=== PATIENT | male | born 1965 | race Caucasian/White ===

== ENCOUNTER → 2016-05-21 | Outpatient (CLI) | payer MEDICARE, MEDICAID ==
[~2016-05-21] MED LIST: /DIVA50TA PO; /PRAV20TA; /PRAV20TA PO; CALC500T19 PO; CALCCHW12; CALCTAB41 PO; COLA100C PO; COLA100C2; COLA50CA3 PO; DEPA500T; DEPA500T2 PO; DRIS1CAP PO; DRIS50002 PO; DULC100C PO; DULC5TAB PO; DULCOLAX; FLEEENE4 PR; FLEETS; FLOR250C PO; Home Oxygen; LACT10SO8; LACT20EL PO; LACTPOW PO; MACR100C3 PO; MILKSUS; MIRA255PW PO; MIRA3350 PO; MIRALEX; MOM30SS PO; MYSO50TA; MYSO50TA PO; MYSO50TA5 PO; NIFE15CA PO; OMEP40CA2 PO; POLY150C4 PO; PRAV20TA2 PO; PRIL20CA; PRIL20CA PO; PRIL40CA; RECL5INJ2 IV; RECLAST; SENO8.6T11 PO; SENO8.6T5; SYNT25TA PO; TRAZ100T; TRAZ50TA2 PO; TRAZ50TA4 PO; VITAMIN D50000 UNT; WELL100T2; [UNRECOGNIZED DRUG - REMARK] XX
--- NOTE | 2016-05-23 09:17 | DEXA ---
AP SPINE L1 - L4 0.874 -2.9 -2.1 LT FEMUR TOTAL 0.663 -3.0 -2.3 RT FEMUR TOTAL 0.690 -2.9 -2.1 TOTAL BODY TOTAL OTHER DUAL FEMUR FRAX* ASSESSMENT Risk factors: History of adult fracture. 10 year probability of fracture Major osteoporotic fracture 10.3 % Hip fracture 2.8 % COMMENTS: There is osteoporosis of the spine and hips. The density of the spine has increased 7.6% since the initial exam on 2009. The spine density has decreased 12.6% since the most recent exam on 04/07/2012. The density of the left hip has decreased 19.9% since initial exam on 2009. The density of the left hip has decreased 6.6% since the most recent exam on 03/2012. FOLLOW-UP: Recommendation for the next bone density exam: 2 years. JOSEE
== END ==
LOC: M WHC 11:13
PROVIDERS: ATTEND Family Medicine
DX: M81.0 Age-related osteoporosis without current pathological fracture (principal)

== ENCOUNTER → 2016-08-06 | Outpatient (CLI) | payer MEDICARE, MEDICAID ==
[~2016-08-06] MED LIST changes: -COLA100C PO; +COLA100C3 PO
== END ==
LOC: M WUC 08:33
PROVIDERS: ATTEND Family Medicine
DX: M81.0 Age-related osteoporosis without current pathological fracture (principal)

== ENCOUNTER → 2016-08-14 | Outpatient (CLI) | payer MEDICARE, MEDICAID ==
[2016-08-14 10:18] LABS: BASO % 0.7 % (0.0-1.0); EOS # 0.1 K/mm3 (0.0-0.50); EOS % 1.4 % (0.0-3.0); LARGE UNSTAINED CELL # 0.1 K/mm3 (0.0-0.4); LARGE UNSTAINED CELL % 1.9 % (0.0-4.0); LYMPH # 2.1 K/mm3 (1.5-4.5); LYMPH % 43.7 % (24.0-44.0); MEAN CORPUSCULAR HGB CONC 32.9 g/dl (32.0-36.5); MEAN CORPUSCULAR VOLUME 97.2 fl (80.0-96.0); MONO # 0.4 K/mm3 (0.0-0.8); MONO % 9.2 % (0.0-5.0); PLATELET COUNT, AUTOMATED 189 k/mm3 (150-450); RED CELL DISTRIBUTION WIDTH 13.6 % (11.5-14.5); WHITE BLOOD COUNT 4.7 K/mm3 (4.0-10.0)
[2016-08-14 11:05] LABS: ALBUMIN 3.3 GM/DL (3.2-5.2); ALBUMIN/GLOBULIN RATIO 0.83 (1.00-1.93); ALKALINE PHOSPHATASE 95 U/L (45-117); ALT/SGPT 19 U/L (12-78); ANION GAP 5 MEQ/L (8-16); AST/SGOT 15 U/L (15-37); BILIRUBIN,TOTAL 0.3 MG/DL (0.2-1.0); BLOOD UREA NITROGEN 22 MG/DL (7-18); CALCIUM LEVEL 8.6 MG/DL (8.5-10.1); CARBON DIOXIDE LEVEL 31 MEQ/L (21-32); CHLORIDE LEVEL 108 MEQ/L (98-107); CHOLESTEROL LEVEL 125 MG/DL (<200); CREATININE FOR GFR 0.67 MG/DL (0.70-1.30); FERRITIN 33 NG/ML (26-388); GLOMERULAR FILTRATION RATE > 60.0 (>56); GLUCOSE, FASTING 70 MG/DL (70-105); PERCENT SATURATION 34.3 % (19.7-37.4); POTASSIUM SERUM 4.1 MEQ/L (3.5-5.1); SODIUM LEVEL 144 MEQ/L (136-145); TOTAL IRON BINDING CAPACITY 300 UG/DL (250-450); TOTAL PROTEIN 7.3 GM/DL (6.4-8.2); TRIGLYCERIDES LEVEL 108 MG/DL (<150)
== END ==
LOC: M WUC 08:26
PROVIDERS: ATTEND Family Medicine
DX: D69.6 Thrombocytopenia, unspecified (principal); E78.2 Mixed hyperlipidemia; E55.9 Vitamin D deficiency, unspecified; D50.9 Iron deficiency anemia, unspecified

== ENCOUNTER → 2016-08-18 | Outpatient (CLI) | payer MEDICARE, MEDICAID ==
--- NOTE | 2016-08-18 12:11 | REP ---
REASON: Known hydrocele. COMPARISON: 06/19/2015 The right testicle measures 4.4 x 2.4 x 2.8 cm and the left measures 3.8 x 2.4 x 2.9 cm. The testicular parenchymal echopattern has not changed significantly from the prior exam when the technical differences between the examinations are taken into consideration. Scattered areas of hypoechogenicity again seen, particularly in the right testicle, status quo. Doppler of each testicle shows color flow phenomenon bilaterally. There are bilateral hydroceles, left greater than right. IMPRESSION: Abnormal bilateral, but right greater than left, parenchymal echotexture, but essentially unchanged from the prior exam. The exact etiology of this is uncertain. This needs to be correlated clinically. Bilateral hydroceles, left greater than right. An infiltrative process involving the testicles, right greater than left, cannot be ruled out by this exam. Signed by Eddi Benoit DO 08/18/2016 02:15 P
== END ==
LOC: M SMT 09:26
PROVIDERS: ATTEND Nurse Practitioner Women's Health
DX: N43.3 Hydrocele, unspecified (principal); R93.8 Abnormal findings on diagnostic imaging of other specified body structures; M81.0 Age-related osteoporosis without current pathological fracture; R32 Unspecified urinary incontinence

== ENCOUNTER → 2016-08-24 | Outpatient (CLI) | payer MEDICARE, MEDICAID | LOC: M WUC 13:42 | PROVIDERS: ATTEND Nurse Practitioner Women's Health | DX: Z12.5 Encounter for screening for malignant neoplasm of prostate (principal) | CPT/HCPCS: 36415; G0103 ==

== ENCOUNTER → 2016-08-28 | Outpatient (CLI) | payer MEDICARE, MEDICAID ==
[2016-09-06 14:11] LABS: (LD) FRACTION 1 27 % (17-32); (LD) FRACTION 2 33 % (25-40); (LD) FRACTION 3 22 % (17-27); (LD) FRACTION 4 9 % (5-13); (LD) FRACTION 5 9 % (4-20); HCG SERUM TUMOR MARKER QUANT < 1 mIU/mL (0-3); LDH 208 IU/L (121-224)
== END ==
LOC: M SMT 11:31
PROVIDERS: ATTEND Urology
DX: N43.3 Hydrocele, unspecified (principal); Z12.5 Encounter for screening for malignant neoplasm of prostate
CPT/HCPCS: 36415; 82105; 83625; 84702; G0463

== ENCOUNTER → 2016-09-29 | Outpatient (CLI) | payer MEDICARE, MEDICAID ==
[2016-09-29 09:23] LABS: BASO % 0.6 % (0.0-1.0); EOS # 0.1 K/mm3 (0.0-0.50); EOS % 1.1 % (0.0-3.0); LARGE UNSTAINED CELL # 0.2 K/mm3 (0.0-0.4); LARGE UNSTAINED CELL % 2.4 % (0.0-4.0); LYMPH # 2.3 K/mm3 (1.5-4.5); LYMPH % 36.1 % (24.0-44.0); MEAN CORPUSCULAR HEMOGLOBIN 33.3 pg (27.0-33.0); MEAN CORPUSCULAR HGB CONC 33.9 g/dl (32.0-36.5); MEAN CORPUSCULAR VOLUME 98.3 fl (80.0-96.0); MONO # 0.6 K/mm3 (0.0-0.8); MONO % 8.5 % (0.0-5.0); NEUTROPHILS # 3.3 K/mm3 (1.8-7.7); NEUTROPHILS % 51.2 % (36.0-66.0); PLATELET COUNT, AUTOMATED 186 k/mm3 (150-450); RED CELL DISTRIBUTION WIDTH 13.5 % (11.5-14.5); WHITE BLOOD COUNT 6.4 K/mm3 (4.0-10.0)
[2016-09-29 10:09] LABS: ALBUMIN 3.5 GM/DL (3.2-5.2); ALBUMIN/GLOBULIN RATIO 0.85 (1.00-1.93); ALKALINE PHOSPHATASE 93 U/L (45-117); ALT/SGPT 19 U/L (12-78); ANION GAP 4 MEQ/L (8-16); AST/SGOT 15 U/L (15-37); BILIRUBIN,TOTAL 0.3 MG/DL (0.2-1.0); BLOOD UREA NITROGEN 27 MG/DL (7-18); CALCIUM LEVEL 8.5 MG/DL (8.5-10.1); CARBON DIOXIDE LEVEL 32 MEQ/L (21-32); CHLORIDE LEVEL 110 MEQ/L (98-107); CREATININE FOR GFR 0.66 MG/DL (0.70-1.30); GLOMERULAR FILTRATION RATE > 60.0 (>56); GLUCOSE, FASTING 70 MG/DL (70-105); POTASSIUM SERUM 4.1 MEQ/L (3.5-5.1); SODIUM LEVEL 146 MEQ/L (136-145); TOTAL PROTEIN 7.6 GM/DL (6.4-8.2)
[2016-10-02 00:07] LABS: PHENOBARBITAL (PRIMIDONE) 3 ug/mL (15-40)
== END ==
LOC: M WUC 08:08
PROVIDERS: ATTEND Psychiatry & Neurology Neurology
DX: G40.909 Epilepsy, unspecified, not intractable, without status epilepticus (principal)

== ENCOUNTER → 2016-12-17 | Outpatient (CLI) | payer MEDICARE, MEDICAID ==
[~2016-12-17] MED LIST changes: -COLA100C3 PO; +COLA100C5 PO; +TRAZ50TA11 PO; -TRAZ50TA4 PO
[2016-12-17 14:25] LABS: BASO % 0.6 % (0.0-1.0); EOS # 0.1 K/mm3 (0.0-0.50); EOS % 1.2 % (0.0-3.0); LARGE UNSTAINED CELL # 0.2 K/mm3 (0.0-0.4); LARGE UNSTAINED CELL % 2.6 % (0.0-4.0); LYMPH # 2.7 K/mm3 (1.5-4.5); LYMPH % 43.3 % (24.0-44.0); MEAN CORPUSCULAR HEMOGLOBIN 32.7 pg (27.0-33.0); MEAN CORPUSCULAR HGB CONC 32.7 g/dl (32.0-36.5); MONO # 0.5 K/mm3 (0.0-0.8); MONO % 8.6 % (0.0-5.0); NEUTROPHILS # 2.5 K/mm3 (1.8-7.7); NEUTROPHILS % 43.6 % (36.0-66.0); PLATELET COUNT, AUTOMATED 163 k/mm3 (150-450); RED CELL DISTRIBUTION WIDTH 13.7 % (11.5-14.5); WHITE BLOOD COUNT 5.8 K/mm3 (4.0-10.0)
[2016-12-17 14:30] LABS: ALBUMIN 3.6 GM/DL (3.2-5.2); ALKALINE PHOSPHATASE 75 U/L (45-117); ALT/SGPT 25 U/L (12-78); ANION GAP 6 MEQ/L (8-16); AST/SGOT 17 U/L (15-37); BILIRUBIN,TOTAL 0.2 MG/DL (0.2-1.0); BLOOD UREA NITROGEN 21 MG/DL (7-18); CALCIUM LEVEL 9.5 MG/DL (8.5-10.1); CARBON DIOXIDE LEVEL 31 MEQ/L (21-32); CHLORIDE LEVEL 109 MEQ/L (98-107); CREATININE FOR GFR 0.68 MG/DL (0.70-1.30); FERRITIN 40 NG/ML (26-388); FREE T4 1.02 NG/DL (0.76-1.46); GLOMERULAR FILTRATION RATE > 60.0 (>56); GLUCOSE, FASTING 72 MG/DL (70-105); PERCENT SATURATION 27.8 % (19.7-50.0); POTASSIUM SERUM 4.5 MEQ/L (3.5-5.1); SODIUM LEVEL 146 MEQ/L (136-145); TOTAL IRON BINDING CAPACITY 316 UG/DL (250-450); TOTAL PROTEIN 7.6 GM/DL (6.4-8.2)
== END ==
LOC: M WUC 08:33
PROVIDERS: ATTEND Family Medicine
DX: G40.909 Epilepsy, unspecified, not intractable, without status epilepticus (principal); D50.9 Iron deficiency anemia, unspecified; Z79.899 Other long term (current) drug therapy

== ENCOUNTER → 2017-03-25 | Outpatient (CLI) | payer MEDICARE, MEDICAID ==
[2017-03-26 14:18] LABS: PSA TOTAL 1.6 ng/mL (0.0-4.0)
== END ==
LOC: M WUC 08:58
PROVIDERS: ATTEND Urology
DX: Z12.5 Encounter for screening for malignant neoplasm of prostate (principal)

== ENCOUNTER → 2017-03-26 | Outpatient (CLI) | payer MEDICARE, MEDICAID ==
[2017-03-31 00:08] LABS: PHENOBARBITAL (PRIMIDONE) 3 ug/mL (15-40)
== END ==
LOC: M SMT 09:57
PROVIDERS: ATTEND Physician Assistant Medical
DX: Z51.81 Encounter for therapeutic drug level monitoring (principal); Z79.899 Other long term (current) drug therapy; R56.9 Unspecified convulsions; R25.1 Tremor, unspecified

== ENCOUNTER → 2017-05-26 | Outpatient (CLI) | payer MEDICARE, MEDICAID ==
[2017-05-26 09:32] LABS: BASO % 0.5 % (0.0-1.0); EOS # 0.1 10^3/uL (0.0-0.50); EOS % 0.9 % (0.0-3.0); HEMATOCRIT 46.2 % (42.0-52.0); HEMOGLOBIN 15.4 g/dl (14.0-18.0); IMMATURE GRANULOCYTE % 0.2 % (0-0); LYMPH # 2.8 10^3/uL (1.5-4.5); LYMPH % 44.4 % (24.0-44.0); MEAN CORPUSCULAR HEMOGLOBIN 31.8 pg (27.0-33.0); MEAN CORPUSCULAR HGB CONC 33.3 g/dl (32.0-36.5); MEAN CORPUSCULAR VOLUME 95.3 fl (80.0-96.0); MONO # 0.8 10^3/uL (0.0-0.8); MONO % 11.8 % (0.0-5.0); NEUTROPHILS # 2.7 10^3/uL (1.8-7.7); NEUTROPHILS % 42.2 % (36.0-66.0); PLATELET COUNT, AUTOMATED 187 10^3/uL (150-450); RED BLOOD COUNT 4.85 10^6/uL (4.30-6.10); RED CELL DISTRIBUTION WIDTH 13.8 % (11.5-14.5); WHITE BLOOD COUNT 6.4 10^3/uL (4.0-10.0)
[2017-05-26 09:57] LABS: ALBUMIN 3.5 GM/DL (3.2-5.2); ALKALINE PHOSPHATASE 75 U/L (45-117); ALT/SGPT 23 U/L (12-78); ANION GAP 5 MEQ/L (8-16); AST/SGOT 19 U/L (7-37); BILIRUBIN,TOTAL 0.3 MG/DL (0.2-1.0); BLOOD UREA NITROGEN 24 MG/DL (7-18); C REACTIVE PROTEIN QUANTITATIV < 0.30 MG/DL (0.00-0.30); CALCIUM LEVEL 9.2 MG/DL (8.5-10.1); CARBON DIOXIDE LEVEL 32 MEQ/L (21-32); CHLORIDE LEVEL 111 MEQ/L (98-107); CHOLESTEROL LEVEL 134 MG/DL (<200); CHOLESTEROL RISK RATIO 2.436 (<5); CPK CREATINE PHOSPHOKINASE 47 U/L (39-308); CREATININE FOR GFR 0.62 MG/DL (0.70-1.30); GLOMERULAR FILTRATION RATE > 60.0 (>56); GLUCOSE, FASTING 74 MG/DL (70-100); HDL CHOLESTEROL 55 MG/DL (>40); LDL CHOLESTEROL 60.2 MG/DL (<100); NON-HDL-C 79 MG/DL; POTASSIUM SERUM 4.4 MEQ/L (3.5-5.1); SODIUM LEVEL 148 MEQ/L (136-145); TOTAL PROTEIN 7.4 GM/DL (6.4-8.2); TRIGLYCERIDES LEVEL 94 MG/DL (<150); VALPROIC ACID (DEPAKOTE) 82.4 UG/ML (50.0-100.0)
[2017-05-26 10:39] LABS: VITAMIN B12 LEVEL 1303 PG/ML (247-911)
== END ==
LOC: M WUC 08:14
DX: D50.9 Iron deficiency anemia, unspecified (principal); E78.2 Mixed hyperlipidemia; G40.909 Epilepsy, unspecified, not intractable, without status epilepticus
CPT/HCPCS: 82550

== ENCOUNTER 2017-06-17 07:00 | Emergency (ER) | payer MEDICARE, MEDICAID | END 2017-06-17 08:12 | disposition home or self-care (01) | LOC: M ED 07:00 | DX: R09.89 Other specified symptoms and signs involving the circulatory and respiratory systems (principal); F73 Profound intellectual disabilities; R56.9 Unspecified convulsions; D72.819 Decreased white blood cell count, unspecified; Z79.890 Hormone replacement therapy; Z79.899 Other long term (current) drug therapy; Z87.19 Personal history of other diseases of the digestive system | CPT/HCPCS: 99282; G0463 ==

== ENCOUNTER → 2017-09-04 | Outpatient (CLI) | payer MEDICARE, MEDICAID | LOC: M WUC 17:46 | DX: T17.220A Food in pharynx causing asphyxiation, initial encounter (principal); Y92.89 Other specified places as the place of occurrence of the external cause | CPT/HCPCS: 71046 ==

== ENCOUNTER → 2017-10-11 | Outpatient (CLI) | payer MEDICARE, MEDICAID ==
[2017-10-11 15:58] LABS: VALPROIC ACID (DEPAKOTE) 71.8 UG/ML (50.0-100.0)
== END ==
LOC: M WUC 08:50
DX: Z51.81 Encounter for therapeutic drug level monitoring (principal); Z79.899 Other long term (current) drug therapy; R56.9 Unspecified convulsions; R25.1 Tremor, unspecified

== ENCOUNTER → 2017-10-11 | Outpatient (CLI) | payer MEDICARE, MEDICAID ==
[2017-10-11 15:46] LABS: BASO % 0.6 % (0.0-1.0); EOS # 0.1 10^3/uL (0.0-0.50); EOS % 1.1 % (0.0-3.0); HEMATOCRIT 42.7 % (42.0-52.0); HEMOGLOBIN 14.2 g/dl (13.5-17.5); IMMATURE GRANULOCYTE % 0.2 % (0-3.0); LYMPH # 2.9 10^3/uL (1.5-4.5); LYMPH % 45.8 % (24.0-44.0); MEAN CORPUSCULAR HEMOGLOBIN 32.3 pg (27.0-33.0); MEAN CORPUSCULAR HGB CONC 33.3 g/dl (32.0-36.5); MEAN CORPUSCULAR VOLUME 97.3 fl (80.0-96.0); MONO # 0.8 10^3/uL (0.0-0.8); MONO % 12.5 % (0.0-5.0); NEUTROPHILS # 2.5 10^3/uL (1.8-7.7); NEUTROPHILS % 39.8 % (36.0-66.0); PLATELET COUNT, AUTOMATED 170 10^3/uL (150-450); RED BLOOD COUNT 4.39 10^6/uL (4.30-6.10); RED CELL DISTRIBUTION WIDTH 14.3 % (11.5-14.5); RETIC HEMOGLOBIN EQUIVALENT 37.4 pg (24-36); RETICULOCYTE # 36.9 10^9/L (17-77); RETICULOCYTE % 0.8 % (0.5-1.5); WHITE BLOOD COUNT 6.4 10^3/uL (4.0-10.0)
[2017-10-11 15:59] LABS: ALBUMIN 3.3 GM/DL (3.2-5.2); ALBUMIN/GLOBULIN RATIO 0.83 (1.00-1.93); ALKALINE PHOSPHATASE 80 U/L (45-117); ALT/SGPT 22 U/L (12-78); ANION GAP 4 MEQ/L (8-16); AST/SGOT 17 U/L (7-37); BILIRUBIN,TOTAL 0.2 MG/DL (0.2-1.0); BLOOD UREA NITROGEN 24 MG/DL (7-18); CALCIUM LEVEL 8.7 MG/DL (8.5-10.1); CARBON DIOXIDE LEVEL 33 MEQ/L (21-32); CHLORIDE LEVEL 111 MEQ/L (98-107); CREATININE FOR GFR 0.69 MG/DL (0.70-1.30); FREE T4 0.82 NG/DL (0.76-1.46); GLOMERULAR FILTRATION RATE > 60.0 (>56); GLUCOSE, FASTING 73 MG/DL (70-100); POTASSIUM SERUM 4.4 MEQ/L (3.5-5.1); SODIUM LEVEL 148 MEQ/L (136-145); TOTAL PROTEIN 7.3 GM/DL (6.4-8.2); VALPROIC ACID (DEPAKOTE) 71.1 UG/ML (50.0-100.0)
[2017-10-12 09:55] LABS: TOTAL 25(OH) VITAMIN D 40.5 NG/ML (30.0-100.0)
[2017-10-12 09:56] LABS: PTH INTACT 47.2 PG/ML (18.5-88.0)
== END ==
LOC: M WUC 08:46
DX: D50.9 Iron deficiency anemia, unspecified (principal); E03.9 Hypothyroidism, unspecified; E55.9 Vitamin D deficiency, unspecified; G43.909 Migraine, unspecified, not intractable, without status migrainosus; Z51.81 Encounter for therapeutic drug level monitoring; Z79.899 Other long term (current) drug therapy; R25.1 Tremor, unspecified
CPT/HCPCS: 84443

== ENCOUNTER → 2017-12-09 | Outpatient (CLI) | payer MEDICARE, MEDICAID | LOC: M RAD 12:28 | DX: N43.3 Hydrocele, unspecified (principal) | CPT/HCPCS: 76870 ==

== ENCOUNTER → 2018-02-09 | Outpatient (CLI) | payer MEDICARE, MEDICAID ==
[2018-02-09 12:44] LABS: BASO % 0.3 % (0.0-1.0); EOS # 0.1 10^3/uL (0.0-0.50); EOS % 1.3 % (0.0-3.0); HEMATOCRIT 42.9 % (42.0-52.0); HEMOGLOBIN 14.3 g/dl (13.5-17.5); IMMATURE GRANULOCYTE % 0.3 % (0-3.0); LYMPH # 2.3 10^3/uL (1.5-4.5); LYMPH % 30.1 % (24.0-44.0); MEAN CORPUSCULAR HGB CONC 33.3 g/dl (32.0-36.5); MONO % 13.2 % (0.0-5.0); NEUTROPHILS # 4.1 10^3/uL (1.8-7.7); NEUTROPHILS % 54.8 % (36.0-66.0); PLATELET COUNT, AUTOMATED 158 10^3/uL (150-450); RED BLOOD COUNT 4.47 10^6/uL (4.30-6.10); RED CELL DISTRIBUTION WIDTH 14.5 % (11.5-14.5); WHITE BLOOD COUNT 7.5 10^3/uL (4.0-10.0)
[2018-02-09 13:02] LABS: ALBUMIN 3.1 GM/DL (3.2-5.2); ALBUMIN/GLOBULIN RATIO 0.74 (1.00-1.93); ALKALINE PHOSPHATASE 84 U/L (45-117); ALT/SGPT 18 U/L (12-78); ANION GAP 5 MEQ/L (8-16); AST/SGOT 15 U/L (7-37); BILIRUBIN,TOTAL 0.3 MG/DL (0.2-1.0); BLOOD UREA NITROGEN 16 MG/DL (7-18); C REACTIVE PROTEIN QUANTITATIV 4.19 MG/DL (0.00-0.30); CALCIUM LEVEL 8.5 MG/DL (8.5-10.1); CARBON DIOXIDE LEVEL 31 MEQ/L (21-32); CHLORIDE LEVEL 110 MEQ/L (98-107); CHOLESTEROL LEVEL 139 MG/DL (<200); CPK CREATINE PHOSPHOKINASE 43 U/L (39-308); CREATININE FOR GFR 0.65 MG/DL (0.70-1.30); GLOMERULAR FILTRATION RATE > 60.0 (>56); GLUCOSE, FASTING 75 MG/DL (70-100); HDL CHOLESTEROL 50 MG/DL (>40); LDL CHOLESTEROL 69 MG/DL (<100); NON-HDL-C 89 MG/DL; POTASSIUM SERUM 4.6 MEQ/L (3.5-5.1); PSA SCREENING 8.37 NG/ML (< 4.0); SODIUM LEVEL 146 MEQ/L (136-145); TOTAL PROTEIN 7.3 GM/DL (6.4-8.2); TRIGLYCERIDES LEVEL 99 MG/DL (<150); VALPROIC ACID (DEPAKOTE) 71.2 UG/ML (50.0-100.0)
== END ==
LOC: M WUC 08:51
DX: D69.6 Thrombocytopenia, unspecified (principal); E78.2 Mixed hyperlipidemia; Z12.5 Encounter for screening for malignant neoplasm of prostate; G40.909 Epilepsy, unspecified, not intractable, without status epilepticus
CPT/HCPCS: 82550

== ENCOUNTER 2018-02-23 12:44 | Observation (INO) | payer MEDICARE, MEDICAID ==
[2018-02-23] MEDS: ONDANSETRON 4MG/2ML VIAL (J2405) IV ×3 (13:45→23:02)
[2018-02-23 13:52] LABS: BASO % 0.2 % (0.0-1.0); EOS % 0.3 % (0.0-3.0); HEMATOCRIT 42.8 % (42.0-52.0); HEMOGLOBIN 14.5 g/dl (13.5-17.5); IMMATURE GRANULOCYTE % 0.4 % (0-3.0); LYMPH # 1.6 10^3/uL (1.5-4.5); LYMPH % 15.4 % (24.0-44.0); MEAN CORPUSCULAR HEMOGLOBIN 32.4 pg (27.0-33.0); MEAN CORPUSCULAR HGB CONC 33.9 g/dl (32.0-36.5); MEAN CORPUSCULAR VOLUME 95.7 fl (80.0-96.0); MONO # 0.9 10^3/uL (0.0-0.8); NEUTROPHILS # 7.5 10^3/uL (1.8-7.7); NEUTROPHILS % 74.7 % (36.0-66.0); PLATELET COUNT, AUTOMATED 185 10^3/uL (150-450); RED BLOOD COUNT 4.47 10^6/uL (4.30-6.10); RED CELL DISTRIBUTION WIDTH 14.6 % (11.5-14.5); WHITE BLOOD COUNT 10.1 10^3/uL (4.0-10.0)
[2018-02-23 14:04] LABS: GLUCOSE, FASTING 101 MG/DL (70-100)
[2018-02-23 14:05] LABS: ALBUMIN 3.4 GM/DL (3.2-5.2); ALBUMIN/GLOBULIN RATIO 0.81 (1.00-1.93); ALKALINE PHOSPHATASE 88 U/L (45-117); ALT/SGPT 25 U/L (12-78); ANION GAP 8 MEQ/L (8-16); AST/SGOT 22 U/L (7-37); BILIRUBIN,DIRECT < 0.1 MG/DL (0.0-0.2); BILIRUBIN,TOTAL 0.3 MG/DL (0.2-1.0); BLOOD UREA NITROGEN 27 MG/DL (7-18); CALCIUM LEVEL 8.8 MG/DL (8.5-10.1); CARBON DIOXIDE LEVEL 28 MEQ/L (21-32); CHLORIDE LEVEL 109 MEQ/L (98-107); CREATININE FOR GFR 1.12 MG/DL (0.70-1.30); GLOMERULAR FILTRATION RATE > 60.0 (>56); LIPASE 170 U/L (73-393); POTASSIUM SERUM 4.2 MEQ/L (3.5-5.1); SODIUM LEVEL 145 MEQ/L (136-145); TOTAL PROTEIN 7.6 GM/DL (6.4-8.2); VALPROIC ACID (DEPAKOTE) 70.9 UG/ML (50.0-100.0)
[2018-02-23] MEDS: NS 1,000 ML IV ×2 (15:02→18:29)
[2018-02-23] MEDS ORDERED: ACETAMINOPHEN TAB 650MG DOSE (2X325MG) PO (17:30)
[2018-02-23] MEDS ORDERED: BISACODYL 5 MG TAB PO ×2 (18:15→18:32)
[2018-02-23] MEDS ORDERED: FLEET ENEMA PR (18:15)
[2018-02-23] MEDS: CALCIUM/VITAMIN D 500 MG TAB PO (21:00)
[2018-02-23] MEDS: guaiFENesin ER 600 MG TAB PO (21:00)
[2018-02-23] MEDS: SENOKOT S TAB PO (21:00)
[2018-02-23] MEDS ORDERED: NON-FORMULARY COMPOUNDED MEDICATION PO (21:00)
[2018-02-23] MEDS: PRIMIDONE 50 MG TAB PO (21:00)
[2018-02-23] MEDS: PRAVASTATIN 20 MG TAB PO (21:00)
[2018-02-23] MEDS: traZODone 50 MG TAB PO (21:00)
[2018-02-23] MEDS ORDERED: NON-FORMULARY COMPOUNDED MEDICATION SQ (21:00)
[2018-02-23] MEDS: BACTRIM 160MG/800MG DS TAB PO (21:00)
[2018-02-23] MEDS: DIVALPROEX 500MG *ER* TAB PO (21:00)
[2018-02-24] MEDS: ONDANSETRON 4MG/2ML VIAL (J2405) IV (04:42)
[2018-02-24] MEDS: LEVOTHYROXINE 25MCG TABLET (0.025MG) PO ×2 (06:00→08:51)
[2018-02-24] MEDS: NS 1,000 ML IV (06:36)
[2018-02-24 06:50] LABS: HEMATOCRIT 37.2 % (42.0-52.0); HEMOGLOBIN 12.5 g/dl (13.5-17.5); MEAN CORPUSCULAR HEMOGLOBIN 31.7 pg (27.0-33.0); MEAN CORPUSCULAR HGB CONC 33.6 g/dl (32.0-36.5); MEAN CORPUSCULAR VOLUME 94.4 fl (80.0-96.0); PLATELET COUNT, AUTOMATED 150 10^3/uL (150-450); RED BLOOD COUNT 3.94 10^6/uL (4.30-6.10); RED CELL DISTRIBUTION WIDTH 14.8 % (11.5-14.5); WHITE BLOOD COUNT 9.3 10^3/uL (4.0-10.0)
[2018-02-24 07:19] LABS: ANION GAP 3 MEQ/L (8-16); BLOOD UREA NITROGEN 21 MG/DL (7-18); CARBON DIOXIDE LEVEL 28 MEQ/L (21-32); CHLORIDE LEVEL 113 MEQ/L (98-107); CREATININE FOR GFR 0.59 MG/DL (0.70-1.30); GLOMERULAR FILTRATION RATE > 60.0 (>56); GLUCOSE, FASTING 80 MG/DL (70-100); POTASSIUM SERUM 3.9 MEQ/L (3.5-5.1); SODIUM LEVEL 144 MEQ/L (136-145)
[2018-02-24] MEDS: guaiFENesin ER 600 MG TAB PO ×2 (08:50→09:00)
[2018-02-24] MEDS: OMEPRAZOLE 20 MG CAP PO ×2 (08:50→09:00)
[2018-02-24] MEDS: BACTRIM 160MG/800MG DS TAB PO ×2 (08:50→09:00)
[2018-02-24] MEDS: SENOKOT S TAB PO ×2 (08:51→09:00)
[2018-02-24] MEDS: CALCIUM/VITAMIN D 500 MG TAB PO ×2 (08:51→09:00)
[2018-02-24] MEDS: PRIMIDONE 50 MG TAB PO ×2 (08:51→09:00)
[2018-02-24] MEDS: DIVALPROEX 500MG *ER* TAB PO ×2 (08:51→09:00)
[2018-02-24] MEDS: MIRALAX *UNIT DOSE* 17GM PACKET PO (09:00)
[2018-02-24] MEDS: ENOXAPARIN 40 MG/0.4 ML SYRINGE (J1650) SC (09:00)
[2018-02-28] MEDS ORDERED: VITAMIN D 50,000 UNITS CAPSULE (ERGOCALCIFEROL 1.25MG) PO (09:00)
== END 2018-02-24 15:20 | disposition home or self-care (01) ==
LOC: M ED 12:44 → M ED INP 17:26 → M MS4PR 21:00
DX: K52.9 Noninfective gastroenteritis and colitis, unspecified (principal); E86.0 Dehydration; F72 Severe intellectual disabilities; G31.84 Mild cognitive impairment of uncertain or unknown etiology; G40.802 Other epilepsy, not intractable, without status epilepticus; K56.609 Unspecified intestinal obstruction, unspecified as to partial versus complete obstruction; M81.0 Age-related osteoporosis without current pathological fracture; N43.3 Hydrocele, unspecified; Z79.899 Other long term (current) drug therapy
CPT/HCPCS: J2405

== ENCOUNTER → 2018-03-11 | Outpatient (CLI) | payer MEDICARE, MEDICAID ==
[2018-03-13 15:08] LABS: PSA TOTAL 1.4 ng/mL (0.0-4.0)
== END ==
LOC: M WUC 16:50
DX: R97.20 Elevated prostate specific antigen [PSA] (principal)
CPT/HCPCS: 84154

== ENCOUNTER → 2018-04-06 | Outpatient (CLI) | payer MEDICARE, MEDICAID ==
[2018-04-06 20:43] LABS: VALPROIC ACID (DEPAKOTE) 74.9 UG/ML (50.0-100.0)
[2018-04-10 00:07] LABS: PHENOBARBITAL (PRIMIDONE) 3 ug/mL (15-40); PRIMIDONE, SERUM 2.9 ug/mL (5.0-12.0)
== END ==
LOC: M WUC 15:35
DX: R56.9 Unspecified convulsions (principal); R25.1 Tremor, unspecified; Z51.81 Encounter for therapeutic drug level monitoring; Z79.899 Other long term (current) drug therapy
CPT/HCPCS: 80188

== ENCOUNTER → 2018-05-24 | Outpatient (CLI) | payer MEDICARE, MEDICAID ==
[~2018-05-24] MED LIST changes: +AMIT24CA7 PO; +BACT800T5 PO; -DRIS50002 PO; +DRIS50003 PO; +FORT600S SC; +OMEP20CA3 PO; +SENE8.6T PO; +TRAZ-160 PO; -TRAZ50TA11 PO
== END ==
LOC: M WHC 10:14
PROVIDERS: ATTEND Family Medicine
DX: M81.0 Age-related osteoporosis without current pathological fracture (principal)

== ENCOUNTER → 2018-06-01 | Outpatient (CLI) | payer MEDICARE, MEDICAID ==
[2018-06-01 21:04] LABS: BASO % 0.3 % (0.0-1.0); EOS # 0.1 10^3/uL (0.0-0.50); EOS % 1.5 % (0.0-3.0); HEMATOCRIT 43.7 % (42.0-52.0); HEMOGLOBIN 14.2 g/dl (13.5-17.5); LYMPH # 2.2 10^3/uL (1.5-4.5); LYMPH % 33.4 % (24.0-44.0); MEAN CORPUSCULAR HEMOGLOBIN 31.5 pg (27.0-33.0); MEAN CORPUSCULAR HGB CONC 32.5 g/dl (32.0-36.5); MEAN CORPUSCULAR VOLUME 96.9 fl (80.0-96.0); MONO # 0.9 10^3/uL (0.0-0.8); MONO % 13.4 % (0.0-5.0); NEUTROPHILS # 3.3 10^3/uL (1.8-7.7); NEUTROPHILS % 51.2 % (36.0-66.0); PLATELET COUNT, AUTOMATED 144 10^3/uL (150-450); RED BLOOD COUNT 4.51 10^6/uL (4.30-6.10); WHITE BLOOD COUNT 6.5 10^3/uL (4.0-10.0)
[2018-06-01 21:29] LABS: ALBUMIN 3.4 GM/DL (3.2-5.2); ALT/SGPT 19 U/L (12-78); BILIRUBIN,TOTAL 0.2 MG/DL (0.2-1.0); BLOOD UREA NITROGEN 24 MG/DL (7-18); CALCIUM LEVEL 8.5 MG/DL (8.5-10.1); CARBON DIOXIDE LEVEL 31 MEQ/L (21-32); CHLORIDE LEVEL 105 MEQ/L (98-107); CREATININE FOR GFR 0.55 MG/DL (0.70-1.30); FREE T4 0.89 NG/DL (0.76-1.46); GLOMERULAR FILTRATION RATE > 60.0 (>56); GLUCOSE, FASTING 79 MG/DL (70-100); POTASSIUM SERUM 4.5 MEQ/L (3.5-5.1); PTH INTACT 67.6 PG/ML (18.5-88.0); SODIUM LEVEL 141 MEQ/L (136-145); TOTAL 25(OH) VITAMIN D 38.9 NG/ML (30.0-100.0); TOTAL PROTEIN 7.5 GM/DL (6.4-8.2)
== END ==
LOC: M WUC 16:03
PROVIDERS: ATTEND Family Medicine
DX: D69.6 Thrombocytopenia, unspecified (principal); E55.9 Vitamin D deficiency, unspecified; E03.9 Hypothyroidism, unspecified; D50.9 Iron deficiency anemia, unspecified; G40.909 Epilepsy, unspecified, not intractable, without status epilepticus

== ENCOUNTER → 2018-09-28 | Outpatient (CLI) | payer MEDICARE, MEDICAID ==
[~2018-09-28] MED LIST changes: -/DIVA50TA PO; -/PRAV20TA; -/PRAV20TA PO; +DEPA1TAB3 PO; +LACT15SO PO; -LACT20EL PO; -MIRA255PW PO; -OMEP20CA3 PO; +OMEP20CA4 PO; +OYST1TAB5 PO; +POLY1POW4 PO; +PRAV1TAB39; +PRAV1TAB39 PO; -SENE8.6T PO; +SENN1TAB38 PO; -TRAZ-160 PO; +TRAZ-252 PO; +pericolace PO
== END ==
LOC: M WUC 09-27 10:00
PROVIDERS: ATTEND Physician Assistant Medical
DX: R56.9 Unspecified convulsions (principal); R25.1 Tremor, unspecified

== ENCOUNTER 2018-10-13 06:55 | Day surgery (SDC) | payer MEDICARE, MEDICAID ==
[~2018-10-13] VITALS: Ht 162.6 cm; Wt 54.9 kg
[~2018-10-13 06:55] MED LIST changes: +NS 1,000 ML IV ONE; +OMEP20CA3 PO; -OMEP20CA4 PO
[2018-10-13] MEDS ORDERED: PROPOFOL 200 MG/20 ML VIAL As Ordered ONE (08:06)
[2018-10-13] MEDS ORDERED: LIDOCAINE 2% INJ 100 MG/5 ML SDV (FOR ANES.) As Ordered ONE (08:06)
--- NOTE | 2018-10-13 08:12 | ROOR ---
Patient Name: Raymond Stevenson Procedure Date: 10/13/2018 7:36 AM Date of : 1965 Age: 52 Room: [facility] Gender: Male Note Status: Finalized Procedure: Colonoscopy Indications: Screening for colorectal malignant neoplasm Providers: Cedric Reyez MD Referring MD: Jose Elias Garcias MD Requesting Provider: Medicines: Monitored Anesthesia Care Complications: No immediate complications. Procedure: Pre-Anesthesia Assessment: - Prior to the procedure, a History and Physical was performed, and patient medications and allergies were reviewed. The patient is unable to give consent secondary to the patient being legally incompetent to consent. The risks and benefits of the procedure and the sedation options and risks were discussed with the patient's sister. All questions were answered and informed consent was obtained. Patient identification and proposed procedure were verified by the physician, the nurse and the anesthesiologist in the endoscopy suite. Mental Status Examination: normal. Airway Examination: normal oropharyngeal airway and neck mobility. Respiratory Examination: clear to auscultation. CV Examination: normal. Prophylactic Antibiotics: The patient does not require prophylactic antibiotics. Prior Anticoagulants: The patient has taken no previous anticoagulant or antiplatelet agents. ASA Grade Assessment: IV - A patient with severe systemic disease that is a constant threat to life. After reviewing the risks and benefits, the patient was deemed in satisfactory condition to undergo the procedure. The anesthesia plan was to use monitored anesthesia care (MAC). Immediately prior to administration of medications, the patient was re-assessed for adequacy to receive sedatives. The heart rate, respiratory rate, oxygen saturations, blood pressure, adequacy of pulmonary ventilation, and response to care were monitored throughout the procedure. The physical status of the patient was re-assessed after the procedure. The Colonoscope was introduced through the anus and advanced to the terminal ileum, with identification of the appendiceal orifice and IC valve. The colonoscopy was technically difficult and complex due to poor bowel prep. The patient tolerated the procedure well. The quality of the bowel preparation was poor. Findings: The perianal and digital rectal examinations were normal. There is no endoscopic evidence of inflammation or mass, large polyps, small of flat polyps could not be determined in the entire colon. The retroflexed view of the distal rectum and anal verge was normal and showed no anal or rectal abnormalities. Poor prep, a third to half of colon wall covered with thick stools (no solid stools). Large amount of lavage performed with still some areas (right colon) difficult to maintain clean, clear to fully evaluate areas. Impression: - Preparation of the colon was poor. - The distal rectum and anal verge are normal on retroflexion view. - No specimens collected. Recommendation: - Discharge patient to home (with escort). - Repeat colonoscopy in 1 year because the bowel preparation was suboptimal. Cedric Reyez MD Cedric Reyez MD 10/13/2018 8:11:41 AM Electronically signed by Cedric Reyez MD Number of Addenda: 0 Note Initiated On: 10/13/2018 7:36 AM Estimated Blood Loss: Estimated blood loss: none.
[2018-10-13 08:30] VITALS: BP 113/63
== END 2018-10-13 08:49 | disposition home or self-care (01) ==
LOC: M OPP 06:55
PROVIDERS: ATTEND Surgery
DX: Z12.11 Encounter for screening for malignant neoplasm of colon (principal)

== ENCOUNTER → 2018-10-20 | Outpatient (CLI) | payer MEDICARE, MEDICAID ==
[~2018-10-20] MED LIST changes: -NS 1,000 ML IV ONE
[2018-10-20 20:13] LABS: ALBUMIN 3.4 GM/DL (3.2-5.2); BLOOD UREA NITROGEN 29 MG/DL (7-18); CALCIUM LEVEL 9.2 MG/DL (8.5-10.1); CARBON DIOXIDE LEVEL 30 MEQ/L (21-32); CHLORIDE LEVEL 110 MEQ/L (98-107); CREATININE FOR GFR 0.71 MG/DL (0.70-1.30); GLOMERULAR FILTRATION RATE > 60.0 (>56); GLUCOSE, FASTING 73 MG/DL (70-100); PHOSPHORUS LEVEL 2.6 MG/DL (2.5-4.9); POTASSIUM SERUM 4.2 MEQ/L (3.5-5.1); SODIUM LEVEL 145 MEQ/L (136-145)
== END ==
LOC: M WUC 15:43
PROVIDERS: ATTEND Family Medicine
DX: M81.0 Age-related osteoporosis without current pathological fracture (principal)

== ENCOUNTER 2018-10-21 09:24 | Outpatient (CLI) | payer MEDICARE, MEDICAID ==
[~2018-10-21] VITALS: Ht 162.6 cm; Wt 55.4 kg
[2018-10-21] MEDS ORDERED: ZOLEDRONIC ACID 5 MG in APPROPRIATE DILUENT 1 EA IV ONE (09:45)
== END 2018-10-21 10:40 | disposition home or self-care (01) ==
LOC: M INFU 09:24
PROVIDERS: ATTEND Family Medicine
DX: M81.0 Age-related osteoporosis without current pathological fracture (principal)
CPT/HCPCS: 96365; J3489

== ENCOUNTER → 2018-12-10 | Outpatient (CLI) | payer MEDICARE, MEDICAID ==
[~2018-12-10] MED LIST changes: -OMEP20CA3 PO; +OMEP20CA4 PO
[2018-12-10 09:10] LABS: BASO % 0.5 % (0.0-1.0); EOS # 0.1 10^3/uL (0.0-0.50); EOS % 0.8 % (0.0-3.0); HEMATOCRIT 43.7 % (42.0-52.0); LYMPH % 47.6 % (24.0-44.0); MEAN CORPUSCULAR HEMOGLOBIN 31.3 pg (27.0-33.0); MEAN CORPUSCULAR VOLUME 97.8 fl (80.0-96.0); MONO # 0.7 10^3/uL (0.0-0.8); MONO % 11.4 % (0.0-5.0); NEUTROPHILS # 2.5 10^3/uL (1.8-7.7); NEUTROPHILS % 39.4 % (36.0-66.0); PLATELET COUNT, AUTOMATED 159 10^3/uL (150-450); RED BLOOD COUNT 4.47 10^6/uL (4.30-6.10); WHITE BLOOD COUNT 6.3 10^3/uL (4.0-10.0)
[2018-12-10 09:38] LABS: CHOLESTEROL RISK RATIO 2.545 (<5); FREE T4 0.81 NG/DL (0.76-1.46); THYROID STIMULATING HORMONE 1.78 uIU/ML (0.358-3.740); VALPROIC ACID (DEPAKOTE) 74.1 UG/ML (50.0-100.0)
[2018-12-10 09:59] LABS: PTH INTACT 51.9 PG/ML (18.5-88.0); TOTAL 25(OH) VITAMIN D 54.6 NG/ML (30.0-100.0)
== END ==
LOC: M WUC 08:14
PROVIDERS: ATTEND Nurse Practitioner Family
DX: D69.6 Thrombocytopenia, unspecified (principal); D50.9 Iron deficiency anemia, unspecified; E03.9 Hypothyroidism, unspecified; Z79.899 Other long term (current) drug therapy

== ENCOUNTER → 2019-03-17 | Outpatient (CLI) | payer MEDICARE, MEDICAID ==
[~2019-03-17] MED LIST changes: +CIPR-249 PO; +CIPR500T3 PO; +ENEMENE PR; +IBUP-1720 PO; +NON-325T5 PO; +OMEP40CA97 PO; +OYST500T91 PO; +SENN-23 PO
[2019-03-17 09:52] LABS: BASO # 0.1 10^3/uL (0.0-0.2); BASO % 0.8 % (0.0-1.0); EOS # 0.1 10^3/uL (0.0-0.5); EOS % 1.4 % (0.0-3.0); HEMATOCRIT 46.9 % (42.0-52.0); LYMPH # 2.7 10^3/uL (1.5-5.0); LYMPH % 42.6 % (24.0-44.0); MEAN CORPUSCULAR HEMOGLOBIN 30.1 pg (27.0-33.0); MONO # 0.7 10^3/uL (0.0-0.8); MONO % 11.6 % (0.0-5.0); NEUTROPHILS # 2.7 10^3/uL (1.5-8.5); NEUTROPHILS % 43.4 % (36.0-66.0); PLATELET COUNT, AUTOMATED 154 10^3/uL (150-450); RED BLOOD COUNT 4.99 10^6/uL (4.30-6.10); WHITE BLOOD COUNT 6.3 10^3/uL (4.0-10.0)
[2019-03-17 10:48] LABS: ALBUMIN 3.4 GM/DL (3.2-5.2); ALT/SGPT 28 U/L (12-78); BILIRUBIN,TOTAL 0.6 MG/DL (0.2-1.0); BLOOD UREA NITROGEN 28 MG/DL (7-18); CALCIUM LEVEL 9.6 MG/DL (8.5-10.1); CARBON DIOXIDE LEVEL 34 MEQ/L (21-32); CHLORIDE LEVEL 110 MEQ/L (98-107); CREATININE FOR GFR 0.77 MG/DL (0.70-1.30); GLOMERULAR FILTRATION RATE > 60.0 (>56); GLUCOSE, FASTING 67 MG/DL (70-100); POTASSIUM SERUM 4.8 MEQ/L (3.5-5.1); SODIUM LEVEL 147 MEQ/L (136-145); TOTAL PROTEIN 7.7 GM/DL (6.4-8.2); VALPROIC ACID (DEPAKOTE) 68.8 UG/ML (50.0-100.0)
[2019-03-17 13:17] LABS: TOTAL 25(OH) VITAMIN D 65.2 NG/ML (30.0-100.0)
== END ==
LOC: M WUC 08:27
PROVIDERS: ATTEND Family Medicine
DX: Z12.5 Encounter for screening for malignant neoplasm of prostate (principal); D69.6 Thrombocytopenia, unspecified; E55.9 Vitamin D deficiency, unspecified; G40.909 Epilepsy, unspecified, not intractable, without status epilepticus
CPT/HCPCS: 36415; 80053; 80164; 82306; 83970; 85025; G0103

== ENCOUNTER 2019-03-22 18:18 | Emergency (ER) | payer MEDICARE, MEDICAID ==
[~2019-03-22 18:18] MED LIST changes: -CIPR-249 PO; -CIPR500T3 PO; -ENEMENE PR; -IBUP-1720 PO; -NON-325T5 PO; -OYST500T91 PO; -SENN-23 PO
[2019-03-22] MEDS ORDERED: NON-325T5 PO (19:16)
[2019-03-22] MEDS ORDERED: IBUPROFEN 600 MG TAB PO ONE (19:30)
[2019-03-22] MEDS ORDERED: NS 1,000 ML IV ONE (19:30)
[2019-03-22 20:25] LABS: BASO % 0.3 % (0.0-1.0); HEMATOCRIT 42.8 % (42.0-52.0); HEMOGLOBIN 13.7 g/dl (13.5-17.5); LYMPH # 1.6 10^3/uL (1.5-5.0); LYMPH % 16.3 % (24.0-44.0); MEAN CORPUSCULAR HEMOGLOBIN 30.6 pg (27.0-33.0); MEAN CORPUSCULAR VOLUME 95.7 fl (80.0-96.0); MONO # 0.7 10^3/uL (0.0-0.8); MONO % 7.5 % (0.0-5.0); NEUTROPHILS # 7.2 10^3/uL (1.5-8.5); NEUTROPHILS % 75.4 % (36.0-66.0); PLATELET COUNT, AUTOMATED 111 10^3/uL (150-450); RED BLOOD COUNT 4.47 10^6/uL (4.30-6.10); WHITE BLOOD COUNT 9.6 10^3/uL (4.0-10.0)
[2019-03-22 20:28] LABS: INFLUENZA A AMPLIFICATION NEGATIVE (NEGATIVE); INFLUENZA B AMPLIFICATION NEGATIVE (NEGATIVE)
--- NOTE | 2019-03-22 20:30 | REP ---
CHEST, SINGLE VIEW: Single view of the chest is performed. There is no acute infiltrate. There is mild interstitial fibrosis which is stable. There is mild left ventricular prominence. Mediastinal silhouette is unchanged. IMPRESSION: No acute infiltrate. Electronically Signed by Anikt Servin MD 03/23/2019 10:07 A
[2019-03-22 20:37] LABS: ALT/SGPT 26 U/L (12-78); BILIRUBIN,DIRECT < 0.1 MG/DL (0.0-0.2); BILIRUBIN,TOTAL 0.4 MG/DL (0.2-1.0); BLOOD UREA NITROGEN 26 MG/DL (7-18); CALCIUM LEVEL 8.7 MG/DL (8.5-10.1); CARBON DIOXIDE LEVEL 31 MEQ/L (21-32); CHLORIDE LEVEL 111 MEQ/L (98-107); CREATININE FOR GFR 0.91 MG/DL (0.70-1.30); GLOMERULAR FILTRATION RATE > 60.0 (>56); GLUCOSE, FASTING 81 MG/DL (70-100); POTASSIUM SERUM 3.9 MEQ/L (3.5-5.1); SODIUM LEVEL 145 MEQ/L (136-145); TOTAL PROTEIN 7.2 GM/DL (6.4-8.2)
--- NOTE | 2019-03-23 00:52 | REPVR ---
PROCEDURE INFORMATION: Exam: CT Abdomen And Pelvis Without Contrast Exam date and time: 03/22/2019 12:11 AM Age: 53 years old Clinical history: Other: Unable to urinate; Additional info: Unable to urinate, failed more's, MR, eval bladder size TECHNIQUE: Imaging protocol: Computed tomography of the abdomen and pelvis without contrast. Radiation optimization: All CT scans at this facility use at least one of these dose optimization techniques: automated exposure control; mA and/or kV adjustment per patient size (includes targeted exams where dose is matched to clinical indication); or iterative reconstruction. COMPARISON: CT ABD PELVIS W/O CONTRAST 07/04/2015 9:16 PM FINDINGS: Lungs: Bibasilar dependent and linear atelectasis versus scarring. Pleural space: Trace left pleural effusion. Mediastinum: Circumferential thickening of the distal esophageal wall. Correlate clinically for evidence of esophagitis. Liver: Normal. No mass. Gallbladder and bile ducts: Cholelithiasis. No CT evidence of acute cholecystitis. Pancreas: Normal. No ductal dilation. Spleen: Normal. No splenomegaly. Adrenals: Normal. No mass. Kidneys and ureters: Nonobstructive bilateral nephrolithiasis. Simple appearing left renal cyst measuring up to 1.8 cm in diameter. Stomach and bowel: Rectum is distended with stool measuring 10 cm in diameter. Correlate clinically for evidence of fecal impaction. Redundant sigmoid colon. Status post partial small bowel resection. Appendix: No evidence of appendicitis. Intraperitoneal space: Unremarkable. No free air. No significant fluid collection. Vasculature: Unremarkable. No abdominal aortic aneurysm. Lymph nodes: Unremarkable. No enlarged lymph nodes. Bladder: Moderately distended urinary bladder. Reproductive: Large left and [id number] right hydroceles. Bones/joints: Dextroscoliosis of the lumbar spine. Severe osteoarthritis of the right hip Chronic compression deformity of L1. Dextroscoliosis. Soft tissues: Unremarkable. IMPRESSION: Moderately distended urinary bladder. Rectum is distended with stool measuring 10 cm in diameter. Correlate clinically for evidence of fecal impaction. Cholelithiasis. No CT evidence of acute cholecystitis. Electronically signed by: Matthew Casas On 03/23/2019 00:52:06 AM
[2019-03-23 01:35] VITALS: BP 120/80
[2019-03-23] MEDS ORDERED: CIPR-249 PO (01:38)
[2019-03-23] MEDS ORDERED: CIPROFLOXACIN 500 MG TAB PO ONE (01:45)
[2019-03-23] MEDS ORDERED: ENEMENE PR (18:18)
[2019-03-23] MEDS ORDERED: CIPR500T3 PO (18:18)
[2019-03-23] MEDS ORDERED: IBUP-1720 PO (18:18)
[2019-03-23] MEDS ORDERED: SENN-23 PO (18:18)
[2019-03-23] MEDS ORDERED: OYST500T91 PO (18:18)
== END 2019-03-23 02:31 | disposition home or self-care (01) ==
LOC: M ED 18:18
DX: N39.0 Urinary tract infection, site not specified (principal); G40.909 Epilepsy, unspecified, not intractable, without status epilepticus; E78.5 Hyperlipidemia, unspecified; D72.819 Decreased white blood cell count, unspecified; F79 Unspecified intellectual disabilities; Z79.899 Other long term (current) drug therapy

== ENCOUNTER 2019-03-23 14:49 | Inpatient (IN) | payer MEDICARE, MEDICAID ==
[2019-03-23] VITALS (9 sets, daily range): BP systolic 52–81; BP diastolic 27–49
[~2019-03-23] VITALS: Ht 162.6 cm; Wt 48.1 kg
[~2019-03-23 14:49] MED LIST changes: +CIPR-249 PO; +NON-325T5 PO; +OMEP-172 PO; -OMEP20CA4 PO
[2019-03-23] MEDS ORDERED: LIDOCAINE 2% 5ML JELLY UROJET TOP ONE (16:00)
[2019-03-23] MEDS ORDERED: PANTOPRAZOLE 40MG INJ (PROTONIX) (C9113) IV ONE (16:00)
[2019-03-23] MEDS ORDERED: NS 1,000 ML IV ONE ×2 (16:00→22:15)
[2019-03-23 16:32] LABS: HEMATOCRIT 40.9 % (42.0-52.0); MEAN CORPUSCULAR HEMOGLOBIN 30.7 pg (27.0-33.0); MEAN CORPUSCULAR HGB CONC 31.8 g/dl (32.0-36.5); MEAN CORPUSCULAR VOLUME 96.7 fl (80.0-96.0); RED BLOOD COUNT 4.23 10^6/uL (4.30-6.10); WHITE BLOOD COUNT 3.4 10^3/uL (4.0-10.0)
[2019-03-23 16:50] LABS: INR 1.54; PROTHROMBIN TIME 18.2 SECONDS (11.8-14.0)
[2019-03-23 16:58] LABS: ALBUMIN 2.3 GM/DL (3.2-5.2); BILIRUBIN,DIRECT 1.5 MG/DL (0.0-0.2); BILIRUBIN,TOTAL 1.9 MG/DL (0.2-1.0); CALCIUM LEVEL 8.4 MG/DL (8.5-10.1); CREATININE FOR GFR 3.33 MG/DL (0.70-1.30); GLOMERULAR FILTRATION RATE 20.7 (>56); POTASSIUM SERUM 3.5 MEQ/L (3.5-5.1); TOTAL PROTEIN 5.7 GM/DL (6.4-8.2)
[2019-03-23] MEDS ORDERED: NS 1,000 ML IV SCH (17:00)
[2019-03-23] MEDS ORDERED: NS 500 ML IV ONE (17:00)
[2019-03-23 17:02] LABS: PLATELET COUNT, AUTOMATED 32 10^3/uL (150-450)
--- NOTE | 2019-03-23 17:03 | REP ---
Clinical: Difficulty voiding. Technique: Real time saleem scale ultrasound examination using curved array transducer. Findings: Bladder is normal in appearance and without wall thickening or mass lesion. Prevoid bladder measures 7.2 x 11.3 x 1.7 cm (75 ml). Evaluation is otherwise limited and ureteral jets along with postvoid images could not be obtained. Impression: Grossly normal appearance to the bladder. Electronically Signed by Refugio Pimentel MD 03/23/2019 04:54 P
[2019-03-23 17:11] LABS: ATYPICAL LYMPH 1 % (0-5); LYMPHOCYTES 10 % (16-44); METAMYELOCYTES 7 % (0-0); MONOCYTES 4 % (0-5); MYELOCYTES 1 % (0-0); NEUTROPHILS 58 % (28-66); PLATELET ESTIMATE MARKED DECREASE (NORMAL); TOXIC VACUOLATION 2+
[2019-03-23 17:15] LABS: DOHLE BODIES 1+
[2019-03-23] MEDS ORDERED: cefTRIAXone SOD 2 GM in D5W MINI-BAG PLUS 50 ML IV ONE (17:15)
--- NOTE | 2019-03-23 18:08 | REP ---
Clinical: Sepsis. Comparison: 03/22/2019. Findings: Mediastinum and cardiac silhouette are stable. Lung michael demonstrate diffuse chronic interstitial changes. Subtle left basilar atelectasis cannot be excluded. No effusion. No pneumothorax. Skeletal structures intact. Impression: Chronic stable changes. Cannot exclude trace left basilar atelectasis. Electronically Signed by Refugio Pimentel MD 03/23/2019 05:59 P
[2019-03-23] MEDS ORDERED: SENN-23 PO (18:18)
[2019-03-23] MEDS ORDERED: ENEMENE PR (18:18)
[2019-03-23] MEDS ORDERED: IBUP-1720 PO (18:18)
[2019-03-23] MEDS ORDERED: CIPR500T3 PO (18:18)
[2019-03-23] MEDS ORDERED: OYST500T91 PO (18:18)
[2019-03-23] MEDS: MEROPENEM INJ 500 MG in IV 1 EA IV SCH (18:48)
[2019-03-23] MEDS ORDERED: VANCOMYCIN HCL 1,000 MG, VIAL MATE ADAPTER 1 EACH in D5W 250 ML IV ONE (19:00)
[2019-03-23 19:19] LABS: HEMATOCRIT 42.9 % (42.0-52.0); HEMOGLOBIN 13.3 g/dl (13.5-17.5); MEAN CORPUSCULAR HEMOGLOBIN 30.2 pg (27.0-33.0); MEAN CORPUSCULAR VOLUME 97.5 fl (80.0-96.0); WHITE BLOOD COUNT 4.6 10^3/uL (4.0-10.0)
[2019-03-23 19:30] LABS: ALBUMIN 2.3 GM/DL (3.2-5.2); BILIRUBIN,TOTAL 1.8 MG/DL (0.2-1.0); CALCIUM LEVEL 8.3 MG/DL (8.5-10.1); CREATININE FOR GFR 3.45 MG/DL (0.70-1.30); GLOMERULAR FILTRATION RATE 19.9 (>56); TOTAL PROTEIN 6.1 GM/DL (6.4-8.2)
--- NOTE | 2019-03-23 19:49 | HPEPDOC ---
[facility] Medical History & Physical Date of Admission Mar 23, 2019 Date of Service: Mar 23, 2019 Attending Physician: SMITH PHAM MD History and Physical CHIEF COMPLAINT: Sent from facility for lack of urination HISTORY OF PRESENT ILLNESS: 53-year-old male, past medical history of mental retardation, cerebral palsy, seizure disorder, GERD, presents from facility for lack of urination. Patient presented to the emergency department yesterday with fever, chills, diagnosed with UTI, unable to place Dalton catheter yesterday and sent back home. Patient is nonverbal at baseline, information obtained from employee at bedside and patient's chart from the facility. Patient has not voided since returning home from the emergency department yesterday. Another attempt was made to place Dalton catheter in the ED today, unsuccessful, patient did void after on his own. Patient underwent bladder ultrasound, which showed 75 mL when necessary. Of note, patient is in acute renal failure based on labs from yesterday and today. PAST MEDICAL HISTORY: 1. Cerebral palsy. 2. Mental retardation. 3. Seizure disorder. 4. GERD PAST SURGICAL HISTORY: 1. Unable to obtain. SOCIAL HISTORY: Unable to obtain FAMILY HISTORY: Unable to obtain ALLERGIES: Please see below. REVIEW OF SYSTEMS: Unable to obtain HOME MEDICATIONS: Please see below. PHYSICAL EXAMINATION: VITAL SIGNS: Please see below. GENERAL: No distress, frail HEENT: Normocephalic, atraumatic, dry mucous membranes NECK: Supple CARDIOVASCULAR EXAMINATION: S1, S2, tachycardic RESPIRATORY EXAMINATION: Clear to auscultation, no wheezing ABDOMINAL EXAMINATION: Soft, nontender, nondistended, positive bowel sounds EXTREMITIES: Range of motion intact SKIN: No rash NEUROLOGICAL EXAMINATION: no focal deficits PSYCHIATRIC EXAMINATION: Guarded LABORATORY DATA: See below. IMAGING: Bladder ultrasound with 75 mL of urine MICROBIOLOGY: Please see below. ASSESSMENT: 53-year-old male with past medical history of cerebral palsy, seizure disorder and GERD being admitted for severe sepsis, DIC and acute renal failure. PLAN: 1. Severe sepsis. Urine is a likely source, lactate of 9, broad-spectrum coverage with vancomycin and Merrem, status post IV fluid bolus in the ED, continue maintenance fluids, cultures pending, admitted to the ICU for monitoring, blood pressure stable for now. Despite having thrombocytopenia it is strongly recommen ded to continue DVT prophylaxis in critically ill patient's with DIC. DVT prophylaxis with heparin subcutaneous 5000 units every 12 hours. 2. DIC. Secondary to above, labs suggestive, case discussed with mail processing equipment mechanic, Dr. Weaver, who recommends further monitoring for now, if patient develops bleeding or labs, worsening can treat with platelets and cryoprecipitate as needed. Fibrinogen less than 200, repeat labs in 6 hours, no signs of bleeding at this time. 3. Acute renal failure. Likely prerenal, CT abdomen and pelvis pending, Dalton placement unsuccessful, patient voided after unsuccessful Dalton attempt, discussed with urologist, Dr. Greer regarding Dalton placement, recommends monitoring as long as patient is not obstructed. 4. Seizure disorder. We will hold Depakote given acute renal failure and elevated liver enzymes for now. 5. GERD. Continue home omeprazole DVT prophylaxis: Heparin subcutaneous GI prophylaxis: Home PPI Vital Signs Vital Signs Date Time Temp Pulse Resp B/P (MAP) Pulse Ox O2 Delivery O2 Flow Rate FiO2 03/23/19 18:04 116 20 135/88 (104) 97 03/23/19 14:49 97.2 Room Air Laboratory Data Labs 24H Laboratory Tests 2 03/23/19 16:19: Lymphocytes # (Auto) , Nucleated Red Blood Cells % (auto) 0.0, Neutrophils 58, Band Neutrophils 19H, Lymphocytes (Manual) 10L, Monocytes (Manual) 4, Metamyelocytes 7H, Myelocytes 1H, Atypical Lymphocytes 1, Dohle Bodies 1+, Toxic Vacuolation 2+, Platelet Estimate MARKED DECREASE, Immature Platelet Fraction 10.8, Prothrombin Time 18.2H, Prothromb Time International Ratio 1.54, Activated Partial Thromboplast Time 50.0H, Fibrinogen 160L, Anion Gap 13, Glomerular Filtration Rate 20.7L, Calcium Level 8.4L, Total Bilirubin 1.9#H, Direct Bilirubin 1.5H, Aspartate Amino Transf (AST/SGOT) 199H, Alanine Aminotransferase (ALT/SGPT) 110H, Alkaline Phosphatase 95, Total Protein 5.7#L, Albumin 2.3#L, Albumin/Globulin Ratio 0.68L, Lipase 316 03/23/19 16:21: Lactic Acid Level 9.0*H 03/23/19 18:28: Anion Gap 11, Glomerular Filtration Rate 19.9L, Calcium Level 8.3L, Total Bilirubin 1.8H, Aspartate Amino Transf (AST/SGOT) 183H, Alanine Aminotransferase (ALT/SGPT) 112H, Alkaline Phosphatase 93, Total Protein 6.1L, Albumin 2.3L, Albumin/Globulin Ratio 0.61L CBC/BMP Laboratory Tests 03/23/19 16:19 03/23/19 18:28 Home Medications Scheduled Calcium Carbonate/Vitamin D3 (Calcium 500-Vit D3 200 Tablet) 1 Each Tablet, 1 TAB PO BID Ciprofloxacin HCl (Ciprofloxacin HCl) 500 Mg Tablet, 500 MG PO BID FILLED 03/23/19 FOR 7 DAYS Divalproex Sodium (Depakote ER) 500 Mg Tab, 500 MG PO BID Ergocalciferol (Vitamin D2) (Drisdol) 50,000 Unit Cap, 50,000 UNIT PO QMONTH 5TH OF EVERY MONTH IN THE EVENING Levothyroxine Sodium (Synthroid) 25 Mcg Tab, 25 MCG PO QPM TAKES AT 1600 Lubiprostone (Amitiza) 24 Mcg Cap, 24 MCG PO BID Omeprazole (Omeprazole) 20 Mg Cap, 40 MG PO DAILY Polyethylene Glycol 3350 (Miralax) 1 Pow Pow, 1 DOSE PO DAILY Pravastatin Sodium (Pravastatin Sodium) 20 Mg Tab, 20 MG PO QHS Primidone (Mysoline) 50 Mg Tab, 50 MG PO BID Sennosides/Docusate Sodium (Senna-S Tablet) 1 Each Tablet, 2 TAB PO BID Trazodone HCl (Trazodone HCl) 50 Mg Tab, 50 MG PO QHS Scheduled PRN Acetaminophen (Acetaminophen) 325 Mg Tablet, 650 MG PO Q6H PRN for PAIN / FEVER Bisacodyl (Dulcolax) 5 Mg Tab, 10 MG PO DAILY PRN for CONSTIPATION Ibuprofen (Ibuprofen) 200 Mg Tablet, 400 MG PO QID PRN for PAIN / FEVER Sodium Phosphate,Garden-Dibasic (Enema) 133 Ml Enema, 1 ANGUS [place] QHS PRN for CONSTIPATION Allergies Coded Allergies: No Known Allergies (Unverified , 10/05/18) A-FIB/CHADSVASC A-FIB History Current/History of A-Fib/PAF?: No SMITH PHAM MD Mar 23, 2019 19:49
[2019-03-23 19:50] LABS: INR 1.91; PROTHROMBIN TIME 21.7 SECONDS (11.8-14.0)
[2019-03-23 19:51] LABS: PARTIAL THROMBOPLASTIN TIME 51.4 SECONDS (25.0-38.4)
[2019-03-23] MEDS ORDERED: DEXTROSE 50% 50 ML SYRINGE IV STA (19:53)
[2019-03-23 19:56] LABS: FIBRINOGEN 141 MG/DL (221-452)
[2019-03-23 19:59] LABS: PLATELET COUNT, AUTOMATED 27 10^3/uL (150-450)
--- NOTE | 2019-03-23 20:43 | REPVR ---
PROCEDURE INFORMATION: Exam: CT Abdomen And Pelvis Without Contrast Exam date and time: 03/23/2019 7:51 PM Age: 53 years old Clinical history: Other: Ananth TECHNIQUE: Imaging protocol: Computed tomography of the abdomen and pelvis without contrast. Radiation optimization: All CT scans at this facility use at least one of these dose optimization techniques: automated exposure control; mA and/or kV adjustment per patient size (includes targeted exams where dose is matched to clinical indication); or iterative reconstruction. COMPARISON: CT ABD PELVIS W/O CONTRAST 03/23/2019 12:05 AM FINDINGS: Lungs: Bibasilar atelectasis. Pleural thickening left lung base. Liver: Normal. No mass. Gallbladder and bile ducts: There are gallstones present. No evidence of cholecystitis demonstrated. Pancreas: Normal. No ductal dilation. Spleen: Normal. No splenomegaly. Adrenals: Normal. No mass. Kidneys and ureters: Low attenuation focus in the left kidney measures 13 mm likely represents a cyst, stable in comparison to the prior study. Smaller lucency in the right kidney not clearly visualized measures approximately 8 mm also like to assess. Correlation with renal ultrasound would be helpful. Bilateral nonobstructive renal calculi. Stomach and bowel: Impacted feces in the rectosigmoid with diffuse thickening of the wall of the rectosigmoid, findings which may indicate stercoral colitis. There is mild to moderate dilatation of the proximal colon. Status post partial small bowel obstruction. Appendix: No evidence of appendicitis. Intraperitoneal space: Unremarkable. No free air. No significant fluid collection. Vasculature: Unremarkable. No abdominal aortic aneurysm. Lymph nodes: Unremarkable. No enlarged lymph nodes. Bladder: Diffuse thickening of the bladder wall which is not significantly distended. Finding may be related to underdistention. Reproductive: The prostate gland demonstrates moderate hyperplasia. Bilateral hydroceles with fluid in the left inguinal canal consistent with a patent processus vaginalis. Bones/joints: The spine demonstrates mild degenerative changes. Soft tissues: Umbilical hernia. IMPRESSION: 1. There are gallstones present. No evidence of cholecystitis demonstrated. 2. Impacted feces in the rectosigmoid with diffuse thickening of the wall of the rectosigmoid, findings which may indicate stercoral colitis. There is mild to moderate dilatation of the proximal colon. 3. Low attenuation focus in the left kidney measures 13 mm likely represents a cyst, stable in comparison to the prior study. Smaller lucency in the right kidney not clearly visualized measures approximately 8 mm also like to assess. Correlation with renal ultrasound would be helpful. 4. Bilateral nonobstructive renal calculi. 5. Diffuse thickening of the bladder wall which is not significantly distended. Finding may be related to underdistention. 6. Moderate prostatic hyperplasia. 7. Bilateral hydroceles with fluid in the left inguinal canal consistent with a patent processus vaginalis. Electronically signed by: Kalpesh Rm On 03/23/2019 20:42:29 PM
[2019-03-23 20:56] LABS: D-DIMER QUANT > 4000 ng/ml (<500)
[2019-03-23] MEDS ORDERED: HEPARIN SOD (PORCINE) 5000 UNITS/ML VIAL SQ SCH (21:00)
--- NOTE | 2019-03-23 21:25 | PHACANCOPD ---
PHARMACY VANCOMYCIN DOSING Pt Demographics Demographics Patient Age:53 , Weight:52.270 , Gender: male Adjusted Body Weight Date: 03/23/19, Adjusted Body Weight: Kg Events Past 24 Hours Events Past 24 Hours: NO: Dialysis, Diuretic Therapy, Change in CrCl, Fever, Elevation in WBC, Pending Diagnostics, Pending Procedures, Other Vancomycin Vancomycin indication: UTI/SEPSIS Vancomycin Target Ranges: 15-20 mcg/ml Vancomycin Load Y/N: No Load Dose Date Time Vancomycin Load Dose: Date: Time: Vancomycin Dose Date: 03/23/19. Current Vancomycin Dose: [1G IV Q24H] Intermittent Dosing?: No Labs Labs Item Value Date Time White Blood Count 3.4 10^3/uL L 03/23/19 1619 White Blood Count 4.6 10^3/uL 03/23/19 1828 Creatinine 3.45 MG/DL H 03/23/19 1828 Micro Microbiology 03/23/19 Blood Culture, Received Pending Creatinine Clearance Date:03/23/19. Creatinine Clearance: [20 ML/MIN]. Assessment and Plan Maintaining Current Dose?: Yes Reason for dose change: No Dose Change Pharmacist Note Pharmacist Note Date: 03/23/19. Pharmacist note: Pt is a 53 year old male be treated for Uti/SEPSIs with acute renal failure goal trough 15-20mcg/ml. The patient was last treated with vancomycin here at [facility] in 2001. To achieve goal the patient was started on 1g vancomycin IV in the ER 03/23/19. Maintenance therapy will consist of 1g IV every 24 hours starting 05/24/18 @22. We will continue to monitor and adjust the dose as needed. KAN LEÓN [facility]ARM[facility] Mar 23, 2019 21:25
[2019-03-23] MEDS ORDERED: LORazepam 2 MG/ML VIAL (J2060) As Ordered ONE (21:45)
[2019-03-23] MEDS ORDERED: LORazepam 2 MG/ML VIAL (J2060) IV STA (22:05)
[2019-03-23] MEDS: NOREPINEPHRINE BITARTRATE 8 MG in D5W 492 ML IV SCH (22:17)
[2019-03-23] MEDS: LEVOTHYROXINE 25MCG TABLET (0.025MG) PO SCH (22:47)
[2019-03-23] MEDS: PHENYLEPHRINE HCL INJ 50 MG in D5W 495 ML IV SCH (23:19)
[2019-03-24] VITALS (80 sets, daily range): BP systolic 77–132; BP diastolic 47–72
[2019-03-24 00:08] LABS: INR 2.01; PROTHROMBIN TIME 22.5 SECONDS (11.8-14.0)
[2019-03-24 00:15] LABS: HEMATOCRIT 36.9 % (42.0-52.0); HEMOGLOBIN 11.8 g/dl (13.5-17.5); MEAN CORPUSCULAR VOLUME 96.9 fl (80.0-96.0); RED BLOOD COUNT 3.81 10^6/uL (4.30-6.10); WHITE BLOOD COUNT 6.4 10^3/uL (4.0-10.0)
[2019-03-24] MEDS ORDERED: NS 1,000 ML IV ONE (00:15)
--- NOTE | 2019-03-24 00:15 | IPNPDOC ---
Text Note Date of Service The patient was seen on 03/24/19. NOTE Procedure note INDICATION: Septic shock PROCEDURE CLIENT DELIVERY SPECIALIST: Dr Carli Pimentel PROCEDURE SUMMARY: The [facility] Central Line Insertion Practices form was completed by an independent observer ICU nurse starting with the first handwash prior to starting sterile technique. A time out was performed. My hands were washed immediately prior to the procedure. I wore a surgical cap, mask with protective eyewear, full gown and sterile gloves throughout the procedure. The patient was placed in Trendelenburg position. RIGHT chest region was prepped using chlorhexidine scr ub and draped in sterile fashion using a full drape and sterile probe cover employed. The medial and lateral heads of the sternocleidomastoid muscle were identified as was the carotid pulse. The Internal Jugular vein was identified using the ultrasound. Anesthesia was achieved over the vein using 1% lidocaine. Using real-time out of plane guidance, the introducer needle was inserted into the Internal Jugular vein under direct ultrasound visualization. Venous blood was withdrawn. The syringe was removed and a guidewire was advanced into the introducer needle. The guidewire was visualized in the Internal Jugular Vein by ultrasound. A small incision was made at the skin surface with a scalpel and the introducer needle was exchanged for a dilator over the guidewire. After appropriate dilation was obtained, the dilator was exchanged over the wire for a central venous catheter. The wire was removed and the catheter was sutured in place. A sterile sorbaview shield was placed over the catheter at the insertion site. The patient tolerated the procedure without any hemodynamic compromise. At time of procedure completion, all ports aspirated and flushed properly. Post- procedure chest x-ray is pending at this time. Estimated blood loss is 5 cc. VS,Fishbone, I+O VS, Fishbone, I+O Laboratory Tests 03/23/19 16:19 03/23/19 18:28 Vital Signs Date Time Temp Pulse Resp B/P (MAP) Pulse Ox O2 Delivery O2 Flow Rate FiO2 03/23/19 21:23 68/42 (51) 03/23/19 21:04 113 96 03/23/19 20:49 Room Air 03/23/19 18:04 20 03/23/19 14:49 97.2 I&O- Last 24 Hours up to 6 AM 03/24/19 06:00 Intake Total 1550 ml Output Total 0 ml Balance 1550 ml ARTEM GONSALES DO Mar 24, 2019 00:15
[2019-03-24 00:19] LABS: PLATELET COUNT, AUTOMATED 25 10^3/uL (150-450)
[2019-03-24 00:33] LABS: ALBUMIN 1.7 GM/DL (3.2-5.2); BILIRUBIN,TOTAL 1.5 MG/DL (0.2-1.0); CREATININE FOR GFR 3.28 MG/DL (0.70-1.30); POTASSIUM SERUM 3.1 MEQ/L (3.5-5.1); TOTAL PROTEIN 4.6 GM/DL (6.4-8.2)
[2019-03-24] MEDS ORDERED: NS 1,000 ML IV SCH (00:45)
[2019-03-24] MEDS: KCL 20MEQ IN 100ML SWI (KRUN) 20 MEQ in IV 1 EA IV SCH ×6 (00:53→03:01)
[2019-03-24] MEDS ORDERED: KCL 10MEQ/100ML SWI (KRUN) 10 MEQ in IV 1 EA IV SCH (01:00)
[2019-03-24 02:23] LABS: HEMOGLOBIN 12.8 g/dl (13.5-17.5); MEAN CORPUSCULAR HEMOGLOBIN 30.5 pg (27.0-33.0); MEAN CORPUSCULAR HGB CONC 31.2 g/dl (32.0-36.5); MEAN CORPUSCULAR VOLUME 97.9 fl (80.0-96.0); RED BLOOD COUNT 4.19 10^6/uL (4.30-6.10); WHITE BLOOD COUNT 8.5 10^3/uL (4.0-10.0)
[2019-03-24 02:24] LABS: PLATELET COUNT, AUTOMATED 26 10^3/uL (150-450)
[2019-03-24 02:31] LABS: INR 1.88; PROTHROMBIN TIME 21.4 SECONDS (11.8-14.0)
[2019-03-24 02:33] LABS: PARTIAL THROMBOPLASTIN TIME 62.8 SECONDS (25.0-38.4)
[2019-03-24 02:37] LABS: FIBRINOGEN 160 MG/DL (221-452)
[2019-03-24 02:40] LABS: ANISOCYTOSIS 1+; ATYPICAL LYMPH 1 % (0-5); LYMPHOCYTES 3 % (16-44); METAMYELOCYTES 18 % (0-0); MONOCYTES 3 % (0-5); MYELOCYTES 3 % (0-0); NEUTROPHILS 61 % (28-66); PLATELET ESTIMATE MARKED DECREASE (NORMAL)
[2019-03-24 02:42] LABS: DOHLE BODIES 1+
[2019-03-24 02:43] LABS: TOXIC VACUOLATION 1+
[2019-03-24] MEDS: NOREPINEPHRINE BITARTRATE 8 MG in D5W 492 ML IV SCH ×5 (03:01→21:06)
[2019-03-24 03:05] LABS: D-DIMER QUANT > 4000 ng/ml (<500)
[2019-03-24 04:51] LABS: HEMATOCRIT 43.2 % (42.0-52.0); HEMOGLOBIN 13.7 g/dl (13.5-17.5); MEAN CORPUSCULAR HEMOGLOBIN 30.8 pg (27.0-33.0); MEAN CORPUSCULAR HGB CONC 31.7 g/dl (32.0-36.5); MEAN CORPUSCULAR VOLUME 97.1 fl (80.0-96.0); RED BLOOD COUNT 4.45 10^6/uL (4.30-6.10); WHITE BLOOD COUNT 9.4 10^3/uL (4.0-10.0)
[2019-03-24 05:00] LABS: PLATELET COUNT, AUTOMATED 31 10^3/uL (150-450)
[2019-03-24 05:11] LABS: ALBUMIN 1.9 GM/DL (3.2-5.2); BILIRUBIN,TOTAL 1.6 MG/DL (0.2-1.0); CALCIUM LEVEL 6.7 MG/DL (8.5-10.1); CREATININE FOR GFR 2.89 MG/DL (0.70-1.30); GLOMERULAR FILTRATION RATE 24.4 (>56); MAGNESIUM LEVEL 1.2 MG/DL (1.8-2.4); POTASSIUM SERUM 4.3 MEQ/L (3.5-5.1); TOTAL PROTEIN 5.4 GM/DL (6.4-8.2)
[2019-03-24] MEDS: MEROPENEM INJ 500 MG in IV 1 EA IV SCH ×2 (05:35→17:55)
[2019-03-24] MEDS: PHENYLEPHRINE HCL INJ 50 MG in D5W 495 ML IV SCH ×2 (05:54→13:02)
--- NOTE | 2019-03-24 06:44 | REP ---
Clinical: Central line placement. Comparison: 03/23/2019. Findings: Right triple-lumen catheter via internal jugular approach extends to the SVC/right atrium. The mediastinum and cardiac silhouette are normal. Increased perihilar and bilateral markings may reflect early interstitial edema versus scattered atelectasis. No obvious effusion. No pneumothorax. Skeletal structures intact. Impression: 1. Central line in satisfactory position. No pneumothorax. 2. Cannot exclude mild interstitial edema or scattered atelectasis. Electronically Signed by Refugio Pimentel MD 03/24/2019 06:36 A
[2019-03-24] MEDS: MAG SULF 1GM/100ML (MAG RUN) 1 GM in IV 1 EA IV SCH ×4 (07:32→11:15)
[2019-03-24] MEDS: OMEPRAZOLE 20 MG CAP PO SCH (08:49)
[2019-03-24] MEDS ORDERED: SODIUM BICARBONATE 150 MEQ in D5W 1,000 ML IV SCH (10:00)
[2019-03-24] MEDS ORDERED: VASOPRESSIN INJ 20 UNITS/ML VIAL As Ordered ONE (10:31)
[2019-03-24] MEDS: VASOPRESSIN INJ 20 UNITS in NS 499 ML IV SCH ×2 (10:39→17:58)
[2019-03-24 10:44] LABS: ABG BASE EXCESS -9.2 (-2.0-2.0); ABG HCO3 14.7 MEQ/L (22.0-26.0); ABG O2 SATURATION 91.6 % (95.0-99.0); ABG PARTIAL PRESSURE CO2 26.5 mmHg (35.0-45.0); ABG PARTIAL PRESSURE O2 55.5 mmHg (75.0-100.0); ABG TOTAL CO2 15.5 MEQ/L (22.0-29.0); ABG pH (ARTERIAL) 7.361 UNITS (7.350-7.450)
--- NOTE | 2019-03-24 10:53 | IPNPDOC ---
Subjective Date Seen The patient was seen on 03/24/19. Subjective Chief Complaint/HPI I received notification that Dr. Louis, the on-call critical care physician, was interested in assisting with this patient; of course I assented. When I arrived on the floor, I found that he was requiring three pressors, though the phenylephrine was being slowly weaned off. I appreciate Dr. Louis's assistance in managing this patient. Further review of his outpatient chart reveals that he has had at least one episode of prostatitis with possible LUTS in the past. His PSA was acutely elevated during that episode and he was treated with antibiotics after which his PSA returned to the normal range. We have a recent PSA value of 1.97 from 03/17/19, one week ago. Based on his presentation, I suspect that a similar thing has happened. He either has a cystitis that lead to a prostatitis or started with a prostatitis, but regardless he probably has a prostatitis now. This is leading to an obstructive uropathy with retained infected urine and sepsis of urinary origin. He is passing some urine now, but I suspect it may be more of an overflow incontinence situation rather than truly voiding. As they were not able to get a urinary catheter placed on admission yesterday we are guessing at his output based on weighing his diapers. His penis is reportedly withdrawn into the foreskin and the prepubic fat pad so an external catheter is not going to work. The nursing staff is currently trying to get better output values using an external female catheter, Purewick, but I have little confidence that this will be accurate enough to gauge the efficacy of the pressors by. General: Reports: ROS Unobtainable Objective Physical Examination General Exam: Positive: Alert, Other (his sister and a [facility] staff member are present at the bedside); Negative: Cooperative (developmentally diasbled) Eye Exam: Negative: Sclera icteric ENT Exam: Positive: Pharynx Normal, Tongue Midline; Negative: Mucous membr. moist/pink (moderately dry) Neck Exam: Positive: Supple; Negative: JVD, Lymphadenopathy Chest Exam: Positive: Clear to auscultation, Normal air movement Heart Exam: Positive: Tachycardic, Regular Rhythm; Negative: Murmurs Abdomen Exam: Positive: Normal bowel sounds, Soft; Negative: Tenderness Male Exam: Negative: Edema (the penis is buried in the peripubic fat pad. The foreskin could be retracted and there is no urethritis or purulent discharge from the urethral meatus. The urethral meatus extends to the ventral edge of the glans, but not past it so it is not technically a hypospadias. ) Extremity Exam: Negative: Cyanosis, Edema Skin Exam: Negative: Breakdown Neuro Exam: Negative: Normal Speech Psych Exam: Positive: Other (he is reportedly at baseline, but this is non- verbal) Assessment /Plan Problems (1) Severe sepsis Status: Acute Response to Treatment: Uncompensated Discussed With: Nurse, Cover Inspector, Patient, Health Care Proxy, Family with Pt Consent Problem Specific Plan: Consult Specialist, Monitor Clinically, Repeat Labs Problem Text: He is currently maintained with three pressors (norepinephrine, phenylephrine, and vasopressin). Dr. Louis is having some success at weaning off the phenylephrine. I spoke frankly with his sister explaining that we were keeping his blood pressure high enough to continue to perfuse his vital organs, but that we have good evidence that other parts of his body are suffering for lack of oxygen and blood flow. We are trying our best to keep him alive, but he is currently very sick. The real fix to all of this is to get the infection under control, but that is difficult currently because we can't get a urinary catheter in to make sure we are draining all of the infected urine from his bladder. I am going to consult a urologist to assist us with getting a catheter in. (2) Prostatitis, acute Status: Acute Response to Treatment: Uncontrolled Discussed With: Cover Inspector, Patient, Family with Pt Consent Problem Specific Plan: Consult Specialist, Repeat Tests Problem Text: I strongly suspect, though I have not yet proven, that this is a major cause of his infection and obstructive uropathy. He has a history of acute prostatitis with similar, though less severe, symptoms in the past. Fortunately we have a recent normal PSA. I added a PSA to the labs drawn this morning. If it returns elevated this will confirm my suspicions and will help guide us with duration of antibiotic therapy. He is currently on empiric meropenem and vancomycin (as he has a h/o MRSA) until we get cultures back. (3) Obstructive uropathy Discussed With: Cover Inspector Problem Specific Plan: Consult Specialist, Repeat Labs Problem Text: His labs would indicate a renal or post-renal cause for his impaired renal function. I suspect that he has urinary obstruction from a prostatitis, thought the fact that they were not able to pass a urinary catheter last night may indicate that there is something else going on. I have requested urology's help in evaluating and treating this condition. (4) Urinary retention with incomplete bladder emptying Status: Acute Response to Treatment: Uncontrolled Discussed With: Nurse, Cover Inspector, Patient, Family with Pt Consent Problem Specific Plan: Consult Specialist Problem Text: A bladder scan indicated about 200cc of unvoided urine, but I suspect that this test is inaccurate based on his habitus and his current state of fecal retention. I have requested that urology come to place a urinary catheter to make sure that we are not leaving infected urine in his bladder to worsen his urosepsis. (5) Hypotension Status: Acute Response to Treatment: Controlled Discussed With: Nurse, Cover Inspector, Patient, Health Care Proxy, Family with Pt Consent Problem Specific Plan: Consult Specialist, Monitor Clinically, Repeat Labs Problem Text: He is hypotensive from urosepsis. Dr. Louis is assisting with managing his pressors. I appreciate her help. We need accurate I/O to help gauge the efficacy of his regimen. Urology will be assisting with a catheter placement to facilitate this. (6) Metabolic acidosis with respiratory alkalosis Status: Acute Response to Treatment: Compensated Discussed With: Cover Inspector Problem Specific Plan: Monitor Clinically, Repeat Labs Problem Text: He currently has a lactic acidosis but has compensated with his respiratory system. We are continuing to track his lactic acid, hopefully to resolution. I do not feel that we need nephrology's help yet as he is compensated, however, if we lose his compensatory mechanism we will either have to intubate him and take over or ask for nephrology's help. Continue current management for now and we will cautiously monitor him. (7) DIC (disseminated intravascular coagulation) Status: Acute Discussed With: Cover Inspector, Patient, Family with Pt Consent Problem Specific Plan: Repeat Labs Problem Text: He has DIC from the spesis. He may need a transfusion of blood products (platelets or FFP) if he has bleeding from his catheter placement. I realize that manipulation of his urinary system is risky at this time, but I believe that the benefits of a urinary catheter (drainage of the urinary bladder, accurate assessment of his urinary output) outweigh the risks (bleeding , worsening bacteremia) and I have discussed this with the patient's sister/HCP, Dr. Louis, and Dr. Greer the practice management consultant urologist. (8) Mental retardation Status: Chronic Discussed With: Family with Pt Consent Problem Text: His MR and inability to participate in his own medical decision making as well as his tendency to pull out lines complicates all aspects of his current care. (9) Seizure disorder Status: Chronic Problem Specific Plan: Monitor Clinically, Repeat Labs Problem Text: He had a normal valproic acid level one week ago. Now it is low. I'm not sure if this is because he wasn't getting all of his meds while he was feeling sicker at [facility], or if his metabolism of them have changed with his acute illness, or some other reason. Regardless we will continue his current regimen and monitor. If he seizes then we will have to consider changes to his regimen and possibly consult neurology. (10) Cerebral palsy Status: Chronic Problem Text: His physical disabilities complicate his care. Plan/VTE VTE Prophylaxis Ordered?: Yes (SCDs) VTE Exclusion Pharmacological: Thrombocytopenia Plan/Urinary Catheter Urinary Catheter: Place [place] Reason for insertion/continuin: Critical Pt monitoring (and obstruction/retenti on) VS, I&O, 24H, Fishbone Vital Signs/I&O Vital Signs Date Time Temp Pulse Resp B/P (MAP) Pulse Ox O2 Delivery O2 Flow Rate FiO2 03/24/19 04:20 91 95/53 (67) 98 Room Air 03/24/19 04:05 98.6 16 I&O- Last 24 Hours up to 6 AM 03/24/19 06:00 Intake Total 5561.6 ml Output Total 0 ml Balance 5561.6 ml Laboratory Data 24H LABS Laboratory Tests 2 03/23/19 16:19: Lymphocytes # (Auto) , Nucleated Red Blood Cells % (auto) 0.0, Neutrophils 58, Band Neutrophils 19H, Lymphocytes (Manual) 10L, Monocytes (Manual) 4, Metamyelocytes 7H, Myelocytes 1H, Atypical Lymphocytes 1, Dohle Bodies 1+, Toxic Vacuolation 2+, Platelet Estimate MARKED DECREASE, Immature Platelet Fraction 10.8, Prothrombin Time 18.2H, Prothromb Time International Ratio 1.54, Activated Partial Thromboplast Time 50.0H, Fibrinogen 160L, Anion Gap 13, Glomerular Filtr ation Rate 20.7L, Calcium Level 8.4L, Total Bilirubin 1.9#H, Direct Bilirubin 1.5H, Aspartate Amino Transf (AST/SGOT) 199H, Alanine Aminotransferase (ALT/SGPT) 110H, Alkaline Phosphatase 95, Total Protein 5.7#L, Albumin 2.3#L, Albumin/Globulin Ratio 0.68L, Lipase 316 03/23/19 16:21: Lactic Acid Level 9.0*H 03/23/19 18:28: Nucleated Red Blood Cells % (auto) 0.0, Anion Gap 11, Glomerular Filtration Rate 19.9L, Calcium Level 8.3L, Total Bilirubin 1.8H, Aspartate Amino Transf (AST/SGOT) 183H, Alanine Aminotransferase (ALT/SGPT) 112H, Alkaline Phosphatase 93, Total Protein 6.1L, Albumin 2.3L, Albumin/Globulin Ratio 0.61L, Differential Slide Review Report, Peripheral Blood Smear Path Consult PERIPHERAL SMEAR, Lactic Acid Followup at 4 Hours 10.0*H 03/23/19 19:28: Prothrombin Time 21.7H, Prothromb Time International Ratio 1.91, Activated Partial Thromboplast Time 51.4H, Fibrinogen 141L, D-Dimer, Quantitative > 4000H 03/23/19 21:03: Bedside Glucose (Misc Panel) 105 03/23/19 23:45: Bedside Glucose (Misc Panel) 93, Nucleated Red Blood Cells % (auto) 0.0, Prothrombin Time 22.5H, Prothromb Time International Ratio 2.01, Fibrinogen 139L, Anion Gap 10, Glomerular Filtration Rate 21.0L, Lactic Acid Level 5.5*H, Calcium Level 7.0#L, Total Bilirubin 1.5H, Aspartate Amino Transf (AST/SGOT) 127H, Alanine Aminotransferase (ALT/SGPT) 82H, Alkaline Phosphatase 59, Total Protein 4.6#L, Albumin 1.7#L, Albumin/Globulin Ratio 0.59L 03/24/19 02:12: Nucleated Red Blood Cells % (auto) 0.0, Prothrombin Time 21.4H, Prothromb Time International Ratio 1.88, Fibrinogen 160L, Neutrophils 61, Band Neutrophils 11, Lymphocytes (Manual) 3L, Monocytes (Manual) 3, Metamyelocytes 18H, Myelocytes 3H, Atypical Lymphocytes 1, Anisocytosis 1+, Dohle Bodies 1+, Toxic Vacuolation 1+, Platelet Estimate MARKED DECREASE, Activated Partial Thromboplast Time 62.8H, D-Dimer, Quantitative > 4000H 03/24/19 04:13: Bedside Glucose (Misc Panel) 89 03/24/19 04:34: Nucleated Red Blood Cells % (auto) 0.0, Anion Gap 9, Glomerular Filtration Rate 24.4L, Lactic Acid Followup at 4 Hours 5.3*H, Calcium Level 6.7L, Magnesium Level 1.2L, Total Bilirubin 1.6H, Aspartate Amino Transf (AST/SGOT) 137H, Alanine Aminotransferase (ALT/SGPT) 91H, Alkaline Phosphatase 80, Total Protein 5.4L, Albumin 1.9L, Albumin/Globulin Ratio 0.54L 03/24/19 10:33: Blood Gas Bicarbonate Standard 17.0L, Arterial Blood pH 7.361, Arterial Blood Partial Pressure CO2 26.5L, Arterial Blood Partial Pressure O2 55.5L, Arterial Blood Total CO2 15.5L, Arterial Blood HCO3 14.7L, Arterial Blood Base Excess - 9.2L, Arterial Blood Oxygen Saturation 91.6L CBC/BMP Laboratory Tests 03/23/19 16:19 03/23/19 18:28 03/23/19 23:45 03/24/19 02:12 03/24/19 04:34 Microbiology Microbiology 03/23/19 Blood Culture, Received Pending Ryan Cervantes MD Mar 24, 2019 10:53
[2019-03-24] MEDS: HYDROCORTISONE 100 MG/2 ML VIAL (J1720 PER 1) IV SCH ×2 (11:15→17:56)
[2019-03-24] MEDS: D5W 1,000 ML IV SCH (11:15)
[2019-03-24] MEDS ORDERED: LIDOCAINE 2% 5ML JELLY UROJET As Ordered ONE (12:20)
[2019-03-24] MEDS ORDERED: MIDAZOLAM INJ 2 MG/2 ML VIAL (J2250) As Ordered ONE (12:30)
[2019-03-24] MEDS ORDERED: MIDAZOLAM INJ 2 MG/2 ML VIAL (J2250) IV ONE (13:00)
[2019-03-24 13:06] LABS: CALCIUM LEVEL 6.6 MG/DL (8.5-10.1); CREATININE FOR GFR 2.36 MG/DL (0.70-1.30); GLOMERULAR FILTRATION RATE 30.8 (>56); POTASSIUM SERUM 4.3 MEQ/L (3.5-5.1)
[2019-03-24 13:21] LABS: FREE T4 1.03 NG/DL (0.76-1.46); THYROID STIMULATING HORMONE 1.81 uIU/ML (0.358-3.740); VALPROIC ACID (DEPAKOTE) 20.4 UG/ML (50.0-100.0)
--- NOTE | 2019-03-24 13:37 | IPNPDOC ---
Subjective Review oF Systems Chief Complaint Please see dictated consult/ procedure note for more details. The patient is a 53-year-old male admitted with a reason for visit of Acute Renal Failure Cerebral Palsy Seizure Uti. I was requested to place more catheter after several unsuccessful attempts. I spoke with the patients sister and explained the procedure, she gave consent to proceed. 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 I was able to advance the scope into the bladder and placed a filiform into the bladder, dilation was carried out and a [address] [employer] [address] catheter was placed into the bladder and left in place. There was a significant amount of urethral bleeding from the procedure. The patient is to receive platelets. Objective Vital Signs/I&O Vital Signs Date Time Temp Pulse Resp B/P (MAP) Pulse Ox O2 Delivery O2 Flow Rate FiO2 03/24/19 11:45 95 105/59 (74) 92 Room Air 03/24/19 08:00 97.8 18 I&O- Last 24 Hours up to 6 AM 03/24/19 06:00 Intake Total 5561.6 ml Output Total 0 ml Balance 5561.6 ml Laboratory Data Labs 24H Laboratory Tests 2 03/23/19 16:19: Lymphocytes # (Auto) , Nucleated Red Blood Cells % (auto) 0.0, Neutrophils 58, Band Neutrophils 19H, Lymphocytes (Manual) 10L, Monocytes (Manual) 4, Metamyelocytes 7H, Myelocytes 1H, Atypical Lymphocytes 1, Dohle Bodies 1+, Toxic Vacuolation 2+, Platelet Estimate MARKED DECREASE, Immature Platelet Fraction 10.8, Prothrombin Time 18.2H, Prothromb Time International Ratio 1.54, Activated Partial Thromboplast Time 50.0H, Fibrinogen 160L, Anion Gap 13, Glomerular Filtration Rate 20.7L, Calcium Level 8.4L, Total Bilirubin 1.9#H, Direct Bilirubin 1.5H, Aspartate Amino Transf (AST/SGOT) 199H, Alanine Aminotransferase (ALT/SGPT) 110H, Alkaline Phosphatase 95, Total Protein 5.7#L, Albumin 2.3#L, Albumin/Globulin Ratio 0.68L, Lipase 316 03/23/19 16:21: Lactic Acid Level 9.0*H 03/23/19 18:28: Nucleated Red Blood Cells % (auto) 0.0, Anion Gap 11, Glomerular Filtration Rate 19.9L, Calcium Level 8.3L, Total Bilirubin 1.8H, Aspartate Amino Transf (AST/SGOT) 183H, Alanine Aminotransferase (ALT/SGPT) 112H, Alkaline Phosphatase 93, Total Protein 6.1L, Albumin 2.3L, Albumin/Globulin Ratio 0.61L, Differential Slide Review Report, Peripheral Blood Smear Path Consult PERIPHERAL SMEAR, Lactic Acid Followup at 4 Hours 10.0*H 03/23/19 19:28: Prothrombin Time 21.7H, Prothromb Time International Ratio 1.91, Activated Partial Thromboplast Time 51.4H, Fibrinogen 141L, D-Dimer, Quantitative > 4000H 03/23/19 21:03: Bedside Glucose (Misc Panel) 105 03/23/19 23:45: Bedside Glucose (Misc Panel) 93, Nucleated Red Blood Cells % (auto) 0.0, Prothrombin Time 22.5H, Prothromb Time International Ratio 2.01, Fibrinogen 139L, Anion Gap 10, Glomerular Filtration Rate 21.0L, Lactic Acid Level 5.5*H, Calcium Level 7.0#L, Total Bilirubin 1.5H, Aspartate Amino Transf (AST/SGOT) 127H, Alanine Aminotransferase (ALT/SGPT) 82H, Alkaline Phosphatase 59, Total Protein 4.6#L, Albumin 1.7#L, Albumin/Globulin Ratio 0.59L 03/24/19 02:12: Nucleated Red Blood Cells % (auto) 0.0, Prothrombin Time 21.4H, Prothromb Time International Ratio 1.88, Fibrinogen 160L, Neutrophils 61, Band Neutrophils 11, Lymphocytes (Manual) 3L, Monocytes (Manual) 3, Metamyelocytes 18H, Myelocytes 3H, Atypical Lymphocytes 1, Anisocytosis 1+, Dohle Bodies 1+, Toxic Vacuolation 1+, Platelet Estimate MARKED DECREASE, Activated Partial Thromboplast Time 62.8H, D-Dimer, Quantitative > 4000H 03/24/19 04:13: Bedside Glucose (Misc Panel) 89 03/24/19 04:34: Nucleated Red Blood Cells % (auto) 0.0, Anion Gap 9, Glomerular Filtration Rate 24.4L, Lactic Acid Followup at 4 Hours 5.3*H, Calcium Level 6.7L, Magnesium Level 1.2L, Total Bilirubin 1.6H, Aspartate Amino Transf (AST/SGOT) 137H, Alanine Aminotransferase (ALT/SGPT) 91H, Alkaline Phosphatase 80, Total Protein 5.4L, Albumin 1.9L, Albumin/Globulin Ratio 0.54L, Prostate Specific Antigen Screen 21.60H, Thyroid Stimulating Hormone (TSH) 1.810, Free Thyroxine 1.03, Valproic Acid (Depakene) Level 20.4L 03/24/19 10:33: Blood Gas Bicarbonate Standard 17.0L, Arterial Blood pH 7.361, Arterial Blood Partial Pressure CO2 26.5L, Arterial Blood Partial Pressure O2 55.5L, Arterial Blood Total CO2 15.5L, Arterial Blood HCO3 14.7L, Arterial Blood Base Excess - 9.2L, Arterial Blood Oxygen Saturation 91.6L 03/24/19 12:30: Anion Gap 6L, Glomerular Filtration Rate 30.8L, Calcium Level 6.6L CBC/BMP Laboratory Tests 03/23/19 16:19 03/23/19 18:28 03/23/19 23:45 03/24/19 02:12 03/24/19 04:34 03/24/19 12:30 FSBS Laboratory Tests Test 03/23/19 21:03 03/23/19 23:45 03/24/19 04:13 Range/Units Bedside Glucose (Misc Panel) 105 93 89 70-105 MG/DL Microbiology Microbiology 03/23/19 Blood Culture, Received Pending Assessment/Plan Date Seen The patient was seen on 03/24/19. Plan/VTE VTE Prophylaxis Ordered?: No LITTLEGARLAND MD Mar 24, 2019 13:37
--- NOTE | 2019-03-24 15:41 | CR ---
DATE OF CONSULTATION: 03/24/2019 CHIEF COMPLAINT: Shock. HISTORY OF PRESENT ILLNESS: The patient is a 53-year-old male with past medical history of mental retardation, cerebral palsy, seizure disorder, at baseline nonverbal and bedridden who presents from [facility] with complaints of inability to the urinate. The patient had presented to the emergency department (ED) the previous day with fevers and chills. Was diagnosed with a possible urinary tract infection (UTI) at that visit and discharged back to [facility]. During the ED visit there was attempts to place a More catheter, which were unsuccessful. The patient also had some attempts at his facility as well for placement of More catheter, which was also unsuccessful, and he was sent back to the hospital as he had not been having urine output reportedly for the past few days. On this admission, the patient was noted to have acute renal failure. His creatinine the day prior to his presentation when he was seen in the ED was 0.91. When he presented to the ED on 03/23/2019, his creatinine was noted to be 3.33. The patient was also noted to have a significant lactic acidosis as well as worsening thrombocytopenia and evidence of disseminated intravascular coagulation (DIC) likely secondary to severe sepsis. The patient initially was hemodynamically stable, however, overnight he had episodes of hypotension requiring placement of a triple lumen catheter in the right internal jugular (IJ) and initiation of vasopressors. The patient was started on Levophed and phenylephrine and was continuing to be hypotensive despite increasing doses of the to vasopressors. The patient also had persistent lactic acidosis. During his admission, the patient had multiple attempts in the ED and then in the intensive care unit (ICU) for placement of a More catheter which were unsuccessful. Urology was consulted yesterday for placement of the More catheter, but as patient was noted to have some urine output in his diaper urology declined placement of the more catheter yesterday. This morning after a large incontinent urine he was noted to have approximately 200 mL of urine in his bladder still. Past medical and surgical history: Anemia. Cholelithiasis. Esophagitis. Chronic constipation with history of bowel obstruction and previous abdominal surgeries. Depression. Seizure disorder. Mental retardation. Cerebral palsy. Nephrolithiasis. Right broken leg, surgery. Bilateral hydroceles. Hypothyroidism. SOCIAL HISTORY: No history of smoking or alcohol use. FAMILY HISTORY: History of cancer in the mother. ALLERGIES: NO KNOWN DRUG ALLERGIES. HOME MEDICATIONS: - calcium - ciprofloxacin - Depakote - vitamin D - Synthroid - Amitiza - omeprazole - MiraLAX - pravastatin - Mysoline - Senna - trazodone REVIEW OF SYSTEMS: Unable to be obtained. The patient is nonverbal at baseline. PHYSICAL EXAMINATION: Vital signs: Temperature 98.6, pulse 91, respirations 16, blood pressure 95/53, oxygen saturation 98% on room air. In 3 liters, out unable to document. General: The patient is lying in bed, is moaning, unable to answer questions as he is nonverbal at baseline. He is tracking somewhat with his eyes but is not following commands. He appears to have chronic contractures. HEENT: Normocephalic, atraumatic. Mucous membranes are moist. Neck is supple. Trachea is midline. There is a right IJ triple lumen in place with some oozing in the dressing. Cardiovascular is regular rate and rhythm. Normal S1, S2. Unable appreciate murmurs. Pulmonary: There is a few crackles at the bases. No wheezing or rhonchi noted. Abdomen is soft. There appears to be a well-healed midline surgical incision. There does not appear to be any guarding noted or rebound. Lower extremities: There is no lower extremity edema noted bilaterally. LABORATORY DATA: WBC 9.4, hemoglobin 13.7, platelets are 31. Chemistry: Sodium is 143, potassium 4.3, chloride is 120, bicarbonate 14, BUN 42, creatinine 2.89, glucose was 83, anion gap of 9, albumin was 1.9, lactic acid was 5.3, magnesium was 1.2, total bilirubin 1.6, AST 137, ALT 91, alkaline phosphatase 80. Fibrinogen was 160. INR was 1.88, PTT was 21.4. Urine culture pending. Blood cultures pending. IMAGING: CT abdomen and pelvis showed evidence of gallstones but no evidence of cholecystitis. There is likely a cyst in the left kidney and also a possible cyst in the right kidney. There is evidence of bilateral nonobstructive renal calculi. There is impacted feces in the rectosigmoid with some diffuse thickening of the wall, the rectosigmoid suggesting stercoral colitis. There is some mild to moderate dilation of the proximal colon and status post partial small bowel resection. In the bladder there is diffuse thickening of the bladder wall. The prostate shows moderate hyperplasia and there is bilateral hydroceles with fluid in the left inguinal canal consistent with patent processus vaginalis. Chest x-ray showed a right IJ triple lumen in place. There is no pneumothorax noted. There is some mild increased markings and some atelectasis in the bases. ASSESSMENT AND PLAN: The patient is a 53-year-old male with a history of cerebral palsy and mental retardation, hypothyroidism, cholelithiasis, who is nonverbal at baseline and bedridden. The patient was sent from [facility] with complaints of decreased urination and urine output. He was noted on this admission to have acute renal failure compared to his ED visit the day prior to his admitting date. He was also noted to have evidence of thrombocytopenia and coagulopathy consistent with DIC likely secondary to sepsis. He did not have any leukocytosis initially, but he did have neutropenia. The patient was initially normotensive and was receiving IV fluids for his lactic acidosis secondary to his severe sepsis. He then became hypotensive overnight and was started on vasopressor support with Levophed and phenylephrine. This morning he continues to be hypotensive despite increasing doses of vasopressors almost at the maximum dose and critical care was consulted. 1. Septic shock likely in the setting of urosepsis given his history and presentation. Will add vasopressin and attempt to wean off the phenylephrine and continue with Levophed for blood pressure support to maintain a mean arterial pressure (MAP) above 65. - Will also get an echocardiogram for evaluation of his shock. - Continue with broad-spectrum antibiotics with vancomycin and meropenem and followup results of his cultures. - Will followup results of procalcitonin. 2. The patient has acute renal failure likely secondary to obstruction. The patient is incontinent of urine and we are unable to get accurate ins and out measurements. Urology was consulted yesterday but as he was having some urine output they did not come in to place a More. This morning as he continues to have renal failure with concern for obstruction contributing to his acute renal failure Urology was reconsulted for placement of a More catheter. The patient had attempts by Urology, which were unsuccessful due to a urethral stricture. He was also noted have multiple false tracts from his prior attempts at More catheter placement. A bedside cystoscopy was performed then with urology. He was given Versed a total of 3 mg IV for moderate sedation and he was able to have a More catheter successfully placed with dilation through the stricture. Upon placement of a More catheter the patient had immediate urine output, which was somewhat blood-tinged but not elio blood. - The patient also was noted to have increased prostate-specific antigen (PSA). A week ago his PSA was 1.9, today it was 21.6 suggesting a component of acute prostatitis. He also has a history BPH in the past as well. - Suspect that patient has had previous attempts at More placement, which may have been difficult due to his BPH causing formation of urethral stricture. With this stricture he likely had obstruction acutely, which may have contributed to his cystitis and prostatitis as well as his acute renal failure. - Would continue to trend his lactic acidosis. - Will continue to monitor his renal function and his electrolytes and replete as needed. Suspect with a More catheter placement he will continue to have improvement in his renal function and will not require dialysis at this time. 3. The patient was also noted to have worsening of metabolic acidosis on his labs. He did not have a significant anion gap but he was hyperchloremic suggesting a component of non anion gap metabolic acidosis. An arterial blood gas (ABG) was done, which did show appropriate respiratory compensation for his metabolic acidosis. Patient's normal saline fluids were discontinued and he was started on D5 instead with follow-up BMP - continue to monitor electrolytes and replete as needed. F/u repeat chemistry and adjust fluids as needed. 4. The patient has some mildly elevated liver function tests (LFTs) possibly in the setting of shock liver. He does have some cholelithiasis on exam but did not appear to have acute cholecystitis. Will consider ultrasound with the right upper quadrant ultrasound if his LFTs are not improving or if he continues to have evidence of sepsis. 5. DIC in setting of sepsis. Will continue to monitor his fibrinogen, coagulation and platelets. He did not appear to have any active bleeding, although with his urologic procedure and evidence of bleeding with More attempts, will transfuse him with 1 unit of platelets for the procedure. Will get an active type and screen. Would hold off on fresh frozen plasma (FFP) or cryoprecipitate unless he has a worsening fibrinogen levels or evidence of bleeding. Deep venous thrombosis (DVT) prophylaxis, thromboembolism deterrents (TEDs) and sequential compressive devices (SCDs). FULL CODE. Total critical care time spent not including any procedures approximately 2 hours and 20 minutes. MTDD
[2019-03-24] MEDS: LEVOTHYROXINE 25MCG TABLET (0.025MG) PO SCH (15:49)
[2019-03-24] MEDS: EPINEPHrine HCL INJ 1 MG in D5W 249 ML IV SCH ×2 (17:55→21:51)
[2019-03-24] MEDS ORDERED: VANCOMYCIN HCL 1,000 MG, VIAL MATE ADAPTER 1 EACH in D5W 250 ML IV SCH (22:00)
[2019-03-25] VITALS (83 sets, daily range): BP systolic 76–191; BP diastolic 43–114; O2SAT 91–96
[2019-03-25] MEDS: VASOPRESSIN INJ 20 UNITS in NS 499 ML IV SCH ×3 (01:35→16:58)
[2019-03-25] MEDS: NOREPINEPHRINE BITARTRATE 8 MG in D5W 492 ML IV SCH ×3 (01:35→14:16)
[2019-03-25] MEDS: D5W 1,000 ML IV SCH (03:22)
[2019-03-25] MEDS: HYDROCORTISONE 100 MG/2 ML VIAL (J1720 PER 1) IV SCH ×3 (03:22→18:08)
[2019-03-25] MEDS: EPINEPHrine HCL INJ 1 MG in D5W 249 ML IV SCH (03:33)
[2019-03-25 05:02] LABS: HEMATOCRIT 33.7 % (42.0-52.0); HEMOGLOBIN 11.5 g/dl (13.5-17.5); MEAN CORPUSCULAR HEMOGLOBIN 30.7 pg (27.0-33.0); MEAN CORPUSCULAR HGB CONC 34.1 g/dl (32.0-36.5); MEAN CORPUSCULAR VOLUME 90.1 fl (80.0-96.0); RED BLOOD COUNT 3.74 10^6/uL (4.30-6.10); WHITE BLOOD COUNT 18.8 10^3/uL (4.0-10.0)
[2019-03-25 05:08] LABS: PLATELET COUNT, AUTOMATED 32 10^3/uL (150-450)
[2019-03-25 05:13] LABS: INR 1.17; PROTHROMBIN TIME 14.7 SECONDS (11.8-14.0)
[2019-03-25 05:14] LABS: PARTIAL THROMBOPLASTIN TIME 48.4 SECONDS (25.0-38.4)
[2019-03-25 05:26] LABS: LYMPHOCYTES 2 % (16-44); METAMYELOCYTES 2 % (0-0); MONOCYTES 5 % (0-5); NEUTROPHILS 81 % (28-66)
[2019-03-25 05:27] LABS: PLATELET ESTIMATE MARKED DECREASE (NORMAL)
[2019-03-25 05:28] LABS: TOXIC VACUOLATION 2+
[2019-03-25 05:29] LABS: ALBUMIN 1.8 GM/DL (3.2-5.2); ALT/SGPT 72 U/L (12-78); BILIRUBIN,TOTAL 1.2 MG/DL (0.2-1.0); BLOOD UREA NITROGEN 27 MG/DL (7-18); CARBON DIOXIDE LEVEL 18 MEQ/L (21-32); CHLORIDE LEVEL 106 MEQ/L (98-107); GLOMERULAR FILTRATION RATE > 60.0 (>56); GLUCOSE, FASTING 217 MG/DL (70-100); POTASSIUM SERUM 3.9 MEQ/L (3.5-5.1); SODIUM LEVEL 131 MEQ/L (136-145); TOTAL PROTEIN 5.2 GM/DL (6.4-8.2)
[2019-03-25 05:32] LABS: ANISOCYTOSIS 1+; CRENATED RBC 1+; DOHLE BODIES 1+
[2019-03-25 05:33] LABS: POIKILOCYTOSIS 1+
[2019-03-25] MEDS: MEROPENEM INJ 500 MG in IV 1 EA IV SCH ×2 (05:57→17:10)
[2019-03-25] MEDS: KCL 20MEQ IN 0.45NS 1000ML 1,000 ML IV SCH ×2 (06:06→19:20)
[2019-03-25] MEDS: OMEPRAZOLE 20 MG CAP PO SCH (08:32)
[2019-03-25 08:35] LABS: VANCOMYCIN RANDOM 14.5 UG/ML
--- NOTE | 2019-03-25 09:25 | PHACANCOPD ---
PHARMACY VANCOMYCIN DOSING Pt Demographics Demographics Patient Age:53 , Weight:57.100 , Gender: male Adjusted Body Weight Date: 03/23/19, Adjusted Body Weight: Kg Vancomycin Vancomycin indication: UTI/SEPSIS Vancomycin Target Ranges: 15-20 mcg/ml Vancomycin Load Y/N: No Load Dose Date Time Vancomycin Load Dose: Date: Time: Vancomycin Dose Date: 03/23/19. Current Vancomycin Dose: [1G IV Q24H] Intermittent Dosing?: No Labs Micro Microbiology 03/23/19 Blood Culture - Preliminary, Resulted No growth after 24 hours . All specim... Creatinine Clearance Date:03/23/19. Creatinine Clearance: [20 ML/MIN]. Assessment and Plan Maintaining Current Dose?: No Reason for dose change: Change in serum Cr Pharmacist Note Pharmacist Note Date: 03/23/19. Pharmacist note: Pt is a 53 year old male be treated for Uti/SEPSIs with acute renal failure goal trough 15-20mcg/ml. The patient was last treated with vancomycin here at [facility] in 2001. To achieve goal the patient was started on 1g vancomycin IV in the ER 03/23/19. Maintenance therapy will consist of 1g IV every 24 hours starting 05/24/18 @22. We will continue to monitor and adjust the dose as needed. Date: 03/25/19. Pharmacist note: Pt Scr this morning came back at 1.3 improved from yesterday at 2.89. Calculated CrCl is 54. Random vancomycin level drawn at 0449 came back at 14.5. This gives an extrapolated trough of 6.6 if keep current dose of 1g q24h. Due to patient's improved renal function I am increasing dose to 1g q12h to start at 1000. I am leaving the originally scheduled trough at 2100 to see how the patient is doing at that time. Will continue to monitor and adjust dose as needed. ANEL GAONA PHARMACY Mar 25, 2019 09:25
[2019-03-25 10:25] LABS: BLOOD UREA NITROGEN 27 MG/DL (7-18); CARBON DIOXIDE LEVEL 20 MEQ/L (21-32); CHLORIDE LEVEL 105 MEQ/L (98-107); CREATININE FOR GFR 1.19 MG/DL (0.70-1.30); GLOMERULAR FILTRATION RATE > 60.0 (>56); GLUCOSE, FASTING 135 MG/DL (70-100); POTASSIUM SERUM 3.9 MEQ/L (3.5-5.1); SODIUM LEVEL 131 MEQ/L (136-145)
[2019-03-25] MEDS: VANCOMYCIN HCL 1,000 MG, VIAL MATE ADAPTER 1 EACH in D5W 250 ML IV SCH ×2 (10:34→21:50)
--- NOTE | 2019-03-25 10:42 | IPN ---
DATE OF VISIT: 03/25/2019 I attended Raymond Stevenson here in the intensive care unit. Patient has been examined, chart reviewed. He has been making reasonable urine with just shy of 3 liters out in the last 2 days. He has been able to be weaned off the epinephrine. They are weaning the Levophed. He remains on vasopressin at a fixed dose. Blood pressures remain between 86 and 110 systolic. He remains afebrile. Heart rate in the 80s. Respiratory rate in the 20s without accessory muscle use. He only intermittently will leave his oxygen on. Laboratories show a white blood cell count of 18.1, 81% segs, 10% bands, hemoglobin 11.5, platelet count 32,000. Sodium of 131, potassium of 3.9, chloride 106, CO2 18, BUN 27, creatinine down to 1.3, lactic acid down to 3.1. Bilirubin remains 1.2, albumin depressed at 1.8. No other new culture data available, although blood cultures were negative after 24 hours. On exam, he is awake. Generally, he is nonverbal, although, he does interact. Vital signs: As above. Pupils do react. Sclerae clear. Trachea is midline. Chest: Generally clear to auscultation and percussion. No focal adventitious breath sounds are identified. Cardiac exam is somewhat difficult due to his generally being uncooperative with exam, but generally regular. Peripheral pulses are palpable. Trace edema. Abdomen soft. There are active bowel sounds. Extremities show bruises, consistent with his hospitalization. Neurologically, he is awake and interactive. IMPRESSION: Sepsis with shock requiring multiple vasopressors. Renal failure, secondary to obstruction, now with Dalton in place. Cerebral palsy. RECOMMENDATIONS: At this point, he will continue on his current antimicrobials. He is on meropenem and vancomycin. He is on hydrocortisone replacement. I believe that is reasonable. We will continue to wean the Levophed first, and when that is able to be off we will then wean the vasopressin. His oxygenation statuses remain reasonable. He has had a little bit of a bump in his white count, and we will monitor that closely. We will continue as outlined above. Overall, his prognosis remains guarded as there is high risk for decompensation. He remains thrombocytopenic, but currently is holding and his presentation is most consistent with disseminated intravascular coagulation (DIC). At this point, we will continue as outlined above. Further recommendations will be made in the progress record as new information becomes available.
--- NOTE | 2019-03-25 10:44 | IPNPDOC ---
Subjective Review oF Systems Chief Complaint The patient is a 53-year-old male admitted with a reason for visit of Acute Renal Failure Cerebral Palsy Seizure Uti. Events since Last Encounter Dalton catheter is draining slightly blood tinged urine. Will sign off. Please let me know if I can be of assistance. Objective Physical Examination Heart Exam: Positive: Tachycardic, Regular Rhythm; Negative: Murmurs Vital Signs/I&O Vital Signs Date Time Temp Pulse Resp B/P (MAP) Pulse Ox O2 Delivery O2 Flow Rate FiO2 03/25/19 08:31 85 98/59 (72) 90 03/25/19 08:01 98.3 25 Nasal Cannula 4.0 I&O- Last 24 Hours up to 6 AM 03/25/19 06:00 Intake Total 5843.05 ml Output Total 2550 ml Balance 3293.05 ml Laboratory Data Labs 24H Laboratory Tests 2 03/24/19 12:30: Anion Gap 6L, Glomerular Filtration Rate 30.8L, Calcium Level 6.6L 03/24/19 14:58: Lactic Acid Level 3.3*H 03/24/19 19:21: Lactic Acid Followup at 4 Hours 5.2*H 03/24/19 21:09: Methicillin-Resist S.aureus DNA PCR DETECTEDH 03/24/19 21:52: Bedside Glucose (Misc Panel) 290H 03/25/19 04:49: Nucleated Red Blood Cells % (auto) 0.0, Neutrophils 81H, Band Neutrophils 10, Lymphocytes (Manual) 2L, Monocytes (Manual) 5, Metamyelocytes 2H, Poikilocytosis 1+, Anisocytosis 1+, Crenated Cell 1+, Dohle Bodies 1+, Toxic Vacuolation 2+, Platelet Estimate MARKED DECREASE, Immature Platelet Fraction 8.1, Prothrombin Time 14.7H, Prothromb Time International Ratio 1.17, Activated Partial Thromboplast Time 48.4H, Fibrinogen 221, Anion Gap 7L, Glomerular Filtration Rate > 60.0, Lactic Acid Level 3.1*H, Calcium Level 6.0L, Total Bilirubin 1.2H, Aspartate Amino Transf (AST/SGOT) 110H, Alanine Aminotransferase (ALT/SGPT) 72, Alkaline Phosphatase 125H, Total Protein 5.2L, Albumin 1.8L, Albumin/Globulin Ratio 0.53L, Random Vancomycin Level 14.5 03/25/19 09:52: Anion Gap 6L, Glomerular Filtration Rate > 60.0, Calcium Level 6.0L CBC/BMP Laboratory Tests 03/24/19 12:30 03/25/19 04:49 03/25/19 09:52 FSBS Laboratory Tests Test 03/24/19 21:52 Range/Units Bedside Glucose (Misc Panel) 290 70-105 MG/DL Microbiology Microbiology 03/23/19 Blood Culture - Preliminary, Resulted No growth after 24 hours . All specim... Assessment/Plan Date Seen The patient was seen on 03/25/19. Problems (1) Severe sepsis Status: Acute (2) Prostatitis, acute Status: Acute (3) Obstructive uropathy (4) Urinary retention with incomplete bladder emptying Status: Acute (5) Hypotension Status: Acute (6) Metabolic acidosis with respiratory alkalosis Status: Acute (7) DIC (disseminated intravascular coagulation) Status: Acute (8) Mental retardation Status: Chronic (9) Seizure disorder Status: Chronic (10) Cerebral palsy Status: Chronic Plan/VTE VTE Prophylaxis Ordered?: Yes (SCDs) VTE Exclusion Pharmacological: Thrombocytopenia Plan/Urinary Catheter Urinary Catheter: Place Dalton Reason for insertion/continuin: Critical Pt monitoring (and obstruction/retention) GARLAND ENRIQUEZ MD Mar 25, 2019 10:44
[2019-03-25 12:07] LABS: ABG BASE EXCESS -6.8 (-2.0-2.0); ABG HCO3 15.4 MEQ/L (22.0-26.0); ABG O2 SATURATION 90.5 % (95.0-99.0); ABG PARTIAL PRESSURE CO2 22.4 mmHg (35.0-45.0); ABG PARTIAL PRESSURE O2 54.8 mmHg (75.0-100.0); ABG STANDARD HCO3 18.8 MEQ/L (22.0-26.0); ABG pH (ARTERIAL) 7.454 UNITS (7.350-7.450)
--- NOTE | 2019-03-25 12:28 | REP ---
Clinical: Hypoxia. Comparison: 03/23/2019. Findings: Right IJ line in stable position. Stable cardiomegaly. Diffuse chronic interstitial changes are appreciated. Superimposed left upper lobe left lower lobe and minimal right lower lobe infiltrates appear slightly increased from prior examination. Small effusion cannot be excluded. No pneumothorax. Skeletal structures stable. Impression: Multifocal infiltrates (left greater than right) appear increased from prior examination. Cannot exclude layering left effusion. Electronically Signed by Refugio Pimentel MD 03/25/2019 12:18 P
--- NOTE | 2019-03-25 13:13 | IPNPDOC ---
Subjective Date Seen The patient was seen on 03/25/19. Subjective Chief Complaint/HPI Raymond was doing a little better this morning. Dr. Nelson was able to wean the epinephrine off; he remains on vasopressin and Levophed. Unfortunately this afternoon he is having some increased respiratory issues. He did have a chest x- ray done today that shows the possibility of and infiltrate in the left lower lobe, although I suspect this is more positioning and differences in his inspiration between the 2 films. He did certainly mount a white count. Some of this may be attributable to the hydrocortisone, but he does have a clear left shift. He has remained afebrile. His repeat gas looks slightly improved if anything. Dr. Nelson has put him on CPAP to see if this will improve his oxygenation. I had a discussion with his sister/healthcare proxy about the possibility of intubation. She is clear that he does not want this long-term, but would accept it temporarily if we thought we could help turn him around. General: Reports: ROS Unobtainable (developmental disability) Objective Physical Examination General Exam: Positive: Alert, Mild Distress (some increased work of breathing, on CPAP), Other (his sister is present at the bedside); Negative: Cooperative Eye Exam: Negative: Sclera icteric ENT Exam: Positive: Pharynx Normal, Tongue Midline; Negative: Mucous membr. moist/pink (moderately dry) Neck Exam: Positive: Supple, Other (slight oozing noted around his triple-lumen catheter); Negative: Lymphadenopathy Chest Exam: Positive: Clear to auscultation (I listened carefully to the left base but was not able to appreciate anything. His vocalizing/grunting did limit my examination.), Normal air movement Heart Exam: Positive: Rate Normal, Regular Rhythm; Negative: Murmurs Abdomen Exam: Positive: Normal bowel sounds, Soft; Negative: Tenderness Male Exam: Negative: Discharge (urinary catheter is in place) Extremity Exam: Negative: Cyanosis, Edema Skin Exam: Negative: Breakdown Neuro Exam: Negative: Normal Speech Psych Exam: Positive: Other Assessment /Plan Problems (1) Severe sepsis Status: Acute Response to Treatment: Uncompensated Discussed With: Nurse, Nursing Professor, Patient, Health Care Proxy, Family with Pt Consent Problem Specific Plan: Consult Specialist, Monitor Clinically, Repeat Labs Problem Text: He is currently maintained on 2 pressors (norepinephrine and vasopressin). Dr. Nelson is assisting in critical care management today; I appreciate his help. The etiology of the sepsis is slightly more in question today. I do still believe that there is a urinary source, but there could also be a pulmonary source. Regardless he's on meropenem and vancomycin (MRSA screen was positive) and I still believe that these antibiotics are adequate for his current situation. (2) Prostatitis, acute Status: Acute Discussed With: Patient, Family with Pt Consent Problem Specific Plan: Monitor Clinically, Repeat Tests Problem Text: His PSA did return elevated, which confirms my suspicions that he has a prostatitis. He is on meropenem which should be more than adequate to treat prostatitis at this point in time. Cultures are still pending. (3) Hypotension Status: Acute Response to Treatment: Controlled Discussed With: Nurse, Nursing Professor, Patient, Health Care Proxy, Family with Pt Consent Problem Specific Plan: Consult Specialist, Monitor Clinically, Repeat Labs Problem Text: He remains hypotensive from sepsis. Dr. Nelson is assisting with managing his pressors. His been making reasonable urine, which we can verify now that we have a catheter in place. (4) Obstructive uropathy Response to Treatment: Controlled Problem Specific Plan: Monitor Clinically Problem Text: He did have a catheter placed yesterday, and therefore his obstruction is controlled. His renal function is improving. I do not believe the catheter should be removed except by urologist. (5) Metabolic acidosis with respiratory alkalosis Status: Acute Response to Treatment: Compensated Discussed With: Nursing Professor Problem Specific Plan: Monitor Clinically, Repeat Labs Problem Text: This appears to be improving on his ABG, however, he took a slight clinical downturn this afternoon. He is currently maintained on CPAP. I discussed this with his sister who is aware that right now we seem to be able to keep him compensated, but that this is a dangerous situation. (6) DIC (disseminated intravascular coagulation) Status: Acute Response to Treatment: Stable (but not improved) Problem Specific Plan: Monitor Clinically, Repeat Labs Problem Text: He has DIC from the spesis. His platelets are stable despite platelet transfusion yesterday. We'll continue to monitor. (7) Mental retardation Status: Chronic Discussed With: Family with Pt Consent Problem Text: His MR and inability to participate in his own medical decision making as well as his tendency to pull out lines complicates all aspects of his current care. (8) Seizure disorder Status: Chronic Problem Specific Plan: Monitor Clinically, Repeat Labs Problem Text: We will continue his current regimen at this time. Monitor. (9) Cerebral palsy Status: Chronic Problem Text: His physical disabilities complicate his care. Plan/VTE VTE Prophylaxis Ordered?: Yes (SCDs) VTE Exclusion Pharmacological: Thrombocytopenia Plan/Urinary Catheter Urinary Catheter: Place Dalton Reason for insertion/continuin: Critical Pt monitoring (and obstruction/retenti on) VS, I&O, 24H, Fishbone Vital Signs/I&O Vital Signs Date Time Temp Pulse Resp B/P (MAP) Pulse Ox O2 Delivery O2 Flow Rate FiO2 03/25/19 08:31 85 98/59 (72) 90 03/25/19 08:01 98.3 25 Nasal Cannula 4.0 I&O- Last 24 Hours up to 6 AM 03/25/19 06:00 Intake Total 5843.05 ml Output Total 2550 ml Balance 3293.05 ml Laboratory Data 24H LABS Laboratory Tests 2 03/24/19 14:58: Lactic Acid Level 3.3*H 03/24/19 19:21: Lactic Acid Followup at 4 Hours 5.2*H 03/24/19 21:09: Methicillin-Resist S.aureus DNA PCR DETECTEDH 03/24/19 21:52: Bedside Glucose (Misc Panel) 290H 03/25/19 04:49: Nucleated Red Blood Cells % (auto) 0.0, Neutrophils 81H, Band Neutrophils 10, Lymphocytes (Manual) 2L, Monocytes (Manual) 5, Metamyelocytes 2H, Poikilocytosis 1+, Anisocytosis 1+, Crenated Cell 1+, Dohle Bodies 1+, Toxic Vacuolation 2+, Platelet Estimate MARKED DECREASE, Immature Platelet Fraction 8.1, Prothrombin Time 14.7H, Prothromb Time International Ratio 1.17, Activated Partial Thromboplast Time 48.4H, Fibrinogen 221, Anion Gap 7L, Glomerular Filtration Ra te > 60.0, Lactic Acid Level 3.1*H, Calcium Level 6.0L, Total Bilirubin 1.2H, Aspartate Amino Transf (AST/SGOT) 110H, Alanine Aminotransferase (ALT/SGPT) 72, Alkaline Phosphatase 125H, Total Protein 5.2L, Albumin 1.8L, Albumin/Globulin Ratio 0.53L, Random Vancomycin Level 14.5 03/25/19 09:52: Anion Gap 6L, Glomerular Filtration Rate > 60.0, Calcium Level 6.0L, Lactic Acid Followup at 4 Hours 3.2*H 03/25/19 11:47: Blood Gas Bicarbonate Standard 18.8L, Arterial Blood pH 7.454H, Arterial Blood Partial Pressure CO2 22.4L, Arterial Blood Partial Pressure O2 54.8L, Arterial Blood Total CO2 16.0L, Arterial Blood HCO3 15.4L, Arterial Blood Base Excess -6.8L, Arterial Blood Oxygen Saturation 90.5L 03/25/19 12:43: Bedside Glucose (Misc Panel) 134H CBC/BMP Laboratory Tests 03/25/19 04:49 03/25/19 09:52 Microbiology Microbiology 03/23/19 Blood Culture - Preliminary, Resulted No growth after 24 hours . All specim... Ryan Cervantes MD Mar 25, 2019 13:13
--- NOTE | 2019-03-25 15:03 | ECHO ---
DATE OF PROCEDURE: 03/25/2019 DATE OF : 1965 AGE: 53 REFERRING PROVIDER: Dr. Gayle Louis. PATIENT LOCATION: Room 3204 REASON FOR THE STUDY: CVA. 2D MEASUREMENTS: IVS: 0.9 cm LV: 5.7 cm LVPW: 1.0 cm LA: 3.7 cm Aorta: 3.3 cm IVC: 1.8 cm DOPPLER MEASUREMENTS: Peak velocity across the aortic valve: 1.0 meters per second Peak velocity across the LVOT: 0.7 meters per second Mitral E: 0.8, Mitral A: 0.3 with a ratio of greater than 1.0. Tricuspid valve velocity: 1.7 meters per second 2D COMMENTS: 1. The left ventricle appeared to be mildly enlarged with normal left ventricular wall thickness but with a depressed global left ventricular systolic function. The estimated global left ventricular systolic ejection fraction is 40-45%. 2. Subjectively, the left atrium appeared to be mildly enlarged. Normal right ventricle. 3. The atrial septum appeared to be normal without evidence of defect or shunt. 4. Normal aortic root. 5. No pericardial effusion seen. 6. Aortic valve, mitral valve, tricuspid valve, and pulmonic valve appeared to be normal. The proximal pulmonary artery branches were not well visualized. 7. The inferior vena cava was normal in size, central venous pressure is most likely normal. DOPPLER: It detects moderate mitral regurgitation, trace tricuspid regurgitation and trace pulmonic regurgitation. The calculated pulmonary artery systolic pressure was normal. Assessment of the left ventricular diastolic function appeared to be normal. IMPRESSION: 1. Probably mild global left ventricular systolic dysfunction with diffuse hypokinesis and a mildly enlarged left ventricle. Assessment of the left ventricular diastolic function appeared to be normal. 2. Moderate mitral regurgitation with probably mildly enlarged left atrium. 3. Trace tricuspid regurgitation with a normal calculated pulmonary artery systolic pressure. 4. Trace pulmonic regurgitation. 5. The patient seems to be in normal sinus rhythm during the test. [facility]
[2019-03-25] MEDS: LEVOTHYROXINE 25MCG TABLET (0.025MG) PO SCH (16:00)
--- NOTE | 2019-03-25 21:53 | PHACANCOPD ---
PHARMACY VANCOMYCIN DOSING Pt Demographics Demographics Patient Age:53 , Weight:57.100 , Gender: male Adjusted Body Weight Date: 03/23/19, Adjusted Body Weight: [57] Kg Vancomycin Vancomycin indication: UTI/SEPSIS Vancomycin Target Ranges: 15-20 mcg/ml Vancomycin Load Y/N: No Load Dose Date Time Vancomycin Load Dose: Date: Time: Vancomycin Dose Date: 03/25/19. Current Vancomycin Dose: [1 GM Q12H] Date: 03/23/19. Current Vancomycin Dose: [1G IV Q24H] Intermittent Dosing?: No Labs Micro Microbiology 03/23/19 Blood Culture - Preliminary, Resulted No Growth after 48 hours. All Specime... Creatinine Clearance Date:03/25/19. Creatinine Clearance: [57.2]. Date:03/23/19. Creatinine Clearance: [20 ML/MIN]. Assessment and Plan Maintaining Current Dose?: Yes Reason for dose change: No Dose Change Pharmacist Note Pharmacist Note Date: 03/25/19. Pharmacist note:Karla's Vancomycin trough(drawn@20:59) reported as 12.2( goal=15-20)Regimen was just begun this morning, so will maintain current dose/schedule(1 gram IV Q12H)for now and redraw trough tomorrow evening. Will continue to follow Date: 03/23/19. Pharmacist note: Pt is a 53 year old male be treated for Uti/SEPSIs with acute renal failure goal trough 15-20mcg/ml. The patient was last treated with vancomycin here at [facility] in 2001. To achieve goal the patient was started on 1g vancomycin IV in the ER 03/23/19. Maintenance therapy will consist of 1g IV every 24 hours starting 05/24/18 @22. We will continue to monitor and adjust the dose as needed. Date: 03/25/19. Pharmacist note: Pt Scr this morning came back at 1.3 improved from yesterday at 2.89. Calculated CrCl is 54. Random vancomycin level drawn at 0449 came back at 14.5. This gives an extrapolated trough of 6.6 if keep current dose of 1g q24h. Due to patient's improved renal function I am increasing dose to 1g q12h to start at 1000. I am leaving the originally scheduled trough at 2100 to see how the patient is doing at that time. Will continue to monitor and adjust dose as needed. [facility] Mar 25, 2019 21:53
[2019-03-26] VITALS (92 sets, daily range): BP systolic 80–106; BP diastolic 41–66; O2SAT 88–92
[2019-03-26] MEDS: VASOPRESSIN INJ 20 UNITS in NS 499 ML IV SCH ×3 (00:43→16:20)
[2019-03-26] MEDS: NOREPINEPHRINE BITARTRATE 8 MG in D5W 492 ML IV SCH ×2 (02:24→03:22)
[2019-03-26] MEDS: HYDROCORTISONE 100 MG/2 ML VIAL (J1720 PER 1) IV SCH ×3 (03:09→18:06)
[2019-03-26 03:51] LABS: HEMATOCRIT 30.8 % (42.0-52.0); HEMOGLOBIN 10.7 g/dl (13.5-17.5); MEAN CORPUSCULAR HEMOGLOBIN 30.6 pg (27.0-33.0); MEAN CORPUSCULAR HGB CONC 34.7 g/dl (32.0-36.5); WHITE BLOOD COUNT 24.5 10^3/uL (4.0-10.0)
[2019-03-26 03:53] LABS: PLATELET COUNT, AUTOMATED 10 10^3/uL (150-450)
[2019-03-26 04:06] LABS: ATYPICAL LYMPH 3 % (0-5); LYMPHOCYTES 6 % (16-44); MONOCYTES 6 % (0-5); NEUTROPHILS 84 % (28-66)
[2019-03-26 04:07] LABS: ANISOCYTOSIS 1+; PLATELET ESTIMATE MARKED DECREASE (NORMAL)
[2019-03-26 04:09] LABS: CRENATED RBC 1+; DOHLE BODIES 1+; POIKILOCYTOSIS 1+; TOXIC VACUOLATION 2+
[2019-03-26 04:16] LABS: INR 1.24; PROTHROMBIN TIME 15.3 SECONDS (11.8-14.0)
[2019-03-26 04:17] LABS: PARTIAL THROMBOPLASTIN TIME 35.6 SECONDS (25.0-38.4)
[2019-03-26 04:25] LABS: ALBUMIN 1.8 GM/DL (3.2-5.2); ALT/SGPT 68 U/L (12-78); BILIRUBIN,TOTAL 2.2 MG/DL (0.2-1.0); BLOOD UREA NITROGEN 32 MG/DL (7-18); CALCIUM LEVEL 6.3 MG/DL (8.5-10.1); CARBON DIOXIDE LEVEL 23 MEQ/L (21-32); CHLORIDE LEVEL 100 MEQ/L (98-107); CREATININE FOR GFR 0.95 MG/DL (0.70-1.30); GLOMERULAR FILTRATION RATE > 60.0 (>56); GLUCOSE, FASTING 97 MG/DL (70-100); POTASSIUM SERUM 3.6 MEQ/L (3.5-5.1); SODIUM LEVEL 130 MEQ/L (136-145); TOTAL PROTEIN 4.8 GM/DL (6.4-8.2)
[2019-03-26] MEDS ORDERED: ONDANSETRON 4MG/2ML VIAL (J2405) IV PRN (06:30)
[2019-03-26 06:34] LABS: ABG BASE EXCESS -3.7 (-2.0-2.0); ABG HCO3 18.5 MEQ/L (22.0-26.0); ABG O2 SATURATION 98.1 % (95.0-99.0); ABG PARTIAL PRESSURE CO2 25.3 mmHg (35.0-45.0); ABG PARTIAL PRESSURE O2 115.8 mmHg (75.0-100.0); ABG STANDARD HCO3 21.4 MEQ/L (22.0-26.0); ABG TOTAL CO2 19.3 MEQ/L (22.0-29.0); ABG pH (ARTERIAL) 7.483 UNITS (7.350-7.450)
[2019-03-26] MEDS: MEROPENEM INJ 500 MG in IV 1 EA IV SCH (06:37)
--- NOTE | 2019-03-26 07:06 | REP ---
There clinical: Possible aspiration. Comparison: 03/23/2019. Findings: Right IJ line with tip in the SVC. The cardiac silhouette is upper limits of normal. Increased bilateral opacities extending from the perihilar regions primarily involving the lower lobe (left greater than right). Layering left effusion cannot be excluded. Differential diagnosis includes multifocal pneumonia and pulmonary edema. No pneumothorax. Skeletal structures stable. Impression: Increased bilateral opacities. Differential diagnosis includes multifocal pneumonia and pulmonary edema. Electronically Signed by Refugio Pimentel MD 03/26/2019 06:57 A
[2019-03-26] MEDS: OMEPRAZOLE 20 MG CAP PO SCH (09:00)
[2019-03-26] MEDS ORDERED: FUROSEMIDE 20 MG/2 ML VIAL (J1940) IV ONE (09:00)
[2019-03-26] MEDS: VANCOMYCIN HCL 1,000 MG, VIAL MATE ADAPTER 1 EACH in D5W 250 ML IV SCH ×2 (09:31→22:14)
[2019-03-26 09:32] LABS: PHOSPHORUS LEVEL 1.8 MG/DL (2.5-4.9)
[2019-03-26 10:26] LABS: HEMATOCRIT 31.3 % (42.0-52.0); HEMOGLOBIN 10.8 g/dl (13.5-17.5); MEAN CORPUSCULAR HEMOGLOBIN 30.3 pg (27.0-33.0); MEAN CORPUSCULAR HGB CONC 34.5 g/dl (32.0-36.5); MEAN CORPUSCULAR VOLUME 87.9 fl (80.0-96.0); RED BLOOD COUNT 3.56 10^6/uL (4.30-6.10); WHITE BLOOD COUNT 23.1 10^3/uL (4.0-10.0)
[2019-03-26 10:28] LABS: PLATELET COUNT, AUTOMATED 26 10^3/uL (150-450)
--- NOTE | 2019-03-26 10:35 | IPNPDOC ---
Subjective Date Seen The patient was seen on 03/26/19. Subjective Chief Complaint/HPI Raymond had a tough night. He vomited a couple times and the CPAP had to be removed. We changed him to Vapotherm, but he has been more hypoxemic with this modality. His ABG is still reasonably compensated. His WBC are up even higher. He has a CXR done that shows symmetric bilateral increased lung markings. I suspect that this is related to fluid overload rather than a pneumonia or aspiration because of the symmetric nature of the increase. His renal function has improved, however, his ratio is >30:1 which makes me think he is still a li ttle pre-renal. It is possible that he is relatively intravascularly dry and the increased fluids are in the wrong (interstitial) places like lungs and abdomen. The CXR does show a markedly increased bowel gas pattern and I have ordered an abdominal flat plate to further characterize the bowel gas pattern. Nursing reports that he recently had a BM, so I do not believe that he is totally obstructed. None the less, he has a significant history of bowel obstruction and obstipation. If he is heading that way it may explain his increased nausea and vomiting. He remains on two pressors, though the Levophed is at lower doses today than yesterday. General: Reports: ROS Unobtainable (non-verbal) Objective Physical Examination General Exam: Positive: Alert (his sister is present at the bedside), Mild Distress (some increased work of breathing, on Vapotherm with a non-rebreather over it), Other (while examining him he had a moderate to large projectile emesis of fecalent material) Eye Exam: Negative: Sclera icteric ENT Exam: Positive: Tongue Midline; Negative: Mucous membr. moist/pink (moderately dry) Neck Exam: Positive: Supple, Other (slight oozing noted around his triple-lumen catheter); Negative: Lymphadenopathy Chest Exam: Positive: Clear to auscultation (I listened carefully to the lateral bases but was not able to appreciate anything. His vocalizing/grunting did limit my examination.), Diminished Heart Exam: Positive: Rate Normal, Regular Rhythm; Negative: Murmurs Abdomen Exam: Positive: Normal bowel sounds (however they are higher pitched than they have been for the last couple of days), Soft; Negative: Tenderness Male Exam: Positive: Edema (scrotal edema is present, or at least more prominent than it was); Negative: Discharge (urinary catheter is in place) Extremity Exam: Positive: Edema (There is 1mm of pitting peripheral edema at the mid-tibial area on the R leg, the L leg remains fairly free of edema); Negative: Cyanosis Skin Exam: Negative: Breakdown Neuro Exam: Negative: Normal Speech Psych Exam: Positive: Other (developmental disability) Assessment /Plan Problems (1) Severe sepsis Status: Acute Response to Treatment: Uncompensated Discussed With: Nurse, Grinding Machine Operator Automatic, Patient, Health Care Proxy, Family with Pt Consent Problem Specific Plan: Consult Specialist, Monitor Clinically, Repeat Labs Problem Text: He is currently maintained on 2 pressors (norepinephrine and vasopressin). Dr. Nelson is assisting in critical care management today; I appreciate his help. His lactic acid is improving, but still has not resolved. I am making him NPO (see more below) and am restarting his valproic acid (which he has not been getting, although I was under the mistaken impression he was) for the last couple of days. I decided to change his meropenem, which would significantly decrease the efficacy of the valproic acid, to cefepime. I considered Zosyn, but this is a bad idea because he is already severely thrombocytopenic. Levofloxacin is also a consideration, but his urine cx (done in the ER during a separate visit on his day of admission) is resistant to levofloxacin and this may also lower his seizure threshold. So cefepime is the next best choice in my opinion. (2) Hypotension Status: Acute Response to Treatment: Controlled Discussed With: Nurse, Grinding Machine Operator Automatic, Patient, Health Care Proxy, Family with Pt Consent Problem Specific Plan: Consult Specialist, Monitor Clinically, Repeat Labs Problem Text: He remains hypotensive from sepsis. Dr. Nelson is assisting with managing his pressors. His been making reasonable urine, which we can verify now that we have a catheter in place. (3) Metabolic acidosis with respiratory alkalosis Status: Acute Response to Treatment: Compensated Discussed With: Grinding Machine Operator Automatic Problem Specific Plan: Monitor Clinically, Repeat Labs Problem Text: His lactic acidosis continues several days after we initially started treating him. This is not a good prognostic indicator in my mind. Perhaps some of this is now driven by the Levophed and some ischemia from that medication (including mesenteric). However, we can't just stop the Levophed either. We will continue to monitor this situation carefully, but I am increasingly concerned that he will not survive this episode. Not in the least because he is needing more and more support to maintain his compensatory mechanisms. (4) Prostatitis, acute Status: Acute Discussed With: Patient, Family with Pt Consent Problem Specific Plan: Monitor Clinically, Repeat Tests Problem Text: The urine culture obtained through the ER during an earlier episode of care on the day of his admission has returned showing E. Coli that is resistant to ampicillin and levofloxacin. His white count continues to climb. I am adding his valproic acid back in and it would be best to change the meropenem because of this. His urine cx is sensitive to cefepime and I will use this medication for broad spectrum coverage at this time. (5) DIC (disseminated intravascular coagulation) Status: Acute Response to Treatment: Stable (but not improved) Problem Specific Plan: Monitor Clinically, Repeat Labs Problem Text: His platelets dropped to 10k this morning. He received a transfusion of pack of platelets. His count only rebounded to 26k and Dr. Nelson ordered another pack given. Based on the low fibrinogen levels, I am still assuming that these are being consumed not sequestered. Will monitor. (6) Mental retardation Status: Chronic Discussed With: Family with Pt Consent Problem Text: His MR and inability to participate in his own medical decision making as well as his tendency to pull out lines complicates all aspects of his current care. (7) Seizure disorder Status: Chronic Problem Specific Plan: Monitor Clinically, Repeat Labs Problem Text: I thought he was getting his home dose of Depakote ER 500mg BID orally, but he was not. I will start him on IV valproic acid today since he is being made NPO. (8) Cerebral palsy Status: Chronic Problem Text: His physical disabilities complicate his care. (9) Obstructive uropathy Status: Resolved Response to Treatment: Controlled Problem Specific Plan: Monitor Clinically, Repeat Labs Problem Text: His renal function has normalized. I continue to believe that only a urologist should remove his urinary catheter. Plan/VTE VTE Prophylaxis Ordered?: Yes (SCDs) VTE Exclusion Pharmacological: Thrombocytopenia Plan/Urinary Catheter Urinary Catheter: Place Dalton Reason for insertion/continuin: Critical Pt monitoring (and obstruction/retention) Plan I have asked his three sisters (who reportedly functionally share decision- making for him) to meet me tomorrow at 11:00 to discuss his ongoing care. We may need to modify his goals of care at that time. VS, I&O, 24H, Fishbone Vital Signs/I&O Vital Signs Date Time Temp Pulse Resp B/P (MAP) Pulse Ox O2 Delivery O2 Flow Rate FiO2 03/26/19 10:16 90 HVNI-Vapotherm 40.0 100 03/26/19 08:15 73 94/63 (73) 03/26/19 07:30 98.0 16 I&O- Last 24 Hours up to 6 AM 03/26/19 06:00 Intake Total 3059 ml Output Total 1815 ml Balance 1244 ml Laboratory Data 24H LABS Laboratory Tests 2 03/25/19 11:47: Blood Gas Bicarbonate Standard 18.8L, Arterial Blood pH 7.454H, Arterial Blood Partial Pressure CO2 22.4L, Arterial Blood Partial Pressure O2 54.8L, Arterial Blood Total CO2 16.0L, Arterial Blood HCO3 15.4L, Arterial Blood Base Excess - 6.8L, Arterial Blood Oxygen Saturation 90.5L 03/25/19 12:43: Bedside Glucose (Misc Panel) 134H 03/25/19 15:40: Lactic Acid Level 2.7*H 03/25/19 17:07: Bedside Glucose (Misc Panel) 92 03/25/19 19:54: Lactic Acid Followup at 4 Hours 2.3*H 03/25/19 20:59: Vancomycin Level Trough 12.2 03/25/19 21:22: Bedside Glucose (Misc Panel) 110H 03/25/19 23:55: Bedside Glucose (Misc Panel) 128H 03/26/19 03:44: Nucleated Red Blood Cells % (auto) 0.0, Neutrophils 84H, Band Neutrophils 1, Lymphocytes (Manual) 6L, Monocytes (Manual) 6H, Atypical Lymphocytes 3, Poikilocytosis 1+, Anisocytosis 1+, Crenated Cell 1+, Dohle Bodies 1+, Toxic Vacuolation 2+, Platelet Estimate MARKED DECREASE, Prothrombin Time 15.3H, Prothromb Time International Ratio 1.24, Activated Partial Thromboplast Time 35.6, Fibrinogen 220L, Anion Gap 7L, Glomerular Filtration Rate > 60.0, Calcium Level 6.3L, Phosphorus Level 1.8L, Total Bilirubin 2.2#H, Aspartate Amino Transf (AST/SGOT) 99H, Alanine Aminotransferase (ALT/SGPT) 68, Alkaline Phosphatase 200H, Total Protein 4.8L, Albumin 1.8L, Albumin/Globulin Ratio 0.60L 03/26/19 03:50: Bedside Glucose (Misc Panel) 94 03/26/19 06:29: Blood Gas Bicarbonate Standard 21.4L, Arterial Blood pH 7.483H, Arterial Blood Partial Pressure CO2 25.3L, Arterial Blood Partial Pressure O2 115.8H, Arterial Blood Total CO2 19.3L, Arterial Blood HCO3 18.5L, Arterial Blood Base Excess - 3.7L, Arterial Blood Oxygen Saturation 98.1 03/26/19 08:04: Bedside Glucose (Misc Panel) 98 03/26/19 10:15: Nucleated Red Blood Cells % (auto) 0.0, Immature Platelet Fraction 10.2 CBC/BMP Laboratory Tests 03/26/19 03:44 03/26/19 10:15 Microbiology Microbiology 03/23/19 Blood Culture - Preliminary, Resulted No Growth after 48 hours. All Specime... Ryan Cervantes MD Mar 26, 2019 10:35
--- NOTE | 2019-03-26 10:37 | CCN ---
DATE OF VISIT: 03/26/2019 START TIME: 0840. STOP TIME: 0916. I again attended Raymond Stevenson here in the intensive care unit. The patient has been examined, chart reviewed, and I spoke with the nurse and rig hand at the bedside. He had an episode earlier this morning with vomiting. Continuous positive airway pressure (CPAP) was removed. He was placed on Vapotherm. Initially, saturations have been well with that. Chest x-ray shows increased edema. Poor inspiratory efforts, difficult to assess regarding any increase in infiltrate. Over the last hour, he has had increasing FIO2 requirements. Was placed back on CPAP. Currently, we have been able to drop his FIO2 back to 80% with saturations of 91% to 93%. On examination, he is interactive, arousable, and comfortable. Maximum temperature (Tmax) overnight 99.5, blood pressure 85-106. He remains on vasopressin and decreasing doses of Levophed. Heart rate generally in the 80s. Respiratory rate 16-20 with accessory muscle use. Intake and output (I and O) midnight to midnight 4053 mL in and 2390 mL out. Most recent laboratories show sodium 130, potassium of 3.6, chloride 100, CO2 23, BUN 32, creatinine 0.95, glucose 97, total bilirubin 2.2 mildly up from 1.2, alkaline phosphatase 200 mildly elevated from yesterday, albumin 1.8. White blood cell count 24.5, 84% segmented neutrophils, only 1% bands today, hemoglobin 10.7, platelet count down to 2000. Blood gas done at 0629 on Vapotherm has a pH of 7.483, PCO2 of 25.3, and pAO2 of 150.8. Coagulation panel (coags) show a PT of 15.3, INR 1.24. Fibrinogen remains low at 220. No new culture data available. On examination, he is interactive and comfortable. Vital signs: As outlined above. HEENT: Shows his pupils do react. CPAP mask in place. Membranes are moist. Trachea is in the midline. Chest: Shows some dependent crackles. No convincing rhonchi. Expansion although diminished is symmetric. No rubs. Cardiac examination: Is distant but regular. Peripheral pulses are palpable. Diffuse trace to 1+ edema. Abdomen: Shows positive bowel sounds. No obvious organomegaly. Extremities: Without cyanosis or clubbing. There are bruises consistent with his hospitalization. Neurologic examination: Consistent with his known cerebral palsy. The most pressing problems requiring my presence at the bedside: 1. Hypoxemic respiratory failure. 2. Respiratory alkalosis. 3. Sepsis with shock requiring decreasing vasopressors. 4. Renal failure, resolved after placement of Dalton. 5. Protein-calorie malnutrition. 6. Suspected pneumonitis. 7. DIC. At this point, he has had no meaningful nutrition the last several days. We are not able to use his gut at this point; and, therefore, will begin total parenteral nutrition (TPN). His platelets are down again this morning and sitting at 10,000. We will transfuse him platelets to prevent any further bleeding episodes. We will continue his current level of antimicrobials since I believe they are appropriate. He is on decreasing levels of Levophed; and once that is off, we will work on getting rid of the vasopressin. We decreased his steroids yesterday. Will leave them where they are for now. His lactic acid level was markedly improved the last several days; and in view of his increasing FIO2 requirements, the appearance of his chest x-ray, increasing liver function tests (LFTs) which I believe are congestive, we will give him a small dose of intravenous (IV) diuretics and see how he does with that. We will closely monitor his electrolytes. Given his developmental disability, that it is difficult to interact with him, but at this point hopefully we can avoid endotracheal intubation and mechanical ventilation. The rig hand at the bedside said he has had marked issues before but does not believe he has ever been intubated. At this point, we will proceed as outlined above. There is a very high likelihood of further compromise. For now will alternate between CPAP and the Vapotherm. We will avoid nasogastric (NG) tube unless absolutely necessary as it makes the CPAP mask a little difficult and certainly cuts down in the effectiveness of the Vapotherm. We will proceed as outlined above. At this point, he is critically ill and again as outlined above high likelihood of further compromise. I left the bedside at 0916 hours. 36 minutes of critical care time delivered at the bedside and in coordination of care, not including procedures. JOSEE
--- NOTE | 2019-03-26 12:02 | REP ---
Clinical: Abdominal pain and vomiting. Findings: Distended air-filled loops of small large bowel are noted and nonspecific. Cholelithiasis. Skeletal structures intact. Impression: Distended air-filled loops of small and large bowel nonspecific. Cannot exclude early/partial small bowel obstruction as well as early ileus. Consider serial follow-up abdominal radiographs if necessary. Electronically Signed by Refugio Pimentel MD 03/26/2019 11:54 A
[2019-03-26] MEDS: PANTOPRAZOLE 40MG INJ (PROTONIX) (C9113) IV SCH (12:09)
[2019-03-26] MEDS: CEFEPIME HCL 2 GM in D5W MINI-BAG PLUS 50 ML IV SCH ×2 (12:09→21:39)
[2019-03-26] MEDS: VALPROATE SOD INJ 500 MG in D5W 50 ML IV SCH (12:55)
[2019-03-26] MEDS: LEVOTHYROXINE 100 MCG (0.1MG) VIAL IV SCH (12:57)
[2019-03-26] MEDS: KCL 20MEQ IN 0.45NS 1000ML 1,000 ML IV SCH (15:44)
[2019-03-26 17:29] LABS: BLOOD UREA NITROGEN 31 MG/DL (7-18); CALCIUM LEVEL 6.1 MG/DL (8.5-10.1); CARBON DIOXIDE LEVEL 29 MEQ/L (21-32); CHLORIDE LEVEL 98 MEQ/L (98-107); CREATININE FOR GFR 0.78 MG/DL (0.70-1.30); GLOMERULAR FILTRATION RATE > 60.0 (>56); GLUCOSE, FASTING 102 MG/DL (70-100); MAGNESIUM LEVEL 1.7 MG/DL (1.8-2.4); SODIUM LEVEL 132 MEQ/L (136-145)
[2019-03-26] MEDS: HumaLOG INSULIN (NovoLOG) PER UNIT SC SCH (17:57)
[2019-03-26] MEDS ORDERED: SODIUM ACETATE IV SCH ×8 (18:00)
[2019-03-26] MEDS ORDERED: MAG SULF 1GM/100ML (MAG RUN) 1 GM in IV 1 EA IV ONE (18:00)
[2019-03-26] MEDS ORDERED: FAT EMULSION IV 20% 500 ML IV SCH (18:00)
[2019-03-26] MEDS ORDERED: SODIUM CHLORIDE IV SCH ×8 (18:00)
[2019-03-26] MEDS ORDERED: [UNRECOGNIZED DRUG - OTHER] IV SCH ×8 (18:00)
[2019-03-26] MEDS: KCL 20MEQ IN 100ML SWI (KRUN) 20 MEQ in IV 1 EA IV SCH ×4 (18:05→19:19)
--- NOTE | 2019-03-26 20:52 | IPNPDOC ---
Text Note Date of Service The patient was seen on 03/26/19. NOTE I was called back to Mr. Stevenson's bedside this evening because of bradycardia. He was dropping down into the high 40s and low 50s. Nurses reported he had dropped into the 50s transiently in the past during defecation but he never sustained there. For a period of about 45 minutes he reportedly dropped into the low 50s while sleeping. I requested a 12-lead EKG which was done and I reviewed. It showed a sinus rhythm and he actually was not bradycardic at the time the EKG was acquired. I spoke to her sister, who is been present has bedside for most of this admission, about this change. I explained I wasn't exactly sure of the etiology of the bradycardia, but did suspect that his body is simply getting tired and depleted because he's been on pressors for almost 4 straight days. This prompted her to request is stay to discuss the situation with her 2 other sisters who live close. As a documented before 2 of the 3 sisters are court- appointed legal decision makers, but they have agreed to make decisions as a group whenever possible. I met with the Raymond' 3 sisters and we discussed his end-of-life wishes. They wanted to fill and updated MOLST form and we did this together. They were all clear that they do not want him resuscitated should his body completely fail. The remainder of the decisions were unanimous amongst the group but were more nuanced and are clearly documented on the MOLST form. VS,Fishbone, I+O VS, Fishbone, I+O Laboratory Tests 03/26/19 03:44 03/26/19 10:15 03/26/19 16:47 Vital Signs Date Time Temp Pulse Resp B/P (MAP) Pulse Ox O2 Delivery O2 Flow Rate FiO2 03/26/19 18:15 71 89/52 (64) 90 NIPPV (BIPAP/CPAP) 50 03/26/19 16:00 98.7 24 03/26/19 14:19 40.0 I&O- Last 24 Hours up to 6 AM 03/26/19 06:00 Intake Total 3059 ml Output Total 1815 ml Balance 1244 ml Ryan Cervantes MD Mar 26, 2019 8:52 pm
--- NOTE | 2019-03-26 22:24 | ECGEPIP ---
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
[2019-03-27] VITALS (76 sets, daily range): BP systolic 82–113; BP diastolic 49–60; O2SAT 88–92
[2019-03-27] MEDS: VALPROATE SOD INJ 500 MG in D5W 50 ML IV SCH ×2 (01:06→13:41)
[2019-03-27] MEDS: HumaLOG INSULIN (NovoLOG) PER UNIT SC SCH ×5 (01:07→23:34)
[2019-03-27] MEDS: NOREPINEPHRINE BITARTRATE 8 MG in D5W 492 ML IV SCH (01:11)
[2019-03-27] MEDS: VASOPRESSIN INJ 20 UNITS in NS 499 ML IV SCH ×2 (01:12→08:00)
--- NOTE | 2019-03-27 02:53 | PHACANCOPD ---
PHARMACY VANCOMYCIN DOSING Pt Demographics Demographics Patient Age:53 , Weight:67.400 , Gender: male Adjusted Body Weight Date: 03/23/19, Adjusted Body Weight: [57] Kg Events Past 24 Hours Events Past 24 Hours: YES: Change in CrCl, Elevation in WBC; NO: Dialysis, Diuretic Therapy, Fever, Pending Diagnostics, Pending Procedures, Other Vancomycin Vancomycin indication: UTI/SEPSIS Vancomycin Target Ranges: 15-20 mcg/ml Vancomycin Load Y/N: No Load Dose Date Time Vancomycin Load Dose: Date: Time: Vancomycin Dose Date 03/27/19. Current vancomycin dose: [ 1 gm q8h] Date: 03/25/19. Current Vancomycin Dose: [1 GM Q12H] Date: 03/23/19. Current Vancomycin Dose: [1G IV Q24H] Intermittent Dosing?: No Labs Micro Microbiology 03/23/19 Blood Culture - Preliminary, Resulted No Growth after 72 hours. All specime... Creatinine Clearance Date:03/25/19. Creatinine Clearance: [57.2]. Date:03/23/19. Creatinine Clearance: [20 ML/MIN]. Assessment and Plan Maintaining Current Dose?: No Reason for dose change: Trough too low Pharmacist Note Pharmacist Note Date 03/27/19: A vancomycin trough level of 12.1 resulted last evening, below the target range of 15-20mcg/dL. This can most likely be attributed to the patient's improving renal function, improving to near 90 mL/min by yesterday @ 1700. The maintenance dosing was changed to 1 gram of vancomycin every 8 hours. A trough was scheduled for karla @ 2100. We will continue to monitor and make adjustments as necessary. Date: 03/25/19. Pharmacist note:Karla's Vancomycin trough(drawn@20:59) reported as 12.2( goal=15-20)Regimen was just begun this morning, so will maintain current dose/schedule(1 gram IV Q12H)for now and redraw trough tomorrow evening. Will continue to follow Date: 03/23/19. Pharmacist note: Pt is a 53 year old male be treated for Uti/SEPSIs with acute renal failure goal trough 15-20mcg/ml. The patient was last treated with vancomycin here at [facility] in [facility]. To achieve goal the patient was started on 1g vancomycin IV in the ER 11/27/19. Maintenance therapy will consist of 1g IV every 24 hours starting 05/24/18 @22. We will continue to mon itor and adjust the dose as needed. Date: 03/25/19. Pharmacist note: Pt Scr this morning came back at 1.3 improved from yesterday at 2.89. Calculated CrCl is 54. Random vancomycin level drawn at 0449 came back at 14.5. This gives an extrapolated trough of 6.6 if keep current dose of 1g q24h. Due to patient's improved renal function I am increasing dose to 1g q12h to start at 1000. I am leaving the originally scheduled trough at 2100 to see how the patient is doing at that time. Will continue to monitor and adjust dose as needed. [facility] Mar 27, 2019 02:53
[2019-03-27] MEDS: HYDROCORTISONE 100 MG/2 ML VIAL (J1720 PER 1) IV SCH ×3 (03:24→18:35)
[2019-03-27 04:51] LABS: HEMATOCRIT 27.4 % (42.0-52.0); HEMOGLOBIN 9.5 g/dl (13.5-17.5); MEAN CORPUSCULAR HEMOGLOBIN 30.9 pg (27.0-33.0); MEAN CORPUSCULAR HGB CONC 34.7 g/dl (32.0-36.5); MEAN CORPUSCULAR VOLUME 89.3 fl (80.0-96.0); RED BLOOD COUNT 3.07 10^6/uL (4.30-6.10); WHITE BLOOD COUNT 23.1 10^3/uL (4.0-10.0)
[2019-03-27 04:52] LABS: PLATELET COUNT, AUTOMATED 33 10^3/uL (150-450)
[2019-03-27 05:00] LABS: ATYPICAL LYMPH 3 % (0-5); LYMPHOCYTES 9 % (16-44); MONOCYTES 10 % (0-5); NEUTROPHILS 76 % (28-66)
[2019-03-27 05:03] LABS: ANISOCYTOSIS 1+; POIKILOCYTOSIS 1+
[2019-03-27 05:04] LABS: SMUDGE CELLS 1+
[2019-03-27 05:05] LABS: TOXIC VACUOLATION 2+
[2019-03-27 05:07] LABS: PLATELET ESTIMATE MARKED DECREASE (NORMAL)
[2019-03-27 05:38] LABS: ALBUMIN 1.7 GM/DL (3.2-5.2); ALT/SGPT 63 U/L (12-78); BILIRUBIN,TOTAL 1.4 MG/DL (0.2-1.0); BLOOD UREA NITROGEN 34 MG/DL (7-18); CALCIUM LEVEL 6.6 MG/DL (8.5-10.1); CARBON DIOXIDE LEVEL 22 MEQ/L (21-32); CHLORIDE LEVEL 101 MEQ/L (98-107); CREATININE FOR GFR 0.73 MG/DL (0.70-1.30); GLOMERULAR FILTRATION RATE > 60.0 (>56); GLUCOSE, FASTING 137 MG/DL (70-100); POTASSIUM SERUM 3.7 MEQ/L (3.5-5.1); SODIUM LEVEL 134 MEQ/L (136-145); TOTAL PROTEIN 4.7 GM/DL (6.4-8.2)
[2019-03-27] MEDS: CEFEPIME HCL 2 GM in D5W MINI-BAG PLUS 50 ML IV SCH ×3 (05:38→20:16)
[2019-03-27 06:04] LABS: INR 1.13; PROTHROMBIN TIME 14.3 SECONDS (11.8-14.0)
[2019-03-27 06:05] LABS: PARTIAL THROMBOPLASTIN TIME 26.6 SECONDS (25.0-38.4)
[2019-03-27 06:20] LABS: ABG HCO3 21.1 MEQ/L (22.0-26.0); ABG O2 SATURATION 98.2 % (95.0-99.0); ABG PARTIAL PRESSURE CO2 30.1 mmHg (35.0-45.0); ABG PARTIAL PRESSURE O2 117.7 mmHg (75.0-100.0); ABG STANDARD HCO3 22.8 MEQ/L (22.0-26.0); ABG pH (ARTERIAL) 7.464 UNITS (7.350-7.450)
[2019-03-27] MEDS: VANCOMYCIN HCL 1,000 MG, VIAL MATE ADAPTER 1 EACH in D5W 250 ML IV SCH ×3 (06:41→23:24)
[2019-03-27 07:15] LABS: MAGNESIUM LEVEL 2.2 MG/DL (1.8-2.4)
[2019-03-27] MEDS: PANTOPRAZOLE 40MG INJ (PROTONIX) (C9113) IV SCH (09:18)
[2019-03-27] MEDS: LEVOTHYROXINE 100 MCG (0.1MG) VIAL IV SCH (09:18)
[2019-03-27] MEDS: NOREPINEPHRINE BITARTRATE 16 MG in D5W 484 ML IV SCH (09:18)
[2019-03-27] MEDS: VASOPRESSIN INJ 40 UNITS in NS 499 ML IV SCH (09:19)
--- NOTE | 2019-03-27 09:35 | CCN ---
DATE OF VISIT: 03/27/2019 START TIME: 0815. STOP TIME: 0856. I again attended Raymond Stevenson here in the intensive care unit. The patient has been examined, and his chart is reviewed. He remains on and off his continuous positive airway pressure (CPAP). He has been able to wean down on his Levophed at 3 mcg. Vasopressin remains at the standard rate. Blood pressures vary from a systolic of 82 to a systolic of 100. Mean arterial pressure (MAP) is generally between 63 and 68. Maximum temperature (Tmax) overnight 98.7, heart rate generally in the 50s with occasional worsening bradycardia, currently 72 and regular, respiratory rate 16-20 without any accessory muscle use. Intake and output (I and O) midnight to midnight 3961 mL in with 3100 mL out. The laboratories show a white blood cell count of 23.1, 76% segmented neutrophils, 2% bands, hemoglobin 9.5, platelet count 33,000. Sodium 134, potassium of 3.7, chloride 101, CO2 22, BUN 34, creatinine 0.73, lactic acid 2.9 at 0440 this morning, bilirubin down to 1.4. Albumin remains depressed at 1.7. Phosphorus yesterday 1.8. Blood gas this morning done at 0616 on CPAP of 10, FIO2 of 60%, pH 7.464, PCO2 of 30, and pAO2 of 117. No new imaging. On examination, he appears comfortable with the CPAP mask in place. Vital signs: As outlined above. HEENT: Shows his pupils do react. Trachea is in the midline. Chest: Is fairly clear anteriorly. There might be some mild crackles at the bases, although he does not generally cooperate with examination. The expansion is symmetric. Cardiac examination: Is regular with no gallop. Peripheral pulses are palpable. Edema is unchanged. Abdomen: Shows active bowel sounds. Generally soft. No obvious organomegaly or masses. Extremities: Without cyanosis or clubbing. Neurologic examination: He is awake, alert, and interactive and remains nonverbal at his baseline with his cerebral palsy. The most pressing problems requiring my presence at the bedside: 1. Respiratory alkalosis. 2. Hypoxemic respiratory failure. 3. Prostatitis with sepsis. 4. Metabolic acidosis, responding to treatment. At this point, we have been able to make some progress weaning his vasopressors. He remains on ulcer and deep venous thrombosis (DVT) prophylaxis. Nutritional needs are being met via total parenteral nutrition (TPN), and we will continue this until we are able to use his gut again. I am told Dr. Cervantes had a long conversation with his sisters yesterday regarding his code status; and at this point, they still wish him to be a FULL CODE. I am in full agreement with his current level of antimicrobials. Although his white count has not changed much, he has less of a bandemia. Platelet count is holding today. At this point, he remains critically ill with multiorgan dysfunction. His prognosis remains guarded at best, and there is a very high likelihood of further compromise. Per the family request, I am told they want at least a trial of intubation, but no parameters were set on that. Will proceed as outlined above. We will minimize his IV fluids as best we can by concentrating his drips. We will continue TPN. I left the bedside at 0856 hours. 41 minutes of critical care time delivered at the bedside and coordination of care, not including procedures.
--- NOTE | 2019-03-27 13:23 | IPNPDOC ---
Subjective Date Seen The patient was seen on 03/27/19. Subjective Chief Complaint/HPI Nursing reports that Raymond is having bradycardic episodes while sleeping with more frequency today. His sustained low was reported to me at 46. I discussed the possibility of a cardio referral with his two sisters who were present today, but, since the obvious conclusion of this would be a pacemaker, they declined the referral as they wouldn't want the pacer if it was offered. He is on fixed dose vasopressin, but the Levophed was as low as 2mcg/min this morning. Unfortunately, his pressure has been falling and nursing is having to titrate it back up again. I don't think it is a coincidence that his lowest lactic acid value has also been when the Levophed was lowest. His sisters report that he seems to have "less pep" today. He is generally leaving the CPAP mask on and seems to do best with this support. General: Reports: ROS Unobtainable Objective Physical Examination General Exam: Positive: Alert (but with a rather glazed look today), Mild Distress (some increased work of breathing/using accessory muscles, with CPAP on), Other (two of his sisters are present at the bedside) Eye Exam: Negative: Sclera icteric ENT Exam: Positive: Tongue Midline, Other ENT (NG tube in place); Negative: Mucous membr. moist/pink (moderately dry) Neck Exam: Positive: Supple, Other (the oozing around his triple lumen site has slowed today); Negative: Lymphadenopathy Chest Exam: Positive: Clear to auscultation, Diminished Heart Exam: Positive: Rate Normal, Regular Rhythm; Negative: Murmurs Abdomen Exam: Positive: Normal bowel sounds (back to more normal pitched today), Soft; Negative: Tenderness Male Exam: Positive: Edema (scrotal edema is probably a little worse); Negative: Discharge (urinary catheter is in place) Extremity Exam: Positive: Edema (There is 1mm of pitting peripheral edema at the mid-tibial area bilaterally); Negative: Cyanosis Skin Exam: Negative: Breakdown Neuro Exam: Negative: Normal Speech Psych Exam: Positive: Other (developmental disability) Assessment /Plan Problems (1) Severe sepsis Status: Acute Response to Treatment: Uncompensated Discussed With: Nurse, [employer] Counter Person, Patient, Health Care Proxy, Family with Pt Consent Problem Specific Plan: Consult Specialist, Monitor Clinically, Repeat Labs Problem Text: He is currently maintained on 2 pressors (norepinephrine and vasopressin). Dr. Nelson is assisting in critical care management today; I appreciate his help. His lactic acid is improving, but still has not resolved. His NG tube put out 400cc initially yesterday and an additional 300cc over the course of the next day. Nursing reports that it is slowing and maybe we can remove it tomorrow. I do think it will be easier for him to breathe without something taking up more space in his pharynx. The cefepime seems to be doing at least as well as the meropenem. We will continue on this and the vancomycin for now. (2) Hypotension Status: Acute Response to Treatment: Controlled Discussed With: Nurse, [employer] Counter Person, Patient, Health Care Proxy, Family with Pt Consent Problem Specific Plan: Consult Specialist, Monitor Clinically, Repeat Labs Problem Text: He remains hypotensive from sepsis. Dr. Nelson is assisting with managing his pressors. His been making reasonable urine, which we can verify now that we have a catheter in place. (3) Metabolic acidosis with respiratory alkalosis Status: Acute Response to Treatment: Compensated Discussed With: [employer] Counter Person Problem Specific Plan: Monitor Clinically, Repeat Labs Problem Text: His lactic acidosis continues several days after we initially started treating him. It is the lowest it has been this morning, but the persistence of anaerobic respiration is not a good prognostic indicator in my mind. Perhaps some of this is driven by the pressors and some ischemia from these medication (including mesenteric). However, we can't just stop the pressors either. We will continue to monitor this situation carefully, but I am increasingly concerned that he will not survive this episode. Not in the least because he is needing more and more support to maintain his compensatory mechanisms. (4) Prostatitis, acute Status: Acute Discussed With: Patient, Family with Pt Consent Problem Specific Plan: Monitor Clinically, Repeat Tests Problem Text: The urine culture obtained through the ER during an earlier episode of care on the day of his admission has returned showing E. Coli that is resistant to ampicillin and levofloxacin. He is on cefepime and his WBC is essentially stable. However, this is the first day in several that it hasn't risen, so maybe that is a good sign. We will stick with the cefepime for now. (5) DIC (disseminated intravascular coagulation) Status: Acute Response to Treatment: Stable (but not improved) Problem Specific Plan: Monitor Clinically, Repeat Labs Problem Text: His platelets are up to 33k this morning. He has received a transfusion of pack of platelets. Perhaps the consumption has stabilized. We will continue to monitor his CBC closely. (6) Mental retardation Status: Chronic Discussed With: Family with Pt Consent Problem Text: His MR and inability to participate in his own medical decision making as well as his tendency to pull out lines complicates all aspects of his current care. (7) Seizure disorder Status: Chronic Problem Specific Plan: Monitor Clinically, Repeat Labs Problem Text: He is on IV valproic acid since he is being made NPO. I will chec k a level tomorrow. (8) Cerebral palsy Status: Chronic Problem Text: His physical disabilities complicate his care. (9) Obstructive uropathy Status: Resolved Response to Treatment: Controlled Problem Specific Plan: Monitor Clinically, Repeat Labs Problem Text: His renal function has normalized. I continue to believe that only a urologist should remove his urinary catheter. Plan/VTE VTE Prophylaxis Ordered?: Yes (SCDs) VTE Exclusion Pharmacological: Thrombocytopenia Plan/Urinary Catheter Urinary Catheter: Place Dalton Reason for insertion/continuin: Critical Pt monitoring (and obstruction/r etention) VS, I&O, 24H, Fishbone Vital Signs/I&O Vital Signs Date Time Temp Pulse Resp B/P (MAP) Pulse Ox O2 Delivery O2 Flow Rate FiO2 03/27/19 12:00 99.3 68 26 85/50 (62) 91 NIPPV (BIPAP/CPAP) 60 03/26/19 14:19 40.0 I&O- Last 24 Hours up to 6 AM 03/27/19 06:00 Intake Total 3911.0 ml Output Total 3425 ml Balance 486.0 ml Laboratory Data 24H LABS Laboratory Tests 2 03/26/19 16:47: Anion Gap 5L, Glomerular Filtration Rate > 60.0, Calcium Level 6.1L, Magnesium Level 1.7L 03/26/19 17:42: Bedside Glucose (Misc Panel) 100 03/26/19 20:58: Vancomycin Level Trough 12.1 03/27/19 00:53: Bedside Glucose (Misc Panel) 175H 03/27/19 04:40: Immature Granulocyte % (Auto) , Monocytes # (Auto) , Nucleated Red Blood Cells % (auto) 0.0, Neutrophils 76H, Band Neutrophils 2, Lymphocytes (Manual) 9L, Monocytes (Manual) 10H, Atypical Lymphocytes 3, Poikilocytosis 1+, Anisocytosis 1+, Toxic Vacuolation 2+, Smudge Cells 1+, Platelet Estimate MARKED DECREASE, A nion Gap 11, Glomerular Filtration Rate > 60.0, Lactic Acid Level 2.9*H, Calcium Level 6.6L, Magnesium Level 2.2, Total Bilirubin 1.4H, Aspartate Amino Transf (AST/SGOT) 72H, Alanine Aminotransferase (ALT/SGPT) 63, Alkaline Phosphatase 416H, Total Protein 4.7L, Albumin 1.7L, Albumin/Globulin Ratio 0.57L 03/27/19 05:36: Prothrombin Time 14.3H, Prothromb Time International Ratio 1.13, Activated Partial Thromboplast Time 26.6, Fibrinogen 192L 03/27/19 06:16: Blood Gas Bicarbonate Standard 22.8, Arterial Blood pH 7.464H, Arterial Blood Partial Pressure CO2 30.1L, Arterial Blood Partial Pressure O2 117.7H, Arterial Blood Total CO2 22.0, Arterial Blood HCO3 21.1L, Arterial Blood Base Excess - 2.0, Arterial Blood Oxygen Saturation 98.2 03/27/19 09:00: Lactic Acid Followup at 4 Hours 2.1*H 03/27/19 11:46: Bedside Glucose (Misc Panel) 154H CBC/BMP Laboratory Tests 03/26/19 16:47 03/27/19 04:40 Microbiology Microbiology 03/23/19 Blood Culture - Preliminary, Resulted No Growth after 72 hours. All specime... Ryan Cervantes MD Mar 27, 2019 1:23 pm
[2019-03-27] MEDS ORDERED: SODIUM ACETATE IV SCH ×8 (18:00)
[2019-03-27] MEDS ORDERED: FAT EMULSION IV 20% 500 ML IV SCH (18:00)
[2019-03-27] MEDS ORDERED: SODIUM CHLORIDE IV SCH ×8 (18:00)
[2019-03-27] MEDS ORDERED: [UNRECOGNIZED DRUG - OTHER] IV SCH ×8 (18:00)
[2019-03-28] VITALS (73 sets, daily range): BP systolic 85–114; BP diastolic 47–74
[2019-03-28] MEDS: VASOPRESSIN INJ 40 UNITS in NS 499 ML IV SCH ×2 (00:14→13:38)
[2019-03-28] MEDS: VALPROATE SOD INJ 500 MG in D5W 50 ML IV SCH ×2 (01:18→13:26)
[2019-03-28] MEDS: HYDROCORTISONE 100 MG/2 ML VIAL (J1720 PER 1) IV SCH ×3 (03:49→21:27)
[2019-03-28] MEDS: CEFEPIME HCL 2 GM in D5W MINI-BAG PLUS 50 ML IV SCH ×3 (03:49→21:27)
[2019-03-28 05:13] LABS: HEMATOCRIT 26.9 % (42.0-52.0); HEMOGLOBIN 9.4 g/dl (13.5-17.5); MEAN CORPUSCULAR HEMOGLOBIN 30.6 pg (27.0-33.0); MEAN CORPUSCULAR HGB CONC 34.9 g/dl (32.0-36.5); MEAN CORPUSCULAR VOLUME 87.6 fl (80.0-96.0); RED BLOOD COUNT 3.07 10^6/uL (4.30-6.10)
[2019-03-28 05:17] LABS: PLATELET COUNT, AUTOMATED 37 10^3/uL (150-450); WHITE BLOOD COUNT 34.5 10^3/uL (4.0-10.0)
[2019-03-28 05:27] LABS: INR 1.13; PARTIAL THROMBOPLASTIN TIME 25.1 SECONDS (25.0-38.4); PROTHROMBIN TIME 14.2 SECONDS (11.8-14.0)
[2019-03-28 05:38] LABS: ALBUMIN 1.7 GM/DL (3.2-5.2); ALT/SGPT 48 U/L (12-78); BILIRUBIN,TOTAL 1.1 MG/DL (0.2-1.0); BLOOD UREA NITROGEN 32 MG/DL (7-18); CALCIUM LEVEL 6.7 MG/DL (8.5-10.1); CARBON DIOXIDE LEVEL 27 MEQ/L (21-32); CHLORIDE LEVEL 101 MEQ/L (98-107); CREATININE FOR GFR 0.63 MG/DL (0.70-1.30); GLOMERULAR FILTRATION RATE > 60.0 (>56); GLUCOSE, FASTING 149 MG/DL (70-100); SODIUM LEVEL 135 MEQ/L (136-145); TOTAL PROTEIN 4.7 GM/DL (6.4-8.2)
[2019-03-28 05:39] LABS: ANISOCYTOSIS 2+; ATYPICAL LYMPH 2 % (0-5); DOHLE BODIES 1+; LYMPHOCYTES 11 % (16-44); MONOCYTES 7 % (0-5); NEUTROPHILS 80 % (28-66); PLATELET ESTIMATE MARKED DECREASE (NORMAL); TOXIC GRANULATION 1+
[2019-03-28 05:40] LABS: TOXIC VACUOLATION 2+
[2019-03-28 05:41] LABS: POIKILOCYTOSIS 1+
[2019-03-28] MEDS: HumaLOG INSULIN (NovoLOG) PER UNIT SC SCH ×3 (06:18→18:00)
[2019-03-28] MEDS: KCL 20MEQ IN 100ML SWI (KRUN) 20 MEQ in IV 1 EA IV SCH ×4 (06:43→08:12)
--- NOTE | 2019-03-28 06:48 | PHACANCOPD ---
PHARMACY VANCOMYCIN DOSING Pt Demographics Demographics Patient Age:53 , Weight:67.200 , Gender: male Adjusted Body Weight Date: 03/23/19, Adjusted Body Weight: [57] Kg Events Past 24 Hours Events Past 24 Hours: YES: Elevation in WBC; NO: Dialysis, Diuretic Therapy, Change in CrCl, Fever, Pending Diagnostics, Pending Procedures, Other Vancomycin Vancomycin indication: UTI/SEPSIS Vancomycin Target Ranges: 15-20 mcg/ml Vancomycin Load Y/N: No Load Dose Date Time Vancomycin Load Dose: Date: Time: Vancomycin Dose Date 03/28/19. Current vancomycin dose: [ 1 gm q12h @ 0000 ] Date 03/27/19. Current vancomycin dose: [ 1 gm q8h] Date: 03/25/19. Current Vancomycin Dose: [1 GM Q12H] Date: 03/23/19. Current Vancomycin Dose: [1G IV Q24H] Intermittent Dosing?: No Labs Micro Microbiology 03/23/19 Blood Culture - Preliminary, Resulted No Growth after 72 hours. All specime... Creatinine Clearance Date:03/25/19. Creatinine Clearance: [57.2]. Date:03/23/19. Creatinine Clearance: [20 ML/MIN]. Assessment and Plan Maintaining Current Dose?: No Reason for dose change: Trough too high Pharmacist Note Pharmacist Note Date 03/28/19: After two subsequent 1 gram doses of vancomycin, a trough resulted as 20.1 mcg/dl. The dosing was therefore switched to the previous 1 gram every 12 hours starting 03/28/19 @0000. An additional trough was scheduled for this evening at 2300. We will continue to monitor and make adjustments as needed. Date 03/27/19: A vancomycin trough level of 12.1 resulted last evening, below the target range of 15-20mcg/dL. This can most likely be attributed to the patient's improving renal function, improving to near 90 mL/min by yesterday @ 1700. The maintenance dosing was changed to 1 gram of vancomycin every 8 hours. A trough was scheduled for tonight @ 2100. We will continue to monitor and make adjustments as necessary. Date: 03/25/19. Pharmacist note:Karla's Vancomycin trough(drawn@20:59) reported as 12.2( goal=15-20)Regimen was just begun this morning, so will maintain current dose/schedule(1 gram IV Q12H)for now and redraw trough tomorrow evening. Will continue to follow Date: 03/23/19. Pharmacist note: Pt is a 53 year old male be treated for Uti/SEPSIs with acute renal failure goal trough 15-20mcg/ml. The patient was last treated with vancomycin here at [facility] in 2001. To achieve goal the patient was started on 1g vancomycin IV in the ER 03/23/19. Maintenance therapy will consist of 1g IV every 24 hours starting 05/24/18 @22. We will continue to monitor and adjust the dose as needed. Date: 03/25/19. Pharmacist note: Pt Scr this morning came back at 1.3 improved from yesterday at 2.89. Calculated CrCl is 54. Random vancomycin level drawn at 0449 came back at 14.5. This gives an extrapolated trough of 6.6 if keep current dose of 1g q24h. Due to patient's improved renal function I am increasing dose to 1g q12h to start at 1000. I am leaving the originally scheduled trough at 2100 to see how the patient is doing at that time. Will continue to monitor and adjust dose as needed. [facility]YLLIS [facility] Mar 28, 2019 06:48
--- NOTE | 2019-03-28 07:36 | REP ---
Clinical: Follow up bowel gas pattern. Technique: Single supine view of the abdomen and pelvis. Findings: Distended air-filled loops of small and large bowel are again noted and essentially unchanged. A rectal tube noted. Gallstones are identified in the right upper quadrant. Surgical clips in the right lower quadrant suggest prior appendectomy. No organomegaly. Skeletal structures are intact. Impression: No significant change from prior examination. Air-filled loops of small large bowel again noted. Electronically Signed by Refugio Pimentel MD 03/28/2019 07:27 A
[2019-03-28 07:40] LABS: VALPROIC ACID (DEPAKOTE) 40.6 UG/ML (50.0-100.0)
--- NOTE | 2019-03-28 09:41 | CCN ---
DATE OF VISIT: 03/28/2019 START TIME: 08 STOP TIME: 915 I again attended Raymond Stevenson here in the intensive care unit. The patient examined and the chart has been reviewed. I have spoken at length with his sister at the bedside. T-max overnight 99.8. Blood pressure 91-112 systolic and he has been able to be weaned off of the Levophed this morning. Heart rate generally in the 70s with a sinu mechanism. Respiratory rate 20-24 without obvious accessory muscle use. Ins and outs midnight to midnight 2986 mL in with 1825 mL out. Most recent laboratories show a sodium of 135, potassium 3.0, chloride 101, CO2 27, BUN 32, creatinine 0.63. Lactic acid remains borderline at 2.4. Bilirubin diminished at 1.1. Alkaline phosphatase down to 396. Albumin remains depressed at 1.7. White cell count elevated today at 34.5, 80% segs, 0 bands. Hemoglobin 9.4. Platelet count 37,000. Abdominal x-ray done this morning shows at least to my eye no significant change from several days ago. On exam, currently he is on Vapotherm. He is awake, interactive and generally at his baseline state of nonverbal, but does make vocalizations. Pupils react, sclerae are clear. Membranes are moist. NG tube is in place. Chest is fairly clear anteriorly. Diminished at the bases with maybe some dependent crackles. No convincing rhonchi. Cardiac Exam: Distant. Generally regular. Peripheral pulses palpable. Edema is unchanged. Abdomen: Generally soft. It is hard to know if it is really tender or he is just generally uncooperative with the exam. No convincing rebound. No obvious organomegaly or masses. Extremities: Without cyanosis or clubbing. Neurollogically, as outlined above. Most pressing problems requiring my presence at the bedside are: 1. Hypoxemic respiratory failure, multifactorial. 2. Sepsis with shock, weaning from vasopressors. 3. Prostatitis with sepsis. 4. Intra-abdominal process, ileus versus bowel obstruction. 5. Cerebral palsy with developmental disability. 6. Thrombocytopenia/disseminated intravascular coagulation (DIC) related to sepsis. At this point, we will continue his current antimicrobials. I will speak further with the primary service. Certainly, with the elevation in his white count one must worry about changing infective process, but certainly the fact that there are no bands today is promising. He may need a CT of abdomen and pelvis to rule out a prostatic abscess. He remains marginal with his oxygenation status and I believe much of it is on the basis of his abdominal process. Certainly, his x-ray showed edema versus infiltrate. He is mildly positive on his ins and outs, but from a laboratory standpoint he continues to make strides. He does clear his secretions when he has them. There has been no further nausea and vomiting. I spoke with his sister at the bedside. At this point, they wish to continue current level of care. Prognosis remains guarded at best. There is a very high likelihood of further compromise. At least at this point he has been fairly cooperative with our interventions. We will continue on and off CPAP with Vapotherm to keep saturations above 88%. We will proceed as outlined above. I left the bedside at 0916 hours. 36 minutes of critical care time delivered at the bedside in coordination of care, not including procedures.
--- NOTE | 2019-03-28 09:42 | RO ---
DATE OF PROCEDURE: 03/24/2019 REASON FOR CONSULTATION: Inability to place Dalton catheter with urinary tract sepsis and hypotension. CONSULTING PHYSICIAN: Dr. Greer. CONCLUSIONS: 1. Urethral stricture with false passage in urethra secondary to multiple unsuccessful attempts of placement of Dalton catheter. 2. Sepsis with evidence of urinary tract infection. 3. Incapacitation. RECOMMENDATIONS: 1. See procedure note at the end of this dictation. 2. Leave Dalton catheter in place. I would recommend this not be removed under any circumstances without addressing urology. 3. Followup with urologist after discharge to address issue of urethral stricture. DISCUSSION: The patient is a 53-year-old male who was admitted to the hospital with sepsis. There is evidence of urinary tract infection. He was able to void spontaneously into a diaper. Residual urine with bladder ultrasound showed around 200 mL in the bladder. I was asked to place the Dalton catheter by the railroad baggage porter because of need to monitor his accurate intake and output. He does have evidence of disseminated intravascular coagulation with coagulopathy. He is to be administered platelets prior to the procedure. Patient is unable to give any historical details. PROCEDURE NOTE: PREOPERATIVE DIAGNOSIS: Urinary retention with urinary tract infection, sepsis and inability to place a Dalton catheter. POSTOPERATIVE DIAGNOSIS: Urinary retention with urinary tract infection, sepsis and inability to place a Dalton catheter. False passage in bulbar urethra. PROCEDURE: Cystourethroscopy, urethral dilation, placement of 16-Greek capsule catheter into the bladder. SURGEON: Dr. Greer ANESTHESIA: IV sedation. COMPLICATIONS: None. DRAINS: 16-Greek capsule tip Dalton catheter . ESTIMATED BLOOD LOSS: 50 mL. BLOOD REPLACED: None. PROCEDURE: The patient was placed in the supine position in his bed in the ICU. The patient's penis was prepped with Betadine. Attempts were made at passage of a Gene filiform but these were unsuccessful in landers manner. The decision was then made to carry out cystoscopy. After the patient genitalia were reprepped and draped in a sterile manner the #16-Greek Olympus flexible cystoscope was inserted in the urethra. There was a great deal of blood and blood clot in the urethra. There were several areas of false passage in the mobile urethra. The scope was able to be deflected through the external spincther mechanism into the bladder. A Gene filiform was placed through the scope under direct visualization into the bladder. Over this the urethra was dilated, 318-Greek using the Gene followers. A 16-Greek family service counselor tip Dalton catheter was placed over the catheter guide and over the filiform into the bladder and the catheter was placed in the bladder. The balloon was inflated. The filiform and the catheter guide were removed. The catheter was connected to dependant drainage.
[2019-03-28] MEDS: PANTOPRAZOLE 40MG INJ (PROTONIX) (C9113) IV SCH (09:51)
[2019-03-28] MEDS: LEVOTHYROXINE 100 MCG (0.1MG) VIAL IV SCH (09:51)
[2019-03-28] MEDS: NOREPINEPHRINE BITARTRATE 16 MG in D5W 484 ML IV SCH (10:00)
[2019-03-28 11:00] LABS: PHOSPHORUS LEVEL 2.1 MG/DL (2.5-4.9)
--- NOTE | 2019-03-28 11:29 | IPNPDOC ---
Subjective Date Seen The patient was seen on 03/28/19. Subjective Chief Complaint/HPI Pt nonverbal. Sisters at bedside. Nursing reports low Depakote level. After discussion with his sisters, they were clear in that they do no want attempts at rescusitation made if it becomes necessary including compressions or intubation. Currently they do wish to cont to attempt to treat the current condition. General: Reports: ROS Unobtainable Objective Physical Examination General Exam: Positive: Alert (follows me as I move around the room, responds positively to his sister. ), No Acute Distress, Mild Distress, Other (two of his sisters are present at the bedside) Eye Exam: Negative: Sclera icteric ENT Exam: Positive: Mucous membr. moist/pink, Other ENT (NG tube in place) Neck Exam: Positive: Supple; Negative: Lymphadenopathy Chest Exam: Positive: Clear to auscultation, Diminished Heart Exam: Positive: Rate Normal, Regular Rhythm; Negative: Murmurs Abdomen Exam: Positive: Normal bowel sounds (back to more normal pitched today), Soft; Negative: Tenderness Male Exam: Positive: Edema (+ scrotal edema, swelling of RUE); Negative: Discharge (urinary catheter is in place) Extremity Exam: Positive: Edema (There is 1mm of pitting peripheral edema at the mid-tibial area bilaterally); Negative: Cyanosis Skin Exam: Negative: Breakdown Neuro Exam: Negative: Normal Speech Psych Exam: Positive: Other (developmental disability) Assessment /Plan Problems (1) Chronic constipation Status: Chronic Problem Text: baseline HD: sen/doc 2 BID, Amitiza 24 BID 03/28 + bisa supp given no BM since admission, mild abd distension c decreased BS (2) Severe sepsis Status: Acute Response to Treatment: Uncompensated Discussed With: Nurse, Laborer [employer], Patient, Health Care Proxy, Family with Pt Consent Problem Specific Plan: Consult Specialist, Monitor Clinically, Repeat Labs Problem Text: 03/28 Weaned down to Vasopressin, Dr Nelson cont to follow, acidosis [place] [id number]. He will cont with Vanco and Cefepime this morning. 03/27 He is currently maintained on 2 pressors (norepinephrine and vasopressin). Dr. Nelson is assisting in critical care management today; I appreciate his help. His lactic acid is improving, but still has not resolved. His NG tube put out 400cc initially yesterday and an additional 300cc over the course of the next day. Nursing reports that it is slowing and maybe we can remove it tomorrow. I do think it will be easier for him to breathe without something taking up more space in his pharynx. The cefepime seems to be doing at least as well as the meropenem. We will continue on this and the vancomycin for now. (3) Hypotension Status: Acute Response to Treatment: Controlled Discussed With: Nurse, Laborer [employer], Patient, Health Care Proxy, Family with Pt Consent Problem Specific Plan: Consult Specialist, Monitor Clinically, Repeat Labs Problem Text: improving, down from NE/EPI/VASO to VASO only (4) Metabolic acidosis with respiratory alkalosis Status: Acute Response to Treatment: Compensated Discussed With: Laborer [employer] Problem Specific Plan: Monitor Clinically, Repeat Labs Problem Text: His lactic acidosis continues several days after we initially started treating him. It is the lowest it has been this morning, but the persistence of anaerobic respiration is not a good prognostic indicator in my mind. Perhaps some of this is driven by the pressors and some ischemia from these medication (including mesenteric). However, we can't just stop the pressors either. We will continue to monitor this situation carefully, but I am increasingly concerned that he will not survive this episode. Not in the least because he is needing more and more support to maintain his compensatory mechanisms. (5) Prostatitis, acute Status: Acute Discussed With: Patient, Family with Pt Consent Problem Specific Plan: Monitor Clinically, Repeat Tests Problem Text: favor acute/chronic prostatitis 03/24 22! 03/17 PSA 2 (6) DIC (disseminated intravascular coagulation) Status: Acute Response to Treatment: Stable (but not improved) Problem Specific Plan: Monitor Clinically, Repeat Labs Problem Text: 03/28 Plt 37, increased from 33k 03/27 His platelets are up to 33k this morning. He has received a transfusion of pack of platelets. Perhaps the consumption has stabilized. We will continue to monitor his CBC closely. (7) Mental retardation Status: Chronic Discussed With: Family with Pt Consent Problem Text: His MR and inability to participate in his own medical decision making as well as his tendency to pull out lines complicates all aspects of his current care. (8) Seizure disorder Status: Chronic Problem Specific Plan: Monitor Clinically, Repeat Labs Problem Text: 03/28 VPA 41 on HD 500 BID (IV), but started 03/23 p missing 2-3D dosing; therefore, CCR rechecking level in 3D (9) Cerebral palsy Status: Chronic Problem Text: His physical disabilities complicate his care. (10) Obstructive uropathy Status: Resolved Response to Treatment: Controlled Problem Specific Plan: Monitor Clinically, Repeat Labs Problem Text: His renal function has normalized. I continue to believe that only a urologist should remove his urinary catheter. (11) Code status needs review Status: Chronic Problem Text: 03/28/19 case dw sole guardian, sister Shaniqua Stevenson, who strongly favors DNR. MOLST checklist for DD individuals completed and will submit to Dr. Arguello to sign as concurring Plan/VTE VTE Prophylaxis Ordered?: Yes (SCDs) VTE Exclusion Pharmacological: Thrombocytopenia Plan/Urinary Catheter Urinary Catheter: Place Dalton Reason for insertion/continuin: Critical Pt monitoring (and obstruction/retention) VS, I&O, 24H, Fishbone Vital Signs/I&O Vital Signs Date Time Temp Pulse Resp B/P (MAP) Pulse Ox O2 Delivery O2 Flow Rate FiO2 03/28/19 11:00 63 97/54 (68) 94 NIPPV (BIPAP/CPAP) 60 03/28/19 09:00 40.0 03/28/19 08:00 99.8 24 I&O- Last 24 Hours up to 6 AM 03/28/19 06:00 Intake Total 2373.0 ml Output Total 1700 ml Balance 673.0 ml Laboratory Data 24H LABS Laboratory Tests 2 03/27/19 11:46: Bedside Glucose (Misc Panel) 154H 03/27/19 17:50: Bedside Glucose (Misc Panel) 141H 03/27/19 20:56: Vancomycin Level Trough 20.1H 03/27/19 23:30: Bedside Glucose (Misc Panel) 157H 03/28/19 04:40: Immature Granulocyte % (Auto) , Monocytes # (Auto) , Nucleated Red Blood Cells % (auto) 0.1H, Neutrophils 80H, Lymphocytes (Manual) 11L, Monocytes (Manual) 7H, Atypical Lymphocytes 2, Poikilocytosis 1+, Anisocytosis 2+, Toxic Granulation 1+, Dohle Bodies 1+, Toxic Vacuolation 2+, Platelet Estimate MARKED DECREASE, Immature Platelet Fraction 20.4H, Prothrombin Time 14.2H, Prothromb Time International Ratio 1.13, Activated Partial Thromboplast Time 25.1, Anion Gap 7L, Glomerular Filtration Rate > 60.0, Calcium Level 6.7L, Phosphorus Level 2.1L, Total Bilirubin 1.1H, Aspartate Amino Transf (AST/SGOT) 39H, Alanine Aminotransferase (ALT/SGPT) 48, Alkaline Phosphatase 396H, Total Protein 4.7L, Albumin 1.7L, Albumin/Globulin Ratio 0.57L, Valproic Acid (Depakene) Level 40.6L 03/28/19 06:43: Lactic Acid Level 2.4*H CBC/BMP Laboratory Tests 03/28/19 04:40 Microbiology Microbiology 03/23/19 Blood Culture - Preliminary, Resulted No Growth after 72 hours. All specime... JAROD RANKIN PA-C Mar 28, 2019 11:29 Jose Elias Garcias M.D. Mar 28, 2019 15:03
[2019-03-28] MEDS: VANCOMYCIN HCL 1,000 MG, VIAL MATE ADAPTER 1 EACH in D5W 250 ML IV SCH (11:34)
[2019-03-28] MEDS: ACETAMINOPHEN 650 MG SUPP PR PRN (13:34)
[2019-03-28] MEDS ORDERED: [UNRECOGNIZED DRUG - OTHER] IV SCH ×10 (18:00)
[2019-03-28] MEDS ORDERED: SODIUM CHLORIDE IV SCH ×30 (18:00)
[2019-03-28] MEDS ORDERED: [UNRECOGNIZED DRUG - OTHER] IV SCH ×20 (18:00)
[2019-03-28] MEDS ORDERED: SODIUM ACETATE IV SCH ×30 (18:00)
[2019-03-28] MEDS ORDERED: FAT EMULSION IV 20% 500 ML IV SCH (18:00)
[2019-03-29] VITALS (53 sets, daily range): BP systolic 75–127; BP diastolic 43–78
[2019-03-29] MEDS: VALPROATE SOD INJ 500 MG in D5W 50 ML IV SCH ×2 (00:37→13:23)
[2019-03-29] MEDS: VANCOMYCIN HCL 1,000 MG, VIAL MATE ADAPTER 1 EACH in D5W 250 ML IV SCH (00:37)
[2019-03-29] MEDS ORDERED: LORazepam 2 MG/ML VIAL (J2060) As Ordered ONE ×3 (02:16→13:11)
[2019-03-29] MEDS ORDERED: LORazepam 2 MG/ML VIAL (J2060) IV STA (02:23)
[2019-03-29] MEDS ORDERED: VALPROATE SOD INJ 500 MG in D5W 50 ML IV ONE (02:30)
[2019-03-29 02:59] LABS: HEMATOCRIT 30.4 % (42.0-52.0); MEAN CORPUSCULAR HEMOGLOBIN 30.3 pg (27.0-33.0); MEAN CORPUSCULAR HGB CONC 32.9 g/dl (32.0-36.5); MEAN CORPUSCULAR VOLUME 92.1 fl (80.0-96.0)
[2019-03-29 03:03] LABS: PLATELET COUNT, AUTOMATED 81 10^3/uL (150-450); WHITE BLOOD COUNT 36.3 10^3/uL (4.0-10.0)
[2019-03-29 03:08] LABS: INR 1.11
[2019-03-29 03:09] LABS: PARTIAL THROMBOPLASTIN TIME 23.5 SECONDS (25.0-38.4)
[2019-03-29 03:31] LABS: ATYPICAL LYMPH 2 % (0-5); LYMPHOCYTES 8 % (16-44); MONOCYTES 3 % (0-5); NEUTROPHILS 84 % (28-66); PLATELET ESTIMATE DECREASED (NORMAL)
[2019-03-29 03:32] LABS: ANISOCYTOSIS 1+
[2019-03-29] MEDS: CEFEPIME HCL 2 GM in D5W MINI-BAG PLUS 50 ML IV SCH ×3 (03:34→20:57)
[2019-03-29] MEDS: HYDROCORTISONE 100 MG/2 ML VIAL (J1720 PER 1) IV SCH ×3 (03:34→18:12)
[2019-03-29 03:36] LABS: ALBUMIN 1.8 GM/DL (3.2-5.2); ALT/SGPT 41 U/L (12-78); BILIRUBIN,TOTAL 0.8 MG/DL (0.2-1.0); BLOOD UREA NITROGEN 24 MG/DL (7-18); CALCIUM LEVEL 7.4 MG/DL (8.5-10.1); CARBON DIOXIDE LEVEL 23 MEQ/L (21-32); CHLORIDE LEVEL 116 MEQ/L (98-107); CREATININE FOR GFR 0.86 MG/DL (0.70-1.30); GLOMERULAR FILTRATION RATE > 60.0 (>56); GLUCOSE, FASTING 120 MG/DL (70-100); POTASSIUM SERUM 3.2 MEQ/L (3.5-5.1); SODIUM LEVEL 154 MEQ/L (136-145); TOTAL PROTEIN 5.3 GM/DL (6.4-8.2)
[2019-03-29] MEDS: POTASSIUM CHLORIDE INJ 40 MEQ in NS 0.45% 1,000 ML IV SCH ×2 (06:54→20:57)
[2019-03-29] MEDS: HumaLOG INSULIN (NovoLOG) PER UNIT SC SCH ×4 (06:56→17:59)
[2019-03-29 07:53] LABS: BLOOD UREA NITROGEN 27 MG/DL (7-18); CALCIUM LEVEL 7.5 MG/DL (8.5-10.1); CARBON DIOXIDE LEVEL 30 MEQ/L (21-32); CHLORIDE LEVEL 118 MEQ/L (98-107); CREATININE FOR GFR 0.65 MG/DL (0.70-1.30); GLOMERULAR FILTRATION RATE > 60.0 (>56); GLUCOSE, FASTING 147 MG/DL (70-100); POTASSIUM SERUM 3.7 MEQ/L (3.5-5.1); SODIUM LEVEL 152 MEQ/L (136-145)
[2019-03-29] MEDS: BISACODYL 10 MG SUPP PR SCH (09:00)
[2019-03-29] MEDS: LEVOTHYROXINE 100 MCG (0.1MG) VIAL IV SCH (10:02)
[2019-03-29] MEDS: PANTOPRAZOLE 40MG INJ (PROTONIX) (C9113) IV SCH (10:02)
--- NOTE | 2019-03-29 10:20 | CCN ---
DATE: 03/29/2019 START TIME: 844 STOP TIME: 927 I again attended Raymond Stevenson in the intensive care unit. The patient has been examined and the chart reviewed. I spoke at length with the nurse at the bedside. He did have seizure activity through the night, responded to Ativan. Currently, he is comfortable. Maximum temperature (T-max) overnight 100.1. Blood pressure between 75 and 113 systolic. He was off of vasopressor for some time but is back on standard dose. Heart rate between 48 and 100. Respiratory rate generally around 20-24 and unlabored. Ins and outs midnight to midnight 2500 mL in with 3350 mL out. Most recent laboratories show white blood cell count elevated today more so than yesterday at 36.3, 84% segmented neutrophils, 3% bands. Hemoglobin 10, platelet count 81,000. Sodium 152, potassium 3.7, chloride 119, CO2 30, BUN 27, creatinine 0.65, calcium 7.5, lactic acid yesterday cleared at 2.0. Phosphorus 2.1. Albumin 1.8. Valproic acid level yesterday 40.6. No other new imaging or microbiologic data is available. On exam, he has a CPAP mask in place and is comfortable. Current saturation 97% on 60% FiO2 and CPAP of 10. He is moving tidal volumes between 4 and 25 and 500. HEENT: Otherwise, normocephalic. Pupils reactive. Nasogastric tube (NG) is in place and CPAP mask is in place as well. Trachea is midline. Chest is quite clear anteriorly. Expansion is reasonably symmetric. It may be diminished at the extreme bases but no convincing egophony. Cardiac exam is distant but regular. Peripheral pulses are palpable. Edema is unchanged. Abdomen does have active bowel sounds. It is generally soft with no convincing organomegaly or masses. Extremities show no cyanosis or clubbing. Neurologically unchanged. Moves upper extremities well and is interactive although sedate after his Ativan earlier this morning. Most pressing problems requiring my presence at the bedside: 1. Hypoxemic respiratory failure, multifactorial. 2. Sepsis secondary to prostatitis, still on low dose pressors but lactate cleared. 3. Suspected aspiration. 4. Consumptive coagulopathy with improving platelet count. 5. Cerebral palsy. 6. Seizure disorder. 7. Ileus versus small bowel obstruction. 8. Protein calorie malnutrition. He has diureses on his own. We will adjust his total parental nutrition (TPN) accordingly in view of his hypernatremia. He has had a breakthrough seizure. He responded to Ativan. His valproic acid is being managed through primary. He did have a bowel movement this morning so maybe we are making some progress regarding his gastrointestinal (GI) status. Will continue TPN for now and hold off on enteral feeds at the moment. My hopes is that we will continue to see some improvement in his oxygenation status and we will be able to take him from CPAP to Vapotherm and if he is able to hold on FiO2 at 50% or less, then we will make that adjustment. I reviewed the notes regarding his potential change in code status and I believe this is quite appropriate. He remains on broad-spectrum antimicrobials and these will be continued especially in view of his elevated white count. Overall, he remains quite critically ill and there is a very high likelihood of further compromise. Very likelihood he may not survive this hospitalization. We will proceed as outlined above. I left the bedside at 0928 hours. 43 minutes of critical care time at the bedside not including procedures.
[2019-03-29] MEDS: VANCOMYCIN HCL 750 MG, VIAL MATE ADAPTER 1 EACH in D5W 250 ML IV SCH ×2 (11:32→18:12)
[2019-03-29] MEDS: VASOPRESSIN INJ 40 UNITS in NS 499 ML IV SCH (12:02)
--- NOTE | 2019-03-29 12:34 | IPNPDOC ---
Subjective Date Seen The patient was seen on 03/29/19. Subjective Chief Complaint/HPI Pt this morning appears comfortable. His sister is at his bedside. She has no concerns this morning, states that her questions have been answered. States that her hopes is that her brother appears comfortable and that she believes he is now. He seems to be tolerating the mask better today. General: Reports: ROS Unobtainable Objective Physical Examination General Exam: Positive: Alert (follows me as I move around the room.), No Acute Distress, Other (Sister present at bedside. ) Eye Exam: Negative: Sclera icteric ENT Exam: Positive: Mucous membr. moist/pink, Other ENT (NG tube in place) Neck Exam: Positive: Supple; Negative: Lymphadenopathy Chest Exam: Positive: Clear to auscultation, Diminished Heart Exam: Positive: Rate Normal, Regular Rhythm; Negative: Murmurs Abdomen Exam: Positive: Normal bowel sounds, Soft, Tenderness (mildly diffusely tender) Male Exam: Positive: Edema (+ scrotal edema); Negative: Discharge (urinary catheter is in place) Extremity Exam: Positive: Edema (There is trace pitting peripheral edema at the mid-tibial area bilaterally.); Negative: Cyanosis Skin Exam: Negative: Breakdown Neuro Exam: Negative: Normal Speech Psych Exam: Positive: Other (developmental disability) Assessment /Plan Problems (1) Severe sepsis Status: Acute Response to Treatment: Uncompensated Discussed With: Nurse, Punchboard Inserter, Patient, Health Care Proxy, Family with Pt Consent Problem Specific Plan: Consult Specialist, Monitor Clinically, Repeat Labs Problem Text: 03/29 Pt required Vasopressin overnight after diuresing 3L and becoming hypotensive. On IVF 04/28 NS c 40 meq K+ UA + E coli x 2, Cefepime IV D4 TPN per Interventional Physician WBC increased from 35 to 36. 03/28 Weaned down to Vasopressin, Dr Nelson cont to follow, acidosis [place] [id number]. He will cont with Vanco and Cefepime this morning. 03/27 He is currently maintained on 2 pressors (norepinephrine and vasopressin). Dr. Nelson is assisting in critical care management today; I appreciate his help. His lactic acid is improving, but still has not resolved. His NG tube put out 400cc initially yesterday and an additional 300cc over the course of the next day. Nursing reports that it is slowing and maybe we can remove it tomorrow. I do think it will be easier for him to breathe without something taking up more space in his pharynx. The cefepime seems to be doing at least as well as the meropenem. We will continue on this and the vancomycin for now. (2) Chronic constipation Status: Chronic Problem Text: baseline HD: sen/doc 2 BID, Amitiza 24 BID 03/28 + bisa supp given no BM since admission, mild abd distension c decreased BS (3) Hypotension Status: Acute Response to Treatment: Controlled Discussed With: Nurse, Punchboard Inserter, Patient, Health Care Proxy, Family with Pt Consent Problem Specific Plan: Consult Specialist, Monitor Clinically, Repeat Labs Problem Text: improving, down from NE/EPI/VASO to VASO only (4) Metabolic acidosis with respiratory alkalosis Status: Acute Response to Treatment: Compensated Discussed With: Punchboard Inserter Problem Specific Plan: Monitor Clinically, Repeat Labs Problem Text: 03/28 His lactic acidosis continues several days after we initially started treating him. It is the lowest it has been this morning, but the persistence of anaerobic respiration is not a good prognostic indicator in my mind. Perhaps some of this is driven by the pressors and some ischemia from these medication (including mesenteric). However, we can't just stop the pressors either. We will continue to monitor this situation carefully, but I am increasingly concerned that he will not survive this episode. Not in the least because he is needing more and more support to maintain his compensatory mechanisms. (5) Prostatitis, acute Status: Acute Discussed With: Patient, Family with Pt Consent Problem Specific Plan: Monitor Clinically, Repeat Tests Problem Text: favor acute/chronic prostatitis 03/24 22! 03/17 PSA 2 (6) DIC (disseminated intravascular coagulation) Status: Acute Response to Treatment: Stable (but not improved) Problem Specific Plan: Monitor Clinically, Repeat Labs Problem Text: 03/29 Plt 81 03/28 Plt 37, increased from 33k 03/27 His platelets are up to 33k this morning. He has received a transfusion of pack of platelets. Perhaps the consumption has stabilized. We will continue to monitor his CBC closely. (7) Mental retardation Status: Chronic Discussed With: Family with Pt Consent Problem Text: His MR and inability to participate in his own medical decision making as well as his tendency to pull out lines complicates all aspects of his current care. (8) Seizure disorder Status: Chronic Problem Specific Plan: Monitor Clinically, Repeat Labs Problem Text: 03/28 VPA 41 on HD 500 BID (IV), but started 03/23 p missing 2-3D dosing; therefore, CCR rechecking level in 3D (9) Cerebral palsy Status: Chronic Problem Text: His physical disabilities complicate his care. (10) Obstructive uropathy Status: Resolved Response to Treatment: Controlled Problem Specific Plan: Monitor Clinically, Repeat Labs Problem Text: His renal function has normalized. I continue to believe that only a urologist should remove his urinary catheter. (11) Code status needs review Status: Chronic Problem Text: 03/29 Dr Arguello is requesting a meeting with Dr Enriquez to review the case prior to signing off on the MOLST. 03/28/19 case dw sole guardian, sister Shaniqua Stevenson, who strongly favors DNR. MOLST checklist for DD individuals completed and will submit to Dr. Arguello to sign as concurring Plan/VTE VTE Prophylaxis Ordered?: Yes (SCDs) VTE Exclusion Pharmacological: Thrombocytopenia Plan/Urinary Catheter Urinary Catheter: Place Dalton Reason for insertion/continuin: Critical Pt monitoring (and obstruction/retention) VS, I&O, 24H, Fishbone Vital Signs/I&O Vital Signs Date Time Temp Pulse Resp B/P (MAP) Pulse Ox O2 Delivery O2 Flow Rate FiO2 03/29/19 12:00 98.9 69 14 127/56 (79) 94 NIPPV (BIPAP/CPAP) 50 03/28/19 09:00 40.0 I&O- Last 24 Hours up to 6 AM 03/29/19 06:00 Intake Total 3605 ml Output Total 5825 ml Balance -2220 ml Laboratory Data 24H LABS Laboratory Tests 2 03/28/19 12:19: Bedside Glucose (Misc Panel) 148H 03/28/19 17:56: Bedside Glucose (Misc Panel) 105 03/28/19 22:57: Vancomycin Level Trough 14.2 03/29/19 00:40: Bedside Glucose (Misc Panel) 101 03/29/19 02:45: Immature Granulocyte % (Auto) , Monocytes # (Auto) , Nucleated Red Blood Cells % (auto) 0.2H, Neutrophils 84H, Band Neutrophils 3, Lymphocytes (Manual) 8L, Monocytes (Manual) 3, Atypical Lymphocytes 2, Anisocytosis 1+, Platelet Estimate DECREASED, Prothrombin Time 14.0, Prothromb Time International Ratio 1.11, Activated Partial Thromboplast Time 23.5L, Anion Gap 15, Glomerular Filtration Rate > 60.0, Calcium Level 7.4L, Magnesium Level 2.0, Total Bilirubin 0.8, Aspartate Amino Transf (AST/SGOT) 29, Alanine Aminotransferase (ALT/SGPT) 41, Alkaline Phosphatase 349H, Total Protein 5.3L, Albumin 1.8L, Albumin/Globulin Ratio 0.51L 03/29/19 06:53: Bedside Glucose (Misc Panel) 133H 03/29/19 07:15: Anion Gap 4L, Glomerular Filtration Rate > 60.0, Calcium Level 7.5L 03/29/19 11:46: Bedside Glucose (Misc Panel) 133H CBC/BMP Laboratory Tests 03/29/19 02:45 03/29/19 07:15 Microbiology Microbiology 03/23/19 Blood Culture - Final, Complete NO GROWTH AFTER 5 DAYS JAROD RANKIN PA-C Mar 29, 2019 12:34
[2019-03-29] MEDS ORDERED: SODIUM ACETATE IV SCH ×8 (18:00)
[2019-03-29] MEDS ORDERED: SODIUM CHLORIDE IV SCH ×8 (18:00)
[2019-03-29] MEDS ORDERED: [UNRECOGNIZED DRUG - OTHER] IV SCH ×8 (18:00)
[2019-03-29] MEDS ORDERED: FAT EMULSION IV 20% 500 ML IV SCH (18:00)
[2019-03-30] VITALS (24 sets, daily range): BP systolic 81–142; BP diastolic 50–72
[2019-03-30] MEDS: VALPROATE SOD INJ 500 MG in D5W 50 ML IV SCH ×2 (00:39→14:14)
[2019-03-30] MEDS: VASOPRESSIN INJ 40 UNITS in NS 499 ML IV SCH (02:24)
[2019-03-30] MEDS: CEFEPIME HCL 2 GM in D5W MINI-BAG PLUS 50 ML IV SCH ×3 (03:43→21:13)
[2019-03-30] MEDS: VANCOMYCIN HCL 750 MG, VIAL MATE ADAPTER 1 EACH in D5W 250 ML IV SCH ×3 (03:43→20:01)
[2019-03-30] MEDS: HYDROCORTISONE 100 MG/2 ML VIAL (J1720 PER 1) IV SCH ×3 (03:43→18:34)
[2019-03-30 05:22] LABS: HEMOGLOBIN 8.7 g/dl (13.5-17.5); MEAN CORPUSCULAR HEMOGLOBIN 30.4 pg (27.0-33.0); MEAN CORPUSCULAR HGB CONC 32.2 g/dl (32.0-36.5); MEAN CORPUSCULAR VOLUME 94.4 fl (80.0-96.0); PLATELET COUNT, AUTOMATED 115 10^3/uL (150-450); RED BLOOD COUNT 2.86 10^6/uL (4.30-6.10); WHITE BLOOD COUNT 34.1 10^3/uL (4.0-10.0)
[2019-03-30 05:43] LABS: ALBUMIN 1.7 GM/DL (3.2-5.2); ALT/SGPT 36 U/L (12-78); BILIRUBIN,TOTAL 0.6 MG/DL (0.2-1.0); BLOOD UREA NITROGEN 22 MG/DL (7-18); CALCIUM LEVEL 7.1 MG/DL (8.5-10.1); CARBON DIOXIDE LEVEL 29 MEQ/L (21-32); CHLORIDE LEVEL 125 MEQ/L (98-107); CREATININE FOR GFR 0.53 MG/DL (0.70-1.30); GLOMERULAR FILTRATION RATE > 60.0 (>56); GLUCOSE, FASTING 102 MG/DL (70-100); POTASSIUM SERUM 4.1 MEQ/L (3.5-5.1); SODIUM LEVEL 156 MEQ/L (136-145); TOTAL PROTEIN 5.1 GM/DL (6.4-8.2); VALPROIC ACID (DEPAKOTE) 46.5 UG/ML (50.0-100.0)
[2019-03-30 06:00] LABS: LYMPHOCYTES 10 % (16-44); METAMYELOCYTES 2 % (0-0); MONOCYTES 6 % (0-5); NEUTROPHILS 80 % (28-66)
[2019-03-30] MEDS: HumaLOG INSULIN (NovoLOG) PER UNIT SC SCH ×4 (06:00→17:38)
[2019-03-30 06:01] LABS: TOXIC GRANULATION 1+
[2019-03-30 06:02] LABS: PLATELET ESTIMATE DECREASED (NORMAL)
[2019-03-30 06:04] LABS: ANISOCYTOSIS 2+; SMUDGE CELLS 1+
--- NOTE | 2019-03-30 09:15 | IPNPDOC ---
Subjective Date Seen The patient was seen on 03/30/19. Subjective Chief Complaint/HPI has remainder off of pressors for almost 24 hours. Nursing reports weaning down on CPAP. Patient is intolerant to Vapotherm via NC. General: Reports: ROS Unobtainable Objective Physical Examination General Exam: Positive: Alert (follows me as I move around the room.), No Acute Distress, Other (CPAP in place) Eye Exam: Negative: Sclera icteric ENT Exam: Positive: Mucous membr. moist/pink Neck Exam: Positive: Supple; Negative: Lymphadenopathy Chest Exam: Positive: Clear to auscultation, Diminished Heart Exam: Positive: Rate Normal, Regular Rhythm; Negative: Murmurs Abdomen Exam: Positive: Normal bowel sounds, Soft Male Exam: Positive: Edema (+ scrotal edema, edema to BLE); Negative: Discharge (urinary catheter is in place) Extremity Exam: Positive: Edema (There is pitting peripheral edema at the mid- tibial area bilaterally.); Negative: Cyanosis Skin Exam: Negative: Breakdown Neuro Exam: Negative: Normal Speech Psych Exam: Positive: Other (developmental disability, non-verbal) Assessment /Plan Problems (1) Severe sepsis Status: Acute Response to Treatment: Uncompensated Discussed With: Nurse, Senior Ui Designer, Patient, Health Care Proxy, Family with Pt Consent Problem Specific Plan: Consult Specialist, Monitor Clinically, Repeat Labs Problem Text: 03/30/2019: showing slight improvement. WBC remains elevated. DC IVF due to edema. Hold on diuresis. Continue with TPN. continue to wean oxygen demands. Prognosis remains poor. 03/29 Pt required Vasopressin overnight after diuresing 3L and becoming hypotensive. On IVF 04/28 NS c 40 meq K+ UA + E coli x 2, Cefepime IV D4 TPN per Enterprise Systems Architect WBC increased from 35 to 36. 03/28 Weaned down to Vasopressin, Dr Nelson cont to follow, acidosis [place] [id number]. He will cont with Vanco and Cefepime this morning. 03/27 He is currently maintained on 2 pressors (norepinephrine and vasopressin). Dr. Nelson is assisting in critical care management today; I appreciate his help. His lactic acid is improving, but still has not resolved. His NG tube put out 400cc initially yesterday and an additional 300cc over the course of the next day. Nursing reports that it is slowing and maybe we can remove it tomorrow. I do think it will be easier for him to breathe without something taking up more space in his pharynx. The cefepime seems to be doing at least as well as the meropenem. We will continue on this and the vancomycin for now. (2) Chronic constipation Status: Chronic Problem Text: baseline HD: sen/doc 2 BID, Amitiza 24 BID 03/28 + bisa supp given no BM since admission, mild abd distension c decreased BS (3) Hypotension Status: Acute Response to Treatment: Controlled Discussed With: Nurse, Senior Ui Designer, Patient, Health Care Proxy, Family with Pt Consent Problem Specific Plan: Consult Specialist, Monitor Clinically, Repeat Labs Problem Text: improving. remains off of pressors currently. (4) Metabolic acidosis with respiratory alkalosis Status: Acute Response to Treatment: Compensated Discussed With: Senior Ui Designer Problem Specific Plan: Monitor Clinically, Repeat Labs Problem Text: 03/28 His lactic acidosis continues several days after we initially started treating him. It is the lowest it has been this morning, but the persistence of anaerobic respiration is not a good prognostic indicator in my mind. Perhaps some of this is driven by the pressors and some ischemia from these medication (including mesenteric). However, we can't just stop the pressors either. We will continue to monitor this situation carefully, but I am increasingly concerned that he will not survive this episode. Not in the least because he is needing more and more support to maintain his compensatory mechanisms. (5) Prostatitis, acute Status: Acute Discussed With: Patient, Family with Pt Consent Problem Specific Plan: Monitor Clinically, Repeat Tests Problem Text: favor acute/chronic prostatitis 03/24 22! 03/17 PSA 2 (6) DIC (disseminated intravascular coagulation) Status: Acute Response to Treatment: Stable (but not improved) Problem Specific Plan: Monitor Clinically, Repeat Labs Problem Text: 03/29 Plt 81 03/28 Plt 37, increased from 33k 03/27 His platelets are up to 33k this morning. He has received a transfusion of pack of platelets. Perhaps the consumption has stabilized. We will continue to monitor his CBC closely. (7) Mental retardation Status: Chronic Discussed With: Family with Pt Consent Problem Text: His MR and inability to participate in his own medical decision making as well as his tendency to pull out lines complicates all aspects of his current care. (8) Seizure disorder Status: Chronic Problem Specific Plan: Monitor Clinically, Repeat Labs Problem Text: 03/28 VPA 41 on HD 500 BID (IV), but started 03/23 p missing 2-3D dosing; therefore, CCR rechecking level in 3D (9) Cerebral palsy Status: Chronic Problem Text: His physical disabilities complicate his care. (10) Obstructive uropathy Status: Resolved Response to Treatment: Controlled Problem Specific Plan: Monitor Clinically, Repeat Labs Problem Text: His renal function has normalized. I continue to believe that only a urologist should remove his urinary catheter. (11) Code status needs review Status: Chronic Problem Text: 03/29 Dr Arguello is requesting a meeting with Dr Enriquez to review the case prior to signing off on the MOLST. 03/28/19 case dw sole guardian, sister Shaniqua Stevenson, who strongly favors DNR. MOLST checklist for DD individuals completed and will submit to Dr. Arguello to sign as concurring Plan/VTE VTE Prophylaxis Ordered?: Yes (SCDs) VTE Exclusion Pharmacological: Thrombocytopenia Plan/Urinary Catheter Urinary Catheter: Place Dalton Reason for insertion/continuin: Critical Pt monitoring (and obstruction/retention) VS, I&O, 24H, Fishbone Vital Signs/I&O Vital Signs Date Time Temp Pulse Resp B/P (MAP) Pulse Ox O2 Delivery O2 Flow Rate FiO2 03/30/19 06:00 61 20 103/55 (71) 95 NIPPV (BIPAP/CPAP) 50 03/30/19 04:00 97.7 03/28/19 09:00 40.0 I&O- Last 24 Hours up to 6 AM 03/30/19 05:59 Intake Total 4995 ml Output Total 4025 ml Balance 970 ml Laboratory Data 24H LABS Laboratory Tests 2 03/29/19 11:46: Bedside Glucose (Misc Panel) 133H 03/29/19 17:55: Bedside Glucose (Misc Panel) 92 03/30/19 00:32: Bedside Glucose (Misc Panel) 101 03/30/19 02:30: Vancomycin Level Trough 17.2 03/30/19 05:09: Immature Granulocyte % (Auto) , Lymphocytes # (Auto) , Nucleated Red Blood Cells % (auto) 0.1H, Neutrophils 80H, Band Neutrophils 2, Lymphocytes (Manual) 10L, Monocytes (Manual) 6H, Metamyelocytes 2H, Anisocytosis 2+, Toxic Granulation 1+, Smudge Cells 1+, Platelet Estimate DECREASED, Anion Gap 2L, Glomerular Filtration Rate > 60.0, Calcium Level 7.1L, Total Bilirubin 0.6, Aspartate Amino Transf (AST/SGOT) 26, Alanine Aminotransferase (ALT/SGPT) 36, Alkaline Phosph atase 281H, Total Protein 5.1L, Albumin 1.7L, Albumin/Globulin Ratio 0.50L, Valproic Acid (Depakene) Level 46.5L CBC/BMP Laboratory Tests 03/30/19 05:09 Microbiology Microbiology 03/23/19 Blood Culture - Final, Complete NO GROWTH AFTER 5 DAYS Monika Lorenz [facility] Mar 30, 2019 09:15
[2019-03-30] MEDS: LEVOTHYROXINE 100 MCG (0.1MG) VIAL IV SCH (09:39)
[2019-03-30] MEDS: BISACODYL 10 MG SUPP PR SCH (09:39)
[2019-03-30] MEDS: PANTOPRAZOLE 40MG INJ (PROTONIX) (C9113) IV SCH (09:39)
--- NOTE | 2019-03-30 10:18 | CCN ---
DATE OF SERVICE: 03/30/2019 I again attended [facility] Stevenson . I spoke at length with the nurse at the bedside, as well as primary service. The patient has been examined. The chart is reviewed. He has been off of his last vasopressor, vasopressin, since 11:30 yesterday morning. He has not required restart of any of them. Maximum temperature (Tmax) overnight 98.2, blood pressure 93-140, heart rate generally in the 50s to the 70s with sinus mechanism, respiratory rate anywhere from 18-22 without accessory muscle use. Intake and output (I and O) midnight to midnight 4995 mL in with 5675 mL out. Sodium 156, potassium 4.1, and chloride 125, CO2 29, BUN 22, creatinine 0.53, glucose 102. Albumin remains depressed at 1.7. White blood cell count remains elevated at 34.1, 80% segmented neutrophils, 2% bands. Hemoglobin 8.7 and platelet count up to 115,000. No new imaging or microbiologic data today. On examination, he is interactive. Pupils do react. He has a continuous positive airway pressure (CPAP) mask in place. Trachea is in the midline. Chest is fairly clear. There may be some faint dependent crackles, but these improve with inspiratory effort. No focal adventitious breath sounds are identified. Cardiac examination: Generally regular. Peripheral pulses are palpable. Edema is unchanged. Significantly scrotal edema. Abdomen is with active bowel sounds. Generally soft without any organomegaly or masses. Extremities: With no cyanosis or clubbing. Neurologically: As outlined above. It is unchanged from yesterday. He is interactive, commensurate with his known baseline mental disability. IMPRESSION: 1. Hypoxemic respiratory failure, requiring CPAP, improving. 2. Suspect aspiration. Broad-spectrum antimicrobials. 3. Prostatitis with sepsis. 4. Shock, cleared. 5. Protein-calorie malnutrition. 6. Cerebral palsy. At this point, he is down to 40% FIO2 and will try switching him to a high flow mask Vapotherm. He remains off his vasopressors. It appears that his consumptive coagulopathy has also cleared. I have spoken at length with the primary service. He has had more difficulties with hypernatremia despite cutting significantly back on the amount of salts in his total parenteral nutrition (TPN), and I suspect some of this is on the basis of fluid shift. Will continue his current level of parenteral nutrition. Antimicrobials are being managed through the primary service. He remains off pressors. Will continue our plan as outlined above. He does remain critically ill. Further recommendations will be made in the progress record as new information becomes available.
[2019-03-30] MEDS ORDERED: SODIUM ACETATE IV SCH ×9 (18:00)
[2019-03-30] MEDS ORDERED: SODIUM PHOSPHATE IV SCH ×9 (18:00)
[2019-03-30] MEDS ORDERED: [UNRECOGNIZED DRUG - OTHER] IV SCH ×9 (18:00)
[2019-03-30] MEDS ORDERED: FAT EMULSION IV 20% 500 ML IV SCH (18:00)
[2019-03-31] VITALS (26 sets, daily range): BP systolic 82–129; BP diastolic 50–65; O2SAT 94
[2019-03-31] MEDS: HumaLOG INSULIN (NovoLOG) PER UNIT SC SCH ×4 (00:44→18:00)
[2019-03-31] MEDS: VALPROATE SOD INJ 500 MG in D5W 50 ML IV SCH ×2 (01:15→14:02)
[2019-03-31] MEDS: LORazepam 2 MG/ML VIAL (J2060) IV PRN (03:04)
[2019-03-31] MEDS: ACETAMINOPHEN 650 MG SUPP PR PRN (03:21)
[2019-03-31] MEDS: HYDROCORTISONE 100 MG/2 ML VIAL (J1720 PER 1) IV SCH ×3 (03:34→18:27)
[2019-03-31] MEDS: VANCOMYCIN HCL 750 MG, VIAL MATE ADAPTER 1 EACH in D5W 250 ML IV SCH ×3 (03:34→18:27)
[2019-03-31] MEDS: CEFEPIME HCL 2 GM in D5W MINI-BAG PLUS 50 ML IV SCH ×3 (04:41→20:28)
[2019-03-31] MEDS: LEVOTHYROXINE 100 MCG (0.1MG) VIAL IV SCH (08:30)
[2019-03-31] MEDS: PANTOPRAZOLE 40MG INJ (PROTONIX) (C9113) IV SCH (08:30)
[2019-03-31 09:02] LABS: HEMATOCRIT 26.9 % (42.0-52.0); HEMOGLOBIN 8.9 g/dl (13.5-17.5); MEAN CORPUSCULAR HEMOGLOBIN 30.8 pg (27.0-33.0); MEAN CORPUSCULAR HGB CONC 33.1 g/dl (32.0-36.5); MEAN CORPUSCULAR VOLUME 93.1 fl (80.0-96.0); PLATELET COUNT, AUTOMATED 181 10^3/uL (150-450); RED BLOOD COUNT 2.89 10^6/uL (4.30-6.10); WHITE BLOOD COUNT 26.8 10^3/uL (4.0-10.0)
[2019-03-31 09:21] LABS: ALBUMIN 1.8 GM/DL (3.2-5.2); ALT/SGPT 35 U/L (12-78); BILIRUBIN,TOTAL 0.5 MG/DL (0.2-1.0); BLOOD UREA NITROGEN 26 MG/DL (7-18); CALCIUM LEVEL 7.7 MG/DL (8.5-10.1); CARBON DIOXIDE LEVEL 29 MEQ/L (21-32); CHLORIDE LEVEL 122 MEQ/L (98-107); CREATININE FOR GFR 0.57 MG/DL (0.70-1.30); GLOMERULAR FILTRATION RATE > 60.0 (>56); GLUCOSE, FASTING 107 MG/DL (70-100); POTASSIUM SERUM 4.2 MEQ/L (3.5-5.1); SODIUM LEVEL 154 MEQ/L (136-145); TOTAL PROTEIN 5.2 GM/DL (6.4-8.2)
[2019-03-31 09:36] LABS: ANISOCYTOSIS 1+; HYPOCHROMASIA 1+; LYMPHOCYTES 7 % (16-44); METAMYELOCYTES 3 % (0-0); MONOCYTES 7 % (0-5); NEUTROPHILS 78 % (28-66); PLATELET ESTIMATE NORMAL (NORMAL)
[2019-03-31 09:37] LABS: MICROCYTOSIS 1+; SMUDGE CELLS 1+
[2019-03-31] MEDS: BISACODYL 10 MG SUPP PR SCH (10:01)
--- NOTE | 2019-03-31 10:25 | IPN ---
DATE OF SERVICE: 03/31/2019 I again attended Raymond Stevenson. I reviewed the chart as well as the primary service as well as the nurses at the bedside. Patient has been examined. He is not a DO NOT RESUSCITATE/DO NOT INTUBATE. He has been able to be maintained on Vapotherm and off of his CPAP with reasonable oxygenation status. T-max overnight however spiked to 102.9, blood pressure generally between 80-114 and he has been able to stay off of vasopressors. Heart rate generally in the 80s to 90s. He had one brief episode of tachycardia earlier this morning which has since resolved. Input and output midnight to midnight 3730 mL in with 2220 mL out. Chemistries are currently pending. White blood cell count down to 26.8, hemoglobin 8.9, platelet count of 181,000. On exam, he is fairly comfortable. Vapotherm is in place as well as an NG tube which is functioning well. Membranes are mildly dry. Trachea is midline. Chest has symmetric expansion, clear anteriorly. There are some faint and dependent crackles. Cardiac exam currently regular. Peripheral pulses are palpable. Edema is unchanged. Abdomen is reasonably soft, not convincingly tender. No obvious organomegaly or masses. Extremities: No cyanosis, no clubbing. Neurologically, exam is unchanged commensurate with his cerebral palsy. IMPRESSION: 1. Hypoxemic respiratory failure, multifactorial. 2. Prostatitis with sepsis, sepsis resolved. 3. Cerebral palsy. 4. Hypernatremia. 5. Protein calorie malnutrition. At this point, we await his chemistries and will continue TPN until he is able to have his gut used for feeds. That may be in the next several days as he was making some stool and has reasonable bowel sounds. His white count is coming down. His platelets are improving as well and the fact that he has remained off of vasopressors we will look at as a positive sign. He is, however, at very high risk for further compromise in view of his overall status. I would continue his current antimicrobials for now. Ulcer and deep venous thrombosis (DVT) prophylaxis are in place. Further recommendations will be made in the progress record as new information becomes available.
--- NOTE | 2019-03-31 10:54 | IPNPDOC ---
Subjective Date Seen The patient was seen on 03/31/19. Subjective Chief Complaint/HPI Pt nonverbal. Sister at bedside. She is without new concerns. Relieved to have DNR, DNI on chart. General: Reports: ROS Unobtainable Objective Physical Examination General Exam: Positive: Alert (follows me as I move around the room.), No Acute Distress Eye Exam: Negative: Sclera icteric ENT Exam: Negative: Mucous membr. moist/pink Neck Exam: Positive: Supple; Negative: Lymphadenopathy Chest Exam: Positive: Clear to auscultation, Diminished Heart Exam: Positive: Bradycardic, Regular Rhythm; Negative: Murmurs Abdomen Exam: Positive: Normal bowel sounds, Soft Male Exam: Positive: Edema (+ scrotal edema, edema to BLE); Negative: Discharge (urinary catheter is in place) Extremity Exam: Positive: Edema (There is pitting peripheral edema at the mid- tibial area bilaterally.); Negative: Cyanosis Skin Exam: Negative: Breakdown Neuro Exam: Negative: Normal Speech Psych Exam: Positive: Other (developmental disability, non-verbal) Assessment /Plan Problems (1) Severe sepsis Status: Acute Response to Treatment: Uncompensated Discussed With: Nurse, Control And Recovery Special Tactics, Patient, Health Care Proxy, Family with Pt Consent Problem Specific Plan: Consult Specialist, Monitor Clinically, Repeat Labs Problem Text: 03/31 WBC trending down today, remains afebrile, Cont with TPN, mgmt per Stator Tester at this time. O2 demands decreased now on Vasotherm from CPAP. 03/30/2019: showing slight improvement. WBC remains elevated. DC IVF due to edema. Hold on diuresis. Continue with TPN. continue to wean oxygen demands. Prognosis remains poor. 03/29 Pt required Vasopressin overnight after diuresing 3L and becoming hypotensive. On IVF 04/28 NS c 40 meq K+ UA + E coli x 2, Cefepime IV D4 TPN per Stator Tester WBC increased from 35 to 36. 03/28 Weaned down to Vasopressin, Dr Nelson cont to follow, acidosis [place] [id number]. He will cont with Vanco and Cefepime this morning. 03/27 He is currently maintained on 2 pressors (norepinephrine and vasopressin). Dr. Nelson is assisting in critical care management today; I appreciate his help. His lactic acid is improving, but still has not resolved. His NG tube put out 400cc initially yesterday and an additional 300cc over the course of the next day. Nursing reports that it is slowing and maybe we can remove it tomorrow. I do think it will be easier for him to breathe without something taking up more space in his pharynx. The cefepime seems to be doing at least as well as the meropenem. We will continue on this and the vancomycin for now. (2) Chronic constipation Status: Chronic Problem Text: baseline HD: sen/doc 2 BID, Amitiza 24 BID 03/28 + bisa supp given no BM since admission, mild abd distension c decreased BS (3) Hypotension Status: Acute Response to Treatment: Improving, Controlled Discussed With: Nurse, Control And Recovery Special Tactics, Patient, Health Care Proxy, Family with Pt Consent Problem Specific Plan: Consult Specialist, Monitor Clinically, Repeat Labs Problem Text: improving. remains off of pressors currently. (4) Metabolic acidosis with respiratory alkalosis Status: Resolved Response to Treatment: Compensated Discussed With: Control And Recovery Special Tactics Problem Specific Plan: Monitor Clinically, Repeat Labs Problem Text: 03/28 His lactic acidosis continues several days after we initially started treating him. It is the lowest it has been this morning, but the persistence of anaerobic respiration is not a good prognostic indicator in my mind. Perhaps some of this is driven by the pressors and some ischemia from these medication (including mesenteric). However, we can't just stop the pressors either. We will continue to monitor this situation carefully, but I am increasingly concerned that he will not survive this episode. Not in the least because he is needing more and more support to maintain his compensatory mechanisms. (5) Prostatitis, acute Status: Acute Discussed With: Patient, Family with Pt Consent Problem Specific Plan: Monitor Clinically, Repeat Tests Problem Text: favor acute/chronic prostatitis 03/24 22! 03/17 PSA 2 (6) DIC (disseminated intravascular coagulation) Status: Acute Response to Treatment: Stable (but not improved) Problem Specific Plan: Monitor Clinically, Repeat Labs Problem Text: 03/29 Plt 81 03/28 Plt 37, increased from 33k 03/27 His platelets are up to 33k this morning. He has received a transfusion of pack of platelets. Perhaps the consumption has stabilized. We will continue to monitor his CBC closely. (7) Mental retardation Status: Chronic Discussed With: Family with Pt Consent Problem Text: His MR and inability to participate in his own medical decision making as well as his tendency to pull out lines complicates all aspects of his current care. (8) Seizure disorder Status: Chronic Problem Specific Plan: Monitor Clinically, Repeat Labs Problem Text: 03/28 VPA 41 on HD 500 BID (IV), but started 03/23 p missing 2-3D dosing; therefore, CCR rechecking level in 3D (9) Cerebral palsy Status: Chronic Problem Text: His physical disabilities complicate his care. (10) Obstructive uropathy Status: Resolved Response to Treatment: Controlled Problem Specific Plan: Monitor Clinically, Repeat Labs Problem Text: His renal function has normalized. I continue to believe that only a urologist should remove his urinary catheter. (11) Code status needs review Status: Chronic Problem Text: 03/31 DNR/DNI on chart. 03/29 Dr Arguello is requesting a meeting with Dr Enriquez to review the case prior to signing off on the MOLST. 03/28/19 case dw sole guardian, sister Shaniqua Stevenson, who strongly favors DNR. MOLST checklist for DD individuals completed and will submit to Dr. Arguello to sign as concurring Plan/VTE VTE Prophylaxis Ordered?: Yes (SCDs) VTE Exclusion Pharmacological: Thrombocytopenia Plan/Urinary Catheter Urinary Catheter: Place Dalton Reason for insertion/continuin: Critical Pt monitoring (and obstruction/retention) VS, I&O, 24H, Fishbone Vital Signs/I&O Vital Signs Date Time Temp Pulse Resp B/P (MAP) Pulse Ox O2 Delivery O2 Flow Rate FiO2 03/31/19 09:00 70 111/56 (74) 90 HVNI-Vapotherm 30.0 75 03/31/19 08:00 98.7 18 I&O- Last 24 Hours up to 6 AM 03/31/19 06:00 Intake Total 3220 ml Output Total 1915 ml Balance 1305 ml Laboratory Data 24H LABS Laboratory Tests 2 03/30/19 12:08: Bedside Glucose (Misc Panel) 102 03/30/19 17:33: Bedside Glucose (Misc Panel) 100 03/30/19 23:57: Bedside Glucose (Misc Panel) 116H 03/31/19 04:27: 03/31/19 06:10: Bedside Glucose (Misc Panel) 105 03/31/19 08:31: Immature Granulocyte % (Auto) , Monocytes # (Auto) , Nucleated Red Blood Cells % (auto) 0.1H, Neutrophils 78H, Band Neutrophils 5, Lymphocytes (Manual) 7L, Monocytes (Manual) 7H, Metamyelocytes 3H, Hypochromasia 1+, Anisocytosis 1+, Microcytosis 1+, Smudge Cells 1+, Platelet Estimate NORMAL, Anion Gap 3L, Glomerular Filtration Rate > 60.0, Calcium Level 7.7L, Total Bilirubin 0.5, Aspartate Amino Transf (AST/SGOT) 26, Alanine Aminotransferase (ALT/SGPT) 35, Alkaline Phosphatase 240H, Total Protein 5.2L, Albumin 1.8L, Albumin/Globulin Ratio 0.53L CBC/BMP Laboratory Tests 03/31/19 08:31 Microbiology Microbiology 03/31/19 Blood Culture, Received Pending 03/23/19 Blood Culture - Final, Complete NO GROWTH AFTER 5 DAYS JAROD RANKIN PA-C Mar 31, 2019 10:54
[2019-03-31] MEDS ORDERED: [UNRECOGNIZED DRUG - OTHER] IV SCH ×5 (18:00)
[2019-03-31] MEDS ORDERED: POTASSIUM CHLORIDE IV SCH ×5 (18:00)
[2019-03-31] MEDS ORDERED: FAT EMULSION IV 20% 500 ML IV SCH (18:00)
[2019-03-31] MEDS ORDERED: SODIUM PHOSPHATE IV SCH ×5 (18:00)
[2019-04-01] VITALS (27 sets, daily range): BP systolic 94–143; BP diastolic 51–98
[2019-04-01] MEDS: HumaLOG INSULIN (NovoLOG) PER UNIT SC SCH ×4 (00:16→18:00)
[2019-04-01] MEDS: VALPROATE SOD INJ 500 MG in D5W 50 ML IV SCH ×2 (00:17→13:31)
[2019-04-01] MEDS: ACETAMINOPHEN 650 MG SUPP PR PRN (00:19)
[2019-04-01] MEDS: VANCOMYCIN HCL 750 MG, VIAL MATE ADAPTER 1 EACH in D5W 250 ML IV SCH ×3 (02:53→20:00)
[2019-04-01] MEDS: HYDROCORTISONE 100 MG/2 ML VIAL (J1720 PER 1) IV SCH ×3 (02:54→18:26)
[2019-04-01] MEDS: CEFEPIME HCL 2 GM in D5W MINI-BAG PLUS 50 ML IV SCH ×3 (04:15→21:24)
[2019-04-01 05:41] LABS: HEMATOCRIT 25.6 % (42.0-52.0); HEMOGLOBIN 8.3 g/dl (13.5-17.5); MEAN CORPUSCULAR HEMOGLOBIN 30.4 pg (27.0-33.0); MEAN CORPUSCULAR HGB CONC 32.4 g/dl (32.0-36.5); MEAN CORPUSCULAR VOLUME 93.8 fl (80.0-96.0); PLATELET COUNT, AUTOMATED 194 10^3/uL (150-450); RED BLOOD COUNT 2.73 10^6/uL (4.30-6.10); WHITE BLOOD COUNT 17.9 10^3/uL (4.0-10.0)
[2019-04-01 06:08] LABS: ALBUMIN 1.6 GM/DL (3.2-5.2); ALT/SGPT 30 U/L (12-78); BILIRUBIN,TOTAL 0.4 MG/DL (0.2-1.0); BLOOD UREA NITROGEN 27 MG/DL (7-18); CALCIUM LEVEL 7.3 MG/DL (8.5-10.1); CARBON DIOXIDE LEVEL 29 MEQ/L (21-32); CHLORIDE LEVEL 117 MEQ/L (98-107); CREATININE FOR GFR 0.52 MG/DL (0.70-1.30); GLOMERULAR FILTRATION RATE > 60.0 (>56); GLUCOSE, FASTING 115 MG/DL (70-100); PHOSPHORUS LEVEL 2.4 MG/DL (2.5-4.9); POTASSIUM SERUM 3.7 MEQ/L (3.5-5.1); SODIUM LEVEL 149 MEQ/L (136-145)
[2019-04-01 07:28] LABS: EOSINOPHILS 2 % (0-3); LYMPHOCYTES 9 % (16-44); METAMYELOCYTES 1 % (0-0); MONOCYTES 6 % (0-5); MYELOCYTES 2 % (0-0); NEUTROPHILS 80 % (28-66)
[2019-04-01 07:29] LABS: ANISOCYTOSIS 2+; PLATELET ESTIMATE NORMAL (NORMAL); SMUDGE CELLS 2+
--- NOTE | 2019-04-01 08:43 | IPNPDOC ---
Subjective Date Seen The patient was seen on 04/01/19. Subjective Chief Complaint/HPI Copious brown drainage from NG tube Constitutional: Denies: Chills, Fever Pulmonary: Denies: Dyspnea, Cough Cardiovascular: Denies: Chest Pain, Palpitations Gastrointestinal: Denies: Nausea, Vomiting, Abdominal Pain, Diarrhea, Constipation Objective Physical Examination General Exam: Positive: Alert (follows me as I move around the room.), No Acute Distress Eye Exam: Negative: Sclera icteric ENT Exam: Negative: Mucous membr. moist/pink Neck Exam: Positive: Supple; Negative: Lymphadenopathy Chest Exam: Positive: Clear to auscultation, Diminished Heart Exam: Positive: Bradycardic, Regular Rhythm; Negative: Murmurs Abdomen Exam: Positive: Normal bowel sounds, Soft Male Exam: Positive: Edema (+ scrotal edema, edema to BLE); Negative: Discharge (urinary catheter is in place) Extremity Exam: Positive: Edema (There is pitting peripheral edema at the mid- tibial area bilaterally.); Negative: Cyanosis Skin Exam: Negative: Breakdown Neuro Exam: Negative: Normal Speech Psych Exam: Positive: Other (developmental disability, non-verbal) Assessment /Plan Problems (1) Severe sepsis Status: Acute Response to Treatment: Uncompensated Discussed With: Nurse, Political Consultant, Patient, Health Care Proxy, Family with Pt Consent Problem Specific Plan: Consult Specialist, Monitor Clinically, Repeat Labs Problem Text: 04/01 - WBC continues to trend down Bp stable - no longer requiring pressors Remains on Vanco and Cefepime B/C neg 03/31 WBC trending down today, remains afebrile, Cont with TPN, mgmt per Inten sivist at this time. O2 demands decreased now on Vasotherm from CPAP. 03/30/2019: showing slight improvement. WBC remains elevated. DC IVF due to edema. Hold on diuresis. Continue with TPN. continue to wean oxygen demands. Prognosis remains poor. 03/29 Pt required Vasopressin overnight after diuresing 3L and becoming hypotensive. On IVF 04/28 NS c 40 meq K+ UA + E coli x 2, Cefepime IV D4 TPN per Business Relationship Manager WBC increased from 35 to 36. 03/28 Weaned down to Vasopressin, Dr Omar hawkins to follow, acidosis has [place] [id number]. He will cont with Vanco and Cefepime this morning. 03/27 He is currently maintained on 2 pressors (norepinephrine and vasopressin). Dr. Nelson is assisting in critical care management today; I appreciate his help. His lactic acid is improving, but still has not resolved. His NG tube put out 400cc initially yesterday and an additional 300cc over the course of the next day. Nursing reports that it is slowing and maybe we can remove it tomorrow. I do think it will be easier for him to breathe without something taking up more space in his pharynx. The cefepime seems to be doing at least as well as the meropenem. We will continue on this and the vancomycin for now. (2) Chronic constipation Status: Chronic Problem Text: 04/01 - CT on admission showed fecal impaction & distended proximal bowel NG tube remains in place - draining copious brown GI contents Remains on TPN per intensivists - Had diarrhea last night so Dulcolax supp held baseline HD: sen/doc 2 BID, Amitiza 24 BID 03/28 + bisa supp given no BM since admission, mild abd distension c decreased BS (3) Scrotal edema Status: Acute Problem Text: 04/01 Has scrotal and Lower extremity edema - Secondary to IVF and hypoalbuminemia Dalton per Urology Would not expect this to imprve until we can stop IVF and Albumin improves (4) Seizure disorder Status: Chronic Problem Specific Plan: Monitor Clinically, Repeat Labs Problem Text: 04/01 - Lst seizure 03/31 - Given IV Ativan Remains on IV Valproate - level improved but still a little low at 46 on 03/30 - Repeat today 03/28 VPA 41 on HD 500 BID (IV), but started 03/23 p missing 2-3D dosing; therefore, CCR rechecking level in 3D (5) Metabolic acidosis with respiratory alkalosis Status: Resolved Response to Treatment: Compensated Discussed With: Political Consultant Problem Specific Plan: Monitor Clinically, Repeat Labs Problem Text: 03/28 His lactic acidosis continues several days after we initially started treating him. It is the lowest it has been this morning, but the persistence of anaerobic respiration is not a good prognostic indicator in my mind. Perhaps some of this is driven by the pressors and some ischemia from these medication (including mesenteric). However, we can't just stop the pressors either. We will continue to monitor this situation carefully, but I am increasingly concerned that he will not survive this episode. Not in the least because he is needing more and more support to maintain his compensatory mechanisms. (6) Code status needs review Status: Chronic Problem Text: 04/01 DNR/DNI on chart - NEEDS SIGNATURE FROM ATTENDING 03/29 Dr Arguello is requesting a meeting with Dr White to review the case prior to signing off on the MOLST. 03/28/19 case dw sole guardian, sister Shaniqua Stevenson, who strongly favors DNR. MOLST checklist for DD individuals completed and will submit to Dr. Arguello to sign as concurring (7) Prostatitis, acute Status: Acute Discussed With: Patient, Family with Pt Consent Problem Specific Plan: Monitor Clinically, Repeat Tests Problem Text: favor acute/chronic prostatitis 03/24 22! 03/17 PSA 2 (8) Obstructive uropathy Status: Resolved Response to Treatment: Controlled Problem Specific Plan: Monitor Clinically, Repeat Labs Problem Text: His renal function has normalized. I continue to believe that only a urologist should remove his urinary catheter. (9) Hypotension Status: Resolved Response to Treatment: Improving, Controlled Discussed With: Nurse, Political Consultant, Patient, Health Care Proxy, Family with Pt Consent Problem Specific Plan: Consult Specialist, Monitor Clinically, Repeat Labs Problem Text: Remains off of pressors currently. (10) Mental retardation Status: Chronic Discussed With: Family with Pt Consent Problem Text: His MR and inability to participate in his own medical decision making as well as his tendency to pull out lines complicates all aspects of his current care. (11) Cerebral palsy Status: Chronic Problem Text: His physical disabilities complicate his care. (12) DIC (disseminated intravascular coagulation) Status: Resolved Response to Treatment: Stable (but not improved) Problem Specific Plan: Monitor Clinically, Repeat Labs Problem Text: 04/01 - platelets normalized 03/29 Plt 81 03/28 Plt 37, increased from 33k 03/27 His platelets are up to 33k this morning. He has received a transfusion of pack of platelets. Perhaps the consumption has stabilized. We will continue to monitor his CBC closely. Plan/VTE VTE Prophylaxis Ordered?: Yes (SCDs) VTE Exclusion Pharmacological: Thrombocytopenia Plan/Urinary Catheter Urinary Catheter: Place Dalton Reason for insertion/continuin: Critical Pt monitoring (and obstruc tion/retention) VS, I&O, 24H, Fishbone Vital Signs/I&O Vital Signs Date Time Temp Pulse Resp B/P (MAP) Pulse Ox O2 Delivery O2 Flow Rate FiO2 04/01/19 06:00 100.1 61 16 116/85 (95) 88 HVNI-Vapotherm 30.0 75 I&O- Last 24 Hours up to 6 AM 04/01/19 06:00 Intake Total 2205 ml Output Total 1585 ml Balance 620 ml Laboratory Data 24H LABS Laboratory Tests 2 03/31/19 08:31: Immature Granulocyte % (Auto) , Monocytes # (Auto) , Nucleated Red Blood Cells % (auto) 0.1H, Neutrophils 78H, Band Neutrophils 5, Lymphocytes (Manual) 7L, Monocytes (Manual) 7H, Metamyelocytes 3H, Hypochromasia 1+, Anisocytosis 1+, Microcytosis 1+, Smudge Cells 1+, Platelet Estimate NORMAL, Anion Gap 3L, Glomerular Filtration Rate > 60.0, Calcium Level 7.7L, Total Bilirubin 0.5, Aspartate Amino Transf (AST/SGOT) 26, Alanine Aminotransferase (ALT/SGPT) 35, Alkaline Phosphatase 240H, Total Protein 5.2L, Albumin 1.8L, Albumin/Globulin Ratio 0.53L 03/31/19 12:02: Bedside Glucose (Misc Panel) 110H 03/31/19 18:06: Bedside Glucose (Misc Panel) 91 03/31/19 23:43: Bedside Glucose (Misc Panel) 123H 04/01/19 05:24: Immature Granulocyte % (Auto) , Nucleated Red Blood Cells % (auto) 0.0, Neutr ophils 80H, Lymphocytes (Manual) 9L, Monocytes (Manual) 6H, Eosinophils (Manual) 2, Metamyelocytes 1H, Myelocytes 2H, Anisocytosis 2+, Smudge Cells 2+, Platelet Estimate NORMAL, Anion Gap 3L, Glomerular Filtration Rate > 60.0, Calcium Level 7.3L, Phosphorus Level 2.4L, Total Bilirubin 0.4, Aspartate Amino Transf (AST/SGOT) 23, Alanine Aminotransferase (ALT/SGPT) 30, Alkaline Phosphatase 190H, Total Protein 5.0L, Albumin 1.6L, Albumin/Globulin Ratio 0.47L CBC/BMP Laboratory Tests 03/31/19 08:31 04/01/19 05:24 Microbiology Microbiology 03/31/19 Blood Culture - Preliminary, Resulted No growth after 24 hours . All specim... 03/23/19 Blood Culture - Final, Complete NO GROWTH AFTER 5 DAYS BHAVIK WHITE PA-C Apr 01, 2019 08:43
[2019-04-01] MEDS: BISACODYL 10 MG SUPP PR SCH (09:00)
--- NOTE | 2019-04-01 09:47 | CCN ---
DATE OF SERVICE: 04/01/2019 Mr. Stevenson is seen in the intensive care unit (ICU). He is noncommunicative, but awake. He is currently satting at 88%. He is on Vapotherm at 30 liters flow and FIO2 is 75. Nursing notes there have been no issues overnight. He is currently afebrile with a T-max of 100.1 this morning at 6:00 a.m.. The patient has not been cooperative enough to allow for abdominal CT, although he reportedly has not required additional Ativan overnight according to nursing. PHYSICAL EXAMINATION: Vitals: Temperature 100.1, pulse 61, respiratory rate 16, blood pressure 116/85, pulse ox 88% on Vapotherm 30 liters with FIO2 of 75. Fluid balance for 03/31/2019 was net positive at 1650. Weight is up today at 67 kg compared to 65.4 kg yesterday. General: The patient is awake, noncommunicative and does not follow commands. HEENT: Head is normocephalic, atraumatic. Moist mucous membranes. Pupils equal and reactive. Tongue is midline. Neck: Neck is supple. No cervical lymphadenopathy. There is a central line placed on the right. Trachea is midline. Pulmonary: Clear to auscultation bilaterally. No wheezes, rales or rhonchi. No accessory muscle use. Heart: Regular rate and rhythm. S1 and S2. No murmurs. Abdomen: Positive bowel sounds, soft, nontender. Extremities: 2+ edema bilateral lower extremities. LABORATORY DATA: WBC 17.9, hemoglobin 8.3, hematocrit 25.6, platelets 194. Sodium 149, potassium 3.7, chloride 117, carbon dioxide 29, BUN 27, creatinine 0.52, glucose 115, calcium 7.3, phosphorus 2.4, total bilirubin 0.4, AST 23, ALT 30, alkaline phosphatase 190, total protein 5.0, albumin 1.6. Blood culture shows no growth after 24 hours and additional blood culture is negative after 5 days. ASSESSMENT/PLAN: 1. Severe hypoxia. The patient is still requiring therapy with Vapotherm at 30 liters. The source of his hypoxia is unclear. It may be related to aspiration. The patient is being treated with cefepime and vancomycin and will continue on antibiotics at present. Consider sepsis as a cause of hypoxia. He was treated for suspected prostatitis. It also possible that he had an abdominal infection which caused the sepsis. Unfortunately, the patient is not able to cooperate for abdominal CT. Continue antibiotics for now. Will obtain a chest x-ray today. 2. Severe protein calorie malnutrition. The patient it is unable to tolerate by mouth feedings. He is currently getting total parenteral nutrition (TPN). 3. Failure to thrive. See above. 4. Anemia. Secondary to malnutrition versus dilutional. 5. Edema. The patient's albumin is low at 1.6. He is getting TPN. We will obtain a chest x-ray today and consider diuresis if warranted. 6. Possible abdominal infection versus prostatitis. Likely the cause of the patient's sepsis. He has leukocytosis, but this is trending down. He is on cefepime and vancomycin. Would continue antibiotics for now, but consider discontinuing antibiotics after leukocytosis improves. Will continue to monitor closely.
[2019-04-01] MEDS: PANTOPRAZOLE 40MG INJ (PROTONIX) (C9113) IV SCH (09:54)
[2019-04-01] MEDS: LEVOTHYROXINE 100 MCG (0.1MG) VIAL IV SCH (09:55)
[2019-04-01] MEDS ORDERED: FUROSEMIDE 40 MG/4 ML VIAL (J1940) IV ONE (10:00)
--- NOTE | 2019-04-01 10:43 | REP ---
Clinical: Hypoxia. Comparison: 03/26/2019. Findings: Cardiomegaly is suggested with significantly increased bilateral opacities/infiltrates. Differential diagnosis includes multifocal pneumonia and pulmonary edema. Layering effusions cannot be excluded. No pneumothorax. Nasogastric tube extends into the abdomen. Right IJ line with tip in the right atrium. Skeletal structures are intact. Impression: Increased bilateral opacities (left greater than right). Electronically Signed by Refugio Pimentel MD 04/01/2019 10:35 A
[2019-04-01 16:20] LABS: ALT/SGPT 31 U/L (12-78); BLOOD UREA NITROGEN 25 MG/DL (7-18); CALCIUM LEVEL 7.6 MG/DL (8.5-10.1); CARBON DIOXIDE LEVEL 32 MEQ/L (21-32); CHLORIDE LEVEL 110 MEQ/L (98-107); CREATININE FOR GFR 0.58 MG/DL (0.70-1.30); GLOMERULAR FILTRATION RATE > 60.0 (>56); GLUCOSE, FASTING 120 MG/DL (70-100); POTASSIUM SERUM 3.3 MEQ/L (3.5-5.1); SODIUM LEVEL 146 MEQ/L (136-145)
[2019-04-01 16:21] LABS: ALBUMIN 2.1 GM/DL (3.2-5.2); BILIRUBIN,TOTAL 0.6 MG/DL (0.2-1.0); TOTAL PROTEIN 5.4 GM/DL (6.4-8.2)
[2019-04-01] MEDS ORDERED: [UNRECOGNIZED DRUG - OTHER] IV SCH ×8 (18:00)
[2019-04-01] MEDS ORDERED: SODIUM PHOSPHATE IV SCH ×8 (18:00)
[2019-04-01] MEDS ORDERED: POTASSIUM CHLORIDE IV SCH ×8 (18:00)
[2019-04-01] MEDS ORDERED: FAT EMULSION IV 20% 500 ML IV SCH (18:00)
--- NOTE | 2019-04-01 20:36 | PHACANCOPD ---
PHARMACY VANCOMYCIN DOSING Pt Demographics Demographics Patient Age:53 , Weight:67.000 , Gender: male Adjusted Body Weight Date: 03/23/19, Adjusted Body Weight: [57] Kg Events Past 24 Hours Events Past 24 Hours: NO: Dialysis, Diuretic Therapy, Change in CrCl, Fever, Elevation in WBC, Pending Diagnostics, Pending Procedures, Other Vancomycin Vancomycin indication: UTI/SEPSIS Vancomycin Target Ranges: 15-20 mcg/ml Vancomycin Load Y/N: No Load Dose Date Time Vancomycin Load Dose: Date: Time: Vancomycin Dose Date 04/01/19. Current vancomycin dose: [ 750 MG q8h ] Intermittent Dosing?: No Labs Labs Item Value Date Time White Blood Count 17.9 10^3/uL H 04/01/19 0524 Glomerular Filtration Rate > 60.0 04/01/19 1532 Creatinine 0.58 MG/DL L 04/01/19 1532 Blood Urea Nitrogen 25 MG/DL H 04/01/19 1532 Vancomycin Level Trough 14.1 UG/ML 04/01/19 1837 Vital Signs Label Value Date Time Patient Temperature 98.2 degrees F 04/01/19 1600 Temperature Source Temporal 04/01/19 1600 Micro Microbiology 03/31/19 Blood Culture - Preliminary, Resulted No growth after 24 hours . All specim... 03/23/19 Blood Culture - Final, Complete NO GROWTH AFTER 5 DAYS Creatinine Clearance Date:04/01/19. Creatinine Clearance: [~75]. Assessment and Plan Maintaining Current Dose?: Yes Reason for dose change: No Dose Change Pharmacist Note Pharmacist Note Date: 04/01/19. Pharmacist note: Trough of 14.1 is acceptable. Will continue current dosing. Will continue to monitor and make adjustments as needed. JANETH BURRIS PHARMACY Apr 01, 2019 20:36
[2019-04-02] VITALS (10 sets, daily range): BP systolic 114–126; BP diastolic 55–86
[2019-04-02] MEDS: VALPROATE SOD INJ 500 MG in D5W 50 ML IV SCH ×2 (00:22→13:34)
[2019-04-02] MEDS: ACETAMINOPHEN 650 MG SUPP PR PRN (00:23)
[2019-04-02] MEDS: VANCOMYCIN HCL 750 MG, VIAL MATE ADAPTER 1 EACH in D5W 250 ML IV SCH ×3 (03:23→18:21)
[2019-04-02] MEDS: HYDROCORTISONE 100 MG/2 ML VIAL (J1720 PER 1) IV SCH ×3 (03:23→18:22)
[2019-04-02] MEDS: CEFEPIME HCL 2 GM in D5W MINI-BAG PLUS 50 ML IV SCH ×3 (04:28→20:35)
[2019-04-02] MEDS: HumaLOG INSULIN (NovoLOG) PER UNIT SC SCH ×3 (06:00→12:00)
[2019-04-02 06:43] LABS: ALBUMIN 1.9 GM/DL (3.2-5.2); ALT/SGPT 28 U/L (12-78); BILIRUBIN,TOTAL 0.7 MG/DL (0.2-1.0); BLOOD UREA NITROGEN 27 MG/DL (7-18); CALCIUM LEVEL 7.6 MG/DL (8.5-10.1); CARBON DIOXIDE LEVEL 34 MEQ/L (21-32); CHLORIDE LEVEL 111 MEQ/L (98-107); CHOLESTEROL LEVEL 125 MG/DL (< 200); CPK CREATINE PHOSPHOKINASE 48 U/L (39-308); CREATININE FOR GFR 0.55 MG/DL (0.70-1.30); GLOMERULAR FILTRATION RATE > 60.0 (>56); GLUCOSE, FASTING 106 MG/DL (70-100); LDH LACTATE DEHYDROGENASE 285 U/L (87-241); PHOSPHORUS LEVEL 2.3 MG/DL (2.5-4.9); POTASSIUM SERUM 3.2 MEQ/L (3.5-5.1); SODIUM LEVEL 147 MEQ/L (136-145); TOTAL PROTEIN 5.5 GM/DL (6.4-8.2); TRIGLYCERIDES LEVEL 78 MG/DL (<150)
[2019-04-02] MEDS: PANTOPRAZOLE 40MG INJ (PROTONIX) (C9113) IV SCH (09:00)
[2019-04-02] MEDS: BISACODYL 10 MG SUPP PR SCH (09:00)
[2019-04-02] MEDS: LEVOTHYROXINE 100 MCG (0.1MG) VIAL IV SCH (09:00)
[2019-04-02] MEDS: LORazepam 2 MG/ML VIAL (J2060) IV PRN (11:38)
[2019-04-02] MEDS: KCL 20MEQ IN 100ML SWI (KRUN) 20 MEQ in IV 1 EA IV SCH ×4 (11:39→12:51)
[2019-04-02 12:14] LABS: HEMATOCRIT 27.6 % (42.0-52.0); HEMOGLOBIN 9.1 g/dl (13.5-17.5); MEAN CORPUSCULAR HEMOGLOBIN 30.8 pg (27.0-33.0); MEAN CORPUSCULAR VOLUME 93.6 fl (80.0-96.0); PLATELET COUNT, AUTOMATED 244 10^3/uL (150-450); RED BLOOD COUNT 2.95 10^6/uL (4.30-6.10); WHITE BLOOD COUNT 13.6 10^3/uL (4.0-10.0)
[2019-04-02] MEDS: GASTROGRAFIN SOLUTION 30ML PO SCH ×2 (12:42→13:34)
[2019-04-02] MEDS ORDERED: ISOVUE-370 76% 100ML VIAL (Q9967) As Ordered ONE (14:15)
--- NOTE | 2019-04-02 17:53 | IPNPDOC ---
Subjective Date Seen The patient was seen on 04/02/19. Subjective Chief Complaint/HPI His sister feels that he is doing much better. He has weaned off supplemental O2, and has appeared more alert and interactive. He did have a witnessed episode this a.m., of perhaps 5-6 minutes in duration, where he was making fists and shaking; nursing feels that he did continue to look around the room during this episode. Sister feels that he has not had seizures since childhood, or at least not often, and wasn't sure if this was a seizure. It did seem to respond to benzodiazepines. General: Reports: ROS Unobtainable Objective Physical Examination General Exam: Positive: Alert (sedated when I saw him, after one time dose of benzo; however, had been moreso earlier), No Acute Distress Eye Exam: Negative: Sclera icteric ENT Exam: Negative: Mucous membr. moist/pink Neck Exam: Positive: Supple; Negative: Lymphadenopathy Chest Exam: Positive: Clear to auscultation, Diminished Heart Exam: Positive: Bradycardic, Regular Rhythm; Negative: Murmurs Abdomen Exam: Positive: Normal bowel sounds, Soft Male Exam: Positive: Edema (+ scrotal edema, edema to BLE), Discharge (urinary catheter is in place) Extremity Exam: Positive: Edema (There is pitting peripheral edema at the mid- tibial area bilaterally.); Negative: Cyanosis Skin Exam: Negative: Breakdown Neuro Exam: Negative: Normal Speech Psych Exam: Positive: Other (developmental disability, non-verbal) Assessment /Plan Problems (1) Severe sepsis Status: Acute Response to Treatment: Uncompensated Discussed With: Nurse, Mobile Electronics Installer, Patient, Health Care Proxy, Family with Pt Consent Problem Specific Plan: Consult Specialist, Monitor Clinically, Repeat Labs Problem Text: 04/01 - WBC continues to trend down Bp stable - no longer requiring pressors Remains on Vanco and Cefepime B/C neg 03/31 WBC trending down today, remains afebrile, Cont with TPN, mgmt per Rig Builder Helper at this time. O2 demands decreased now on Vasotherm from CPAP. 03/30/2019: showing slight improvement. WBC remains elevated. DC IVF due to edema. Hold on diuresis. Continue with TPN. continue to wean oxygen demands. Prognosis remains poor. 03/29 Pt required Vasopressin overnight after diuresing 3L and becoming hypotensive. On IVF 04/28 NS c 40 meq K+ UA + E coli x 2, Cefepime IV D4 TPN per Rig Builder Helper WBC increased from 35 to 36. 03/28 Weaned down to Vasopressin, Dr Nelson cont to follow, acidosis [place] [id number]. He will cont with Vanco and Cefepime this morning. 03/27 He is currently maintained on 2 pressors (norepinephrine and vasopressin). Dr. Nelson is assisting in critical care management today; I appreciate his help. His lactic acid is improving, but still has not resolved. His NG tube put out 400cc initially yesterday and an additional 300cc over the course of the next day. Nursing reports that it is slowing and maybe we can remove it tomorrow. I do think it will be easier for him to breathe without something taking up more space in his pharynx. The cefepime seems to be doing at least as well as the meropenem. We will continue on this and the vancomycin for now. (2) Chronic constipation Status: Chronic Problem Text: 04/02 -- abdomen seemed perhaps tender, CT ordered 04/01 - CT on admission showed fecal impaction & distended proximal bowel NG tube remains in place - draining copious brown GI contents Remains on TPN per intensivists - Had diarrhea last night so Dulcolax supp held baseline HD: sen/doc 2 BID, Amitiza 24 BID 03/28 + bisa supp given no BM since admission, mild abd distension c decreased BS (3) Scrotal edema Status: Acute Problem Text: 04/01 Has scrotal and Lower extremity edema - Secondary to IVF and hypoalbuminemia Dalton per Urology Would not expect this to imprve until we can stop IVF and Albumin improves (4) Seizure disorder Status: Chronic Problem Specific Plan: Monitor Clinically, Repeat Labs Problem Text: 04/01 - Lst seizure 03/31 - Given IV Ativan Remains on IV Valproate - level improved but still a little low at 46 on 03/30 - Repeat today 03/28 VPA 41 on HD 500 BID (IV), but started 03/23 p missing 2-3D dosing; therefore, CCR rechecking level in 3D (5) Metabolic acidosis with respiratory alkalosis Status: Resolved Response to Treatment: Compensated Discussed With: Mobile Electronics Installer Problem Specific Plan: Monitor Clinically, Repeat Labs Problem Text: 03/28 His lactic acidosis continues several days after we initially started treating him. It is the lowest it has been this morning, but the persistence of anaerobic respiration is not a good prognostic indicator in my mind. Perhaps some of this is driven by the pressors and some ischemia from these medication (including mesenteric). However, we can't just stop the pressors either. We will continue to monitor this situation carefully, but I am increasingly concerned that he will not survive this episode. Not in the least because he is needing more and more support to maintain his compensatory mechanisms. (6) Code status needs review Status: Chronic Problem Text: 04/01 DNR/DNI on chart - NEEDS SIGNATURE FROM ATTENDING 03/29 Dr Arguello is requesting a meeting with Dr Enriquez to review the case prior to signing off on the MOLST. 03/28/19 case dw sole guardian, sister Shaniqua Stevenson, who strongly favors DNR. MOLST checklist for DD individuals completed and will submit to Dr. Arguello to sign as concurring (7) Prostatitis, acute Status: Acute Discussed With: Patient, Family with Pt Consent Problem Specific Plan: Monitor Clinically, Repeat Tests Problem Text: favor acute/chronic prostatitis 03/24 22! 03/17 PSA 2 (8) Obstructive uropathy Status: Resolved Response to Treatment: Controlled Problem Specific Plan: Monitor Clinically, Repeat Labs Problem Text: His renal function has normalized. I continue to believe that only a urologist should remove his urinary catheter. (9) Hypotension Status: Resolved Response to Treatment: Improving, Controlled Discussed With: Nurse, Mobile Electronics Installer, Patient, Health Care Proxy, Family with Pt Consent Problem Specific Plan: Consult Specialist, Monitor Clinically, Repeat Labs Problem Text: Remains off of pressors currently. (10) Mental retardation Status: Chronic Discussed With: Family with Pt Consent Problem Text: His MR and inability to participate in his own medical decision making as well as his tendency to pull out lines complicates all aspects of his current care. (11) Cerebral palsy Status: Chronic Problem Text: His physical disabilities complicate his care. (12) DIC (disseminated intravascular coagulation) Status: Resolved Response to Treatment: Stable (but not improved) Problem Specific Plan: Monitor Clinically, Repeat Labs Problem Text: 04/01 - platelets normalized 03/29 Plt 81 03/28 Plt 37, increased from 33k 03/27 His platelets are up to 33k this morning. He has received a transfusion of pack of platelets. Perhaps the consumption has stabilized. We will continue to monitor his CBC closely. (13) Acute respiratory failure Problem Text: Resolved, maintaining saturations on room air. Plan/VTE VTE Prophylaxis Ordered?: Yes (SCDs) VTE Exclusion Pharmacological: Thrombocytopenia Plan/Urinary Catheter Urinary Catheter: Place Dalton Reason for insertion/continuin: Critical Pt monitoring (and obstruction/retention) VS, I&O, 24H, Fishbone Vital Signs/I&O Vital Signs Date Time Temp Pulse Resp B/P (MAP) Pulse Ox O2 Delivery O2 Flow Rate FiO2 04/02/19 12:47 98.7 69 16 126/61 (82) 92 Room Air 04/02/19 06:00 25.0 75 I&O- Last 24 Hours up to 6 AM 04/02/19 06:00 Intake Total 2975.0 ml Output Total 6035 ml Balance -3060.0 ml Laboratory Data 24H LABS Laboratory Tests 2 04/01/19 18:30: Bedside Glucose (Misc Panel) 104 04/01/19 18:37: Vancomycin Level Trough 14.1 04/02/19 00:03: Bedside Glucose (Misc Panel) 119H 04/02/19 05:55: Anion Gap 2L, Glomerular Filtration Rate > 60.0, Calcium Level 7.6L, Phosphorus Level 2.3L, Total Bilirubin 0.7, Aspartate Amino Transf (AST/SGOT) 21, Alanine Aminotransferase (ALT/SGPT) 28, Alkaline Phosphatase 166H, Lactate Dehydrogenase 285H, Total Creatine Kinase 48, Total Protein 5.5L, Albumin 1.9L, Albumin/Globulin Ratio 0.53L, Triglycerides Level 78, Cholesterol Level 125 04/02/19 05:57: Bedside Glucose (Misc Panel) 98 04/02/19 11:57: Bedside Glucose (Misc Panel) 80 04/02/19 12:01: Nucleated Red Blood Cells % (auto) 0.1H CBC/BMP Laboratory Tests 04/02/19 05:55 04/02/19 12:01 Microbiology Microbiology 03/31/19 Blood Culture - Preliminary, Resulted No Growth after 48 hours. All Specime... 03/23/19 Blood Culture - Final, Complete NO GROWTH AFTER 5 DAYS PAMELA RODRIGUEZ DO Apr 02, 2019 17:53
[2019-04-02] MEDS ORDERED: FAT EMULSION IV 20% 500 ML IV SCH (18:00)
[2019-04-02] MEDS ORDERED: AMINO AC/ELECTROLYTE/DEX/CALC 2,000 ML IV SCH (18:00)
[2019-04-03] VITALS (9 sets, daily range): BP systolic 19–142; BP diastolic 60–84; O2SAT 90–91
[2019-04-03] MEDS: VALPROATE SOD INJ 500 MG in D5W 50 ML IV SCH ×2 (00:59→13:34)
[2019-04-03] MEDS: VANCOMYCIN HCL 750 MG, VIAL MATE ADAPTER 1 EACH in D5W 250 ML IV SCH ×3 (03:27→18:20)
[2019-04-03] MEDS: HYDROCORTISONE 100 MG/2 ML VIAL (J1720 PER 1) IV SCH ×3 (03:28→16:01)
[2019-04-03] MEDS: CEFEPIME HCL 2 GM in D5W MINI-BAG PLUS 50 ML IV SCH ×3 (05:32→20:27)
--- NOTE | 2019-04-03 08:15 | REP ---
CT ABDOMEN/PELVIS WITH IV AND ORAL CONTRAST: 04/02/2019. COMPARISON: 03/23/[address] TECHNIQUE: Oral Gastrografin mixture 10 mL in 290 mL of flavored water with two doses per our bowel contrast protocol followed by a bolus of 100 mL Isovue-370, scanning through the abdomen/pelvis with coronal and sagittal reconstructions. CLINICAL HISTORY: Sepsis. Question colitis or other. FINDINGS: There are moderate bilateral effusions with compressive atelectasis and/or infiltrates in both lung bases. In the lower chest, these fill a little over half of the lung volume. There is cardiomegaly with left atrial and ventricular enlargement. No pericardial thickening or effusion. A nasogastric tube is seen coursing into the stomach, its tip in the upper cardia. I see no hepatosplenomegaly. There are multiple heavily rimmed calcified gallstones in the gallbladder without abnormal distension. Pancreas shows no mass or ductal dilatation of the common duct or pancreatic duct. No peripancreatic inflammatory changes or adenopathy. There are small bilateral renal cysts without hydronephrosis, stone, or solid renal mass. Enhancement is fairly homogeneous adrenal glands grossly intact. There is no splenomegaly or focal lesion. Oral contrast reaches the distal transverse colon near the splenic flexure. Small bowel loops are fluid or contrast filled but not abnormally dilated and without wall thickening, separation angulation or mesenteric edema evident. No ascites in the upper abdomen. There is no evidence for perforation or free air in the abdomen or pelvis on all slice levels. The bone windows shows some degenerative changes which are mild. There is minimal facet arthropathy lower lumbar spine. No compression fractures. Visualized ribs are intact. CT PELVIS: The sacrum, SI joints, iliac bones, and acetabuli are intact. There is bilateral hip arthritis, much more severe on the right than left with narrowing and [id number] appearance, subchondral cysts in the femoral head with slight flattening and a few cysts in the acetabular roof on the right with rim osteophytes of the femoral head. The left side shows no significant osteophyte formation or subchondral cysts. The pubic rami and symphysis pubis are intact. There is a Dalton catheter balloon seen into the bladder and inflated and emptying the bladder. Quite prominent bilateral hydroceles are noted enlarging the scrotum, unchanged. The distal left colon and proximal sigmoid are unremarkable. The mid to distal sigmoid and rectum show diffuse thickened wall representing proctosigmoiditis. Enhancement of the mucosa of the rectum and sigmoid noted with edema of the wall and inflammatory changes in the fat adjacent; however, I do not see evidence for perforation or free air, no abscess. No generalized abdominal pelvic ascites, but a small amount of pelvic free fluid between the bladder and rectosigmoid junction and just below loops of small bowel in the right lower quadrant. This represents a small amount of free fluid and not abscess. There is evidence for anasarca with edema throughout the subcutaneous fat. IMPRESSION: 1. Significant proctosigmoiditis with marked thickening of the wall of the mid to distal sigmoid and worse in the rectum with inflammatory changes in the adjacent fat. No perforation or abscess. 2. Remainder of the colon grossly intact, and small bowel loops unremarkable. 3. Bladder with Dalton catheter inflated and emptied, its wall thickness difficult to administrative judge. There is significant bilateral hydrocele formation enlarging the scrotum as on previous study. 4. Moderately severe bilateral pleural effusions with compressive atelectasis or infiltrates bilaterally in the lower lung zones included on this study with over 50% of the volume of these lower lung zones is replaced by fluid. Electronically Signed by Isaiah Guevara MD 04/03/2019 09:08 A
[2019-04-03] MEDS: BISACODYL 10 MG SUPP PR SCH (08:52)
[2019-04-03] MEDS: PANTOPRAZOLE 40MG INJ (PROTONIX) (C9113) IV SCH (08:52)
[2019-04-03] MEDS: LEVOTHYROXINE 100 MCG (0.1MG) VIAL IV SCH (08:52)
[2019-04-03 09:32] LABS: ALBUMIN 1.9 GM/DL (3.2-5.2); ALT/SGPT 35 U/L (12-78); BILIRUBIN,TOTAL 0.4 MG/DL (0.2-1.0); BLOOD UREA NITROGEN 26 MG/DL (7-18); CALCIUM LEVEL 7.8 MG/DL (8.5-10.1); CARBON DIOXIDE LEVEL 30 MEQ/L (21-32); CHLORIDE LEVEL 112 MEQ/L (98-107); CHOLESTEROL LEVEL 123 MG/DL (< 200); CPK CREATINE PHOSPHOKINASE 27 U/L (39-308); GLOMERULAR FILTRATION RATE > 60.0 (>56); GLUCOSE, FASTING 109 MG/DL (70-100); LDH LACTATE DEHYDROGENASE 257 U/L (87-241); PHOSPHORUS LEVEL 2.5 MG/DL (2.5-4.9); POTASSIUM SERUM 3.4 MEQ/L (3.5-5.1); SODIUM LEVEL 148 MEQ/L (136-145); TOTAL PROTEIN 5.3 GM/DL (6.4-8.2); TRIGLYCERIDES LEVEL 87 MG/DL (<150)
[2019-04-03 11:01] LABS: HEMATOCRIT 27.3 % (42.0-52.0); MEAN CORPUSCULAR HEMOGLOBIN 30.7 pg (27.0-33.0); MEAN CORPUSCULAR VOLUME 93.2 fl (80.0-96.0); PLATELET COUNT, AUTOMATED 251 10^3/uL (150-450); RED BLOOD COUNT 2.93 10^6/uL (4.30-6.10); WHITE BLOOD COUNT 10.4 10^3/uL (4.0-10.0)
--- NOTE | 2019-04-03 15:38 | IPNPDOC ---
Subjective Date Seen The patient was seen on 04/03/19. Subjective Chief Complaint/HPI Seen today on the PCU. He is awake and alert; the sister who is present today states that this appears to be his baseline behavior. His leukocytosis continues to improve. General: Reports: ROS Unobtainable Objective Physical Examination General Exam: Positive: Alert (sedated when I saw him, after one time dose of benzo; however, had been moreso earlier), No Acute Distress Eye Exam: Negative: Sclera icteric ENT Exam: Negative: Mucous membr. moist/pink Neck Exam: Positive: Supple; Negative: Lymphadenopathy Chest Exam: Positive: Clear to auscultation, Diminished Heart Exam: Positive: Bradycardic, Regular Rhythm; Negative: Murmurs Abdomen Exam: Positive: Normal bowel sounds, Soft, Tenderness Male Exam: Positive: Edema (+ scrotal edema, edema to BLE), Discharge (urinary catheter is in place) Extremity Exam: Positive: Edema (There is pitting peripheral edema at the mid- tibial area bilaterally.); Negative: Cyanosis Skin Exam: Negative: Breakdown Neuro Exam: Negative: Normal Speech Psych Exam: Positive: Other (developmental disability, non-verbal) Assessment /Plan Problems (1) Severe sepsis Status: Acute Response to Treatment: Uncompensated Discussed With: Nurse, Card Hanger, Patient, Health Care Proxy, Family with Pt Consent Problem Specific Plan: Consult Specialist, Monitor Clinically, Repeat Labs Problem Text: 04/03 -- Leukocytosis continues to resolve, clinical picture improving, continues on abx but no longer meets criteria for severe sepsis 04/01 - WBC continues to trend down Bp stable - no longer requiring pressors Remains on Vanco and Cefepime B/C neg 03/31 WBC trending down today, remains afebrile, Cont with TPN, mgmt per Cryptanalyst at this time. O2 demands decreased now on Vasotherm from CPAP. 03/30/2019: showing slight improvement. WBC remains elevated. DC IVF due to edema. Hold on diuresis. Continue with TPN. continue to wean oxygen demands. Prognosis remains poor. 03/29 Pt required Vasopressin overnight after diuresing 3L and becoming hypotensive. On IVF 04/28 NS c 40 meq K+ UA + E coli x 2, Cefepime IV D4 TPN per Cryptanalyst WBC increased from 35 to 36. 03/28 Weaned down to Vasopressin, Dr Nelson cont to follow, acidosis has [place] [id number]. He will cont with Vanco and Cefepime this morning. 03/27 He is currently maintained on 2 pressors (norepinephrine and vasopressin). Dr. Nelson is assisting in critical care management today; I appreciate his help. His lactic acid is improving, but still has not resolved. His NG tube put out 400cc initially yesterday and an additional 300cc over the course of the next day. Nursing reports that it is slowing and maybe we can remove it tomorrow. I do think it will be easier for him to breathe without something taking up more space in his pharynx. The cefepime seems to be doing at least as well as the meropenem. We will continue on this and the vancomycin for now. (2) Chronic constipation Status: Chronic Problem Text: 04/03 -- abdomen is tender on exam. He has had multiple bowel movements since yesterday. CT of the abdomen and pelvis showed proctosigmoiditis . NG tube still draining, and leukocytosis resolving. 04/02 -- abdomen seemed perhaps tender, CT ordered 04/01 - CT on admission showed fecal impaction & distended proximal bowel NG tube remains in place - draining copious brown GI contents Remains on TPN per intensivists - Had diarrhea last night so Dulcolax supp held baseline HD: sen/doc 2 BID, Amitiza 24 BID 03/28 + bisa supp given no BM since admission, mild abd distension c decreased BS (3) Scrotal edema Status: Acute Problem Text: 04/01 Has scrotal and Lower extremity edema - Secondary to IVF and hypoalbuminemia Dalton per Urology Would not expect this to imprve until we can stop IVF and Albumin improves (4) Seizure disorder Status: Chronic Problem Specific Plan: Monitor Clinically, Repeat Labs Problem Text: 04/01 - Lst seizure 03/31 - Given IV Ativan Remains on IV Valproate - level improved but still a little low at 46 on 03/30 - Repeat today 03/28 VPA 41 on HD 500 BID (IV), but started 03/23 p missing 2-3D dosing; therefore, CCR rechecking level in 3D (5) Metabolic acidosis with respiratory alkalosis Status: Resolved Response to Treatment: Compensated Discussed With: Card Hanger Problem Specific Plan: Monitor Clinically, Repeat Labs Problem Text: 03/28 His lactic acidosis continues several days after we initially started treating him. It is the lowest it has been this morning, but the persistence of anaerobic respiration is not a good prognostic indicator in my mind. Perhaps some of this is driven by the pressors and some ischemia from these medication (including mesenteric). However, we can't just stop the pressors either. We will continue to monitor this situation carefully, but I am increasingly concerned that he will not survive this episode. Not in the least because he is needing more and more support to maintain his compensatory mechanisms. (6) Code status needs review Status: Chronic Problem Text: 04/01 DNR/DNI on chart - NEEDS SIGNATURE FROM ATTENDING 03/29 Dr Arguello is requesting a meeting with Dr Enriquez to review the case prior to signing off on the MOLST. 03/28/19 case dw sole guardian, sister Shaniqua Stevenson, who strongly favors DNR. MOLST checklist for DD individuals completed and will submit to Dr. Arguello to sign as concurring (7) Prostatitis, acute Status: Acute Discussed With: Patient, Family with Pt Consent Problem Specific Plan: Monitor Clinically, Repeat Tests Problem Text: favor acute/chronic prostatitis 03/24 22! 03/17 PSA 2 (8) Obstructive uropathy Status: Resolved Response to Treatment: Controlled Problem Specific Plan: Monitor Clinically, Repeat Labs Problem Text: His renal function has normalized. I continue to believe that only a urologist should remove his urinary catheter. (9) Hypotension Status: Resolved Response to Treatment: Improving, Controlled Discussed With: Nurse, Card Hanger, Patient, Health Care Proxy, Family with Pt Consent Problem Specific Plan: Consult Specialist, Monitor Clinically, Repeat Labs Problem Text: Remains off of pressors currently. (10) Mental retardation Status: Chronic Discussed With: Family with Pt Consent Problem Text: His MR and inability to participate in his own medical decision making as well as his tendency to pull out lines complicates all aspects of his current care. (11) Cerebral palsy Status: Chronic Problem Text: His physical disabilities complicate his care. (12) DIC (disseminated intravascular coagulation) Status: Resolved Response to Treatment: Stable (but not improved) Problem Specific Plan: Monitor Clinically, Repeat Labs Problem Text: 04/01 - platelets normalized 03/29 Plt 81 03/28 Plt 37, increased from 33k 03/27 His platelets are up to 33k this morning. He has received a transfusion of pack of platelets. Perhaps the consumption has stabilized. We will continue to monitor his CBC closely. (13) Acute respiratory failure Problem Text: 04/03 - Resolved, maintaining saturations on room air. CT showed large pleural effusions, and respiratory status improved with diuresis; I will give more IV Lasix today to see if this helps. Plan/VTE VTE Prophylaxis Ordered?: Yes (SCDs) VTE Exclusion Pharmacological: Thrombocytopenia Plan/Urinary Catheter Urinary Catheter: Place Dalton Reason for insertion/continuin: Critical Pt monitoring (and obstruction/retention) VS, I&O, 24H, Fishbone Vital Signs/I&O Vital Signs Date Time Temp Pulse Resp B/P (MAP) Pulse Ox O2 Delivery O2 Flow Rate FiO2 04/03/19 12:00 99.6 67 18 142/67 (92) 89 Room Air 04/02/19 06:00 25.0 75 I&O- Last 24 Hours up to 6 AM 04/03/19 06:00 Intake Total 3440 ml Output Total 2575 ml Balance 865 ml Laboratory Data 24H LABS Laboratory Tests 2 04/02/19 18:06: Bedside Glucose (Misc Panel) 116H 04/03/19 08:37: Nucleated Red Blood Cells % (auto) 0.0 04/03/19 08:40: Anion Gap 6L, Glomerular Filtration Rate > 60.0, Calcium Level 7.8L, Phosphorus Level 2.5, Magnesium Level 2.0, Total Bilirubin 0.4, Aspartate Amino Transf (AST/SGOT) 24, Alanine Aminotransferase (ALT/SGPT) 35, Alkaline Phosphatase 149H, Lactate Dehydrogenase 257H, Total Creatine Kinase 27L, Total Protein 5.3L, Albumin 1.9L, Albumin/Globulin Ratio 0.56L, Triglycerides Level 87, Cholesterol Level 123 04/03/19 09:46: Vancomycin Level Trough 15.1 04/03/19 11:41: Bedside Glucose (Misc Panel) 128H CBC/BMP Laboratory Tests 04/03/19 08:37 04/03/19 08:40 Microbiology Microbiology 03/31/19 Blood Culture - Preliminary, Resulted No Growth after 72 hours. All specime... PAMELA RODRIGUEZ DO Apr 03, 2019 15:38
[2019-04-03] MEDS: FUROSEMIDE 20 MG/2 ML VIAL (J1940) IV SCH (16:01)
[2019-04-03] MEDS: KCL 20MEQ IN 100ML SWI (KRUN) 20 MEQ in IV 1 EA IV SCH ×4 (16:46→18:21)
[2019-04-03] MEDS ORDERED: FAT EMULSION IV 20% 500 ML IV SCH (18:00)
[2019-04-03] MEDS ORDERED: AMINO AC/ELECTROLYTE/DEX/CALC 2,000 ML IV SCH (18:00)
[2019-04-04] VITALS (19 sets, daily range): BP systolic 111–125; BP diastolic 54–85; O2SAT 86–94
[2019-04-04] MEDS: HYDROCORTISONE 100 MG/2 ML VIAL (J1720 PER 1) IV SCH ×4 (00:58→18:57)
[2019-04-04] MEDS: VALPROATE SOD INJ 500 MG in D5W 50 ML IV SCH ×2 (00:58→13:51)
[2019-04-04] MEDS: VANCOMYCIN HCL 750 MG, VIAL MATE ADAPTER 1 EACH in D5W 250 ML IV SCH ×3 (02:41→18:57)
[2019-04-04] MEDS: LORazepam 2 MG/ML VIAL (J2060) IV PRN ×2 (02:41→20:17)
[2019-04-04] MEDS: CEFEPIME HCL 2 GM in D5W MINI-BAG PLUS 50 ML IV SCH ×3 (04:04→20:17)
[2019-04-04 05:48] LABS: HEMATOCRIT 26.6 % (42.0-52.0); HEMOGLOBIN 8.8 g/dl (13.5-17.5); MEAN CORPUSCULAR HEMOGLOBIN 30.7 pg (27.0-33.0); MEAN CORPUSCULAR HGB CONC 33.1 g/dl (32.0-36.5); MEAN CORPUSCULAR VOLUME 92.7 fl (80.0-96.0); PLATELET COUNT, AUTOMATED 260 10^3/uL (150-450); RED BLOOD COUNT 2.87 10^6/uL (4.30-6.10); WHITE BLOOD COUNT 9.2 10^3/uL (4.0-10.0)
[2019-04-04 06:04] LABS: ALBUMIN 1.8 GM/DL (3.2-5.2); ALT/SGPT 26 U/L (12-78); BILIRUBIN,TOTAL 0.7 MG/DL (0.2-1.0); BLOOD UREA NITROGEN 24 MG/DL (7-18); CALCIUM LEVEL 7.7 MG/DL (8.5-10.1); CARBON DIOXIDE LEVEL 31 MEQ/L (21-32); CHLORIDE LEVEL 110 MEQ/L (98-107); CHOLESTEROL LEVEL 115 MG/DL (< 200); CPK CREATINE PHOSPHOKINASE 31 U/L (39-308); CREATININE FOR GFR 0.57 MG/DL (0.70-1.30); GLOMERULAR FILTRATION RATE > 60.0 (>56); GLUCOSE, FASTING 115 MG/DL (70-100); LDH LACTATE DEHYDROGENASE 329 U/L (87-241); PHOSPHORUS LEVEL 2.4 MG/DL (2.5-4.9); POTASSIUM SERUM 3.4 MEQ/L (3.5-5.1); SODIUM LEVEL 144 MEQ/L (136-145); TOTAL PROTEIN 5.3 GM/DL (6.4-8.2); TRIGLYCERIDES LEVEL 91 MG/DL (<150)
--- NOTE | 2019-04-04 08:27 | IPNPDOC ---
Subjective Date Seen The patient was seen on 04/04/19. Subjective Chief Complaint/HPI ARF Events since last encounter Continues to slowly improve. NGT continues to drain 500 cc per shift. Continues with TPN General: Reports: ROS Unobtainable Objective Physical Examination General Exam: Positive: Alert (follows with eyes), No Acute Distress Eye Exam: Negative: Sclera icteric ENT Exam: Negative: Mucous membr. moist/pink Neck Exam: Positive: Supple; Negative: Lymphadenopathy Chest Exam: Positive: Clear to auscultation, Diminished Heart Exam: Positive: Regular Rhythm; Negative: Murmurs Abdomen Exam: Positive: Normal bowel sounds, Soft; Negative: Tenderness Male Exam: Positive: Edema (+ scrotal edema) Extremity Exam: Positive: Edema (pitting edema bilateral feet); Negative: Cyanosis Skin Exam: Negative: Breakdown Neuro Exam: Negative: Normal Speech Psych Exam: Positive: Other (developmental disability, non-verbal) Assessment /Plan Problems (1) Severe sepsis Status: Acute Response to Treatment: Uncompensated Discussed With: Nurse, Harvest Supervisor, Patient, Health Care Proxy, Family with Pt Consent Problem Specific Plan: Consult Specialist, Monitor Clinically, Repeat Labs Problem Text: 04/04/2019: WBC 9 today. continues to show improvement. 04/03 -- Leukocytosis continues to resolve, clinical picture improving, continues on abx but no longer meets criteria for severe sepsis 04/01 - WBC continues to trend down Bp stable - no longer requiring pressors Remains on Vanco and Cefepime B/C neg 03/31 WBC trending down today, remains afebrile, Cont with TPN, mgmt per [employer] at this time. O2 demands decreased now on Vasotherm from CPAP. 03/30/2019: showing slight improvement. WBC remains elevated. DC IVF due to edema. Hold on diuresis. Continue with TPN. continue to wean oxygen demands. Prognosis remains poor. 03/29 Pt required Vasopressin overnight after diuresing 3L and becoming hypotensive. On IVF 04/28 NS c 40 meq K+ UA + E coli x 2, Cefepime IV D4 TPN per [employer] WBC increased from 35 to 36. 03/28 Weaned down to Vasopressin, Dr Omar hawkins to follow, acidosis [place] [id number]. He will cont with Vanco and Cefepime this morning. 03/27 He is currently maintained on 2 pressors (norepinephrine and vasopressin). Dr. Nelson is assisting in critical care management today; I appreciate his help. His lactic acid is improving, but still has not resolved. His NG tube put out 400cc initially yesterday and an additional 300cc over the course of the next day. Nursing reports that it is slowing and maybe we can remove it tomorrow. I do think it will be easier for him to breathe without something taking up more space in his pharynx. The cefepime seems to be doing at least as well as the meropenem. We will continue on this and the vancomycin for now. (2) Chronic constipation Status: Chronic Problem Text: 04/04/2019: continues with BMs. abdomen soft. NGT remains in place. Consider trial clamping NGT. Continue with TPN 04/03 -- abdomen is tender on exam. He has had multiple bowel movements since yesterday. CT of the abdomen and pelvis showed proctosigmoiditis. NG tube still draining, and leukocytosis resolving. 04/02 -- abdomen seemed perhaps tender, CT ordered 04/01 - CT on admission showed fecal impaction & distended proximal bowel NG tube remains in place - draining copious brown GI contents Remains on TPN per intensivists - Had diarrhea last night so Dulcolax supp held baseline HD: sen/doc 2 BID, Amitiza 24 BID 03/28 + bisa supp given no BM since admission, mild abd distension c decreased BS (3) Scrotal edema Status: Acute Problem Text: 04/01 Has scrotal and Lower extremity edema - Secondary to IVF and hypoalbuminemia Dalton per Urology Would not expect this to imprve until we can stop IVF and Albumin improves (4) Seizure disorder Status: Chronic Problem Specific Plan: Monitor Clinically, Repeat Labs Problem Text: 04/01 - Lst seizure 03/31 - Given IV Ativan Remains on IV Valproate - level improved but still a little low at 46 on 03/30 - Repeat today 03/28 VPA 41 on HD 500 BID (IV), but started 03/23 p missing 2-3D dosing; therefore, CCR rechecking level in 3D (5) Metabolic acidosis with respiratory alkalosis Status: Resolved Response to Treatment: Compensated Discussed With: Harvest Supervisor Problem Specific Plan: Monitor Clinically, Repeat Labs Problem Text: 03/28 His lactic acidosis continues several days after we initially started treating him. It is the lowest it has been this morning, but the persistence of anaerobic respiration is not a good prognostic indicator in my mind. Perhaps some of this is driven by the pressors and some ischemia from these medication (including mesenteric). However, we can't just stop the pressors either. We will continue to monitor this situation carefully, but I am increasingly concerned that he will not survive this episode. Not in the least because he is needing more and more support to maintain his compensatory mechanisms. (6) Code status needs review Status: Chronic Problem Text: 04/01 DNR/DNI on chart - NEEDS SIGNATURE FROM ATTENDING 03/29 Dr Arguello is requesting a meeting with Dr Enriquez to review the case prior to signing off on the MOLST. 03/28/19 case dw sole guardian, sister Shaniqua Stevenson, who strongly favors DNR. MOLST checklist for DD individuals completed and will submit to Dr. Arguello to sign as concurring (7) Prostatitis, acute Status: Acute Discussed With: Patient, Family with Pt Consent Problem Specific Plan: Monitor Clinically, Repeat Tests Problem Text: favor acute/chronic prostatitis 03/24 22! 03/17 PSA 2 (8) Obstructive uropathy Status: Resolved Response to Treatment: Controlled Problem Specific Plan: Monitor Clinically, Repeat Labs Problem Text: His renal function has normalized. I continue to believe that only a urologist should remove his urinary catheter. (9) Hypotension Status: Resolved Response to Treatment: Improving, Controlled Discussed With: Nurse, Harvest Supervisor, Patient, Health Care Proxy, Family with Pt Consent Problem Specific Plan: Consult Specialist, Monitor Clinically, Repeat Labs Problem Text: Remains off of pressors currently. (10) Mental retardation Status: Chronic Discussed With: Family with Pt Consent Problem Text: His MR and inability to participate in his own medical decision making as well as his tendency to pull out lines complicates all aspects of his current care. (11) Cerebral palsy Status: Chronic Problem Text: His physical disabilities complicate his care. (12) DIC (disseminated intravascular coagulation) Status: Resolved Response to Treatment: Stable (but not improved) Problem Specific Plan: Monitor Clinically, Repeat Labs Problem Text: 04/01 - platelets normalized 03/29 Plt 81 03/28 Plt 37, increased from 33k 03/27 His platelets are up to 33k this morning. He has received a transfusion of pack of platelets. Perhaps the consumption has stabilized. We will continue to monitor his CBC closely. (13) Acute respiratory failure Problem Text: 04/03 - Resolved, maintaining saturations on room air. CT showed large pleural effusions, and respiratory status improved with diuresis; I will give more IV Lasix today to see if this helps. Plan/VTE VTE Prophylaxis Ordered?: Yes (SCDs) VTE Exclusion Pharmacological: Thrombocytopenia Plan/Urinary Catheter Urinary Catheter: Place Dalton Reason for insertion/continuin: Critical Pt monitoring (and obstruction/retenti on) VS, I&O, 24H, Fishbone Vital Signs/I&O Vital Signs Date Time Temp Pulse Resp B/P (MAP) Pulse Ox O2 Delivery O2 Flow Rate FiO2 04/04/19 08:00 99.5 60 20 115/54 (74) 94 Room Air 04/02/19 06:00 25.0 75 I&O- Last 24 Hours up to 6 AM 04/04/19 06:00 Intake Total 1215 ml Output Total 3025 ml Balance -1810 ml Laboratory Data 24H LABS Laboratory Tests 2 04/03/19 08:37: Nucleated Red Blood Cells % (auto) 0.0 04/03/19 08:40: Anion Gap 6L, Glomerular Filtration Rate > 60.0, Calcium Level 7.8L, Phosphorus Level 2.5, Magnesium Level 2.0, Total Bilirubin 0.4, Aspartate Amino Transf (AST/SGOT) 24, Alanine Aminotransferase (ALT/SGPT) 35, Alkaline Phosphatase 149H, Lactate Dehydrogenase 257H, Total Creatine Kinase 27L, Total Protein 5.3L, Albumin 1.9L, Albumin/Globulin Ratio 0.56L, Triglycerides Level 87, Cholesterol Level 123 04/03/19 09:46: Vancomycin Level Trough 15.1 04/03/19 11:41: Bedside Glucose (Misc Panel) 128H 04/03/19 17:40: Bedside Glucose (Misc Panel) 115H 04/03/19 23:42: Bedside Glucose (Misc Panel) 95 04/04/19 05:13: Nucleated Red Blood Cells % (auto) 0.0, Anion Gap 3L, Glomerular Filtration Rate > 60.0, Calcium Level 7.7L, Phosphorus Level 2.4L, Total Bilirubin 0.7#, Aspartate Amino Transf (AST/SGOT) 24, Alanine Aminotransferase (ALT/SGPT) 26, Alkaline Phosphatase 128H, Lactate Dehydrogenase 329H, Total Creatine Kinase 31L, Total Protein 5.3L, Albumin 1.8L, Albumin/Globulin Ratio 0.51L, Triglycerides Level 91, Cholesterol Level 115 04/04/19 06:24: Bedside Glucose (Misc Panel) 119H CBC/BMP Laboratory Tests 04/03/19 08:37 04/03/19 08:40 04/04/19 05:13 Microbiology Microbiology 03/31/19 Blood Culture - Preliminary, Resulted No Growth after 72 hours. All specime... Monika Lorenz [employer] Apr 04, 2019 08:27
[2019-04-04] MEDS: PANTOPRAZOLE 40MG INJ (PROTONIX) (C9113) IV SCH (08:49)
[2019-04-04] MEDS: FUROSEMIDE 20 MG/2 ML VIAL (J1940) IV SCH (08:49)
[2019-04-04] MEDS: LEVOTHYROXINE 100 MCG (0.1MG) VIAL IV SCH (08:49)
[2019-04-04] MEDS: BISACODYL 10 MG SUPP PR SCH (08:49)
[2019-04-04] MEDS ORDERED: MULTIVITAMIN -ADULT INJECTION 10 ML, CR/CU/SE/MN/ZN INJ 1 ML in AMINO AC/ELECTROLYTE/DE... IV SCH (18:00)
[2019-04-04] MEDS ORDERED: FAT EMULSION IV 20% 500 ML IV SCH (18:00)
[2019-04-05] VITALS (9 sets, daily range): BP systolic 117–139; BP diastolic 54–67; O2SAT 88
[2019-04-05] MEDS: VALPROATE SOD INJ 500 MG in D5W 50 ML IV SCH ×2 (01:52→13:31)
[2019-04-05] MEDS: HYDROCORTISONE 100 MG/2 ML VIAL (J1720 PER 1) IV SCH ×3 (02:49→23:42)
[2019-04-05] MEDS: VANCOMYCIN HCL 750 MG, VIAL MATE ADAPTER 1 EACH in D5W 250 ML IV SCH ×3 (02:50→11:00)
[2019-04-05] MEDS: LORazepam 2 MG/ML VIAL (J2060) IV PRN (03:43)
[2019-04-05] MEDS: CEFEPIME HCL 2 GM in D5W MINI-BAG PLUS 50 ML IV SCH ×3 (04:01→20:47)
[2019-04-05 05:31] LABS: HEMATOCRIT 26.9 % (42.0-52.0); HEMOGLOBIN 8.8 g/dl (13.5-17.5); MEAN CORPUSCULAR HEMOGLOBIN 30.7 pg (27.0-33.0); MEAN CORPUSCULAR HGB CONC 32.7 g/dl (32.0-36.5); MEAN CORPUSCULAR VOLUME 93.7 fl (80.0-96.0); PLATELET COUNT, AUTOMATED 272 10^3/uL (150-450); RED BLOOD COUNT 2.87 10^6/uL (4.30-6.10); WHITE BLOOD COUNT 8.8 10^3/uL (4.0-10.0)
[2019-04-05 05:59] LABS: ALBUMIN 1.8 GM/DL (3.2-5.2); ALT/SGPT 26 U/L (12-78); BILIRUBIN,TOTAL 0.4 MG/DL (0.2-1.0); BLOOD UREA NITROGEN 23 MG/DL (7-18); CALCIUM LEVEL 7.5 MG/DL (8.5-10.1); CARBON DIOXIDE LEVEL 33 MEQ/L (21-32); CHLORIDE LEVEL 111 MEQ/L (98-107); CHOLESTEROL LEVEL 120 MG/DL (< 200); CPK CREATINE PHOSPHOKINASE 16 U/L (39-308); CREATININE FOR GFR 0.54 MG/DL (0.70-1.30); GLOMERULAR FILTRATION RATE > 60.0 (>56); GLUCOSE, FASTING 114 MG/DL (70-100); LDH LACTATE DEHYDROGENASE 312 U/L (87-241); PHOSPHORUS LEVEL 2.5 MG/DL (2.5-4.9); SODIUM LEVEL 147 MEQ/L (136-145); TOTAL PROTEIN 5.3 GM/DL (6.4-8.2); TRIGLYCERIDES LEVEL 85 MG/DL (<150)
[2019-04-05] MEDS: BISACODYL 10 MG SUPP PR SCH (09:00)
--- NOTE | 2019-04-05 10:31 | IPNPDOC ---
Subjective Date Seen The patient was seen on 04/05/19. Subjective Chief Complaint/HPI No new issues per nursing Constitutional: Denies: Chills, Fever Pulmonary: Denies: Dyspnea, Cough Gastrointestinal: Denies: Diarrhea, Constipation Objective Physical Examination General Exam: Positive: Alert (follows with eyes, tries to push my hand away whn I examine him), No Acute Distress Eye Exam: Negative: Sclera icteric ENT Exam: Negative: Mucous membr. moist/pink Neck Exam: Positive: Supple; Negative: Lymphadenopathy Chest Exam: Positive: Clear to auscultation, Diminished Heart Exam: Positive: Regular Rhythm; Negative: Murmurs Abdomen Exam: Positive: Normal bowel sounds, Soft; Negative: Tenderness Male Exam: Positive: Edema (+ scrotal edema) Extremity Exam: Positive: Edema (pitting edema bilateral feet); Negative: Cyanosis Skin Exam: Negative: Breakdown Neuro Exam: Negative: Normal Speech Psych Exam: Positive: Other (developmental disability, non-verbal) Assessment /Plan Problems (1) Severe sepsis Status: Resolved Response to Treatment: Uncompensated Discussed With: Nurse, Credit Reference Clerk, Patient, Health Care Proxy, Family with Pt Consent Problem Specific Plan: Consult Specialist, Monitor Clinically, Repeat Labs Problem Text: 04/05 - D/W attending how long to continue abx WBC normalized. Tmax 100.2 at noon yesterday Vanco/Cefepime D#[address] abd/pelvis 04/02: Significant proctosigmoiditis with marked thickening of the wall of the mid to distal sigmoid and worse in the rectum with inflammatory changes in the adjacent fat. No perforation or abscess. 04/04/2019: WBC 9 today. continues to show improvement. 04/03 -- Leukocytosis continues to resolve, clinical picture improving, continues on abx but no longer meets criteria for severe sepsis 04/01 - WBC continues to trend down Bp stable - no longer requiring pressors Remains on Vanco and Cefepime B/C neg 03/31 WBC trending down today, remains afebrile, Cont with TPN, mgmt per [employer] at this time. O2 demands decreased now on Vasotherm from CPAP. 03/30/2019: showing slight improvement. WBC remains elevated. DC IVF due to edema. Hold on diuresis. Continue with TPN. continue to wean oxygen demands. Prognosis remains poor. 03/29 Pt required Vasopressin overnight after diuresing 3L and becoming hypotensive. On IVF 04/28 NS c 40 meq K+ UA + E coli x 2, Cefepime IV D4 TPN per [employer] WBC increased from 35 to 36. 03/28 Weaned down to Vasopressin, Dr Nelson cont to follow, acidosis has improved [place] [id number]. He will cont with Vanco and Cefepime this morning. 03/27 He is currently maintained on 2 pressors (norepinephrine and vasopressin). Dr. Nelson is assisting in critical care management today; I appreciate his help. His lactic acid is improving, but still has not resolved. His NG tube put out 400cc initially yesterday and an additional 300cc over the course of the next day. Nursing reports that it is slowing and maybe we can remove it tomorrow. I do think it will be easier for him to breathe without something taking up more space in his pharynx. The cefepime seems to be doing at least as well as the meropenem. We will continue on this and the vancomycin for now. (2) Acute respiratory failure Status: Resolved Problem Text: 04/05 - Sats remain borderline on RA CT abd/pelvis 04/02: Moderately severe bilateral pleural effusions with compressive atelectasis or infiltrates bilaterally in the lower lung zones included on this study with over 50% of the volume of these lower lung zones is replaced by fluid. continue IV Lasix Replace K+ (3) Chronic constipation Status: Chronic Problem Text: 04/05: D/W attending trial of clamping NG tube continues with BMs. abdomen soft. NGT remains in place. Continue with TPN 04/03 -- abdomen is tender on exam. He has had multiple bowel movements since yesterday. CT of the abdomen and pelvis showed proctosigmoiditis. NG tube still draining, and leukocytosis resolving. 04/02 -- abdomen seemed perhaps tender, CT ordered 04/01 - CT on admission showed fecal impaction & distended proximal bowel NG tube remains in place - draining copious brown GI contents Remains on TPN per intensivists - Had diarrhea last night so Dulcolax supp held baseline HD: sen/doc 2 BID, Amitiza 24 BID 03/28 + bisa supp given no BM since admission, mild abd distension c decreased BS (4) Severe protein-calorie malnutrition (5) Scrotal edema Status: Acute Problem Text: 04/01 Has scrotal and Lower extremity edema - Secondary to IVF and hypoalbuminemia Dalton per Urology Would not expect this to imprve until we can stop IVF and Albumin improves (6) Seizure disorder Status: Chronic Problem Specific Plan: Monitor Clinically, Repeat Labs Problem Text: 04/01 - Lst seizure 03/31 - Given IV Ativan Remains on IV Valproate - level improved but still a little low at 46 on 03/30 - Repeat today 03/28 VPA 41 on HD 500 BID (IV), but started 03/23 p missing 2-3D dosing; therefore, CCR rechecking level in 3D (7) Metabolic acidosis with respiratory alkalosis Status: Resolved Response to Treatment: Compensated Discussed With: Credit Reference Clerk Problem Specific Plan: Monitor Clinically, Repeat Labs Problem Text: 03/28 His lactic acidosis continues several days after we initially started treating him. It is the lowest it has been this morning, but the persistence of anaerobic respiration is not a good prognostic indicator in my mind. Perhaps some of this is driven by the pressors and some ischemia from these medication (including mesenteric). However, we can't just stop the pressors either. We will continue to monitor this situation carefully, but I am increasingly concerned that he will not survive this episode. Not in the least because he is needing more and more support to maintain his compensatory mechanisms. (8) Code status needs review Status: Chronic Problem Text: 04/01 DNR/DNI on chart - NEEDS SIGNATURE FROM ATTENDING 03/29 Dr Arguello is requesting a meeting with Dr White to review the case prior to signing off on the MOLST. 03/28/19 case dw sole guardian, sister Shaniqua Stevenson, who strongly favors DNR. MOLST checklist for DD individuals completed and will submit to Dr. Arguello to sign as concurring (9) Prostatitis, acute Status: Acute Discussed With: Patient, Family with Pt Consent Problem Specific Plan: Monitor Clinically, Repeat Tests Problem Text: 04/05 - see above favor acute/chronic prostatitis 03/24 22! 03/17 PSA 2 (10) Obstructive uropathy Status: Resolved Response to Treatment: Controlled Problem Specific Plan: Monitor Clinically, Repeat Labs Problem Text: His renal function has normalized. I continue to believe that only a urologist should remove his urinary catheter. (11) Hypotension Status: Resolved Response to Treatment: Improving, Controlled Discussed With: Nurse, Credit Reference Clerk, Patient, Health Care Proxy, Family with Pt Consent Problem Specific Plan: Consult Specialist, Monitor Clinically, Repeat Labs Problem Text: Remains off of pressors currently. (12) Mental retardation Status: Chronic Discussed With: Family with Pt Consent Problem Text: His MR and inability to participate in his own medical decision making as well as his tendency to pull out lines complicates all aspects of his current care. (13) Cerebral palsy Status: Chronic Problem Text: His physical disabilities complicate his care. (14) DIC (disseminated intravascular coagulation) Status: Resolved Response to Treatment: Stable (but not improved) Problem Specific Plan: Monitor Clinically, Repeat Labs Problem Text: 04/01 - platelets normalized 03/29 Plt 81 03/28 Plt 37, increased from 33k 03/27 His platelets are up to 33k this morning. He has received a transfusion of pack of platelets. Perhaps the consumption has stabilized. We will continue to monitor his CBC closely. Plan/VTE VTE Prophylaxis Ordered?: Yes (SCDs) VTE Exclusion Pharmacological: Thrombocytopenia Plan/Urinary Catheter Urinary Catheter: Place Dalton Reason for insertion/continuin: Critical Pt monitoring (and obstruction/retention) VS, I&O, 24H, Fishbone Vital Signs/I&O Vital Signs Date Time Temp Pulse Resp B/P (MAP) Pulse Ox O2 Delivery O2 Flow Rate FiO2 04/05/19 08:00 98.4 62 22 122/58 (79) 90 Room Air 04/02/19 06:00 25.0 75 I&O- Last 24 Hours up to 6 AM 04/05/19 06:00 Intake Total 0 ml Output Total 3450 ml Balance -3450 ml Laboratory Data 24H LABS Laboratory Tests 2 04/04/19 12:47: Bedside Glucose (Misc Panel) 129H 04/04/19 18:55: Bedside Glucose (Misc Panel) 105 04/05/19 05:00: Nucleated Red Blood Cells % (auto) 0.0, Anion Gap 3L, Glomerular Filtration Rate > 60.0, Calcium Level 7.5L, Phosphorus Level 2.5, Total Bilirubin 0.4, Aspartate Amino Transf (AST/SGOT) 19, Alanine Aminotransferase (ALT/SGPT) 26, Alkaline Phosphatase 120H, Lactate Dehydrogenase 312H, Total Creatine Kinase 16L, Total Protein 5.3L, Albumin 1.8L, Albumin/Globulin Ratio 0.51L, Triglycerides Level 85, Cholesterol Level 120 CBC/BMP Laboratory Tests 04/05/19 05:00 Microbiology Microbiology 03/31/19 Blood Culture - Final, Complete NO GROWTH AFTER 5 DAYS BHAVIK WHITE PA-C Apr 05, 2019 10:31
[2019-04-05] MEDS: PANTOPRAZOLE 40MG INJ (PROTONIX) (C9113) IV SCH (10:32)
[2019-04-05] MEDS: FUROSEMIDE 20 MG/2 ML VIAL (J1940) IV SCH (10:33)
[2019-04-05] MEDS: LEVOTHYROXINE 100 MCG (0.1MG) VIAL IV SCH (10:34)
[2019-04-05] MEDS: KCL 20MEQ IN 100ML SWI (KRUN) 20 MEQ in IV 1 EA IV SCH ×4 (14:32→16:01)
[2019-04-05 17:51] LABS: CLOSTRIDIUM DIFFICILE PCR NEGATIVE (NEGATIVE)
[2019-04-05] MEDS ORDERED: FAT EMULSION IV 20% 500 ML IV SCH (18:00)
[2019-04-05] MEDS ORDERED: AMINO AC/ELECTROLYTE/DEX/CALC 2,000 ML IV SCH (18:00)
[2019-04-05] MEDS: ACETAMINOPHEN 650 MG SUPP PR PRN (23:58)
[2019-04-06] VITALS (18 sets, daily range): BP systolic 110–136; BP diastolic 53–68; O2SAT 86–97
[2019-04-06] MEDS: VALPROATE SOD INJ 500 MG in D5W 50 ML IV SCH ×2 (00:05→13:39)
[2019-04-06] MEDS: CEFEPIME HCL 2 GM in D5W MINI-BAG PLUS 50 ML IV SCH ×3 (04:24→20:58)
[2019-04-06 05:59] LABS: HEMATOCRIT 27.7 % (42.0-52.0); MEAN CORPUSCULAR HEMOGLOBIN 30.7 pg (27.0-33.0); MEAN CORPUSCULAR HGB CONC 32.5 g/dl (32.0-36.5); MEAN CORPUSCULAR VOLUME 94.5 fl (80.0-96.0); PLATELET COUNT, AUTOMATED 290 10^3/uL (150-450); RED BLOOD COUNT 2.93 10^6/uL (4.30-6.10)
[2019-04-06 06:27] LABS: ALBUMIN 1.8 GM/DL (3.2-5.2); ALT/SGPT 42 U/L (12-78); BILIRUBIN,TOTAL 0.5 MG/DL (0.2-1.0); BLOOD UREA NITROGEN 24 MG/DL (7-18); CALCIUM LEVEL 7.7 MG/DL (8.5-10.1); CARBON DIOXIDE LEVEL 30 MEQ/L (21-32); CHLORIDE LEVEL 114 MEQ/L (98-107); CHOLESTEROL LEVEL 131 MG/DL (< 200); CPK CREATINE PHOSPHOKINASE 30 U/L (39-308); CREATININE FOR GFR 0.53 MG/DL (0.70-1.30); GLOMERULAR FILTRATION RATE > 60.0 (>56); GLUCOSE, FASTING 100 MG/DL (70-100); LDH LACTATE DEHYDROGENASE 350 U/L (87-241); PHOSPHORUS LEVEL 2.9 MG/DL (2.5-4.9); POTASSIUM SERUM 3.9 MEQ/L (3.5-5.1); SODIUM LEVEL 147 MEQ/L (136-145); TOTAL PROTEIN 5.6 GM/DL (6.4-8.2); TRIGLYCERIDES LEVEL 85 MG/DL (<150)
[2019-04-06] MEDS: PANTOPRAZOLE 40MG INJ (PROTONIX) (C9113) IV SCH (09:17)
[2019-04-06] MEDS: LEVOTHYROXINE 100 MCG (0.1MG) VIAL IV SCH (09:18)
[2019-04-06] MEDS: FUROSEMIDE 20 MG/2 ML VIAL (J1940) IV SCH (09:18)
[2019-04-06] MEDS: BISACODYL 10 MG SUPP PR SCH (09:18)
[2019-04-06] MEDS: HYDROCORTISONE 100 MG/2 ML VIAL (J1720 PER 1) IV SCH ×2 (11:20→23:51)
[2019-04-06] MEDS: SODIUM CHLORIDE 0.9% INJ 10 ML SYR IV PRN (11:21)
--- NOTE | 2019-04-06 11:24 | IPNPDOC ---
Subjective Date Seen The patient was seen on 04/06/19. Subjective Chief Complaint/HPI Pulled NG tube out last night. No n/v or abd pain. 2 BMs Constitutional: Denies: Chills, Fever Pulmonary: Denies: Dyspnea, Cough Cardiovascular: Denies: Chest Pain Gastrointestinal: Denies: Nausea, Vomiting, Abdominal Pain, Diarrhea, Constipation Objective Physical Examination General Exam: Positive: Alert (follows with eyes, tries to push my hand away whn I examine him), No Acute Distress Eye Exam: Negative: Sclera icteric ENT Exam: Negative: Mucous membr. moist/pink Neck Exam: Positive: Supple; Negative: Lymphadenopathy Chest Exam: Positive: Clear to auscultation, Diminished Heart Exam: Positive: Regular Rhythm; Negative: Murmurs Telemetry: Positive: Other Telemetry: (Transient bradycardia with rate in 40s followed by IVCD, now SR) Abdomen Exam: Positive: Normal bowel sounds, Soft; Negative: Tenderness Male Exam: Positive: Edema (+ scrotal edema) Extremity Exam: Positive: Edema (pitting edema bilateral feet); Negative: Cyanosis Skin Exam: Negative: Breakdown Neuro Exam: Negative: Normal Speech Psych Exam: Positive: Other (developmental disability, non-verbal) Assessment /Plan Assessment He has had several runs of accelerated intraventricular rhythm in the last day; can not tell if he is symptomatic as he is nonverbal. Reviewed telemetry with cardiology, who recommended avoiding any rate-slowing medications, no further intervention needed. Problems (1) IVCD (intraventricular conduction defect) Status: Acute Problem Text: K+ replaced and normal today Check mag Get EKG and Cardiac enzymes (2) Prostatitis, acute Status: Acute Discussed With: Patient, Family with Pt Consent Problem Specific Plan: Monitor Clinically, Repeat Tests Problem Text: 04/06 - WBC normalized, Tmax 100.3 04/05 at 1600 Cefepime D# 12, s/p Vanco x 11 days - stopped 04/05 D/W attending how long to continue abx favor acute/chronic prostatitis 03/24 22! 03/17 PSA 2 (3) Chronic constipation Status: Chronic Problem Text: 04/06 - Patient pulled out NG tube. Having BMs with Dulcolax supp for bowel care. No n/v. abd soft today GI consulted ST attempted swallow eval today, but he woul dnot swallow the applesauce - Nurse will see if [facility] staff can be present for [facility] to help with some of the behavioral issues that may be interfering with getting him to swallow Cont NPO & TPN for now 04/05: D/W attending trial of clamping NG tube continues with BMs. abdomen soft. NGT remains in place. Continue with TPN 04/03 -- abdomen is tender on exam. He has had multiple bowel movements since yesterday. CT of the abdomen and pelvis showed proctosigmoiditis. NG tube still draining, and leukocytosis resolving. 04/02 -- abdomen seemed perhaps tender, CT ordered 04/01 - CT on admission showed fecal impaction & distended proximal bowel NG tube remains in place - draining copious brown GI contents Remains on TPN per intensivists - Had diarrhea last night so Dulcolax supp held baseline HD: sen/doc 2 BID, Amitiza 24 BID 03/28 + bisa supp given no BM since admission, mild abd distension c decreased BS (4) Acute respiratory failure Status: Resolved Problem Text: 04/06 - Sats remain stable CT abd/pelvis 04/02: Moderately severe bilateral pleural effusions with compressive atelectasis or infiltrates bilaterally in the lower lung zones included on this study with over 50% of the volume of these lower lung zones is replaced by fluid. continue IV Lasix (5) Severe sepsis Status: Resolved Response to Treatment: Uncompensated Discussed With: Nurse, Rn Lpn Cna, Patient, Health Care Proxy, Family with Pt Consent Problem Specific Plan: Consult Specialist, Monitor Clinically, Repeat Labs Problem Text: 04/05 - D/W attending how long to continue abx WBC normalized. Tmax 100.2 at noon yesterday Vanco/Cefepime D#[address] abd/pelvis 04/02: Significant proctosigmoiditis with marked thickening of the wall of the mid to distal sigmoid and worse in the rectum with inflammatory changes in the adjacent fat. No perforation or abscess. 04/04/2019: WBC 9 today. continues to show improvement. 04/03 -- Leukocytosis continues to resolve, clinical picture improving, continues on abx but no longer meets criteria for severe sepsis 04/01 - WBC continues to trend down Bp stable - no longer requiring pressors Remains on Vanco and Cefepime B/C neg 03/31 WBC trending down today, remains afebrile, Cont with TPN, mgmt per Hybrid Tester at this time. O2 demands decreased now on Vasotherm from CPAP. 03/30/2019: showing slight improvement. WBC remains elevated. DC IVF due to edema. Hold on diuresis. Continue with TPN. continue to wean oxygen demands. Prognosis remains poor. 03/29 Pt required Vasopressin overnight after diuresing 3L and becoming hypotensive. On IVF 04/28 NS c 40 meq K+ UA + E coli x 2, Cefepime IV D4 TPN per Hybrid Tester WBC increased from 35 to 36. 03/28 Weaned down to Vasopressin, Dr Nelson cont to follow, acidosis [place] [id number]. He will cont with Vanco and Cefepime this morning. 03/27 He is currently maintained on 2 pressors (norepinephrine and vasopressin). Dr. Nelson is assisting in critical care management today; I appreciate his help. His lactic acid is improving, but still has not resolved. His NG tube put out 400cc initially yesterday and an additional 300cc over the course of the next day. Nursing reports that it is slowing and maybe we can remove it tomorrow. I do think it will be easier for him to breathe without something taking up more space in his pharynx. The cefepime seems to be doing at least as well as the meropenem. We will continue on this and the vancomycin for now. (6) Severe protein-calorie malnutrition (7) Scrotal edema Status: Acute Problem Text: 04/01 Has scrotal and Lower extremity edema - Secondary to IVF and hypoalbuminemia Dalton per Urology Would not expect this to imprve until we can stop IVF and Albumin improves (8) Seizure disorder Status: Chronic Problem Specific Plan: Monitor Clinically, Repeat Labs Problem Text: 04/01 - Lst seizure 03/31 - Given IV Ativan Remains on IV Valproate - level improved but still a little low at 46 on 03/30 - Repeat today 03/28 VPA 41 on HD 500 BID (IV), but started 03/23 p missing 2-3D dosing; therefore, CCR rechecking level in 3D (9) Metabolic acidosis with respiratory alkalosis Status: Resolved Response to Treatment: Compensated Discussed With: Rn Lpn Cna Problem Specific Plan: Monitor Clinically, Repeat Labs Problem Text: 03/28 His lactic acidosis continues several days after we initially started treating him. It is the lowest it has been this morning, but the persistence of anaerobic respiration is not a good prognostic indicator in my mind. Perhaps some of this is driven by the pressors and some ischemia from these medication (including mesenteric). However, we can't just stop the pressors either. We will continue to monitor this situation carefully, but I am increasingly concerned that he will not survive this episode. Not in the least because he is needing more and more support to maintain his compensatory mechanisms. (10) Code status needs review Status: Chronic Problem Text: 04/01 DNR/DNI on chart - NEEDS SIGNATURE FROM ATTENDING 03/29 Dr Arguello is requesting a meeting with Dr White to review the case prior to signing off on the MOLST. 03/28/19 case dw sole guardian, sister Shaniqua Stevenson, who strongly favors DNR. MOLST checklist for DD individuals completed and will submit to Dr. Arguello to sign as concurring (11) Obstructive uropathy Status: Resolved Response to Treatment: Controlled Problem Specific Plan: Monitor Clinically, Repeat Labs Problem Text: His renal function has normalized. I continue to believe that only a urologist should remove his urinary catheter. (12) Hypotension Status: Resolved Response to Treatment: Improving, Controlled Discussed With: Nurse, Rn Lpn Cna, Patient, Health Care Proxy, Family with Pt Consent Problem Specific Plan: Consult Specialist, Monitor Clinically, Repeat Labs Problem Text: Remains off of pressors currently. (13) Mental retardation Status: Chronic Discussed With: Family with Pt Consent Problem Text: His MR and inability to participate in his own medical decision making as well as his tendency to pull out lines complicates all aspects of his current care. (14) Cerebral palsy Status: Chronic Problem Text: His physical disabilities complicate his care. (15) DIC (disseminated intravascular coagulation) Status: Resolved Response to Treatment: Stable (but not improved) Problem Specific Plan: Monitor Clinically, Repeat Labs Problem Text: 04/01 - platelets normalized 03/29 Plt 81 03/28 Plt 37, increased from 33k 03/27 His platelets are up to 33k this morning. He has received a transfusion of pack of platelets. Perhaps the consumption has stabilized. We will continue to monitor his CBC closely. Plan/VTE VTE Prophylaxis Ordered?: Yes (SCDs) VTE Exclusion Pharmacological: Thrombocytopenia Plan/Urinary Catheter Urinary Catheter: Place Dalton Reason for insertion/continuin: Critical Pt monitoring (and obstruction/retention) VS, I&O, 24H, Junior Vital Signs/I&O Vital Signs Date Time Temp Pulse Resp B/P (MAP) Pulse Ox O2 Delivery O2 Flow Rate FiO2 04/06/19 08:00 98.0 51 18 118/58 (78) 96 Room Air 04/06/19 05:00 2.0 04/02/19 06:00 75 I&O- Last 24 Hours up to 6 AM 04/06/19 06:00 Intake Total 1160 ml Output Total 5000 ml Balance -3840 ml Laboratory Data 24H LABS Laboratory Tests 2 04/05/19 15:53: Clostridium difficile [id number] PRESUMPTIVE NEGATIVE, Clostridium difficile Toxin (PCR) NEGATIVE 04/05/19 18:29: Bedside Glucose (Misc Panel) 85 04/06/19 00:43: Bedside Glucose (Misc Panel) 86 04/06/19 05:44: Nucleated Red Blood Cells % (auto) 0.0, Anion Gap 3L, Glomerular Filtration Rate > 60.0, Calcium Level 7.7L, Phosphorus Level 2.9, Total Bilirubin 0.5, Aspartate Amino Transf (AST/SGOT) 41H, Alanine Aminotransferase (ALT/SGPT) 42, Alkaline Phosphatase 130H, Lactate Dehydrogenase 350H, Total Creatine Kinase 30#L, Total Protein 5.6L, Albumin 1.8L, Albumin/Globulin Ratio 0.47L, Triglycerides Level 85, Cholesterol Level 131 CBC/BMP Laboratory Tests 04/06/19 05:44 Microbiology Microbiology 03/31/19 Blood Culture - Final, Complete NO GROWTH AFTER 5 DAYS BHAVIK WHITE PA-C Apr 06, 2019 11:24 PAMELA RODRIGUEZ DO Apr 06, 2019 17:43
[2019-04-06 13:14] LABS: MAGNESIUM LEVEL 1.9 MG/DL (1.8-2.4); TROPONIN I 0.05 NG/ML (< 0.10)
[2019-04-06] MEDS: SODIUM CHLORIDE 0.9% INJ 10 ML SYR IV SCH ×2 (13:39→21:03)
[2019-04-06] MEDS ORDERED: FAT EMULSION IV 20% 500 ML IV SCH (18:00)
[2019-04-06] MEDS ORDERED: AMINO AC/ELECTROLYTE/DEX/CALC 2,000 ML IV SCH (18:00)
[2019-04-06] MEDS ORDERED: FLEET ENEMA PR ONE (19:45)
--- NOTE | 2019-04-06 21:31 | ECGEPIP ---
[facility] Test Date: 2019-04-06 Pat Name: RAFI ROGEL Department: Room: [place] [address] Gender: Male Master Rigger: FCO : [id number] Requested By: BHAVIK Vides PA-C Order Number: [id number] Reading MD: Leobardo Gaytan Measurements Intervals [place] Rate: 91 P: 30 AR: 108 QRS: 44 QRSD: 84 T: 83 QT: 372 QTc: 459 Interpretive Statements SINUS RHYTHM WITH SHORT AR INTERVAL WITH OCCASIONAL SUPRAVENTRICULAR PREMATURE COMPLEXES VOLTAGE CRITERIA FOR LVH NONSPECIFIC ST & T-WAVE ABNORMALITY Electronically Signed on 04-06-2019 21:31:22 EST by Leobardo Gaytan
[2019-04-07] VITALS (19 sets, daily range): BP systolic 97–147; BP diastolic 51–70; O2SAT 93–97
[2019-04-07] MEDS: ACETAMINOPHEN 650 MG SUPP PR PRN (01:10)
[2019-04-07] MEDS: CEFEPIME HCL 2 GM in D5W MINI-BAG PLUS 50 ML IV SCH ×3 (05:30→20:09)
[2019-04-07] MEDS: SODIUM CHLORIDE 0.9% INJ 10 ML SYR IV SCH ×3 (05:30→22:50)
[2019-04-07 05:52] LABS: HEMATOCRIT 29.6 % (42.0-52.0); HEMOGLOBIN 9.3 g/dl (13.5-17.5); MEAN CORPUSCULAR HEMOGLOBIN 30.2 pg (27.0-33.0); MEAN CORPUSCULAR HGB CONC 31.4 g/dl (32.0-36.5); MEAN CORPUSCULAR VOLUME 96.1 fl (80.0-96.0); PLATELET COUNT, AUTOMATED 296 10^3/uL (150-450); RED BLOOD COUNT 3.08 10^6/uL (4.30-6.10); WHITE BLOOD COUNT 8.4 10^3/uL (4.0-10.0)
[2019-04-07 06:24] LABS: ALT/SGPT 59 U/L (12-78); BILIRUBIN,TOTAL 0.5 MG/DL (0.2-1.0); BLOOD UREA NITROGEN 26 MG/DL (7-18); CARBON DIOXIDE LEVEL 29 MEQ/L (21-32); CHLORIDE LEVEL 111 MEQ/L (98-107); CREATININE FOR GFR 0.56 MG/DL (0.70-1.30); GLOMERULAR FILTRATION RATE > 60.0 (>56); GLUCOSE, FASTING 112 MG/DL (70-100); POTASSIUM SERUM 3.7 MEQ/L (3.5-5.1); SODIUM LEVEL 144 MEQ/L (136-145); TOTAL PROTEIN 5.7 GM/DL (6.4-8.2)
--- NOTE | 2019-04-07 09:25 | IPNPDOC ---
Subjective Date Seen The patient was seen on 04/07/19. Subjective Chief Complaint/HPI Patient taking honey thick liquids. No n/v. 3 liquid BMs yesterday Constitutional: Denies: Chills, Fever Pulmonary: Denies: Dyspnea, Cough Cardiovascular: Denies: Chest Pain Gastrointestinal: Reports: Diarrhea; Denies: Nausea, Vomiting, Abdominal Pain Objective Physical Examination General Exam: Positive: Alert (follows with eyes, tries to push my hand away whn I examine him), No Acute Distress Eye Exam: Negative: Sclera icteric ENT Exam: Negative: Mucous membr. moist/pink Neck Exam: Positive: Supple; Negative: Lymphadenopathy Chest Exam: Positive: Clear to auscultation, Diminished Heart Exam: Positive: Regular Rhythm; Negative: Murmurs Telemetry: Positive: Other Telemetry: (Transient bradycardia with rate in 40s followed by IVCD, now SR) Abdomen Exam: Positive: Normal bowel sounds, Soft; Negative: Tenderness Male Exam: Positive: Edema (+ scrotal edema) Extremity Exam: Positive: Edema (pitting edema bilateral feet); Negative: Cyanosis Skin Exam: Negative: Breakdown Neuro Exam: Negative: Normal Speech Psych Exam: Positive: Other (developmental disability, non-verbal) Assessment /Plan Problems (1) IVCD (intraventricular conduction defect) Status: Acute Problem Text: 04/07 - Had another run of IVCD this am then spontaneously converted to SR. Trop neg. EKG unremarkable Mag and K+ normal Get f/u CXR (2) Prostatitis, acute Status: Acute Discussed With: Patient, Family with Pt Consent Problem Specific Plan: Monitor Clinically, Repeat Tests Problem Text: 04/07 - WBC normalized, Afebrile x >24 hours Cefepime D# 13, s/p Vanco x 11 days - stopped 04/05 D/W attending how long to continue abx favor acute/chronic prostatitis 03/24 22! 03/17 PSA 2 (3) Chronic constipation Status: Chronic Problem Text: 04/07 - GI saw patient in consultation - no note Looks like Flex sig scheduled for today 04/06 - Patient pulled out NG tube. Having BMs with Dulcolax supp for bowel care. No n/v. abd soft today GI consulted ST attempted swallow eval today, but he woul dnot swallow the applesauce - Nurse will see if [facility] staff can be present for St eval to help with some of the behavioral issues that may be interfering with getting him to swallow Cont NPO & TPN for now 04/05: D/W attending trial of clamping NG tube continues with BMs. abdomen soft. NGT remains in place. Continue with TPN 04/03 -- abdomen is tender on exam. He has had multiple bowel movements since yesterday. CT of the abdomen and pelvis showed proctosigmoiditis. NG tube still draining, and leukocytosis resolving. 04/02 -- abdomen seemed perhaps tender, CT ordered 04/01 - CT on admission showed fecal impaction & distended proximal bowel NG tube remains in place - draining copious brown GI contents Remains on TPN per intensivists - Had diarrhea last night so Dulcolax supp held baseline HD: sen/doc 2 BID, Amitiza 24 BID 03/28 + bisa supp given no BM since admission, mild abd distension c decreased BS (4) Acute respiratory failure Status: Resolved Problem Text: 04/06 - Sats remain stable CT abd/pelvis 04/02: Moderately severe bilateral pleural effusions with compressive atelectasis or infiltrates bilaterally in the lower lung zones included on this study with over 50% of the volume of these lower lung zones is replaced by fluid. continue IV Lasix (5) Severe sepsis Status: Resolved Response to Treatment: Uncompensated Discussed With: Nurse, Atmospheric Sciences Professor, Patient, Health Care Proxy, Family with Pt Consent Problem Specific Plan: Consult Specialist, Monitor Clinically, Repeat Labs Problem Text: 04/05 - D/W attending how long to continue abx WBC normalized. Tmax 100.2 at noon yesterday Vanco/Cefepime D#[address] abd/pelvis 04/02: Significant proctosigmoiditis with marked thickening of the wall of the mid to distal sigmoid and worse in the rectum with inflammatory changes in the adjacent fat. No perforation or abscess. 04/04/2019: WBC 9 today. continues to show improvement. 04/03 -- Leukocytosis continues to resolve, clinical picture improving, continues on abx but no longer meets criteria for severe sepsis 04/01 - WBC continues to trend down Bp stable - no longer requiring pressors Remains on Vanco and Cefepime B/C neg 03/31 WBC trending down today, remains afebrile, Cont with TPN, mgmt per Produce Field Merchandiser at this time. O2 demands decreased now on Vasotherm from CPAP. 03/30/2019: showing slight improvement. WBC remains elevated. DC IVF due to edema. Hold on diuresis. Continue with TPN. continue to wean oxygen demands. Prognosis remains poor. 03/29 Pt required Vasopressin overnight after diuresing 3L and becoming hypotensive. On IVF 04/28 NS c 40 meq K+ UA + E coli x 2, Cefepime IV D4 TPN per Produce Field Merchandiser WBC increased from 35 to 36. 03/28 Weaned down to Vasopressin, Dr Nelson cont to follow, acidosis has improved [place] [id number]. He will cont with Vanco and Cefepime this morning. 03/27 He is currently maintained on 2 pressors (norepinephrine and vasopressin). Dr. Nelson is assisting in critical care management today; I appreciate his help. His lactic acid is improving, but still has not resolved. His NG tube put out 400cc initially yesterday and an additional 300cc over the course of the next day. Nursing reports that it is slowing and maybe we can remove it tomorrow. I do think it will be easier for him to breathe without something taking up more space in his pharynx. The cefepime seems to be doing at least as well as the meropenem. We will continue on this and the vancomycin for now. (6) Severe protein-calorie malnutrition (7) Scrotal edema Status: Acute Problem Text: 04/01 Has scrotal and Lower extremity edema - Secondary to IVF and hypoalbuminemia Dalton per Urology Would not expect this to imprve until we can stop IVF and Albumin improves (8) Seizure disorder Status: Chronic Problem Specific Plan: Monitor Clinically, Repeat Labs Problem Text: 04/01 - Lst seizure 03/31 - Given IV Ativan Remains on IV Valproate - level improved but still a little low at 46 on 03/30 - Repeat today 03/28 VPA 41 on HD 500 BID (IV), but started 03/23 p missing 2-3D dosing; therefore, CCR rechecking level in 3D (9) Metabolic acidosis with respiratory alkalosis Status: Resolved Response to Treatment: Compensated Discussed With: Atmospheric Sciences Professor Problem Specific Plan: Monitor Clinically, Repeat Labs Problem Text: 03/28 His lactic acidosis continues several days after we initially started treating him. It is the lowest it has been this morning, but the persistence of anaerobic respiration is not a good prognostic indicator in my mind. Perhaps some of this is driven by the pressors and some ischemia from these medication (including mesenteric). However, we can't just stop the pressors either. We will continue to monitor this situation carefully, but I am increasingly concerned that he will not survive this episode. Not in the least because he is needing more and more support to maintain his compensatory mechanisms. (10) Code status needs review Status: Chronic Problem Text: 04/01 DNR/DNI on chart - NEEDS SIGNATURE FROM ATTENDING 03/29 Dr Arguello is requesting a meeting with Dr White to review the case prior to signing off on the MOLST. 03/28/19 case dw sole guardian, sister Shaniqua Stevenson, who strongly favors DNR. MOLST checklist for DD individuals completed and will submit to Dr. Arguello to sign as concurring (11) Obstructive uropathy Status: Resolved Response to Treatment: Controlled Problem Specific Plan: Monitor Clinically, Repeat Labs Problem Text: His renal function has normalized. I continue to believe that o nly a urologist should remove his urinary catheter. (12) Hypotension Status: Resolved Response to Treatment: Improving, Controlled Discussed With: Nurse, Atmospheric Sciences Professor, Patient, Health Care Proxy, Family with Pt Consent Problem Specific Plan: Consult Specialist, Monitor Clinically, Repeat Labs Problem Text: Remains off of pressors currently. (13) Mental retardation Status: Chronic Discussed With: Family with Pt Consent Problem Text: His MR and inability to participate in his own medical decision making as well as his tendency to pull out lines complicates all aspects of his current care. (14) Cerebral palsy Status: Chronic Problem Text: His physical disabilities complicate his care. (15) DIC (disseminated intravascular coagulation) Status: Resolved Response to Treatment: Stable (but not improved) Problem Specific Plan: Monitor Clinically, Repeat Labs Problem Text: 04/01 - platelets normalized 03/29 Plt 81 03/28 Plt 37, increased from 33k 03/27 His platelets are up to 33k this morning. He has received a transfusion of pack of platelets. Perhaps the consumption has stabilized. We will continue to monitor his CBC closely. (16) Dysphagia Status: Chronic Problem Text: See St swallow eval - Does ok with honey thick liquids Plan/VTE VTE Prophylaxis Ordered?: Yes (SCDs) VTE Exclusion Pharmacological: Thrombocytopenia Plan/Urinary Catheter Urinary Catheter: Place Dalton Reason for insertion/continuin: Critical Pt monitoring (and obstruction/retention) VS, I&O, 24H, Fishbone Vital Signs/I&O Vital Signs Date Time Temp Pulse Resp B/P (MAP) Pulse Ox O2 Delivery O2 Flow Rate FiO2 04/07/19 07:57 97.4 62 18 124/66 (85) 97 Nasal Cannula 2.0 04/02/19 06:00 75 I&O- Last 24 Hours up to 6 AM 04/07/19 06:00 Intake Total 510 ml Output Total 3050 ml Balance -2540 ml Laboratory Data 24H LABS Laboratory Tests 2 04/06/19 12:28: Magnesium Level 1.9, Troponin I 0.05 04/06/19 17:12: Bedside Glucose (Misc Panel) 81 04/07/19 01:56: Bedside Glucose (Misc Panel) 92 04/07/19 05:35: Nucleated Red Blood Cells % (auto) 0.0, Anion Gap 4L, Glomerular Filtration Rate > 60.0, Calcium Level 8.0L, Phosphorus Level 3.0, Total Bilirubin 0.5, Aspartate Amino Transf (AST/SGOT) 34, Alanine Aminotransferase (ALT/SGPT) 59, Alkaline Phosphatase 133H, Total Protein 5.7L, Albumin 2.0L, Albumin/Globulin Ratio 0.54L CBC/BMP Laboratory Tests 04/07/19 05:35 Microbiology Microbiology 03/31/19 Blood Culture - Final, Complete NO GROWTH AFTER 5 DAYS BHAVIK WHITE PA-C Apr 07, 2019 09:25
[2019-04-07] MEDS: LEVOTHYROXINE 100 MCG (0.1MG) VIAL IV SCH (09:34)
[2019-04-07] MEDS: PANTOPRAZOLE 40MG INJ (PROTONIX) (C9113) IV SCH (09:34)
[2019-04-07] MEDS: FUROSEMIDE 20 MG/2 ML VIAL (J1940) IV SCH (09:35)
[2019-04-07] MEDS: BISACODYL 10 MG SUPP PR SCH (09:35)
[2019-04-07] MEDS: SODIUM CHLORIDE 0.9% INJ 10 ML SYR IV PRN ×2 (09:37→22:52)
[2019-04-07] MEDS: HYDROCORTISONE 100 MG/2 ML VIAL (J1720 PER 1) IV SCH ×2 (11:40→22:50)
[2019-04-07] MEDS: VALPROATE SOD INJ 500 MG in D5W 50 ML IV SCH ×3 (13:01)
[2019-04-07] MEDS ORDERED: AMINO AC/ELECTROLYTE/DEX/CALC 2,000 ML IV SCH (18:00)
[2019-04-07] MEDS ORDERED: FAT EMULSION IV 20% 500 ML IV SCH (18:00)
[2019-04-07] MEDS ORDERED: PROPOFOL 200 MG/20 ML VIAL As Ordered ONE (18:15)
--- NOTE | 2019-04-07 18:32 | ROOR ---
Patient Name: Raymond Stevenson Procedure Date: 04/07/2019 5:35 PM Date of : 1965 Age: 53 Room: Main OR Gender: Male Note Status: Finalized Procedure: Flexible Sigmoidoscopy Indications: Abnormal CT of the GI tract Providers: Leobardo WOODS MD Referring MD: 2. Inpatient 2. Inpatient Requesting Provider: Medicines: Monitored Anesthesia Care Complications: No immediate complications. Procedure: Pre-Anesthesia Assessment: - The heart rate, respiratory rate, oxygen saturations, blood pressure, adequacy of pulmonary ventilation, and response to care were monitored throughout the procedure. The Colonoscope was introduced through the anus and advanced to the descending colon. The flexible sigmoidoscopy was accomplished without difficulty. The patient tolerated the procedure well. The quality of the bowel preparation was fair. Findings: The perianal and digital rectal examinations were normal. The entire examined sigmoid colon appeared normal. A diffuse area of mild melanosis was found in the entire colon. Impression: - Flexible sigmoid exam up to 70 cm/descending colon. - Preparation of the colon was fair. - The entire examined colon is normal. (No signs of colitis/proctitis seen) - Melanosis. - No specimens collected. Recommendation: - Return patient to [facility] for ongoing care. Leobardo Woods MD Leobardo WOODS MD 04/07/2019 6:32:23 PM Electronically signed by Leobardo WOODS MD Number of Addenda: 0 Note Initiated On: 04/07/2019 5:35 PM Estimated Blood Loss: Estimated blood loss: none.
--- NOTE | 2019-04-07 18:39 | ROOR ---
Patient Name: Raymond Stevenson Procedure Date: 04/07/2019 5:34 PM Date of : 1965 Age: 53 Room: Main OR Gender: Male Note Status: Finalized Procedure: Upper GI endoscopy Indications: High NGT output,Vomiting, ileus--eval for outlet obstruction Providers: Leobardo WOODS MD Referring MD: 2. Inpatient 2. Inpatient Requesting Provider: Medicines: Monitored Anesthesia Care Complications: No immediate complications. Procedure: Pre-Anesthesia Assessment: - The heart rate, respiratory rate, oxygen saturations, blood pressure, adequacy of pulmonary ventilation, and response to care were monitored throughout the procedure. The Endoscope was introduced through the mouth, and advanced to the second part of duodenum. The upper GI endoscopy was accomplished without difficulty. The patient tolerated the procedure well. Findings: The esophagus was normal. The stomach was normal. The examined duodenum was normal. Impression: - Normal esophagus. - A few NG tube suction link, but otherwise normal stomach. - Normal examined duodenum. - (No evidence of gastric outlet obstruction.) - No specimens collected. Recommendation: - Resume previous diet. - Observe patient's clinical course. - Return patient to [facility] for ongoing care. Leobardo Woods MD Leobardo WOODS MD 04/07/2019 6:38:58 PM Electronically signed by Leobardo WOODS MD Number of Addenda: 0 Note Initiated On: 04/07/2019 5:34 PM Estimated Blood Loss: Estimated blood loss: none.
[2019-04-07] MEDS ORDERED: ONDANSETRON 4MG/2ML VIAL (J2405) IV PRN (19:00)
[2019-04-07] MEDS ORDERED: LR 1,000 ML IV SCH (19:00)
[2019-04-07] MEDS: HumaLOG INSULIN (NovoLOG) PER UNIT SC SCH (20:00)
[2019-04-07] MEDS ORDERED: LACTATED RINGER'S 1000 ML IV ONE (20:00)
[2019-04-08] VITALS: BP 152/62
[2019-04-08] MEDS: VALPROATE SOD INJ 500 MG in D5W 50 ML IV SCH (01:47)
[2019-04-08] MEDS: CEFEPIME HCL 2 GM in D5W MINI-BAG PLUS 50 ML IV SCH (03:42)
[2019-04-08 04:00] VITALS: BP 131/59
[2019-04-08] MEDS: SODIUM CHLORIDE 0.9% INJ 10 ML SYR IV SCH (06:29)
[2019-04-08] MEDS: SODIUM CHLORIDE 0.9% INJ 10 ML SYR IV PRN ×2 (06:29→09:54)
[2019-04-08 08:00] VITALS: BP 130/60
[2019-04-08 08:00] LABS: HEMOGLOBIN 9.4 g/dl (13.5-17.5); MEAN CORPUSCULAR HEMOGLOBIN 30.6 pg (27.0-33.0); MEAN CORPUSCULAR HGB CONC 32.4 g/dl (32.0-36.5); MEAN CORPUSCULAR VOLUME 94.5 fl (80.0-96.0); PLATELET COUNT, AUTOMATED 284 10^3/uL (150-450); RED BLOOD COUNT 3.07 10^6/uL (4.30-6.10); WHITE BLOOD COUNT 8.1 10^3/uL (4.0-10.0)
[2019-04-08 08:27] LABS: ALT/SGPT 50 U/L (12-78); BILIRUBIN,TOTAL 0.4 MG/DL (0.2-1.0); BLOOD UREA NITROGEN 26 MG/DL (7-18); CALCIUM LEVEL 7.8 MG/DL (8.5-10.1); CARBON DIOXIDE LEVEL 27 MEQ/L (21-32); CHLORIDE LEVEL 113 MEQ/L (98-107); CREATININE FOR GFR 0.51 MG/DL (0.70-1.30); GLOMERULAR FILTRATION RATE > 60.0 (>56); GLUCOSE, FASTING 101 MG/DL (70-100); POTASSIUM SERUM 3.8 MEQ/L (3.5-5.1); SODIUM LEVEL 143 MEQ/L (136-145); TOTAL PROTEIN 5.9 GM/DL (6.4-8.2)
[2019-04-08] MEDS: HumaLOG INSULIN (NovoLOG) PER UNIT SC SCH ×3 (08:44→12:00)
[2019-04-08] MEDS: LEVOTHYROXINE 100 MCG (0.1MG) VIAL IV SCH (09:52)
[2019-04-08] MEDS: PANTOPRAZOLE 40MG INJ (PROTONIX) (C9113) IV SCH (09:53)
[2019-04-08] MEDS: FUROSEMIDE 20 MG/2 ML VIAL (J1940) IV SCH (09:53)
[2019-04-08] MEDS: BISACODYL 10 MG SUPP PR SCH (09:53)
--- NOTE | 2019-04-08 10:48 | IPNPDOC ---
Subjective Date Seen The patient was seen on 04/08/19. Subjective Chief Complaint/HPI tolerating diet. No new issues per nursing. Had another short assymptomatic IVCD on tele today Constitutional: Denies: Chills, Fever Pulmonary: Denies: Dyspnea, Cough Cardiovascular: Denies: Chest Pain, Palpitations Gastrointestinal: Denies: Nausea, Vomiting, Abdominal Pain, Diarrhea, Constipation Objective Physical Examination General Exam: Positive: Alert (Very alert, Eating food being offered by [facility] today - no signs of difficulty with this -eating well), No Acute Distress Eye Exam: Negative: Sclera icteric ENT Exam: Negative: Mucous membr. moist/pink Neck Exam: Positive: Supple; Negative: Lymphadenopathy Chest Exam: Positive: Clear to auscultation, Diminished Heart Exam: Positive: Regular Rhythm; Negative: Murmurs Telemetry: Positive: Other Telemetry: (Transient IVCD this am otherwise NSR) Abdomen Exam: Positive: Normal bowel sounds, Soft; Negative: Tenderness Male Exam: Positive: Edema (+ scrotal edema - improving some) Extremity Exam: Negative: Edema Skin Exam: Negative: Breakdown Neuro Exam: Negative: Normal Speech Psych Exam: Positive: Other (developmental disability, non-verbal) Assessment /Plan Problems (1) Prostatitis, acute Status: Acute Discussed With: Patient, Family with Pt Consent Problem Specific Plan: Monitor Clinically, Repeat Tests Problem Text: 04/08 - WBC normalized, Afebrile x >24 hours Cefepime D# 14, s/p Vanco x 11 days - stopped 04/05 Swithc to Bactrim po now that NG tube out and takig pos. D/W attending how long to continue abx favor acute/chronic prostatitis 03/24 22! 03/17 PSA 2 (2) Severe protein-calorie malnutrition Problem Text: Taking pos now - If eats well, will stop TPN (3) IVCD (intraventricular conduction defect) Status: Acute Problem Text: 04/08 - Dr. Melchor spoke with Dr. Gaytan informally and it is felt there isnothing to do for IVCD - they are short runs and are assymptomatic Avoid any rate control agents in future which may provoke worsening of this EKG unremarkable Mag and K+ normal (4) Chronic constipation Status: Resolved Problem Text: 04/08 - EGD/Sigmoidoscopy 04/07 - normal without outlet obstru ction. 04/07 - GI saw patient in consultation - no note Looks like Flex sig scheduled for today 04/06 - Patient pulled out NG tube. Having BMs with Dulcolax supp for bowel care. No n/v. abd soft today GI consulted ST attempted swallow eval today, but he woul dnot swallow the applesauce - Nurse will see if [facility] staff can be present for St eval to help with some of the behavioral issues that may be interfering with getting him to swallow Cont NPO & TPN for now 04/05: D/W attending trial of clamping NG tube continues with BMs. abdomen soft. NGT remains in place. Continue with TPN 04/03 -- abdomen is tender on exam. He has had multiple bowel movements since yesterday. CT of the abdomen and pelvis showed proctosigmoiditis. NG tube still draining, and leukocytosis resolving. 04/02 -- abdomen seemed perhaps tender, CT ordered 04/01 - CT on admission showed fecal impaction & distended proximal bowel NG tube remains in place - draining copious brown GI contents Remains on TPN per intensivists - Had diarrhea last night so Dulcolax supp held baseline HD: sen/doc 2 BID, Amitiza 24 BID 03/28 + bisa supp given no BM since admission, mild abd distension c decreased BS (5) Scrotal edema Status: Acute Response to Treatment: Improving Problem Text: 04/01 Has scrotal and Lower extremity edema - Secondary to IVF and hypoalbuminemia Dalton per Urology Would not expect this to imprve until we can stop IVF and Albumin improves (6) Acute respiratory failure Status: Resolved Problem Text: 04/06 - Sats remain stable CT abd/pelvis 04/02: Moderately severe bilateral pleural effusions with compre ssive atelectasis or infiltrates bilaterally in the lower lung zones included on this study with over 50% of the volume of these lower lung zones is replaced by fluid. continue IV Lasix (7) Severe sepsis Status: Resolved Response to Treatment: Uncompensated Discussed With: Nurse, Reagent Tender, Patient, Health Care Proxy, Family with Pt Consent Problem Specific Plan: Consult Specialist, Monitor Clinically, Repeat Labs Problem Text: 04/05 - D/W attending how long to continue abx WBC normalized. Tmax 100.2 at noon yesterday Vanco/Cefepime D#[address] abd/pelvis 04/02: Significant proctosigmoiditis with marked thickening of the wall of the mid to distal sigmoid and worse in the rectum with inflammatory changes in the adjacent fat. No perforation or abscess. 04/04/2019: WBC 9 today. continues to show improvement. 04/03 -- Leukocytosis continues to resolve, clinical picture improving, continues on abx but no longer meets criteria for severe sepsis 04/01 - WBC continues to trend down Bp stable - no longer requiring pressors Remains on Vanco and Cefepime B/C neg 03/31 WBC trending down today, remains afebrile, Cont with TPN, mgmt per [employer] at this time. O2 demands decreased now on Vasotherm from CPAP. 03/30/2019: showing slight improvement. WBC remains elevated. DC IVF due to edema. Hold on diuresis. Continue with TPN. continue to wean oxygen demands. Prognosis remains poor. 03/29 Pt required Vasopressin overnight after diuresing 3L and becoming hypotensive. On IVF 04/28 NS c 40 meq K+ UA + E coli x 2, Cefepime IV D4 TPN per [employer] WBC increased from 35 to 36. 03/28 Weaned down to Vasopressin, Dr Nelson cont to follow, acidosis [place] [id number]. He will cont with Vanco and Cefepime this morning. 03/27 He is currently maintained on 2 pressors (norepinephrine and vasopressin). Dr. Nelson is assisting in critical care management today; I appreciate his help. His lactic acid is improving, but still has not resolved. His NG tube put out 400cc initially yesterday and an additional 300cc over the course of the next day. Nursing reports that it is slowing and maybe we can remove it tomorrow. I do think it will be easier for him to breathe without something taking up more space in his pharynx. The cefepime seems to be doing at least as well as the meropenem. We will continue on this and the vancomycin for now. (8) Seizure disorder Status: Chronic Problem Specific Plan: Monitor Clinically, Repeat Labs Problem Text: 04/01 - Lst seizure 03/31 - Given IV Ativan Remains on IV Valproate - level improved but still a little low at 46 on 03/30 - Repeat today 03/28 VPA 41 on HD 500 BID (IV), but started 03/23 p missing 2-3D dosing; therefore, CCR rechecking level in 3D (9) Metabolic acidosis with respiratory alkalosis Status: Resolved Response to Treatment: Compensated Discussed With: Reagent Tender Problem Specific Plan: Monitor Clinically, Repeat Labs Problem Text: 03/28 His lactic acidosis continues several days after we initially started treating him. It is the lowest it has been this morning, but the persistence of anaerobic respiration is not a good prognostic indicator in my mind. Perhaps some of this is driven by the pressors and some ischemia from these medication (including mesenteric). However, we can't just stop the pressors either. We will continue to monitor this situation carefully, but I am increasingly concerned that he will not survive this episode. Not in the least because he is needing more and more support to maintain his compensatory mechanisms. (10) Code status needs review Status: Chronic Problem Text: 04/01 DNR/DNI on chart - NEEDS SIGNATURE FROM ATTENDING 03/29 Dr Arguello is requesting a meeting with Dr White to review the case prior to signing off on the MOLST. 03/28/19 case dw sole guardian, sister Shaniqua Stevenson, who strongly favors DNR. MOLST checklist for DD individuals completed and will submit to Dr. Arguello to sign as concurring (11) Obstructive uropathy Status: Resolved Response to Treatment: Controlled Problem Specific Plan: Monitor Clinically, Repeat Labs Problem Text: His renal function has normalized. I continue to believe that only a urologist should remove his urinary catheter. (12) Hypotension Status: Resolved Response to Treatment: Improving, Controlled Discussed With: Nurse, Reagent Tender, Patient, Health Care Proxy, Family with Pt Consent Problem Specific Plan: Consult Specialist, Monitor Clinically, Repeat Labs Problem Text: Remains off of pressors currently. (13) Mental retardation Status: Chronic Discussed With: Family with Pt Consent Problem Text: His MR and inability to participate in his own medical decision making as well as his tendency to pull out lines complicates all aspects of his current care. (14) Cerebral palsy Status: Chronic Problem Text: His physical disabilities complicate his care. (15) DIC (disseminated intravascular coagulation) Status: Resolved Response to Treatment: Stable (but not improved) Problem Specific Plan: Monitor Clinically, Repeat Labs Problem Text: 04/01 - platelets normalized 03/29 Plt 81 03/28 Plt 37, increased from 33k 03/27 His platelets are up to 33k this morning. He has received a transfusion of pack of platelets. Perhaps the consumption has stabilized. We will continue to monitor his CBC closely. (16) Dysphagia Status: Chronic Problem Text: See St swallow eval - Does ok with honey thick liquids Plan/VTE VTE Prophylaxis Ordered?: Yes (SCDs) VTE Exclusion Pharmacological: Thrombocytopenia Plan/Urinary Catheter Urinary Catheter: Place Dalton Reason for insertion/continuin: Critical Pt monitoring (and obstruction/retention) Disposition Move to floor VS, I&O, 24H, Fishbone Vital Signs/I&O Vital Signs Date Time Temp Pulse Resp B/P (MAP) Pulse Ox O2 Delivery O2 Flow Rate FiO2 04/08/19 08:00 97.6 56 19 130/60 (83) 94 Nasal Cannula 3.0 04/02/19 06:00 75 I&O- Last 24 Hours up to 6 AM 04/08/19 06:00 Intake Total 975 ml Output Total 2375 ml Balance -1400 ml Laboratory Data 24H LABS Laboratory Tests 2 04/07/19 13:40: Bedside Glucose (Misc Panel) 100 04/07/19 20:25: Bedside Glucose (Misc Panel) 90 04/08/19 00:36: Bedside Glucose (Misc Panel) 97 04/08/19 07:33: Nucleated Red Blood Cells % (auto) 0.0, Anion Gap 3L, Glomerular Filtration Rate > 60.0, Calcium Level 7.8L, Total Bilirubin 0.4, Aspartate Amino Transf (AST/SGOT) 34, Alanine Aminotransferase (ALT/SGPT) 50, Alkaline Phosphatase 139H, Total Protein 5.9L, Albumin 2.0L, Albumin/Globulin Ratio 0.51L CBC/BMP Laboratory Tests 04/08/19 07:33 Microbiology Microbiology 03/31/19 Blood Culture - Final, Complete NO GROWTH AFTER 5 DAYS BHAVIK WHITE PA-C Apr 08, 2019 10:48
[2019-04-08] MEDS ORDERED: ceFAZolin SOD 1 GM in D5W MINI-BAG PLUS 50 ML IV SCH (11:00)
--- NOTE | 2019-04-08 11:35 | REP ---
CHEST X-RAY: TWO VIEWS. HISTORY: Central line. Effusions. COMPARISON CHEST X-RAY: April 01, 2019 FINDINGS: The nasogastric and right internal jugular central venous catheters have been removed in the interval since the April 01, 2019 study. The previously noted pleural effusions have improved or resolved as well. Pulmonary vasculature appears somewhat cephalized on this semi-erect view. There is slight blunting of the left lateral pleural angle again noted. No evidence of pneumothorax. IMPRESSION: Improved effusions. The NG tube and right IJ lines have been removed. Vascular congestion. Electronically Signed by Matteo Pichardo MD 04/08/2019 01:04 P
[2019-04-08] MEDS: VALPROIC ACID 250 MG CAP PO SCH ×2 (13:33→20:17)
[2019-04-08] MEDS: MIRALAX *UNIT DOSE* 17GM PACKET PO SCH (13:45)
[2019-04-08 16:00] VITALS: BP 107/61
[2019-04-08] MEDS: BACTRIM 160MG/800MG DS TAB PO SCH ×2 (18:18→20:17)
[2019-04-08 20:00] VITALS: BP 112/60
[2019-04-08] MEDS: HYDROCORTISONE 10 MG TAB PO SCH (20:17)
[2019-04-08] MEDS ORDERED: HYDROCORTISONE 100 MG/2 ML VIAL (J1720 PER 1) IV SCH (23:00)
[2019-04-09] MEDS: ACETAMINOPHEN 650 MG SUPP PR PRN (00:37)
[2019-04-09 04:00] VITALS: BP 118/62
[2019-04-09] MEDS: LEVOTHYROXINE 25MCG TABLET (0.025MG) PO SCH (05:57)
[2019-04-09 06:11] LABS: HEMATOCRIT 31.3 % (42.0-52.0); MEAN CORPUSCULAR HEMOGLOBIN 30.4 pg (27.0-33.0); MEAN CORPUSCULAR HGB CONC 31.9 g/dl (32.0-36.5); MEAN CORPUSCULAR VOLUME 95.1 fl (80.0-96.0); PLATELET COUNT, AUTOMATED 302 10^3/uL (150-450); RED BLOOD COUNT 3.29 10^6/uL (4.30-6.10); WHITE BLOOD COUNT 7.2 10^3/uL (4.0-10.0)
[2019-04-09 06:33] LABS: ALBUMIN 2.2 GM/DL (3.2-5.2); ALT/SGPT 69 U/L (12-78); BILIRUBIN,TOTAL 0.5 MG/DL (0.2-1.0); BLOOD UREA NITROGEN 28 MG/DL (7-18); CALCIUM LEVEL 8.2 MG/DL (8.5-10.1); CARBON DIOXIDE LEVEL 25 MEQ/L (21-32); CHLORIDE LEVEL 115 MEQ/L (98-107); CREATININE FOR GFR 0.72 MG/DL (0.70-1.30); GLOMERULAR FILTRATION RATE > 60.0 (>56); GLUCOSE, FASTING 60 MG/DL (70-100); POTASSIUM SERUM 4.4 MEQ/L (3.5-5.1); SODIUM LEVEL 147 MEQ/L (136-145); TOTAL PROTEIN 6.7 GM/DL (6.4-8.2)
[2019-04-09 08:00] VITALS: BP 145/65
[2019-04-09] MEDS ORDERED: FUROSEMIDE 20 MG/2 ML VIAL (J1940) IV SCH (09:00)
[2019-04-09] MEDS: VALPROIC ACID 250 MG CAP PO SCH ×2 (09:01→19:39)
[2019-04-09] MEDS: HYDROCORTISONE 10 MG TAB PO SCH (09:02)
[2019-04-09] MEDS: BISACODYL 10 MG SUPP PR SCH (09:03)
[2019-04-09] MEDS: PANTOPRAZOLE 40MG TAB (PROTONIX) PO SCH (09:03)
[2019-04-09] MEDS: FUROSEMIDE 20 MG TAB PO SCH (09:03)
[2019-04-09] MEDS: BACTRIM 160MG/800MG DS TAB PO SCH ×2 (09:03→19:38)
[2019-04-09] MEDS: MIRALAX *UNIT DOSE* 17GM PACKET PO SCH (09:03)
[2019-04-09 12:00] VITALS: BP 147/82
--- NOTE | 2019-04-09 14:50 | IPNPDOC ---
Subjective Date Seen The patient was seen on 04/09/19. Subjective Chief Complaint/HPI Raymond pulled his central line out yesterday during his transfer. He has been eating well on his own, so fortunately it seems that he he may not need the TPN. The sitter notes that he seems a little anxious, but he is in the hospital and not his home enviromnent so that probably makes sense. General: Reports: ROS Unobtainable Objective Physical Examination General Exam: Positive: Alert (Very alert, yelling out and grabbing at me to pull me in toward him as if to ask for help), No Acute Distress Eye Exam: Negative: Sclera icteric ENT Exam: Negative: Mucous membr. moist/pink Neck Exam: Positive: Supple; Negative: Lymphadenopathy Chest Exam: Positive: Clear to auscultation, Diminished Heart Exam: Positive: Regular Rhythm; Negative: Murmurs Abdomen Exam: Positive: Normal bowel sounds, Soft; Negative: Tenderness Male Exam: Positive: Edema (+ scrotal edema - continues to improve) Extremity Exam: Negative: Edema Skin Exam: Negative: Breakdown Neuro Exam: Negative: Normal Speech Psych Exam: Positive: Anxiety (behaviors), Other (developmental disability, non-verbal) Assessment /Plan Problems (1) Prostatitis, acute Status: Acute Discussed With: Patient, Family with Pt Consent Problem Specific Plan: Monitor Clinically, Repeat Tests Problem Text: Swiched to Bactrim po (day ) now that NG tube out and taking PO. Previously had Cefepime D# 14, s/p Vanco x 11 days - stopped 04/05. Want 21 days of antibiotics b/c of acute on chronic prostatitis. 03/24 22! 03/17 PSA 2 (2) Obstructive uropathy Status: Resolved Response to Treatment: Controlled Problem Specific Plan: Monitor Clinically, Repeat Labs Problem Text: He has a Dalton catheter in place. His renal function has normalized. I continue to believe that only a urologist should remove his urinary catheter. Plan will be to discharge him back to [facility] with the catheter in place and he can follow up with urology after to sort out a plan. (3) Severe protein-calorie malnutrition Problem Text: Taking PO now and doing well with feeds. TPN must be stopped as he pulled out his tube. Will continue to monitor his nutritional state. (4) IVCD (intraventricular conduction defect) Status: Acute Problem Text: 04/08 - Dr. Melchor spoke with Dr. Gaytan informally and it is felt there isnothing to do for IVCD - they are short runs and are assymptomatic Avoid any rate control agents in future which may provoke worsening of this EKG unremarkable Mag and K+ normal (5) Chronic constipation Status: Resolved Problem Text: 04/09 - No BM today, but received MiraLax and a suppository. 04/08 - EGD/Sigmoidoscopy 04/07 - normal without outlet obstruction. 04/07 - GI saw patient in consultation - no note Looks like Flex sig scheduled for today 04/06 - Patient pulled out NG tube. Having BMs with Dulcolax supp for bowel care. No n/v. abd soft today GI consulted ST attempted swallow eval today, but he woul dnot swallow the applesauce - Nurse will see if [facility] staff can be present for St eval to help with some of the behavioral issues that may be interfering with getting him to swallow Cont NPO & TPN for now 04/05: D/W attending trial of clamping NG tube continues with BMs. abdomen soft. NGT remains in place. Continue with TPN 04/03 -- abdomen is tender on exam. He has had multiple bowel movements since yesterday. CT of the abdomen and pelvis showed proctosigmoiditis. NG tube still draining, and leukocytosis resolving. 04/02 -- abdomen seemed perhaps tender, CT ordered 04/01 - CT on admission showed fecal impaction & distended proximal bowel NG tube remains in place - draining copious brown GI contents Remains on TPN per intensivists - Had diarrhea last night so Dulcolax supp held baseline HD: sen/doc 2 BID, Amitiza 24 BID 03/28 + bisa supp given no BM since admission, mild abd distension c decreased BS (6) Scrotal edema Status: Acute Response to Treatment: Improving Problem Text: 04/01 Has scrotal and Lower extremity edema - Secondary to IVF and hypoalbuminemia Dalton per Urology Would not expect this to imprve until we can stop IVF and Albumin improves (7) Acute respiratory failure Status: Resolved Problem Text: 04/06 - Sats remain stable CT abd/pelvis 04/02: Moderately severe bilateral pleural effusions with compressive atelectasis or infiltrates bilaterally in the lower lung zones included on this study with over 50% of the volume of these lower lung zones is replaced by fluid. continue IV Lasix (8) Severe sepsis Status: Resolved Response to Treatment: Uncompensated Discussed With: Nurse, Investigator Narcotics, Patient, Health Care Proxy, Family with Pt Consent Problem Specific Plan: Consult Specialist, Monitor Clinically, Repeat Labs Problem Text: 04/05 - D/W attending how long to continue abx WBC normalized. Tmax 100.2 at noon yesterday Vanco/Cefepime D#[address] abd/pelvis 04/02: Significant proctosigmoiditis with marked thickening of the wall of the mid to distal sigmoid and worse in the rectum with inflammatory changes in the adjacent fat. No perforation or abscess. 04/04/2019: WBC 9 today. continues to show improvement. 04/03 -- Leukocytosis continues to resolve, clinical picture improving, continues on abx but no longer meets criteria for severe sepsis 04/01 - WBC continues to trend down Bp stable - no longer requiring pressors Remains on Vanco and Cefepime B/C neg 03/31 WBC trending down today, remains afebrile, Cont with TPN, mgmt per Intens ivist at this time. O2 demands decreased now on Vasotherm from CPAP. 03/30/2019: showing slight improvement. WBC remains elevated. DC IVF due to edema. Hold on diuresis. Continue with TPN. continue to wean oxygen demands. Prognosis remains poor. 03/29 Pt required Vasopressin overnight after diuresing 3L and becoming hypotensive. On IVF 04/28 NS c 40 meq K+ UA + E coli x 2, Cefepime IV D4 TPN per Physician Intensivist WBC increased from 35 to 36. 03/28 Weaned down to Vasopressin, Dr Nelson cont to follow, acidosis has improved [place] [address]. He will cont with Vanco and Cefepime this morning. 03/27 He is currently maintained on 2 pressors (norepinephrine and vasopressin). Dr. Nelson is assisting in critical care management today; I appreciate his help. His lactic acid is improving, but still has not resolved. His NG tube put out 400cc initially yesterday and an additional 300cc over the course of the next day. Nursing reports that it is slowing and maybe we can remove it tomorrow. I do think it will be easier for him to breathe without something taking up more space in his pharynx. The cefepime seems to be doing at least as well as the meropenem. We will continue on this and the vancomycin for now. (9) Seizure disorder Status: Chronic Problem Specific Plan: Monitor Clinically, Repeat Labs Problem Text: 04/01 - Lst seizure 03/31 - Given IV Ativan Remains on IV Valproate - level improved but still a little low at 46 on 03/30 - Repeat today 03/28 VPA 41 on HD 500 BID (IV), but started 03/23 p missing 2-3D dosing; therefore, CCR rechecking level in 3D (10) Metabolic acidosis with respiratory alkalosis Status: Resolved Response to Treatment: Compensated Discussed With: Investigator Narcotics Problem Specific Plan: Monitor Clinically, Repeat Labs Problem Text: 03/28 His lactic acidosis continues several days after we initially started treating him. It is the lowest it has been this morning, but the persistence of anaerobic respiration is not a good prognostic indicator in my mind. Perhaps some of this is driven by the pressors and some ischemia from these medication (including mesenteric). However, we can't just stop the press ors either. We will continue to monitor this situation carefully, but I am increasingly concerned that he will not survive this episode. Not in the least because he is needing more and more support to maintain his compensatory mechanisms. (11) Code status needs review Status: Chronic Problem Text: Code status is resolved and he is DNR/DNI. 04/01 DNR/DNI on chart - NEEDS SIGNATURE FROM ATTENDING 03/29 Dr Arguello is requesting a meeting with Dr Enriquez to review the case prior to signing off on the MOLST. 03/28/19 case dw sole guardian, sister Shaniqua Stevenson, who strongly favors DNR. MOLST checklist for DD individuals completed and will submit to Dr. Arguello to sign as concurring (12) Hypotension Status: Resolved Response to Treatment: Improving, Controlled Discussed With: Nurse, Investigator Narcotics, Patient, Health Care Proxy, Family with Pt Consent Problem Specific Plan: Consult Specialist, Monitor Clinically, Repeat Labs Problem Text: Remains off of pressors currently. (13) Mental retardation Status: Chronic Discussed With: Family with Pt Consent Problem Text: His MR and inability to participate in his own medical decision making as well as his tendency to pull out lines complicates all aspects of his current care. (14) Cerebral palsy Status: Chronic Problem Text: His physical disabilities complicate his care. (15) DIC (disseminated intravascular coagulation) Status: Resolved Response to Treatment: Stable (but not improved) Problem Specific Plan: Monitor Clinically, Repeat Labs Problem Text: 04/01 - platelets normalized 03/29 Plt 81 03/28 Plt 37, increased from 33k 03/27 His platelets are up to 33k this morning. He has received a transfusion of pack of platelets. Perhaps the consumption has stabilized. We will continue to monitor his CBC closely. (16) Dysphagia Status: Chronic Problem Text: See St swallow eval - Does ok with honey thick liquids Plan/VTE VTE Prophylaxis Ordered?: Yes (SCDs) VTE Exclusion Pharmacological: Thrombocytopenia Plan/Urinary Catheter Urinary Catheter: Place Dalton Reason for insertion/continuin: Critical Pt monitoring (and obstruction/retention) VS, I&O, 24H, Fishbone Vital Signs/I&O Vital Signs Date Time Temp Pulse Resp B/P (MAP) Pulse Ox O2 Delivery O2 Flow Rate FiO2 04/09/19 12:00 97.7 86 20 147/82 (103) 98 Room Air 04/08/19 16:00 3.0 I&O- Last 24 Hours up to 6 AM 04/09/19 06:00 Intake Total 120 ml Output Total 2025 ml Balance -1905 ml Laboratory Data 24H LABS Laboratory Tests 2 04/09/19 05:49: Nucleated Red Blood Cells % (auto) 0.0, Anion Gap 7L, Glomerular Filtration Rate > 60.0, Calcium Level 8.2L, Total Bilirubin 0.5, Aspartate Amino Transf (AST/SGOT) 36, Alanine Aminotransferase (ALT/SGPT) 69, Alkaline Phosphatase 195H, Total Protein 6.7, Albumin 2.2L, Albumin/Globulin Ratio 0.49L CBC/BMP Laboratory Tests 04/09/19 05:49 Microbiology Microbiology 03/31/19 Blood Culture - Final, Complete NO GROWTH AFTER 5 DAYS Ryan Cervantes MD Apr 09, 2019 14:50
[2019-04-09 16:00] VITALS: BP 118/86
[2019-04-09 22:00] VITALS: BP 101/61
[2019-04-10] MEDS: ACETAMINOPHEN 650 MG SUPP PR PRN (01:09)
[2019-04-10] MEDS: LEVOTHYROXINE 25MCG TABLET (0.025MG) PO SCH (05:47)
[2019-04-10 06:00] VITALS: BP 104/61
[2019-04-10 06:38] LABS: HEMATOCRIT 32.8 % (42.0-52.0); HEMOGLOBIN 10.6 g/dl (13.5-17.5); MEAN CORPUSCULAR HEMOGLOBIN 30.7 pg (27.0-33.0); MEAN CORPUSCULAR HGB CONC 32.3 g/dl (32.0-36.5); MEAN CORPUSCULAR VOLUME 95.1 fl (80.0-96.0); PLATELET COUNT, AUTOMATED 312 10^3/uL (150-450); RED BLOOD COUNT 3.45 10^6/uL (4.30-6.10); WHITE BLOOD COUNT 7.4 10^3/uL (4.0-10.0)
[2019-04-10 07:01] LABS: ALBUMIN 2.5 GM/DL (3.2-5.2); ALT/SGPT 55 U/L (12-78); BILIRUBIN,TOTAL 0.6 MG/DL (0.2-1.0); BLOOD UREA NITROGEN 32 MG/DL (7-18); CALCIUM LEVEL 8.2 MG/DL (8.5-10.1); CARBON DIOXIDE LEVEL 24 MEQ/L (21-32); CHLORIDE LEVEL 115 MEQ/L (98-107); GLOMERULAR FILTRATION RATE > 60.0 (>56); GLUCOSE, FASTING 61 MG/DL (70-100); POTASSIUM SERUM 3.9 MEQ/L (3.5-5.1); SODIUM LEVEL 146 MEQ/L (136-145)
[2019-04-10] MEDS: VALPROIC ACID 250 MG CAP PO SCH ×2 (08:33→20:32)
[2019-04-10] MEDS: HYDROCORTISONE 10 MG TAB PO SCH (08:33)
[2019-04-10] MEDS: BACTRIM 160MG/800MG DS TAB PO SCH ×2 (08:33→20:31)
[2019-04-10] MEDS: PANTOPRAZOLE 40MG TAB (PROTONIX) PO SCH (08:33)
[2019-04-10] MEDS: MIRALAX *UNIT DOSE* 17GM PACKET PO SCH (08:33)
[2019-04-10] MEDS: FUROSEMIDE 20 MG TAB PO SCH (08:33)
[2019-04-10] MEDS: BISACODYL 10 MG SUPP PR SCH (08:33)
--- NOTE | 2019-04-10 13:44 | IPNPDOC ---
Subjective Date Seen The patient was seen on 04/10/19. Subjective Chief Complaint/HPI He has done pretty well another night without his IV access. I note that his renal fx declined a little and I will ask then nursing staff to be more mindful about offering him liquids throughout the day. General: Reports: ROS Unobtainable Objective Physical Examination General Exam: Positive: Alert (Very alert, yelling out and grabbing at me to pull me in toward him as if to ask for help), No Acute Distress Eye Exam: Negative: Sclera icteric ENT Exam: Negative: Mucous membr. moist/pink Neck Exam: Positive: Supple; Negative: Lymphadenopathy Chest Exam: Positive: Clear to auscultation, Diminished Heart Exam: Positive: Regular Rhythm; Negative: Murmurs Abdomen Exam: Positive: Normal bowel sounds, Soft; Negative: Tenderness Male Exam: Positive: Edema (+ scrotal edema - continues to improve) Extremity Exam: Negative: Edema Skin Exam: Negative: Breakdown Neuro Exam: Negative: Normal Speech Psych Exam: Positive: Anxiety (behaviors), Other (developmental disability, non-verbal) Assessment /Plan Problems (1) Prostatitis, acute Status: Acute Discussed With: Patient, Family with Pt Consent Problem Specific Plan: Monitor Clinically, Repeat Tests Problem Text: Swiched to Bactrim po (day ) now that NG tube out and taking PO. Previously had Cefepime D# 14, s/p Vanco x 11 days - stopped 04/05. Want 21 days of antibiotics b/c of acute on chronic prostatitis. 03/24 22! 03/17 PSA 2 (2) Obstructive uropathy Status: Resolved Response to Treatment: Controlled Problem Specific Plan: Monitor Clinically, Repeat Labs Problem Text: He has a Dalton catheter in place. His renal function has normalized. I continue to believe that only a urologist should remove his urinary catheter. Plan will be to discharge him back to [facility] with the catheter in place and he can follow up with urology after to sort out a plan. (3) Severe protein-calorie malnutrition Problem Text: Taking PO now and doing well with feeds. TPN must be stopped as he pulled out his tube. Will continue to monitor his nutritional state. (4) IVCD (intraventricular conduction defect) Status: Acute Problem Text: 04/08 - Dr. Melchor spoke with Dr. Gaytan informally and it is felt there isnothing to do for IVCD - they are short runs and are assymptomatic Avoid any rate control agents in future which may provoke worsening of this EKG unremarkable Mag and K+ normal (5) Chronic constipation Status: Resolved Problem Text: 04/09 - No BM today, but received MiraLax and a suppository. 04/08 - EGD/Sigmoidoscopy 04/07 - normal without outlet obstruction. 04/07 - GI saw patient in consultation - no note Looks like Flex sig scheduled for today 04/06 - Patient pulled out NG tube. Having BMs with Dulcolax supp for bowel ca re. No n/v. abd soft today GI consulted ST attempted swallow eval today, but he woul dnot swallow the applesauce - Nurse will see if [facility] staff can be present for St eval to help with some of the beh avioral issues that may be interfering with getting him to swallow Cont NPO & TPN for now 04/05: D/W attending trial of clamping NG tube continues with BMs. abdomen soft. NGT remains in place. Continue with TPN 04/03 -- abdomen is tender on exam. He has had multiple bowel movements since yesterday. CT of the abdomen and pelvis showed proctosigmoiditis. NG tube still draining, and leukocytosis resolving. 04/02 -- abdomen seemed perhaps tender, CT ordered 04/01 - CT on admission showed fecal impaction & distended proximal bowel NG tube remains in place - draining copious brown GI contents Remains on TPN per intensivists - Had diarrhea last night so Dulcolax supp held baseline HD: sen/doc 2 BID, Amitiza 24 BID 03/28 + bisa supp given no BM since admission, mild abd distension c decreased BS (6) Scrotal edema Status: Acute Response to Treatment: Improving Problem Text: 04/01 Has scrotal and Lower extremity edema - Secondary to IVF and hypoalbuminemia Dalton per Urology Would not expect this to imprve until we can stop IVF and Albumin improves (7) Acute respiratory failure Status: Resolved Problem Text: 04/06 - Sats remain stable CT abd/pelvis 04/02: Moderately severe bilateral pleural effusions with compressive atelectasis or infiltrates bilaterally in the lower lung zones included on this study with over 50% of the volume of these lower lung zones is replaced by fluid. continue IV Lasix (8) Severe sepsis Status: Resolved Response to Treatment: Uncompensated Discussed With: Nurse, Tool Marker, Patient, Health Care Proxy, Family with Pt Consent Problem Specific Plan: Consult Specialist, Monitor Clinically, Repeat Labs Problem Text: 04/05 - D/W attending how long to continue abx WBC normalized. Tmax 100.2 at noon yesterday Vanco/Cefepime D#[address] abd/pelvis 04/02: Significant proctosigmoiditis with marked thickening of the wall of the mid to distal sigmoid and worse in the rectum with inflammatory changes in the adjacent fat. No perforation or abscess. 04/04/2019: WBC 9 today. continues to show improvement. 04/03 -- Leukocytosis continues to resolve, clinical picture improving, continues on abx but no longer meets criteria for severe sepsis 04/01 - WBC continues to trend down Bp stable - no longer requiring pressors Remains on Vanco and Cefepime B/C neg 03/31 WBC trending down today, remains afebrile, Cont with TPN, mgmt per Senior Courtroom Clerk at this time. O2 demands decreased now on Vasotherm from CPAP. 03/30/2019: showing slight improvement. WBC remains elevated. DC IVF due to edema. Hold on diuresis. Continue with TPN. continue to wean oxygen demands. Prognosis remains poor. 03/29 Pt required Vasopressin overnight after diuresing 3L and becoming hypotensive. On IVF 04/28 NS c 40 meq K+ UA + E coli x 2, Cefepime IV D4 TPN per Senior Courtroom Clerk WBC increased from 35 to 36. 03/28 Weaned down to Vasopressin, Dr Nelson cont to follow, acidosis [place] [id number]. He will cont with Vanco and Cefepime this morning. 03/27 He is currently maintained on 2 pressors (norepinephrine and vasopressin). Dr. Nelson is assisting in critical care management today; I appreciate his hel p. His lactic acid is improving, but still has not resolved. His NG tube put out 400cc initially yesterday and an additional 300cc over the course of the next day. Nursing reports that it is slowing and maybe we can remove it tomorrow. I do think it will be easier for him to breathe without something taking up more space in his pharynx. The cefepime seems to be doing at least as well as the meropenem. We will continue on this and the vancomycin for now. (9) Seizure disorder Status: Chronic Problem Specific Plan: Monitor Clinically, Repeat Labs Problem Text: 04/01 - Lst seizure 03/31 - Given IV Ativan Remains on IV Valproate - level improved but still a little low at 46 on 03/30 - Repeat today 03/28 VPA 41 on HD 500 BID (IV), but started 03/23 p missing 2-3D dosing; therefore, CCR rechecking level in 3D (10) Metabolic acidosis with respiratory alkalosis Status: Resolved Response to Treatment: Compensated Discussed With: Tool Marker Problem Specific Plan: Monitor Clinically, Repeat Labs Problem Text: 03/28 His lactic acidosis continues several days after we initi ally started treating him. It is the lowest it has been this morning, but the persistence of anaerobic respiration is not a good prognostic indicator in my mind. Perhaps some of this is driven by the pressors and some ischemia from these medication (including mesenteric). However, we can't just stop the pressors either. We will continue to monitor this situation carefully, but I am increasingly concerned that he will not survive this episode. Not in the least because he is needing more and more support to maintain his compensatory mechanisms. (11) Code status needs review Status: Chronic Problem Text: Code status is resolved and he is DNR/DNI. 04/01 DNR/DNI on chart - NEEDS SIGNATURE FROM ATTENDING 03/29 Dr Arguello is requesting a meeting with Dr Enriquez to review the case prior to signing off on the MOLST. 03/28/19 case dw sole guardian, sister Shaniqua Stevenson, who strongly favors DNR. MOLST checklist for DD individuals completed and will submit to Dr. Arguello to sign as concurring (12) Hypotension Status: Resolved Response to Treatment: Improving, Controlled Discussed With: Nurse, Tool Marker, Patient, Health Care Proxy, Family with Pt Consent Problem Specific Plan: Consult Specialist, Monitor Clinically, Repeat Labs Problem Text: Remains off of pressors currently. (13) Mental retardation Status: Chronic Discussed With: Family with Pt Consent Problem Text: His MR and inability to participate in his own medical decision making as well as his tendency to pull out lines complicates all aspects of his current care. (14) Cerebral palsy Status: Chronic Problem Text: His physical disabilities complicate his care. (15) DIC (disseminated intravascular coagulation) Status: Resolved Response to Treatment: Stable (but not improved) Problem Specific Plan: Monitor Clinically, Repeat Labs Problem Text: 04/01 - platelets normalized 03/29 Plt 81 03/28 Plt 37, increased from 33k 03/27 His platelets are up to 33k this morning. He has received a transfusion of pack of platelets. Perhaps the consumption has stabilized. We will continue to monitor his CBC closely. (16) Dysphagia Status: Chronic Problem Text: See St swallow eval - Does ok with honey thick liquids Plan/VTE VTE Prophylaxis Ordered?: Yes (SCDs) VTE Exclusion Pharmacological: Thrombocytopenia Plan/Urinary Catheter Urinary Catheter: Place Dalton Reason for insertion/continuin: Critical Pt monitoring (and obstruction/retention) VS, I&O, 24H, Fishbone Vital Signs/I&O Vital Signs Date Time Temp Pulse Resp B/P (MAP) Pulse Ox O2 Delivery O2 Flow Rate FiO2 04/10/19 06:00 97.5 78 16 104/61 (75) 97 Room Air 04/08/19 16:00 3.0 I&O- Last 24 Hours up to 6 AM 04/10/19 06:00 Intake Total 680 ml Output Total 1700 ml Balance -1020 ml Laboratory Data 24H LABS Laboratory Tests 2 04/10/19 05:21: Nucleated Red Blood Cells % (auto) 0.0, Anion Gap 7L, Glomerular Filtration Rate > 60.0, Calcium Level 8.2L, Total Bilirubin 0.6, Aspartate Amino Transf (AST/SGOT) 22, Alanine Aminotransferase (ALT/SGPT) 55, Alkaline Phosphatase 201H, Total Protein 7.0, Albumin 2.5L, Albumin/Globulin Ratio 0.56L CBC/BMP Laboratory Tests 04/10/19 05:21 Microbiology Microbiology 03/31/19 Blood Culture - Final, Complete NO GROWTH AFTER 5 DAYS Ryan Cervantes MD Apr 10, 2019 13:43
[2019-04-10 14:00] VITALS: BP 126/77
[2019-04-10 22:00] VITALS: BP 126/67
[2019-04-11] MEDS: ACETAMINOPHEN 650 MG SUPP PR PRN (03:42)
[2019-04-11] MEDS: LEVOTHYROXINE 25MCG TABLET (0.025MG) PO SCH (05:46)
[2019-04-11 06:00] VITALS: BP 124/68
[2019-04-11 06:23] LABS: HEMATOCRIT 35.8 % (42.0-52.0); MEAN CORPUSCULAR HEMOGLOBIN 29.3 pg (27.0-33.0); MEAN CORPUSCULAR HGB CONC 30.7 g/dl (32.0-36.5); MEAN CORPUSCULAR VOLUME 95.5 fl (80.0-96.0); PLATELET COUNT, AUTOMATED 302 10^3/uL (150-450); RED BLOOD COUNT 3.75 10^6/uL (4.30-6.10); WHITE BLOOD COUNT 6.4 10^3/uL (4.0-10.0)
[2019-04-11 06:48] LABS: ALBUMIN 2.6 GM/DL (3.2-5.2); BLOOD UREA NITROGEN 29 MG/DL (7-18); CALCIUM LEVEL 8.5 MG/DL (8.5-10.1); CARBON DIOXIDE LEVEL 26 MEQ/L (21-32); CHLORIDE LEVEL 114 MEQ/L (98-107); GLOMERULAR FILTRATION RATE > 60.0 (>56); GLUCOSE, FASTING 66 MG/DL (70-100); PHOSPHORUS LEVEL 2.7 MG/DL (2.5-4.9); POTASSIUM SERUM 4.2 MEQ/L (3.5-5.1); SODIUM LEVEL 148 MEQ/L (136-145)
[2019-04-11] MEDS: HYDROCORTISONE 10 MG TAB PO SCH (08:46)
[2019-04-11] MEDS: MIRALAX *UNIT DOSE* 17GM PACKET PO SCH (08:46)
[2019-04-11] MEDS: BACTRIM 160MG/800MG DS TAB PO SCH ×2 (08:46→20:28)
[2019-04-11] MEDS: BISACODYL 10 MG SUPP PR SCH (08:46)
[2019-04-11] MEDS: FUROSEMIDE 20 MG TAB PO SCH (08:46)
[2019-04-11] MEDS: VALPROIC ACID 250 MG CAP PO SCH ×2 (08:46→20:28)
[2019-04-11] MEDS: PANTOPRAZOLE 40MG TAB (PROTONIX) PO SCH (08:47)
--- NOTE | 2019-04-11 11:29 | IPNPDOC ---
Subjective Date Seen The patient was seen on 04/11/19. Subjective Chief Complaint/HPI ARF,sepsis Events since last encounter continues to slowly improve. Takes po when offered/encouraged General: Reports: ROS Unobtainable Objective Physical Examination General Exam: Positive: Alert (Very alert, grabbing at me), No Acute Distress Eye Exam: Negative: Sclera icteric ENT Exam: Negative: Mucous membr. moist/pink Neck Exam: Positive: Supple; Negative: Lymphadenopathy Chest Exam: Positive: Clear to auscultation Heart Exam: Positive: Regular Rhythm; Negative: Murmurs Abdomen Exam: Positive: Normal bowel sounds, Soft; Negative: Tenderness Male Exam: Positive: Edema (+ scrotal edema - continues to improve) Extremity Exam: Negative: Edema Skin Exam: Negative: Breakdown Neuro Exam: Negative: Normal Speech Psych Exam: Positive: Anxiety (behaviors), Other (developmental disability, non-verbal) Assessment /Plan Problems (1) Prostatitis, acute Status: Acute Discussed With: Patient, Family with Pt Consent Problem Specific Plan: Monitor Clinically, Repeat Tests Problem Text: 04/11/19: Switched to Bactrim po (day ) now that NG tube out and taking PO. Previously had Cefepime D# 14, s/p Vanco x 11 days - stopped 04/05. Want 21 days of antibiotics b/c of acute on chronic prostatitis. 03/24 22! 03/17 PSA 2 (2) Obstructive uropathy Status: Resolved Response to Treatment: Controlled Problem Specific Plan: Monitor Clinically, Repeat Labs Problem Text: He has a Dalton catheter in place. His renal function has normalized. I continue to believe that only a urologist should remove his urinary catheter. Plan will be to discharge him back to [facility] with the catheter in place and he can follow up with urology after to sort out a plan. (3) Severe protein-calorie malnutrition Problem Text: 04/11/19: showing some hypoglycemia in am. advised nursing staff to provide bedtime snack and offer po frequently due to poor po intake documented yesterday. Taking PO now and doing well with feeds. TPN must be stopped as he pulled out his tube. Will continue to monitor his nutritional state. (4) IVCD (intraventricular conduction defect) Status: Acute Problem Text: 04/08 - Dr. Melchor spoke with Dr. Gaytan informally and it is felt there isnothing to do for IVCD - they are short runs and are assymptomatic Avoid any rate control agents in future which may provoke worsening of this EKG unremarkable Mag and K+ normal (5) Chronic constipation Status: Resolved Problem Text: 04/09 - No BM today, but received MiraLax and a suppository. 04/08 - EGD/Sigmoidoscopy 04/07 - normal without outlet obstruction. 04/07 - GI saw patient in consultation - no note Looks like Flex sig scheduled for today 04/06 - Patient pulled out NG tube. Having BMs with Dulcolax supp for bowel care. No n/v. abd soft today GI consulted ST attempted swallow eval today, but he woul dnot swallow the applesauce - Nurse will see if [facility] staff can be present for St eval to help with some of the behavioral issues that may be interfering with getting him to swallow Cont NPO & TPN for now 04/05: D/W attending trial of clamping NG tube continues with BMs. abdomen soft. NGT remains in place. Continue with TPN 04/03 -- abdomen is tender on exam. He has had multiple bowel movements since yesterday. CT of the abdomen and pelvis showed proctosigmoiditis. NG tube still draining, and leukocytosis resolving. 04/02 -- abdomen seemed perhaps tender, CT ordered 04/01 - CT on admission showed fecal impaction & distended proximal bowel NG tube remains in place - draining copious brown GI contents Remains on TPN per intensivists - Had diarrhea last night so Dulcolax supp held baseline HD: sen/doc 2 BID, Amitiza 24 BID 03/28 + bisa supp given no BM since admission, mild abd distension c decreased BS (6) Scrotal edema Status: Acute Response to Treatment: Improving Problem Text: 04/01 Has scrotal and Lower extremity edema - Secondary to IVF and hypoalbuminemia Dalton per Urology Would not expect this to imprve until we can stop IVF and Albumin improves (7) Acute respiratory failure Status: Resolved Problem Text: 04/06 - Sats remain stable CT abd/pelvis 04/02: Moderately severe bilateral pleural effusions with compressive atelectasis or infiltrates bilaterally in the lower lung zones included on this study with over 50% of the volume of these lower lung zones is replaced by fluid. continue IV Lasix (8) Severe sepsis Status: Resolved Response to Treatment: Uncompensated Discussed With: Nurse, Business Office Technician, Patient, Health Care Proxy, Family with Pt Consent Problem Specific Plan: Consult Specialist, Monitor Clinically, Repeat Labs Problem Text: 04/05 - D/W attending how long to continue abx WBC normalized. Tmax 100.2 at noon yesterday Vanco/Cefepime D#[address] abd/pelvis 04/02: Significant proctosigmoiditis with marked thickening of the wall of the mid to distal sigmoid and worse in the rectum with inflammatory changes in the adjacent fat. No perforation or abscess. 04/04/2019: WBC 9 today. continues to show improvement. 04/03 -- Leukocytosis continues to resolve, clinical picture improving, continues on abx but no longer meets criteria for severe sepsis 04/01 - WBC continues to trend down Bp stable - no longer requiring pressors Remains on Vanco and Cefepime B/C neg 03/31 WBC trending down today, remains afebrile, Cont with TPN, mgmt per [employer] at this time. O2 demands decreased now on Vasotherm from CPAP. 03/30/2019: showing slight improvement. WBC remains elevated. DC IVF due to edema. Hold on diuresis. Continue with TPN. continue to wean oxygen demands. Prognosis remains poor. 03/29 Pt required Vasopressin overnight after diuresing 3L and becoming hypotensive. On IVF 04/28 NS c 40 meq K+ UA + E coli x 2, Cefepime IV D4 TPN per [employer] WBC increased from 35 to 36. 03/28 Weaned down to Vasopressin, Dr Nelson cont to follow, acidosis has improved [place] [address]. He will cont with Vanco and Cefepime this morning. 03/27 He is currently maintained on 2 pressors (norepinephrine and vasopressin). Dr. Nelson is assisting in critical care management today; I appreciate his help. His lactic acid is improving, but still has not resolved. His NG tube put out 400cc initially yesterday and an additional 300cc over the course of the next day. Nursing reports that it is slowing and maybe we can remove it tomorrow. I do think it will be easier for him to breathe without something taking up more space in his pharynx. The cefepime seems to be doing at least as well as the meropenem. We will continue on this and the vancomycin for now. (9) Seizure disorder Status: Chronic Problem Specific Plan: Monitor Clinically, Repeat Labs Problem Text: 04/01 - Lst seizure 03/31 - Given IV Ativan Remains on IV Valproate - level improved but still a little low at 46 on 03/30 - Repeat today 03/28 VPA 41 on HD 500 BID (IV), but started 03/23 p missing 2-3D dosing; therefore, CCR rechecking level in 3D (10) Metabolic acidosis with respiratory alkalosis Status: Resolved Response to Treatment: Compensated Discussed With: Business Office Technician Problem Specific Plan: Monitor Clinically, Repeat Labs Problem Text: 03/28 His lactic acidosis continues several days after we initially started treating him. It is the lowest it has been this morning, but the persistence of anaerobic respiration is not a good prognostic indicator in my mind. Perhaps some of this is driven by the pressors and some ischemia from these medication (including mesenteric). However, we can't just stop the pressors either. We will continue to monitor this situation carefully, but I am increasingly concerned that he will not survive this episode. Not in the least because he is needing more and more support to maintain his compensatory mechanisms. (11) Code status needs review Status: Chronic Problem Text: Code status is resolved and he is DNR/DNI. 04/01 DNR/DNI on chart - NEEDS SIGNATURE FROM ATTENDING 03/29 Dr Arguello is requesting a meeting with Dr Enriquez to review the case prior to signing off on the MOLST. 03/28/19 case dw sole guardian, sister Shaniqua Stevenson, who strongly favors DNR. MOLST checklist for DD individuals completed and will submit to Dr. Arguello to sign as concurring (12) Hypotension Status: Resolved Response to Treatment: Improving, Controlled Discussed With: Nurse, Business Office Technician, Patient, Health Care Proxy, Family with Pt Consent Problem Specific Plan: Consult Specialist, Monitor Clinically, Repeat Labs Problem Text: Remains off of pressors currently. (13) Mental retardation Status: Chronic Discussed With: Family with Pt Consent Problem Text: His MR and inability to participate in his own medical decision making as well as his tendency to pull out lines complicates all aspects of his current care. (14) Cerebral palsy Status: Chronic Problem Text: His physical disabilities complicate his care. (15) DIC (disseminated intravascular coagulation) Status: Resolved Response to Treatment: Stable (but not improved) Problem Specific Plan: Monitor Clinically, Repeat Labs Problem Text: 04/01 - platelets normalized 03/29 Plt 81 03/28 Plt 37, increased from 33k 03/27 His platelets are up to 33k this morning. He has received a transfusion of pack of platelets. Perhaps the consumption has stabilized. We will continue to monitor his CBC closely. (16) Dysphagia Status: Chronic Problem Text: See St swallow eval - Does ok with honey thick liquids Plan/VTE VTE Prophylaxis Ordered?: Yes (SCDs) VTE Exclusion Pharmacological: Thrombocytopenia Plan/Urinary Catheter Urinary Catheter: Place Dalton Reason for insertion/continuin: Critical Pt monitoring (and obstruction/retenti on) VS, I&O, 24H, Fishbone Vital Signs/I&O Vital Signs Date Time Temp Pulse Resp B/P (MAP) Pulse Ox O2 Delivery O2 Flow Rate FiO2 04/11/19 06:00 97.6 82 18 124/68 (86) 96 Room Air 04/08/19 16:00 3.0 I&O- Last 24 Hours up to 6 AM 04/11/19 06:00 Intake Total 1120 ml Output Total 1900 ml Balance -780 ml Laboratory Data 24H LABS Laboratory Tests 2 04/11/19 06:05: Nucleated Red Blood Cells % (auto) 0.0, Anion Gap 8, Glomerular Filtration Rate > 60.0, Calcium Level 8.5, Phosphorus Level 2.7, Albumin 2.6L CBC/BMP Laboratory Tests 04/11/19 06:05 Monika LorenzP Apr 11, 2019 11:29
[2019-04-11 14:00] VITALS: BP 135/92
[2019-04-11 22:00] VITALS: BP 101/84
[2019-04-12] MEDS: LEVOTHYROXINE 25MCG TABLET (0.025MG) PO SCH (05:52)
[2019-04-12 06:00] VITALS: BP 108/63
[2019-04-12] MEDS: HYDROCORTISONE 10 MG TAB PO SCH (08:36)
[2019-04-12] MEDS: BISACODYL 10 MG SUPP PR SCH (08:36)
[2019-04-12] MEDS: MIRALAX *UNIT DOSE* 17GM PACKET PO SCH (08:36)
[2019-04-12] MEDS: PANTOPRAZOLE 40MG TAB (PROTONIX) PO SCH (08:36)
[2019-04-12] MEDS: FUROSEMIDE 20 MG TAB PO SCH (08:37)
[2019-04-12] MEDS: VALPROIC ACID 250 MG CAP PO SCH ×2 (08:37→22:06)
[2019-04-12] MEDS: BACTRIM 160MG/800MG DS TAB PO SCH ×2 (08:37→22:08)
[2019-04-12 10:20] LABS: HEMATOCRIT 35.7 % (42.0-52.0); HEMOGLOBIN 11.2 g/dl (13.5-17.5); MEAN CORPUSCULAR HEMOGLOBIN 30.4 pg (27.0-33.0); MEAN CORPUSCULAR HGB CONC 31.4 g/dl (32.0-36.5); MEAN CORPUSCULAR VOLUME 96.7 fl (80.0-96.0); PLATELET COUNT, AUTOMATED 276 10^3/uL (150-450); RED BLOOD COUNT 3.69 10^6/uL (4.30-6.10); WHITE BLOOD COUNT 6.6 10^3/uL (4.0-10.0)
[2019-04-12 10:32] LABS: ALBUMIN 2.7 GM/DL (3.2-5.2); BLOOD UREA NITROGEN 30 MG/DL (7-18); CALCIUM LEVEL 8.9 MG/DL (8.5-10.1); CARBON DIOXIDE LEVEL 27 MEQ/L (21-32); CHLORIDE LEVEL 112 MEQ/L (98-107); CREATININE FOR GFR 0.89 MG/DL (0.70-1.30); GLOMERULAR FILTRATION RATE > 60.0 (>56); GLUCOSE, FASTING 97 MG/DL (70-100); PHOSPHORUS LEVEL 2.7 MG/DL (2.5-4.9); SODIUM LEVEL 145 MEQ/L (136-145)
--- NOTE | 2019-04-12 10:45 | IPNPDOC ---
Subjective Date Seen The patient was seen on 04/12/19. Subjective Chief Complaint/HPI KELBY, sepsis Events since last encounter Urology ordered for Dalton removal. Patient remains stable. tolerating po meds. Objective Physical Examination General Exam: Positive: Alert (Very alert, grabbing at me), No Acute Distress Eye Exam: Negative: Sclera icteric ENT Exam: Negative: Mucous membr. moist/pink Neck Exam: Positive: Supple; Negative: Lymphadenopathy Chest Exam: Positive: Clear to auscultation Heart Exam: Positive: Regular Rhythm; Negative: Murmurs Abdomen Exam: Positive: Normal bowel sounds, Soft; Negative: Tenderness Male Exam: Positive: Edema (+ scrotal edema - continues to improve) Extremity Exam: Negative: Edema Skin Exam: Negative: Breakdown Neuro Exam: Negative: Normal Speech Psych Exam: Positive: Anxiety (behaviors), Other (developmental disability, non-verbal) Assessment /Plan Problems (1) Prostatitis, acute Status: Acute Discussed With: Patient, Family with Pt Consent Problem Specific Plan: Monitor Clinically, Repeat Tests Problem Text: 04/12/19: Switched to Bactrim po (day ) taking PO. 04/11/19: Switched to Bactrim po (day ) now that NG tube out and taking PO. Previously had Cefepime D# 14, s/p Vanco x 11 days - stopped 04/05. Want 21 days of antibiotics b/c of acute on chronic prostatitis. 03/24 22! 03/17 PSA 2 (2) Obstructive uropathy Status: Resolved Response to Treatment: Controlled Problem Specific Plan: Monitor Clinically, Repeat Labs Problem Text: 04/12/19: Dalton removed today, monitor for signs of urinary reten tion. If able to urinate on his own, plan for Dc home in 1-3 days and f/u with urology as an outpatient. He has a Dalton catheter in place. His renal function has normalized. I continue to believe that only a urologist should remove his urinary catheter. Plan will be to discharge him back to [facility] with the catheter in place and he can follow up with urology after to sort out a plan. (3) Severe protein-calorie malnutrition Problem Text: 04/11/19: showing some hypoglycemia in am. advised nursing staff to provide bedtime snack and offer po frequently due to poor po intake documented yesterday. Taking PO now and doing well with feeds. TPN must be stopped as he pulled out his tube. Will continue to monitor his nutritional state. (4) IVCD (intraventricular conduction defect) Status: Acute Problem Text: 04/08 - Dr. Melchor spoke with Dr. Gaytan informally and it is felt there isnothing to do for IVCD - they are short runs and are assymptomatic Avoid any rate control agents in future which may provoke worsening of this EKG unremarkable Mag and K+ normal (5) Chronic constipation Status: Resolved Problem Text: 04/12/2019: continue with bowel meds. 04/09 - No BM today, but received MiraLax and a suppository. 04/08 - EGD/Sigmoidoscopy 04/07 - normal without outlet obstruction. 04/07 - GI saw patient in consultation - no note Looks like Flex sig scheduled for today 04/06 - Patient pulled out NG tube. Having BMs with Dulcolax supp for bowel care. No n/v. abd soft today GI consulted ST attempted swallow eval today, but he woul dnot swallow the applesauce - Nurse will see if [facility] staff can be present for St eval to help with some of the behavioral issues that may be interfering with getting him to swallow Cont NPO & TPN for now 04/05: D/W attending trial of clamping NG tube continues with BMs. abdomen soft. NGT remains in place. Continue with TPN 04/03 -- abdomen is tender on exam. He has had multiple bowel movements since yesterday. CT of the abdomen and pelvis showed proctosigmoiditis. NG tube still draining, and leukocytosis resolving. 04/02 -- abdomen seemed perhaps tender, CT ordered 04/01 - CT on admission showed fecal impaction & distended proximal bowel NG tube remains in place - draining copious brown GI contents Remains on TPN per intensivists - Had diarrhea last night so Dulcolax supp held baseline HD: sen/doc 2 BID, Amitiza 24 BID 03/28 + bisa supp given no BM since admission, mild abd distension c decreased BS (6) Scrotal edema Status: Acute Response to Treatment: Improving Problem Text: 04/01 Has scrotal and Lower extremity edema - Secondary to IVF and hypoalbuminemia Dalton per Urology Would not expect this to imprve until we can stop IVF and Albumin improves (7) Acute respiratory failure Status: Resolved Problem Text: 04/06 - Sats remain stable CT abd/pelvis 04/02: Moderately severe bilateral pleural effusions with compressive atelectasis or infiltrates bilaterally in the lower lung zones included on this study with over 50% of the volume of these lower lung zones is replaced by fluid. continue IV Lasix (8) Severe sepsis Status: Resolved Response to Treatment: Uncompensated Discussed With: Nurse, Industrial Organization Manager, Patient, Health Care Proxy, Family with Pt Consent Problem Specific Plan: Consult Specialist, Monitor Clinically, Repeat Labs Problem Text: 04/05 - D/W attending how long to continue abx WBC normalized. Tmax 100.2 at noon yesterday Vanco/Cefepime D#[address] abd/pelvis 04/02: Significant proctosigmoiditis with marked thickening of the wall of the mid to distal sigmoid and worse in the rectum with inflammatory changes in the adjacent fat. No perforation or abscess. 04/04/2019: WBC 9 today. continues to show improvement. 04/03 -- Leukocytosis continues to resolve, clinical picture improving, continues on abx but no longer meets criteria for severe sepsis 04/01 - WBC continues to trend down Bp stable - no longer requiring pressors Remains on Vanco and Cefepime B/C neg 03/31 WBC trending down today, remains afebrile, Cont with TPN, mgmt per Web Project Manager at this time. O2 demands decreased now on Vasotherm from CPAP. 03/30/2019: showing slight improvement. WBC remains elevated. DC IVF due to edema. Hold on diuresis. Continue with TPN. continue to wean oxygen demands. Prognosis remains poor. 03/29 Pt required Vasopressin overnight after diuresing 3L and becoming hypotensive. On IVF 04/28 NS c 40 meq K+ UA + E coli x 2, Cefepime IV D4 TPN per Web Project Manager WBC increased from 35 to 36. 03/28 Weaned down to Vasopressin, Dr Nelson cont to follow, acidosis [place] [id number]. He will cont with Vanco and Cefepime this morning. 03/27 He is currently maintained on 2 pressors (norepinephrine and vasopressin). Dr. Nelson is assisting in critical care management today; I appreciate his help. His lactic acid is improving, but still has not resolved. His NG tube put out 400cc initially yesterday and an additional 300cc over the course of the next day. Nursing reports that it is slowing and maybe we can remove it tomorrow. I do think it will be easier for him to breathe without something taking up more space in his pharynx. The cefepime seems to be doing at least as well as the meropenem. We will continue on this and the vancomycin for now. (9) Seizure disorder Status: Chronic Problem Specific Plan: Monitor Clinically, Repeat Labs Problem Text: 04/01 - Lst seizure 03/31 - Given IV Ativan Remains on IV Valproate - level improved but still a little low at 46 on 03/30 - Repeat today 03/28 VPA 41 on HD 500 BID (IV), but started 03/23 p missing 2-3D dosing; therefore, CCR rechecking level in 3D (10) Metabolic acidosis with respiratory alkalosis Status: Resolved Response to Treatment: Compensated Discussed With: Industrial Organization Manager Problem Specific Plan: Monitor Clinically, Repeat Labs Problem Text: 03/28 His lactic acidosis continues several days after we initially started treating him. It is the lowest it has been this morning, but the persistence of anaerobic respiration is not a good prognostic indicator in my mind. Perhaps some of this is driven by the pressors and some ischemia from these medication (including mesenteric). However, we can't just stop the pressors either. We will continue to monitor this situation carefully, but I am increasingly concerned that he will not survive this episode. Not in the least because he is needing more and more support to maintain his compensatory mechanisms. (11) Code status needs review Status: Chronic Problem Text: Code status is resolved and he is DNR/DNI. 04/01 DNR/DNI on chart - NEEDS SIGNATURE FROM ATTENDING 03/29 Dr Arguello is requesting a meeting with Dr Enriquez to review the case prior to signing off on the MOLST. 03/28/19 case dw sole guardian, sister Shaniqua Stevenson, who strongly favors DNR. MOLST checklist for DD individuals completed and will submit to Dr. Yvonne edward to sign as concurring (12) Hypotension Status: Resolved Response to Treatment: Improving, Controlled Discussed With: Nurse, Industrial Organization Manager, Patient, Health Care Proxy, Family with Pt Consent Problem Specific Plan: Consult Specialist, Monitor Clinically, Repeat Labs Problem Text: Remains off of pressors currently. (13) Mental retardation Status: Chronic Discussed With: Family with Pt Consent Problem Text: His MR and inability to participate in his own medical decision making as well as his tendency to pull out lines complicates all aspects of his current care. (14) Cerebral palsy Status: Chronic Problem Text: His physical disabilities complicate his care. (15) DIC (disseminated intravascular coagulation) Status: Resolved Response to Treatment: Stable (but not improved) Problem Specific Plan: Monitor Clinically, Repeat Labs Problem Text: 04/01 - platelets normalized 03/29 Plt 81 03/28 Plt 37, increased from 33k 03/27 His platelets are up to 33k this morning. He has received a transfusion of pack of platelets. Perhaps the consumption has stabilized. We will continue to monitor his CBC closely. (16) Dysphagia Status: Chronic Problem Text: See St swallow eval - Does ok with honey thick liquids Plan/VTE VTE Prophylaxis Ordered?: Yes (SCDs) VTE Exclusion Pharmacological: Thrombocytopenia Plan/Urinary Catheter Urinary Catheter: Place Dalton Reason for insertion/continuin: Critical Pt monitoring (and obstruction/retention) VS, I&O, 24H, [facility] Vital Signs/I&O Vital Signs Date Time Temp Pulse Resp B/P (MAP) Pulse Ox O2 Delivery O2 Flow Rate FiO2 04/12/19 06:00 97.5 77 16 108/63 (78) 96 Room Air 04/08/19 16:00 3.0 I&O- Last 24 Hours up to 6 AM 04/12/19 06:00 Intake Total 780 ml Output Total 800 ml Balance -20 ml Laboratory Data 24H LABS Laboratory Tests 2 04/12/19 10:02: Nucleated Red Blood Cells % (auto) 0.0, Anion Gap 6L, Glomerular Filtration Rate > 60.0, Calcium Level 8.9, Phosphorus Level 2.7, Albumin 2.7L CBC/BMP Laboratory Tests 04/12/19 10:02 Monika Lorenz [employer] TENDER Apr 12, 2019 10:45
[2019-04-12 14:00] VITALS: BP 106/59
[2019-04-12 22:00] VITALS: BP 123/70
[2019-04-13] MEDS: LEVOTHYROXINE 25MCG TABLET (0.025MG) PO SCH (05:58)
[2019-04-13 06:00] VITALS: BP 114/50
[2019-04-13] MEDS: PANTOPRAZOLE 40MG TAB (PROTONIX) PO SCH (09:25)
[2019-04-13] MEDS: BACTRIM 160MG/800MG DS TAB PO SCH ×2 (09:25→20:47)
[2019-04-13] MEDS: BISACODYL 10 MG SUPP PR SCH (09:25)
[2019-04-13] MEDS: HYDROCORTISONE 10 MG TAB PO SCH (09:25)
[2019-04-13] MEDS: MIRALAX *UNIT DOSE* 17GM PACKET PO SCH (09:25)
[2019-04-13] MEDS: FUROSEMIDE 20 MG TAB PO SCH (09:25)
[2019-04-13] MEDS: VALPROIC ACID 250 MG CAP PO SCH ×2 (09:25→20:47)
--- NOTE | 2019-04-13 11:18 | IPNPDOC ---
Subjective Date Seen The patient was seen on 04/13/19. Subjective Chief Complaint/HPI ARF Events since last encounter Dalton Dc'd yesterday, has been voiding incontinent voids since removal. General: Reports: ROS Unobtainable Constitutional: Denies: Fever Objective Physical Examination General Exam: Positive: Alert (Very alert, grabbing at me), No Acute Distress Eye Exam: Negative: Sclera icteric ENT Exam: Negative: Mucous membr. moist/pink Neck Exam: Positive: Supple; Negative: Lymphadenopathy Chest Exam: Positive: Clear to auscultation Heart Exam: Positive: Regular Rhythm; Negative: Murmurs Abdomen Exam: Positive: Normal bowel sounds, Soft; Negative: Tenderness Male Exam: Positive: Edema (+ scrotal edema - continues to improve) Extremity Exam: Negative: Edema Skin Exam: Negative: Breakdown Neuro Exam: Negative: Normal Speech Psych Exam: Positive: Anxiety (behaviors), Other (developmental disability, non-verbal) Assessment /Plan Problems (1) Prostatitis, acute Status: Acute Discussed With: Patient, Family with Pt Consent Problem Specific Plan: Monitor Clinically, Repeat Tests Problem Text: 04/13/19: bactrim day 04/12/19: Switched to Bactrim po (day ) taking PO. 04/11/19: Switched to Bactrim po (day ) now that NG tube out and taking PO. Previously had Cefepime D# 14, s/p Vanco x 11 days - stopped 04/05. Want 21 days of antibiotics b/c of acute on chronic prostatitis. 03/24 22! 03/17 PSA 2 (2) Obstructive uropathy Status: Resolved Response to Treatment: Controlled Problem Specific Plan: Monitor Clinically, Repeat Labs Problem Text: : bladder scan q 4 hrs to track for potential retention/PVR. If remains stable. Dc home in am. 04/12/19: Dalton removed today, monitor for signs of urinary retention. If able to urinate on his own, plan for Dc home in 1-3 days and f/u with urology as an outpatient. He has a Dalton catheter in place. His renal function has normalized. I continue to believe that only a urologist should remove his urinary catheter. Plan will be to discharge him back to [facility] with the catheter in place and he can follow up with urology after to sort out a plan. (3) Severe protein-calorie malnutrition Problem Text: 04/11/19: showing some hypoglycemia in am. advised nursing staff to provide bedtime snack and offer po frequently due to poor po intake documented yesterday. Taking PO now and doing well with feeds. TPN must be stopped as he pulled out his tube. Will continue to monitor his nutritional state. (4) IVCD (intraventricular conduction defect) Status: Acute Problem Text: 04/08 - Dr. Melchor spoke with Dr. Gaytan informally and it is felt there isnothing to do for IVCD - they are short runs and are assymptomatic Avoid any rate control agents in future which may provoke worsening of this EKG unremarkable Mag and K+ normal (5) Chronic constipation Status: Resolved Problem Text: 04/12/2019: continue with bowel meds. 04/09 - No BM today, but received MiraLax and a suppository. 04/08 - EGD/Sigmoidoscopy 04/07 - normal without outlet obstruction. 04/07 - GI saw patient in consultation - no note Looks like Flex sig scheduled for today 04/06 - Patient pulled out NG tube. Having BMs with Dulcolax supp for bowel care. No n/v. abd soft today GI consulted ST attempted swallow eval today, but he woul dnot swallow the applesauce - Nurse will see if [facility] staff can be present for St eval to help with some of the behavioral issues that may be interfering with getting him to swallow Cont NPO & TPN for now 04/05: D/W attending trial of clamping NG tube continues with BMs. abdomen soft. NGT remains in place. Continue with TPN 04/03 -- abdomen is tender on exam. He has had multiple bowel movements since yesterday. CT of the abdomen and pelvis showed proctosigmoiditis. NG tube still draining, and leukocytosis resolving. 04/02 -- abdomen seemed perhaps tender, CT ordered 04/01 - CT on admission showed fecal impaction & distended proximal bowel NG tube remains in place - draining copious brown GI contents Remains on TPN per intensivists - Had diarrhea last night so Dulcolax supp held baseline HD: sen/doc 2 BID, Amitiza 24 BID 03/28 + bisa supp given no BM since admission, mild abd distension c decreased BS (6) Scrotal edema Status: Acute Response to Treatment: Improving Problem Text: 04/01 Has scrotal and Lower extremity edema - Secondary to IVF and hypoalbuminemia Dalton per Urology Would not expect this to imprve until we can stop IVF and Albumin improves (7) Acute respiratory failure Status: Resolved Problem Text: 04/06 - Sats remain stable CT abd/pelvis 04/02: Moderately severe bilateral pleural effusions with compressive atelectasis or infiltrates bilaterally in the lower lung zones included on this study with over 50% of the volume of these lower lung zones is replaced by fluid. continue IV Lasix (8) Severe sepsis Status: Resolved Response to Treatment: Uncompensated Discussed With: Nurse, Procedure Tech, Patient, Health Care Proxy, Family with Pt Consent Problem Specific Plan: Consult Specialist, Monitor Clinically, Repeat Labs Problem Text: 04/05 - D/W attending how long to continue abx WBC normalized. Tmax 100.2 at noon yesterday Vanco/Cefepime D#[address] abd/pelvis 04/02: Significant proctosigmoiditis with marked thickening of the wall of the mid to distal sigmoid and worse in the rectum with inflammatory changes in the adjacent fat. No perforation or abscess. 04/04/2019: WBC 9 today. continues to show improvement. 04/03 -- Leukocytosis continues to resolve, clinical picture improving, continues on abx but no longer meets criteria for severe sepsis 04/01 - WBC continues to trend down Bp stable - no longer requiring pressors Remains on Vanco and Cefepime B/C neg 03/31 WBC trending down today, remains afebrile, Cont with TPN, mgmt per [employer] School Special Ed Teacher at this time. O2 demands decreased now on Vasotherm from CPAP. 03/30/2019: showing slight improvement. WBC remains elevated. DC IVF due to edema. Hold on diuresis. Continue with TPN. continue to wean oxygen demands. Prognosis remains poor. 03/29 Pt required Vasopressin overnight after diuresing 3L and becoming hypotensive. On IVF 04/28 NS c 40 meq K+ UA + E coli x 2, Cefepime IV D4 TPN per [employer] Special [employer] Teacher WBC increased from 35 to 36. 03/28 Weaned down to Vasopressin, Dr Nelson cont to follow, acidosis has improved [place] [id number]. He will cont with Vanco and Cefepime this morning. 03/27 He is currently maintained on 2 pressors (norepinephrine and vasopressin). Dr. Nelson is assisting in critical care management today; I appreciate his help. His lactic acid is improving, but still has not resolved. His NG tube put out 400cc initially yesterday and an additional 300cc over the course of the next day. Nursing reports that it is slowing and maybe we can remove it tomorrow. I do think it will be easier for him to breathe without something taking up more space in his pharynx. The cefepime seems to be doing at least as well as the meropenem. We will continue on this and the vancomycin for now. (9) Seizure disorder Status: Chronic Problem Specific Plan: Monitor Clinically, Repeat Labs Problem Text: 04/01 - Lst seizure 03/31 - Given IV Ativan Remains on IV Valproate - level improved but still a little low at 46 on 03/30 - Repeat today 03/28 VPA 41 on HD 500 BID (IV), but started 03/23 p missing 2-3D dosing; therefore, CCR rechecking level in 3D (10) Metabolic acidosis with respiratory alkalosis Status: Resolved Response to Treatment: Compensated Discussed With: Procedure Tech Problem Specific Plan: Monitor Clinically, Repeat Labs Problem Text: 03/28 His lactic acidosis continues several days after we initially started treating him. It is the lowest it has been this morning, but the persistence of anaerobic respiration is not a good prognostic indicator in my mind. Perhaps some of this is driven by the pressors and some ischemia from these medication (including mesenteric). However, we can't just stop the pressors either. We will continue to monitor this situation carefully, but I am increasingly concerned that he will not survive this episode. Not in the least because he is needing more and more support to maintain his compensatory mechanisms. (11) Code status needs review Status: Chronic Problem Text: Code status is resolved and he is DNR/DNI. 04/01 DNR/DNI on chart - NEEDS SIGNATURE FROM ATTENDING 03/29 Dr Arguello is requesting a meeting with Dr Enriquez to review the case prior to signing off on the MOLST. 03/28/19 case dw sole guardian, sister Shaniqua Stevenson, who strongly favors DNR. MOLST checklist for DD individuals completed and will submit to Dr. Arguello to sign as concurring (12) Hypotension Status: Resolved Response to Treatment: Improving, Controlled Discussed With: Nurse, Procedure Tech, Patient, Health Care Proxy, Family with Pt Consent Problem Specific Plan: Consult Specialist, Monitor Clinically, Repeat Labs Problem Text: Remains off of pressors currently. (13) Mental retardation Status: Chronic Discussed With: Family with Pt Consent Problem Text: His MR and inability to participate in his own medical decision making as well as his tendency to pull out lines complicates all aspects of his current care. (14) Cerebral palsy Status: Chronic Problem Text: His physical disabilities complicate his care. (15) DIC (disseminated intravascular coagulation) Status: Resolved Response to Treatment: Stable (but not improved) Problem Specific Plan: Monitor Clinically, Repeat Labs Problem Text: 04/01 - platelets normalized 03/29 Plt 81 03/28 Plt 37, increased from 33k 03/27 His platelets are up to 33k this morning. He has received a transfusion of pack of platelets. Perhaps the consumption has stabilized. We will continue to monitor his CBC closely. (16) Dysphagia Status: Chronic Problem Text: See St swallow eval - Does ok with honey thick liquids Plan/VTE VTE Prophylaxis Ordered?: Yes (SCDs) VTE Exclusion Pharmacological: Thrombocytopenia Plan/Urinary Catheter Urinary Catheter: Place Dalton Reason for insertion/continuin: Critical Pt monitoring (and obstruction/retention) VS, I&O, 24H, Fishbone Vital Signs/I&O Vital Signs Date Time Temp Pulse Resp B/P (MAP) Pulse Ox O2 Delivery O2 Flow Rate FiO2 04/13/19 06:00 96.7 91 18 114/50 (71) 96 Room Air 04/08/19 16:00 3.0 I&O- Last 24 Hours up to 6 AM 04/13/19 06:00 Intake Total 1670 ml Output Total 150 ml Balance 1520 ml Monika Lorenz [employer] SCREEN PRINTER MACHINE Apr 13, 2019 11:18
[2019-04-13 14:00] VITALS: BP 113/60
[2019-04-13 22:00] VITALS: BP 106/72
[2019-04-14] MEDS: LEVOTHYROXINE 25MCG TABLET (0.025MG) PO SCH (05:44)
[2019-04-14 06:00] VITALS: BP 101/69
[2019-04-14] MEDS: HYDROCORTISONE 10 MG TAB PO SCH (07:35)
[2019-04-14] MEDS: PANTOPRAZOLE 40MG TAB (PROTONIX) PO SCH (07:35)
[2019-04-14] MEDS: FUROSEMIDE 20 MG TAB PO SCH (07:35)
[2019-04-14] MEDS: BACTRIM 160MG/800MG DS TAB PO SCH (07:35)
[2019-04-14] MEDS: BISACODYL 10 MG SUPP PR SCH (07:36)
[2019-04-14] MEDS: VALPROIC ACID 250 MG CAP PO SCH (07:36)
[2019-04-14] MEDS: MIRALAX *UNIT DOSE* 17GM PACKET PO SCH (07:36)
[2019-04-14 09:08] LABS: MEAN CORPUSCULAR HGB CONC 30.6 g/dl (32.0-36.5); MEAN CORPUSCULAR VOLUME 98.1 fl (80.0-96.0); PLATELET COUNT, AUTOMATED 230 10^3/uL (150-450); RED BLOOD COUNT 3.67 10^6/uL (4.30-6.10); WHITE BLOOD COUNT 8.3 10^3/uL (4.0-10.0)
[2019-04-14 09:40] LABS: ALBUMIN 2.8 GM/DL (3.2-5.2); BLOOD UREA NITROGEN 33 MG/DL (7-18); CALCIUM LEVEL 8.6 MG/DL (8.5-10.1); CARBON DIOXIDE LEVEL 28 MEQ/L (21-32); CHLORIDE LEVEL 115 MEQ/L (98-107); CREATININE FOR GFR 1.07 MG/DL (0.70-1.30); GLOMERULAR FILTRATION RATE > 60.0 (>56); GLUCOSE, FASTING 96 MG/DL (70-100); PHOSPHORUS LEVEL 2.5 MG/DL (2.5-4.9); POTASSIUM SERUM 3.6 MEQ/L (3.5-5.1); SODIUM LEVEL 146 MEQ/L (136-145)
[2019-04-14] MEDS ORDERED: CORT10TA PO (10:49)
[2019-04-14] MEDS ORDERED: SULF1TAB93 PO (10:49)
[2019-04-14] MEDS ORDERED: PANT40TA3 PO (10:49)
--- NOTE | 2019-04-16 20:40 | DSES ---
DATE OF ADMISSION: 03/23/2019 DATE OF DISCHARGE: 04/14/2019 PRIMARY CARE PHYSICIAN: Dr. Jose Elias Garcias HISTORY OF PRESENT ILLNESS: This is a 53 gentleman with a past medical history of developmental delay, cerebral palsy, spastic quadriparesis, seizure disorder, gastroesophageal reflux disease (GERD), who presented for lack of urination to [facility] Emergency Department (ED). Patient was noted to have significant amounts of urinary retention. Multiple unsuccessful attempts were made to place a Dalton catheter. Patient subsequently needed urology for a catheter insertion. Patient was subsequently admitted to family medicine service. HOSPITAL COURSE: Patient was found to have significant sepsis with a lactate of 9. He was started on broad-spectrum antibiotic coverage with vancomycin and meropenem and placed on intravenous (IV) fluids. There was a significant concern for disseminated intravascular coagulation (DIC). He was known to have acute renal failure and GERD. Patient was significantly critically ill. Code status was adjusted to DO NOT RESUSCITATE/DO NOT INTUBATE in conjunction with attending physicians as well as appropriate officials with an [facility] medical order for life-sustaining treatment (MOLST) checklist. Patient received significant amounts of critical care vasopressor support. Patient was placed on bilevel positive airway pressure (BiPAP) for treatment of his metabolic acidosis and septic shock. Patient was treated with 1 unit of platelets secondary to DIC the setting of sepsis. Throughout his hospitalization he received 2 units of leukoreduced pheresis platelets, 1 unit of irradiated pheresis platelets, and 25% albumin. On March 27, patient started to tolerate weaning from pressors as well as BiPAP for respiratory support. Patient was noted to have severe scrotal edema as well as anasarca secondary to hypoalbuminemia and IV fluid support. This did improve with an albumin transfusion. Patient continued to show improvement. Was subsequently transitioned to medical/surgical floor. He continued to improve with weaning of his oxygen. Scrotal edema has improved. He is 3 days away from receiving a full 21-day course of antibiotic treatment for his prostatitis. He has remained afebrile for several days. He is tolerate oral fluids well. His Dalton catheter was discontinued on April 12. He has been able to urinate without issues or concerns. Bladder scanning every 4 hours for the last 24 hours proved urine values between 100-200 mL. Patient has remained without oxygenation. Blood pressure have remained stable. PHYSICAL EXAMINATION: Today, patient is nonverbal. He reaches out to provider in attempts to grab and hug. He is not aggressive. He is cooperative with exam. CARDIOVASCULAR: Heart rate and rhythm are regular. PULMONARY: Lungs are clear. ABDOMEN: Soft and nontender. Bilateral lower extremities are without any edema. CONSULTANTS: 1. Urology, Dr. Greer 2. Gis Analyst Developer, Dr. Gayle Louis. 3. Dr. Abdirashid Nelson IMAGING: Patient is status post multiple chest x-rays. He had a bladder ultrasound completed on March 23, which showed a normal-appearing bladder. CT abdomen and pelvis times two. Patient was noted to have some gallstones without cholecystitis, impacted feces on March 23 of the rectosigmoid. Nonobstructive renal calculi were noted. Moderate prostatic hyperplasia. Repeat CT abdomen and pelvis on April 02 proved positive for significant proctosigmoiditis with marked thickening of the wall of the mid to distal sigmoid and worse in the rectum with inflammatory changes in the adjacent fat. No perforation or abscess noted. Patient was noted to have bilateral pleural effusions. Most recent chest x-ray April 08: Pleural effusions resolved. Mild vascular congestion noted. ASSESSMENT/DISCHARGE DIAGNOSES: 1. Sigmoid prostatitis. 2. Obstructive uropathy. 3. Severe protein calorie malnutrition. 4. Chronic constipation. 5. Acute respiratory failure. 6. Severe sepsis. 7. Seizure disorder. 8. Metabolic acidosis with respiratory alkalosis. 9. Developmental delay. 10. Cerebral palsy. 11. Disseminated intravascular coagulation. PLAN: Patient will be discharged back to [facility] ([facility]). Diet is a pureed diet. Activity as tolerated. Patient may return to [facility] and physical therapy (PT)/occupational therapy (OT) through [facility] services. MEDICATIONS: - hydrocortisone 10 mg tablets two by mouth daily. Dosing adjustment can be managed by PCP upon followup. - pantoprazole sodium 40 mg by mouth daily - Bactrim one tablet by mouth twice a day for the next 3 days, to finish a full 21-day course of antibiotic treatment for his prostatitis - Tylenol 325 mg two by mouth every 6 hours as needed for pain - Dulcolax 10 mg by mouth daily as needed for constipation - calcium with vitamin D one tablet by mouth twice a day - Depakote ER 500 mg by mouth twice a day - vitamin D2 at 50,000 international units by mouth monthly - ibuprofen 200 mg tablet two by mouth four times a day as needed for pain or fever - levothyroxine sodium 25 mcg by mouth every evening - Amitiza 24 mcg by mouth twice a day - MiraLax one packet daily - pravastatin sodium 20 mg by mouth at bedtime - primidone 50 mg by mouth twice a day - senna two tablets by mouth twice a day - Fleet's enema per rectum at bedtime as needed - trazodone 50 mg by mouth at bedtime as needed Patient is discharged in stable and satisfactory condition with no further questions at time of discharge.
== END 2019-04-14 14:22 | disposition home or self-care (01) | DRG 871 ==
LOC: M ED 14:49 → M ED INP 18:02 → M ICU 21:32 → M PCU 04-02 18:58 → M MSPAV 04-09 17:23
PROVIDERS: ADMIT Internal Medicine; ATTEND Family Medicine
PROC: 0T9B80Z Drainage of Bladder with Drainage Device, Via Natural or Artificial Opening Endoscopic (ICD-10-PCS; principal; 2019-03-24)
PROC: 30233N1 Transfusion of Nonautologous Red Blood Cells into Peripheral Vein, Percutaneous Approach (ICD-10-PCS; 2019-03-24)
PROC: 30233R1 Transfusion of Nonautologous Platelets into Peripheral Vein, Percutaneous Approach (ICD-10-PCS; 2019-03-24)
PROC: 0DJD8ZZ Inspection of Lower Intestinal Tract, Via Natural or Artificial Opening Endoscopic (ICD-10-PCS; 2019-04-07)
PROC: 0DJ08ZZ Inspection of Upper Intestinal Tract, Via Natural or Artificial Opening Endoscopic (ICD-10-PCS; 2019-04-07)
DX: A41.9 Sepsis, unspecified organism (principal); D65 Disseminated intravascular coagulation [defibrination syndrome]; J96.01 Acute respiratory failure with hypoxia; K72.00 Acute and subacute hepatic failure without coma; R65.21 Severe sepsis with septic shock; E43 Unspecified severe protein-calorie malnutrition; N39.0 Urinary tract infection, site not specified; E87.2 Acidosis; N17.9 Acute kidney failure, unspecified; K56.7 Ileus, unspecified; N41.0 Acute prostatitis; F79 Unspecified intellectual disabilities; K21.9 Gastro-esophageal reflux disease without esophagitis; G80.9 Cerebral palsy, unspecified; Z79.899 Other long term (current) drug therapy; G40.909 Epilepsy, unspecified, not intractable, without status epilepticus; E03.9 Hypothyroidism, unspecified; K59.00 Constipation, unspecified; R13.10 Dysphagia, unspecified; Z66 Do not resuscitate

== ENCOUNTER 2019-04-15 22:56 | Emergency (ER) | payer MEDICARE, MEDICAID ==
[~2019-04-15] VITALS: Ht 157.5 cm; Wt 43.2 kg
[~2019-04-15 22:56] MED LIST changes: +CIPR500T3 PO; +CORT10TA PO; +ENEMENE PR; +IBUP-1720 PO; +OYST500T91 PO; +PANT40TA3 PO; +SENN-23 PO; +SULF1TAB93 PO
[2019-04-15] MEDS ORDERED: NS 500 ML IV ONE (23:15)
[2019-04-16 01:54] VITALS: BP 120/69
== END 2019-04-16 01:55 | disposition home or self-care (01) ==
LOC: M ED 22:56
DX: R11.10 Vomiting, unspecified (principal); G80.9 Cerebral palsy, unspecified; Z79.899 Other long term (current) drug therapy

== ENCOUNTER → 2019-05-01 | Outpatient (CLI) | payer MEDICARE, MEDICAID ==
[~2019-05-01] MED LIST changes: +HYDR-4513 PO; +LORA0.5T11 PO; +VITA50005 PO
[2019-05-01 19:04] LABS: BASO % 0.5 % (0.0-1.0); EOS % 0.5 % (0.0-3.0); HEMATOCRIT 37.6 % (42.0-52.0); HEMOGLOBIN 10.8 g/dl (13.5-17.5); LYMPH # 1.4 10^3/uL (1.5-5.0); LYMPH % 18.8 % (24.0-44.0); MEAN CORPUSCULAR HEMOGLOBIN 29.8 pg (27.0-33.0); MEAN CORPUSCULAR HGB CONC 28.7 g/dl (32.0-36.5); MEAN CORPUSCULAR VOLUME 103.9 fl (80.0-96.0); MONO # 0.8 10^3/uL (0.0-0.8); NEUTROPHILS % 68.9 % (36.0-66.0); PLATELET COUNT, AUTOMATED 276 10^3/uL (150-450); RED BLOOD COUNT 3.62 10^6/uL (4.30-6.10); WHITE BLOOD COUNT 7.3 10^3/uL (4.0-10.0)
[2019-05-01 19:34] LABS: ALBUMIN 2.7 GM/DL (3.2-5.2); ALT/SGPT 13 U/L (12-78); BILIRUBIN,TOTAL 0.2 MG/DL (0.2-1.0); BLOOD UREA NITROGEN 35 MG/DL (7-18); CALCIUM LEVEL 9.5 MG/DL (8.5-10.1); CARBON DIOXIDE LEVEL 31 MEQ/L (21-32); CHLORIDE LEVEL 118 MEQ/L (98-107); CREATININE FOR GFR 1.02 MG/DL (0.70-1.30); FREE T4 0.86 NG/DL (0.76-1.46); GLOMERULAR FILTRATION RATE > 60.0 (>56); GLUCOSE, FASTING 103 MG/DL (70-100); POTASSIUM SERUM 4.4 MEQ/L (3.5-5.1); SODIUM LEVEL 157 MEQ/L (136-145); THYROID STIMULATING HORMONE 0.732 uIU/ML (0.358-3.740); TOTAL PROTEIN 7.1 GM/DL (6.4-8.2); VALPROIC ACID (DEPAKOTE) 79.1 UG/ML (50.0-100.0)
== END ==
LOC: M WUC 12:55
PROVIDERS: ATTEND Family Medicine
DX: E55.9 Vitamin D deficiency, unspecified (principal); D50.9 Iron deficiency anemia, unspecified; G40.909 Epilepsy, unspecified, not intractable, without status epilepticus; N41.1 Chronic prostatitis; E03.9 Hypothyroidism, unspecified; Z12.5 Encounter for screening for malignant neoplasm of prostate
CPT/HCPCS: 36415; 80053; 80164; 82306; 83970; 84439; 84443; 85025; 85046; G0103

== ENCOUNTER 2019-05-03 14:45 | Emergency (ER) | payer MEDICARE, MEDICAID ==
[~2019-05-03 14:45] MED LIST changes: -HYDR-4513 PO; -LORA0.5T11 PO; -OMEP-172 PO; +OMEP1CAP73 PO; -VITA50005 PO
[2019-05-03 16:52] LABS: BASO # 0.1 10^3/uL (0.0-0.2); BASO % 0.7 % (0.0-1.0); EOS % 0.3 % (0.0-3.0); HEMATOCRIT 31.6 % (42.0-52.0); HEMOGLOBIN 9.3 g/dl (13.5-17.5); LYMPH # 2.2 10^3/uL (1.5-5.0); MEAN CORPUSCULAR HEMOGLOBIN 30.2 pg (27.0-33.0); MEAN CORPUSCULAR HGB CONC 29.4 g/dl (32.0-36.5); MEAN CORPUSCULAR VOLUME 102.6 fl (80.0-96.0); MONO # 1.2 10^3/uL (0.0-0.8); MONO % 17.4 % (0.0-5.0); NEUTROPHILS # 3.4 10^3/uL (1.5-8.5); NEUTROPHILS % 49.5 % (36.0-66.0); PLATELET COUNT, AUTOMATED 260 10^3/uL (150-450); RED BLOOD COUNT 3.08 10^6/uL (4.30-6.10); WHITE BLOOD COUNT 6.8 10^3/uL (4.0-10.0)
[2019-05-03 17:12] LABS: ALBUMIN 2.4 GM/DL (3.2-5.2); ALT/SGPT 12 U/L (12-78); BILIRUBIN,DIRECT < 0.1 MG/DL (0.0-0.2); BILIRUBIN,TOTAL 0.2 MG/DL (0.2-1.0); BLOOD UREA NITROGEN 40 MG/DL (7-18); CALCIUM LEVEL 9.5 MG/DL (8.5-10.1); CARBON DIOXIDE LEVEL 33 MEQ/L (21-32); CHLORIDE LEVEL 123 MEQ/L (98-107); CREATININE FOR GFR 1.08 MG/DL (0.70-1.30); GLOMERULAR FILTRATION RATE > 60.0 (>56); GLUCOSE, FASTING 83 MG/DL (70-100); LIPASE 223 U/L (73-393); POTASSIUM SERUM 4.2 MEQ/L (3.5-5.1); SODIUM LEVEL 159 MEQ/L (136-145); TOTAL PROTEIN 6.7 GM/DL (6.4-8.2)
[2019-05-03] MEDS ORDERED: NS 1,000 ML IV ONE ×2 (17:30→20:00)
--- NOTE | 2019-05-03 18:34 | REP ---
Portable chest x-ray: Single view. History: Fever. Comparison chest x-ray: April 08, 2019. Findings: Prominent heart size again noted. There are calcified gallstones in the right upper quadrant. The patient is rotated somewhat to the left. No infiltrate is seen. Pulmonary vasculature is not increased. Impression: Mildly prominent heart. Otherwise no active cardiopulmonary disease. Calcified gallstones. Electronically Signed by Matteo Pichardo MD 05/03/2019 06:26 P
[2019-05-03] MEDS ORDERED: HYDR-4513 PO (20:01)
[2019-05-03] MEDS ORDERED: LORA0.5T5 PO (20:01)
[2019-05-03] MEDS ORDERED: VITA50005 PO (20:01)
[2019-05-03] MEDS ORDERED: LORazepam 2 MG/ML VIAL (J2060) IV STA (22:12)
[2019-05-03 23:03] VITALS: BP 133/59
[2019-05-12] MEDS ORDERED: PANT40TA3 PO (09:13)
== END 2019-05-03 23:07 | disposition home or self-care (01) ==
LOC: M ED 14:45
DX: E86.0 Dehydration (principal); E87.0 Hyperosmolality and hypernatremia; F79 Unspecified intellectual disabilities; K21.9 Gastro-esophageal reflux disease without esophagitis; Z79.899 Other long term (current) drug therapy; Z79.890 Hormone replacement therapy

== ENCOUNTER → 2019-05-03 | Outpatient (REF) | payer MEDICARE, MEDICAID ==
[2019-05-03 11:53] LABS: BASO # 0.1 10^3/uL (0.0-0.2); BASO % 0.6 % (0.0-1.0); EOS % 0.3 % (0.0-3.0); HEMATOCRIT 35.1 % (42.0-52.0); HEMOGLOBIN 10.2 g/dl (13.5-17.5); LYMPH % 26.3 % (24.0-44.0); MEAN CORPUSCULAR HEMOGLOBIN 29.9 pg (27.0-33.0); MEAN CORPUSCULAR HGB CONC 29.1 g/dl (32.0-36.5); MEAN CORPUSCULAR VOLUME 102.9 fl (80.0-96.0); MONO # 1.2 10^3/uL (0.0-0.8); MONO % 15.7 % (0.0-5.0); NEUTROPHILS # 4.4 10^3/uL (1.5-8.5); NEUTROPHILS % 56.8 % (36.0-66.0); PLATELET COUNT, AUTOMATED 283 10^3/uL (150-450); RED BLOOD COUNT 3.41 10^6/uL (4.30-6.10); WHITE BLOOD COUNT 7.7 10^3/uL (4.0-10.0)
[2019-05-03 13:41] LABS: ALBUMIN 2.7 GM/DL (3.2-5.2); BLOOD UREA NITROGEN 41 MG/DL (7-18); CALCIUM LEVEL 9.7 MG/DL (8.5-10.1); CARBON DIOXIDE LEVEL 32 MEQ/L (21-32); CHLORIDE LEVEL 119 MEQ/L (98-107); CREATININE FOR GFR 1.19 MG/DL (0.70-1.30); GLOMERULAR FILTRATION RATE > 60.0 (>56); GLUCOSE, FASTING 109 MG/DL (70-100); PHOSPHORUS LEVEL 3.2 MG/DL (2.5-4.9); POTASSIUM SERUM 4.3 MEQ/L (3.5-5.1); SODIUM LEVEL 159 MEQ/L (136-145)
[2019-05-03 13:58] LABS: OSMOLALITY SERUM 342 MOSM/KG (275-295)
== END ==
LOC: M SFHCPLAZ 10:43
PROVIDERS: ATTEND Nurse Practitioner Family
DX: E87.0 Hyperosmolality and hypernatremia (principal); R50.9 Fever, unspecified

== ENCOUNTER → 2019-05-06 | Outpatient (REF) | payer MEDICARE, MEDICAID ==
[~2019-05-06] MED LIST changes: +HYDR-4513 PO; +LORA0.5T11 PO; +OMEP-172 PO; -OMEP1CAP73 PO; +VITA50005 PO
[2019-05-06 13:28] LABS: BASO % 0.6 % (0.0-1.0); EOS # 0.1 10^3/uL (0.0-0.5); HEMATOCRIT 32.7 % (42.0-52.0); HEMOGLOBIN 9.7 g/dl (13.5-17.5); MEAN CORPUSCULAR HEMOGLOBIN 30.5 pg (27.0-33.0); MEAN CORPUSCULAR HGB CONC 29.7 g/dl (32.0-36.5); MEAN CORPUSCULAR VOLUME 102.8 fl (80.0-96.0); MONO # 1.1 10^3/uL (0.0-0.8); MONO % 16.4 % (0.0-5.0); NEUTROPHILS # 3.6 10^3/uL (1.5-8.5); NEUTROPHILS % 52.7 % (36.0-66.0); PLATELET COUNT, AUTOMATED 264 10^3/uL (150-450); RED BLOOD COUNT 3.18 10^6/uL (4.30-6.10); WHITE BLOOD COUNT 6.9 10^3/uL (4.0-10.0)
[2019-05-06 13:39] LABS: ALBUMIN 2.4 GM/DL (3.2-5.2); ALT/SGPT 11 U/L (12-78); BILIRUBIN,TOTAL 0.1 MG/DL (0.2-1.0); BLOOD UREA NITROGEN 30 MG/DL (7-18); CALCIUM LEVEL 8.5 MG/DL (8.5-10.1); CARBON DIOXIDE LEVEL 32 MEQ/L (21-32); CHLORIDE LEVEL 123 MEQ/L (98-107); CREATININE FOR GFR 0.89 MG/DL (0.70-1.30); FERRITIN 30 NG/ML (26-388); GLOMERULAR FILTRATION RATE > 60.0 (>56); GLUCOSE, FASTING 97 MG/DL (70-100); IRON (FE) 20 UG/DL (65-175); PERCENT SATURATION 8.2 % (19.7-50.0); POTASSIUM SERUM 4.3 MEQ/L (3.5-5.1); SODIUM LEVEL 158 MEQ/L (136-145); TOTAL IRON BINDING CAPACITY 243 UG/DL (250-450); TOTAL PROTEIN 6.1 GM/DL (6.4-8.2); VALPROIC ACID (DEPAKOTE) 57.5 UG/ML (50.0-100.0)
== END ==
LOC: M SFHCPLAZ 11:19
PROVIDERS: ATTEND Family Medicine
DX: E87.0 Hyperosmolality and hypernatremia (principal); R13.12 Dysphagia, oropharyngeal phase

== ENCOUNTER → 2019-05-18 | Outpatient (CLI) | payer MEDICARE, MEDICAID ==
[~2019-05-18] MED LIST changes: -LORA0.5T11 PO; +LORA0.5T5 PO; -OMEP-172 PO; +OMEP1CAP73 PO
[2019-05-18 10:26] LABS: ALBUMIN 2.4 GM/DL (3.2-5.2); ALT/SGPT 15 U/L (12-78); BILIRUBIN,TOTAL 0.3 MG/DL (0.2-1.0); BLOOD UREA NITROGEN 19 MG/DL (7-18); CALCIUM LEVEL 8.5 MG/DL (8.5-10.1); CARBON DIOXIDE LEVEL 27 MEQ/L (21-32); CHLORIDE LEVEL 113 MEQ/L (98-107); CREATININE FOR GFR 0.67 MG/DL (0.70-1.30); FERRITIN 37 NG/ML (26-388); GLOMERULAR FILTRATION RATE > 60.0 (>56); GLUCOSE, FASTING 68 MG/DL (70-100); IRON (FE) 58 UG/DL (65-175); PERCENT SATURATION 16.7 % (19.7-50.0); POTASSIUM SERUM 5.9 MEQ/L (3.5-5.1); SODIUM LEVEL 145 MEQ/L (136-145); TOTAL IRON BINDING CAPACITY 347 UG/DL (250-450); TOTAL PROTEIN 6.8 GM/DL (6.4-8.2)
== END ==
LOC: M WUC 08:44
PROVIDERS: ATTEND Family Medicine
DX: E87.0 Hyperosmolality and hypernatremia (principal); R56.9 Unspecified convulsions; Z51.81 Encounter for therapeutic drug level monitoring; D50.9 Iron deficiency anemia, unspecified

== ENCOUNTER → 2019-05-18 | Outpatient (CLI) | payer MEDICARE, MEDICAID ==
[2019-05-18 10:25] LABS: VALPROIC ACID (DEPAKOTE) 63.1 UG/ML (50.0-100.0)
== END ==
LOC: M WUC 08:40
PROVIDERS: ATTEND Physician Assistant Medical
DX: R56.9 Unspecified convulsions (principal); Z51.81 Encounter for therapeutic drug level monitoring

== ENCOUNTER → 2019-05-19 | Outpatient (REF) | payer MEDICARE, MEDICAID ==
[2019-05-19 12:25] LABS: BASO # 0.1 10^3/uL (0.0-0.2); BASO % 0.9 % (0.0-1.0); EOS # 0.1 10^3/uL (0.0-0.5); EOS % 0.9 % (0.0-3.0); HEMATOCRIT 40.9 % (42.0-52.0); HEMOGLOBIN 12.1 g/dl (13.5-17.5); LYMPH # 1.9 10^3/uL (1.5-5.0); LYMPH % 35.3 % (24.0-44.0); MEAN CORPUSCULAR HEMOGLOBIN 28.3 pg (27.0-33.0); MEAN CORPUSCULAR HGB CONC 29.6 g/dl (32.0-36.5); MEAN CORPUSCULAR VOLUME 95.6 fl (80.0-96.0); MONO # 0.9 10^3/uL (0.0-0.8); MONO % 15.9 % (0.0-5.0); NEUTROPHILS # 2.5 10^3/uL (1.5-8.5); NEUTROPHILS % 46.6 % (36.0-66.0); PLATELET COUNT, AUTOMATED 274 10^3/uL (150-450); RED BLOOD COUNT 4.28 10^6/uL (4.30-6.10); WHITE BLOOD COUNT 5.3 10^3/uL (4.0-10.0)
[2019-05-19 12:50] LABS: ALBUMIN 2.6 GM/DL (3.2-5.2); BLOOD UREA NITROGEN 21 MG/DL (7-18); CALCIUM LEVEL 8.9 MG/DL (8.5-10.1); CARBON DIOXIDE LEVEL 32 MEQ/L (21-32); CHLORIDE LEVEL 108 MEQ/L (98-107); CREATININE FOR GFR 0.57 MG/DL (0.70-1.30); GLOMERULAR FILTRATION RATE > 60.0 (>56); GLUCOSE, FASTING 73 MG/DL (70-100); PHOSPHORUS LEVEL 3.1 MG/DL (2.5-4.9); POTASSIUM SERUM 4.4 MEQ/L (3.5-5.1); SODIUM LEVEL 145 MEQ/L (136-145)
== END ==
LOC: M SFHCPLAZ 10:56
PROVIDERS: ATTEND Physician Assistant Medical
DX: E87.5 Hyperkalemia (principal); D64.9 Anemia, unspecified

== ENCOUNTER → 2019-06-21 | Outpatient (CLI) | payer MEDICARE, MEDICAID ==
[2019-06-21 10:08] LABS: BASO # 0.1 10^3/uL (0.0-0.2); BASO % 0.5 % (0.0-1.0); EOS % 0.4 % (0.0-3.0); HEMATOCRIT 37.2 % (42.0-52.0); HEMOGLOBIN 11.4 g/dl (13.5-17.5); LYMPH # 2.2 10^3/uL (1.5-5.0); LYMPH % 22.2 % (24.0-44.0); MEAN CORPUSCULAR HEMOGLOBIN 27.8 pg (27.0-33.0); MEAN CORPUSCULAR HGB CONC 30.6 g/dl (32.0-36.5); MEAN CORPUSCULAR VOLUME 90.7 fl (80.0-96.0); MONO # 1.3 10^3/uL (0.0-0.8); MONO % 13.3 % (0.0-5.0); NEUTROPHILS # 6.3 10^3/uL (1.5-8.5); NEUTROPHILS % 63.3 % (36.0-66.0); PLATELET COUNT, AUTOMATED 234 10^3/uL (150-450)
[2019-06-21 10:37] LABS: ALBUMIN 3.2 GM/DL (3.2-5.2); ALT/SGPT 14 U/L (12-78); BILIRUBIN,TOTAL 0.2 MG/DL (0.2-1.0); BLOOD UREA NITROGEN 25 MG/DL (7-18); CARBON DIOXIDE LEVEL 31 MEQ/L (21-32); CHLORIDE LEVEL 112 MEQ/L (98-107); CREATININE FOR GFR 0.79 MG/DL (0.70-1.30); GLOMERULAR FILTRATION RATE > 60.0 (>56); GLUCOSE, FASTING 68 MG/DL (70-100); POTASSIUM SERUM 4.1 MEQ/L (3.5-5.1); SODIUM LEVEL 148 MEQ/L (136-145); TOTAL PROTEIN 7.8 GM/DL (6.4-8.2); VALPROIC ACID (DEPAKOTE) 67.2 UG/ML (50.0-100.0)
[2019-06-21 10:43] LABS: TOTAL 25(OH) VITAMIN D 51.9 NG/ML (30.0-100.0)
[2019-06-21 10:44] LABS: PTH INTACT 58.7 PG/ML (18.5-88.0)
== END ==
LOC: M WUC 08:39
PROVIDERS: ATTEND Family Medicine
DX: E55.9 Vitamin D deficiency, unspecified (principal); N41.1 Chronic prostatitis; D50.9 Iron deficiency anemia, unspecified; E87.0 Hyperosmolality and hypernatremia; G40.909 Epilepsy, unspecified, not intractable, without status epilepticus; Z12.5 Encounter for screening for malignant neoplasm of prostate
CPT/HCPCS: 36415; 80053; 80164; 82306; 83970; 85025; 85046; G0103

== ENCOUNTER 2019-10-08 19:24 | Inpatient (IN) | payer MEDICARE, MEDICAID ==
[~2019-10-08] VITALS: Ht 162.6 cm; Wt 58.0 kg
[~2019-10-08 19:24] MED LIST changes: -ASCO50TA PO; -FERR32TA PO; -HIBI4LIQ TOP; -LORA1TAB4 PO; -MUPI2OI NARES; -PERI0.126 PO
--- NOTE | 2019-10-08 20:49 | REPVR ---
PROCEDURE INFORMATION: Exam: XR Complete Acute Abdomen Series Exam date and time: 10/08/2019 8:27 PM Age: 53 years old Clinical indication: Constipation; Additional info: General illness; Constipation vs obstruction TECHNIQUE: Imaging protocol: XR complete acute abdomen series, including 2 or more views of the abdomen and a single view chest. COMPARISON: CR Chest, 1 view 05/07/2019 8:15 PM FINDINGS: Lungs: Normal. No consolidation. Pleural space: Normal. No pneumothorax. Heart/Mediastinum: Cardiomegaly. Gastrointestinal tract: Impacted feces in the rectum. Moderate fecal retention in the remainder of the colon. No small bowel obstruction. Intraperitoneal space: Surgical clips in the right upper quadrant. Organs: There are gallstones present. Bones/joints: Normal. No acute fracture. Soft tissues: Normal. IMPRESSION: 1. There are gallstones present. 2. Impacted feces in the rectum. Moderate fecal retention in the remainder of the colon. 3. Cardiomegaly. Electronically signed by: Kalpesh Rm On 10/08/2019 20:49:46 PM
[2019-10-08 20:53] LABS: BASO % 0.4 % (0.0-1.0); EOS # 0.1 10^3/uL (0.0-0.5); EOS % 1.3 % (0.0-3.0); LYMPH # 1.9 10^3/uL (1.5-5.0); LYMPH % 41.4 % (24.0-44.0); MONO # 0.8 10^3/uL (0.0-0.8); MONO % 17.3 % (0.0-5.0); NEUTROPHILS # 1.8 10^3/uL (1.5-8.5); NEUTROPHILS % 39.4 % (36.0-66.0); PLATELET COUNT, AUTOMATED 336 10^3/uL (150-450); WHITE BLOOD COUNT 4.5 10^3/uL (4.0-10.0)
[2019-10-08 20:59] LABS: HEMATOCRIT 20.8 % (42.0-52.0); HEMOGLOBIN 5.4 g/dl (13.5-17.5)
[2019-10-08 21:04] LABS: INR 1.05; PROTHROMBIN TIME 13.4 SECONDS (11.8-14.0)
[2019-10-08 21:05] LABS: PARTIAL THROMBOPLASTIN TIME 21.3 SECONDS (25.0-38.4)
[2019-10-08 21:33] LABS: ALBUMIN 2.7 GM/DL (3.2-5.2); ALT/SGPT 20 U/L (12-78); BILIRUBIN,DIRECT < 0.1 MG/DL (0.0-0.2); BILIRUBIN,TOTAL 0.1 MG/DL (0.2-1.0); BLOOD UREA NITROGEN 35 MG/DL (7-18); CALCIUM LEVEL 8.6 MG/DL (8.5-10.1); CARBON DIOXIDE LEVEL 30 MEQ/L (21-32); CHLORIDE LEVEL 115 MEQ/L (98-107); CK-MB VALUE MASS 3.1 NG/ML (<3.6); CPK CREATINE PHOSPHOKINASE 51 U/L (39-308); CREATININE FOR GFR 0.83 MG/DL (0.70-1.30); GLOMERULAR FILTRATION RATE > 60.0 (>56); GLUCOSE, FASTING 100 MG/DL (70-100); MB/CK RELATIVE INDEX 6.08 (< OR =4); POTASSIUM SERUM 4.9 MEQ/L (3.5-5.1); SODIUM LEVEL 151 MEQ/L (136-145); TOTAL PROTEIN 7.1 GM/DL (6.4-8.2); TROPONIN I < 0.02 NG/ML (< 0.10); VALPROIC ACID (DEPAKOTE) 58.9 UG/ML (50.0-100.0)
[2019-10-08] MEDS ORDERED: LORA1TAB4 PO (22:11)
[2019-10-08] MEDS ORDERED: PANT40TA3 PO (22:13)
[2019-10-08 22:29] LABS: FERRITIN 5 NG/ML (26-388); IRON (FE) 13 UG/DL (65-175); TOTAL IRON BINDING CAPACITY 438 UG/DL (250-450)
[2019-10-08 22:58] VITALS: BP 102/58
[2019-10-08] MEDS ORDERED: LORazepam 1 MG TAB PO PRN (23:00)
[2019-10-08] MEDS ORDERED: IRON SUCROSE 100MG 5ML VIAL (J1756 PER 1MG) IV ONE (23:00)
[2019-10-08] MEDS ORDERED: NS 0.45% 1,000 ML IV SCH (23:00)
--- NOTE | 2019-10-08 23:04 | HPEPDOC ---
[facility] Medical History & Physical Date of Admission Oct 08, 2019 Date of Service: Oct 08, 2019 Attending Physician: SMITH PHAM MD History and Physical CHIEF COMPLAINT: Sent to the hospital for anemia HISTORY OF PRESENT ILLNESS: 53-year-old male with past medical history of mental disability, cerebral palsy, hyperlipidemia and chronic constipation was sent to the hospital by primary care physician for anemia. Patient is nonverbal, food counselor at bedside to provide information. Patient is reportedly been having lower extremity swelling for the past couple of weeks and his color was becoming pale, labs done this morning show hemoglobin of 6, which is dropped to 5.4 in the ER at this time. As per food counselor, patient is at his baseline, no change consultant the past few weeks, last BM was 4 days ago, nonbloody. Patient has not had any other signs of bleeding at home. Patient appears comfortable. PAST MEDICAL HISTORY: 1. Cerebral palsy. 2. Mental retardation. 3. Hyperlipidemia. 4. Chronic constipation PAST SURGICAL HISTORY: 1. Unknown abdominal surgery. SOCIAL HISTORY: Never smoker. No alcohol use. No drug use FAMILY HISTORY: Unknown ALLERGIES: Please see below. REVIEW OF SYSTEMS: Unable to perform HOME MEDICATIONS: Please see below. PHYSICAL EXAMINATION: VITAL SIGNS: Please see below. GENERAL: No distress, frail HEENT: Dry mucous membranes NECK: Supple CARDIOVASCULAR EXAMINATION: S1, S2 RESPIRATORY EXAMINATION: Scattered rhonchi, wheezing ABDOMINAL EXAMINATION: Soft, nontender, nondistended,. Hypoactive bowel sounds EXTREMITIES: Bilateral lower extremity pitting edema SKIN: No rash NEUROLOGICAL EXAMINATION: Unable to assess, contracted PSYCHIATRIC EXAMINATION: Calm LABORATORY DATA: See below. IMAGING: Abdominal x-ray showing significant stool burden and constipation MICROBIOLOGY: Please see below. ASSESSMENT: 53-year-old male with past medical history of mental disability, cerebral palsy, hyperlipidemia and chronic constipation is being admitted for anemia. PLAN: 1. Anemia. No obvious blood loss, order to receive 2 units of packed low blood cells, severely iron deficient, IV iron infusion ordered, will monitor H&H and further management based on clinical progression. 2. Cerebral palsy. Continue home regimen 3. Hyperlipidemia. Continue statin DVT prophylaxis: Lovenox. GI prophylaxis: Home PPI Vital Signs Vital Signs Date Time Temp Pulse Resp B/P (MAP) Pulse Ox O2 Delivery O2 Flow Rate FiO2 10/08/19 20:10 10/08/19 19:24 98.7 116 20 97 Room Air Laboratory Data Labs 24H Laboratory Tests 2 10/08/19 20:43: Immature Granulocyte % (Auto) 0.2, Neutrophils (%) (Auto) 39.4, Lymphocytes (%) (Auto) 41.4, Monocytes (%) (Auto) 17.3H, Eosinophils (%) (Auto) 1.3, Basophils (%) (Auto) 0.4, Neutrophils # (Auto) 1.8, Lymphocytes # (Auto) 1.9, Monocytes # (Auto) 0.8, Eosinophils # (Auto) 0.1, Basophils # (Auto) 0.0, Nucleated Red Bloo d Cells % (auto) 0.0, Prothrombin Time 13.4, Prothromb Time International Ratio 1.05, Activated Partial Thromboplast Time 21.3L, Anion Gap 6L, Glomerular Filtration Rate > 60.0, Calcium Level 8.6, Iron Level 13L, Total Iron Binding Capacity 438, Transferrin % Saturation 3.0L, Ferritin 5L, Total Bilirubin 0.1L, Direct Bilirubin < 0.1, Aspartate Amino Transf (AST/SGOT) 12, Alanine Aminotransferase (ALT/SGPT) 20, Alkaline Phosphatase 73, Total Creatine Kinase 51, Creatine Kinase MB 3.1, Creatine Kinase MB Relative Index 6.08H, Troponin I < 0.02, Total Protein 7.1, Albumin 2.7L, Albumin/Globulin Ratio 0.6, Thyroid Stimulating Hormone (TSH) 2.400, Valproic Acid (Depakene) Level 58.9 CBC/BMP Laboratory Tests 10/08/19 20:43 Home Medications Scheduled Calcium Carbonate/Vitamin D3 (Calcium 500-Vit D3 200 Tablet) 1 Each Tablet, 1 TAB PO BID Divalproex Sodium (Depakote ER) 500 Mg Tab, 500 MG PO BID Ergocalciferol (Vitamin D2) (Vitamin D2) 50,000 Units Cap, 50,000 UNITS PO QMONTH TAKES FIFTH OF EVERY MONTH Levothyroxine Sodium (Synthroid) 25 Mcg Tab, 25 MCG PO QPM TAKES AT 1600 Lubiprostone (Amitiza) 24 Mcg Cap, 24 MCG PO BID Pantoprazole Sodium (Pantoprazole Sodium) 40 Mg Tablet.dr, 40 MG PO DAILY Polyethylene Glycol 3350 (Miralax) 1 Pow Pow, 17 GM PO DAILY Pravastatin Sodium (Pravastatin Sodium) 20 Mg Tab, 20 MG PO QHS Primidone (Mysoline) 50 Mg Tab, 50 MG PO BID Sennosides/Docusate Sodium (Senna-S Tablet) 1 Each Tablet, 2 TAB PO BID Trazodone HCl (Trazodone HCl) 50 Mg Tab, 50 MG PO QHS Scheduled PRN Lorazepam (Lorazepam) 1 Mg Tablet, 0.5 MG PO DAILYPRN PRN for ANXIETY/AGITATION PRN PRIOR TO APPOINTMENTS Allergies Coded Allergies: No Known Allergies (Unverified , 10/05/18) A-FIB/CHADSVASC A-FIB History Current/History of A-Fib/PAF?: No SMITH PHAM MD Oct 08, 2019 23:04
[2019-10-08 23:15] VITALS: BP 107/60
[2019-10-09] VITALS (19 sets, daily range): BP systolic 80–118; BP diastolic 31–84
[2019-10-09] MEDS: IRON SUCROSE 100 MG in NS 100 ML OVER 1 HR IV SCH ×2 (01:05→08:31)
[2019-10-09] MEDS: LEVOTHYROXINE 25MCG TABLET (0.025MG) PO SCH ×2 (05:36→05:56)
[2019-10-09 06:54] LABS: MEAN CORPUSCULAR HEMOGLOBIN 23.8 pg (27.0-33.0); MEAN CORPUSCULAR HGB CONC 29.6 g/dl (32.0-36.5); MEAN CORPUSCULAR VOLUME 80.4 fl (80.0-96.0); PLATELET COUNT, AUTOMATED 271 10^3/uL (150-450); RED BLOOD COUNT 3.36 10^6/uL (4.30-6.10); WHITE BLOOD COUNT 4.4 10^3/uL (4.0-10.0)
[2019-10-09 07:24] LABS: ALBUMIN 2.6 GM/DL (3.2-5.2); ALT/SGPT 15 U/L (12-78); BILIRUBIN,TOTAL 0.2 MG/DL (0.2-1.0); BLOOD UREA NITROGEN 28 MG/DL (7-18); CALCIUM LEVEL 8.2 MG/DL (8.5-10.1); CARBON DIOXIDE LEVEL 29 MEQ/L (21-32); CHLORIDE LEVEL 116 MEQ/L (98-107); CREATININE FOR GFR 0.72 MG/DL (0.70-1.30); GLOMERULAR FILTRATION RATE > 60.0 (>56); GLUCOSE, FASTING 68 MG/DL (70-100); MAGNESIUM LEVEL 1.9 MG/DL (1.8-2.4); POTASSIUM SERUM 4.1 MEQ/L (3.5-5.1); SODIUM LEVEL 150 MEQ/L (136-145); TOTAL PROTEIN 6.5 GM/DL (6.4-8.2)
[2019-10-09 07:42] LABS: FERRITIN 7 NG/ML (26-388); IRON (FE) 415 UG/DL (65-175); PERCENT SATURATION 96.5 % (19.7-50.0); TOTAL IRON BINDING CAPACITY 430 UG/DL (250-450)
[2019-10-09] MEDS: DIVALPROEX 500MG *ER* TAB PO SCH ×2 (08:04→20:10)
[2019-10-09] MEDS: MIRALAX *UNIT DOSE* 17GM PACKET PO SCH (08:04)
[2019-10-09] MEDS: PRIMIDONE 50 MG TAB PO SCH ×2 (08:04→20:10)
[2019-10-09] MEDS: SENOKOT S TAB PO SCH ×2 (08:04→20:10)
[2019-10-09] MEDS: CALCIUM/VITAMIN D 500 MG TAB PO SCH ×2 (08:04→20:10)
[2019-10-09] MEDS: ENOXAPARIN 40MG/0.4ML SYRINGE (J1650 PER 10MG) SC SCH (08:04)
[2019-10-09] MEDS ORDERED: NS 0.45% 1,000 ML IV ONE (09:00)
[2019-10-09] MEDS ORDERED: PANTOPRAZOLE 40MG TAB (PROTONIX) PO SCH (09:00)
[2019-10-09] MEDS ORDERED: IRON SUCROSE 100MG 5ML VIAL (J1756 PER 1MG) IV SCH (09:00)
[2019-10-09] MEDS: NS 0.45% 1,000 ML IV SCH (10:23)
--- NOTE | 2019-10-09 10:32 | IPN ---
DATE OF SERVICE: 10/09/2019 The patient is nonverbal at baseline and was scratching the right antecubital fossa and trying to remove his intravenous (IV) site. Registered nurse (RN) has been made aware. Bacitracin to be placed at the excoriated skin. Temperature 98.3, pulse 75, respiratory rate 18, blood pressure 112/84, 98% on room air. Generally, the patient is nonverbal, awake, alert, oriented. Unable to respond to questioning. Anicteric sclerae. No jaundice. No jugular venous distention (JVD) or thyromegaly. Appears his stated age. Poor dentition. Dry mucous membranes. No cervical lymphadenopathy or thyromegaly. Lungs are clear to auscultation. No wheezing or rales. Heart: S1, S2, sinus rhythm. Abdomen: Is soft, nontender, nondistended. Extremities: Have no pitting edema. LABORATORY DATA: Complete blood count (CBC) and metabolic panel have been reviewed. Notable for anemia, hemoglobin of 8. Sodium of 150. ASSESSMENT AND PLAN: This is a 53-year-old male, history of cerebral palsy, mental retardation, nonverbal at baseline, hyperlipidemia, and chronic constipation, brought in due to significant anemia, heme negative stool, had a bowel movement 4 days ago which was nonbloody. IMPRESSION: 1. Anemia, status post 2 units red blood cell (RBC) transfusion. Iron deficient. The patient will need 2 more units of RBC. Continue with fluid hydration. 2. Hypernatremia. Dehydration. Change to half-normal saline. Monitor metabolic panel every 6 hours. 3. Mental retardation and cerebral palsy. Nonverbal at baseline. Review of systems cannot be obtained. 4. Chronic constipation. Bowel regimen. MTDD
[2019-10-09 12:55] LABS: BLOOD UREA NITROGEN 25 MG/DL (7-18); CALCIUM LEVEL 7.6 MG/DL (8.5-10.1); CARBON DIOXIDE LEVEL 27 MEQ/L (21-32); CHLORIDE LEVEL 117 MEQ/L (98-107); CREATININE FOR GFR 0.67 MG/DL (0.70-1.30); GLOMERULAR FILTRATION RATE > 60.0 (>56); GLUCOSE, FASTING 89 MG/DL (70-100); POTASSIUM SERUM 3.8 MEQ/L (3.5-5.1); SODIUM LEVEL 149 MEQ/L (136-145)
--- NOTE | 2019-10-09 16:08 | ECGEPIP ---
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
[2019-10-09] MEDS: traZODone 50 MG TAB PO SCH (20:10)
[2019-10-09] MEDS: PRAVASTATIN 20 MG TAB PO SCH (20:10)
[2019-10-09 22:35] LABS: BLOOD UREA NITROGEN 19 MG/DL (7-18); CALCIUM LEVEL 7.6 MG/DL (8.5-10.1); CARBON DIOXIDE LEVEL 26 MEQ/L (21-32); CHLORIDE LEVEL 115 MEQ/L (98-107); CREATININE FOR GFR 0.64 MG/DL (0.70-1.30); GLOMERULAR FILTRATION RATE > 60.0 (>56); GLUCOSE, FASTING 96 MG/DL (70-100); POTASSIUM SERUM 3.9 MEQ/L (3.5-5.1); SODIUM LEVEL 148 MEQ/L (136-145)
[2019-10-10 01:04] LABS: BLOOD UREA NITROGEN 18 MG/DL (7-18); CALCIUM LEVEL 8.1 MG/DL (8.5-10.1); CARBON DIOXIDE LEVEL 27 MEQ/L (21-32); CHLORIDE LEVEL 112 MEQ/L (98-107); CREATININE FOR GFR 0.62 MG/DL (0.70-1.30); GLOMERULAR FILTRATION RATE > 60.0 (>56); GLUCOSE, FASTING 74 MG/DL (70-100); POTASSIUM SERUM 3.9 MEQ/L (3.5-5.1); SODIUM LEVEL 145 MEQ/L (136-145)
[2019-10-10] MEDS: NS 0.45% 1,000 ML IV SCH (01:56)
[2019-10-10] MEDS: LEVOTHYROXINE 25MCG TABLET (0.025MG) PO SCH (05:43)
[2019-10-10 06:00] VITALS: BP 113/55
[2019-10-10] MEDS ORDERED: diphenhydrAMINE 25MG CAP PO ONE (06:00)
[2019-10-10 06:13] LABS: BLOOD UREA NITROGEN 16 MG/DL (7-18); CALCIUM LEVEL 8.1 MG/DL (8.5-10.1); CARBON DIOXIDE LEVEL 26 MEQ/L (21-32); CHLORIDE LEVEL 114 MEQ/L (98-107); CREATININE FOR GFR 0.66 MG/DL (0.70-1.30); GLOMERULAR FILTRATION RATE > 60.0 (>56); GLUCOSE, FASTING 73 MG/DL (70-100); POTASSIUM SERUM 3.7 MEQ/L (3.5-5.1); SODIUM LEVEL 146 MEQ/L (136-145)
[2019-10-10] MEDS ORDERED: NS 0.45% 1,000 ML IV ONE (07:45)
[2019-10-10] MEDS ORDERED: NS 0.45% 1,000 ML IV SCH (07:45)
[2019-10-10 07:51] LABS: HEMATOCRIT 33.7 % (42.0-52.0); MEAN CORPUSCULAR HEMOGLOBIN 23.8 pg (27.0-33.0); MEAN CORPUSCULAR HGB CONC 30.3 g/dl (32.0-36.5); MEAN CORPUSCULAR VOLUME 78.7 fl (80.0-96.0); PLATELET COUNT, AUTOMATED 254 10^3/uL (150-450); RED BLOOD COUNT 4.28 10^6/uL (4.30-6.10); WHITE BLOOD COUNT 4.8 10^3/uL (4.0-10.0)
[2019-10-10 07:56] LABS: HEMOGLOBIN 10.2 g/dl (13.5-17.5)
[2019-10-10] MEDS ORDERED: SENOKOT S TAB PO SCH (09:00)
[2019-10-10] MEDS: ENOXAPARIN 40MG/0.4ML SYRINGE (J1650 PER 10MG) SC SCH (09:07)
[2019-10-10] MEDS: DIVALPROEX 500MG *ER* TAB PO SCH ×2 (09:07→21:50)
[2019-10-10] MEDS: PANTOPRAZOLE 40MG VIAL (C9113 PER 1) IV SCH ×2 (09:07→21:50)
[2019-10-10] MEDS: SENOKOT S TAB PO SCH ×2 (09:07→21:49)
[2019-10-10] MEDS: BISACODYL 10 MG SUPP PR SCH ×2 (09:08→21:50)
[2019-10-10] MEDS: CALCIUM/VITAMIN D 500 MG TAB PO SCH ×3 (09:08→21:49)
[2019-10-10] MEDS: MIRALAX *UNIT DOSE* 17GM PACKET PO SCH (09:08)
[2019-10-10] MEDS: MOM 30ML SUSPENSION UDC PO SCH ×3 (09:08→21:50)
[2019-10-10] MEDS: PRIMIDONE 50 MG TAB PO SCH ×2 (09:08→21:50)
[2019-10-10 12:59] LABS: BLOOD UREA NITROGEN 14 MG/DL (7-18); CALCIUM LEVEL 8.3 MG/DL (8.5-10.1); CARBON DIOXIDE LEVEL 26 MEQ/L (21-32); CHLORIDE LEVEL 113 MEQ/L (98-107); CREATININE FOR GFR 0.68 MG/DL (0.70-1.30); GLOMERULAR FILTRATION RATE > 60.0 (>56); GLUCOSE, FASTING 91 MG/DL (70-100); POTASSIUM SERUM 4.1 MEQ/L (3.5-5.1); SODIUM LEVEL 144 MEQ/L (136-145)
[2019-10-10 14:00] VITALS: BP 114/56
--- NOTE | 2019-10-10 17:17 | IPN ---
DATE OF SERVICE: 10/10/2019 Patient remains nonverbal with cerebral palsy requiring assistance with all his meals. Despite being on intravenous fluids patient continues to have severe hypernatremia and dehydration, but improved from admission. Patient did receive a total of 4 units of red blood cells (RBCs) due to severe anemia with presenting hemoglobin of 5.4. Review of systems could not be obtained as the patient is nonverbal. He is awake with purposeful movement with contractions. Mitts had to be placed due to patient trying to remove his right antecubital peripheral IV. Afebrile overnight. Temperature 97.3, pulse 54, respiratory rate 16, blood pressure 113/55, 96% on room air. Generally, the patient is nonverbal, appears older than stated age, anicteric. No jaundice. No jugular venous distention (JVD). No thyromegaly. Lungs are clear to auscultation. No wheezing, rales, or rhonchi. Heart: S1, S2, sinus rhythm. Abdomen is soft, nontender, nondistended. Extremities: No cyanosis or clubbing. LABORATORY DATA: 10/10/2019 complete blood count (CBC) and metabolic panel, CBC is still pending, metabolic panel is notable for sodium 146, previous admission sodium of 150, potassium 2.7, chloride 114, bicarbonate 26, BUN 16, creatinine 0.6, glucose of 73. Patient was positive 4.6 liters. Current weight is 57.2 kg. Abdominal x-ray on 10/08/2019, gallstones present, impacted feces in the rectum, moderate fecal retention. ASSESSMENT AND PLAN: This is a 53-year-old male with history of cerebral palsy, mental retardation, nonverbal at baseline, hyperlipidemia, and chronic constipation brought in due to severe anemia, hemoglobin of 5, status post 5 units RBC transfusion, heme negative stool, healthcare proxy from sister has refused endoscopy from previous admission in April 2019. CURRENT ISSUES: 1. Anemia most likely a gastrointestinal (GI) bleed but heme negative stool times one, status post 4 units of RBC transfusion. Her CBC is still pending. Monitor for active GI bleed. Currently on proton pump inhibitor (PPI). 2. Fecal impaction. On bowel regimen. 3. Dehydration with hypernatremia. Sodium of 150. Currently on IV fluids with basic metabolic panel (BMP) every 6 hours. 4. Mental retardation and cerebral palsy. Nonverbal at baseline. 5. MRSA positive. contact precaution MTDD
[2019-10-10 19:05] LABS: HEMATOCRIT 36.4 % (42.0-52.0)
[2019-10-10 19:30] LABS: BLOOD UREA NITROGEN 13 MG/DL (7-18); CALCIUM LEVEL 7.9 MG/DL (8.5-10.1); CARBON DIOXIDE LEVEL 26 MEQ/L (21-32); CHLORIDE LEVEL 114 MEQ/L (98-107); GLOMERULAR FILTRATION RATE > 60.0 (>56); GLUCOSE, FASTING 127 MG/DL (70-100); POTASSIUM SERUM 4.1 MEQ/L (3.5-5.1); SODIUM LEVEL 146 MEQ/L (136-145)
[2019-10-10] MEDS: traZODone 50 MG TAB PO SCH (21:49)
[2019-10-10] MEDS: PRAVASTATIN 20 MG TAB PO SCH (21:50)
[2019-10-10 22:00] VITALS: BP 124/61
[2019-10-11 00:25] LABS: HEMATOCRIT 33.6 % (42.0-52.0); HEMOGLOBIN 10.4 g/dl (13.5-17.5)
[2019-10-11 00:32] LABS: BLOOD UREA NITROGEN 14 MG/DL (7-18); CALCIUM LEVEL 7.9 MG/DL (8.5-10.1); CARBON DIOXIDE LEVEL 29 MEQ/L (21-32); CHLORIDE LEVEL 111 MEQ/L (98-107); CREATININE FOR GFR 0.74 MG/DL (0.70-1.30); GLOMERULAR FILTRATION RATE > 60.0 (>56); GLUCOSE, FASTING 115 MG/DL (70-100); POTASSIUM SERUM 3.7 MEQ/L (3.5-5.1); SODIUM LEVEL 143 MEQ/L (136-145)
[2019-10-11 06:00] VITALS: BP 104/61
[2019-10-11] MEDS: LEVOTHYROXINE 25MCG TABLET (0.025MG) PO SCH (06:02)
[2019-10-11 06:27] LABS: HEMATOCRIT 34.9 % (42.0-52.0); HEMOGLOBIN 10.6 g/dl (13.5-17.5); MEAN CORPUSCULAR HEMOGLOBIN 23.8 pg (27.0-33.0); MEAN CORPUSCULAR HGB CONC 30.4 g/dl (32.0-36.5); MEAN CORPUSCULAR VOLUME 78.3 fl (80.0-96.0); PLATELET COUNT, AUTOMATED 256 10^3/uL (150-450); RED BLOOD COUNT 4.46 10^6/uL (4.30-6.10); WHITE BLOOD COUNT 4.8 10^3/uL (4.0-10.0)
[2019-10-11 06:57] LABS: BLOOD UREA NITROGEN 15 MG/DL (7-18); CALCIUM LEVEL 7.9 MG/DL (8.5-10.1); CARBON DIOXIDE LEVEL 28 MEQ/L (21-32); CHLORIDE LEVEL 113 MEQ/L (98-107); CREATININE FOR GFR 0.65 MG/DL (0.70-1.30); GLOMERULAR FILTRATION RATE > 60.0 (>56); GLUCOSE, FASTING 67 MG/DL (70-100); POTASSIUM SERUM 4.1 MEQ/L (3.5-5.1); SODIUM LEVEL 145 MEQ/L (136-145)
[2019-10-11] MEDS: MIRALAX *UNIT DOSE* 17GM PACKET PO SCH (09:00)
[2019-10-11] MEDS ORDERED: ASCORBIC ACID 500 MG TAB PO SCH (09:00)
[2019-10-11] MEDS ORDERED: FERROUS GLUCONATE 324 MG TAB PO SCH (09:00)
[2019-10-11] MEDS: DIVALPROEX 500MG *ER* TAB PO SCH (09:36)
[2019-10-11] MEDS: PANTOPRAZOLE 40MG VIAL (C9113 PER 1) IV SCH (09:36)
[2019-10-11] MEDS: CALCIUM/VITAMIN D 500 MG TAB PO SCH (09:36)
[2019-10-11] MEDS: ENOXAPARIN 40MG/0.4ML SYRINGE (J1650 PER 10MG) SC SCH (09:36)
[2019-10-11] MEDS: PRIMIDONE 50 MG TAB PO SCH (09:36)
[2019-10-11] MEDS ORDERED: ASCO50TA PO (13:44)
[2019-10-11] MEDS ORDERED: FERR32TA PO (13:44)
[2019-10-11] MEDS ORDERED: MIRA3350 PO (13:46)
[2019-10-11] MEDS ORDERED: MUPI2OI NARES (13:57)
[2019-10-11] MEDS ORDERED: HIBI4LIQ TOP (13:57)
[2019-10-11] MEDS ORDERED: PERI0.126 PO (13:57)
[2019-10-11 14:00] VITALS: BP 108/61
--- NOTE | 2019-10-11 14:05 | DS.PDOC ---
Discharge Summary General Date of Admission Oct 08, 2019 at 22:52 Date of Discharge 10/11/19 Primary Care Physician: Jose Elias Garcias M.D. Attending Physician: Rachna Jarrett MD Discharge Summary HISTORY OF PRESENT ILLNESS: 53-year-old male with past medical history of mental disability, cerebral palsy, hyperlipidemia and chronic constipation was sent to the hospital by primary care physician for anemia. Patient is nonverbal, community administrator at bedside to provide information. Patient is reportedly been having lower extremity swelling for the past couple of weeks and his color was becoming pale, labs done this morning show hemoglobin of 6, which is dropped to 5.4 in the ER at this time. As per community administrator, patient is at his baseline, no drying rack changer the past few weeks, last BM was 4 days ago, nonbloody. Patient has not had any other signs of bleeding at home. Patient appears comfortable. HOSPITAL COURSE: He had no signs or symptoms of acute bleeding during his evaluation here. He underwent transfusion s/p 4 units RBC transfusion which showed improvement in H/H significantly. Healthcare proxy - sister had refused endoscopy from previous admission in April 2019. Occult blood was neg. Iron was found to be low and patient was given venofer infusion. Sodium was elevated as high as 151 but this improved with treatment slowly. MRSA was found to be positive. By 10/11/19 all patient's labs had significantly improved and patient was discharged home. He had previously been on ferrous sulfate supplementation but was stopped in the past due to constipation. He was restarted on this medication BID with an aggressive bowel regimen along with vitamin C. He was given chlorhexidine mouthwash and bodywash along with mupirocin 2 % to be applied to nares to begin decolonization of MRSA. Will give 1 months amount of medication for decolonization but then PCP should continue for 5 additional months. At the time of discharge, patient was in no acute distress. WE are advising to f/u with PCP and GI or heme/onc after discharge from hospital. ROS: Unable to obtain due to baseline mental status. PAST MEDICAL HISTORY: 1. Cerebral palsy. 2. Mental retardation. 3. Hyperlipidemia. 4. Chronic constipation PAST SURGICAL HISTORY: 1. Unknown abdominal surgery. SOCIAL HISTORY: Never smoker. No alcohol use. 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 FAMILY HISTORY: Unknown ALLERGIES: Please see below. DISCHARGE MEDICATIONS: Please see below. PHYSICAL EXAMINATION: CONSTITUTIONAL: No acute distress, resting comfortably in bed, no communicative verbally EYES: PERRLA, EOM intact HENT, MOUTH: Normocephalic, atraumatic, moist mucous membranes NECK: SUPPLE, no JVD, no lymphadenopathy, no carotid bruit CV: Regular rate and rhythm, S1S2 normal, no murmurs/rubs/gallops RESPIRATORY: Clear to auscultation bilaterally, no rales/rhonchi/wheezes GI: BS positive in 4 quadrants, soft, nontender, nondistended, no rebound or guarding, no organomegaly : Deferred MUSCULOSKELETAL: Normal ROM. No cyanosis, clubbing, swelling, joint deformity, extremity edema INTEGUMENTARY: Intact, no rashes, no lesions, no erythema NEUROLOGIC: Contracted ext- baseline. no focal deficits PSYCHIATRIC: Mood and affect are at his baseline LABORATORY DATA: Please see below IMAGING: Abdominal x-ray showing significant stool burden and constipation ASSESSMENT: 53 y/o M treated for iron deficiency anemia, chronic and who tested + for MRSA, oralia. PLAN: 1. Iron deficiency anemia, chronic. Cannot r/o intermittent GI bleed but heme negative stool times one, status post 4 units of RBC transfusion and IV venofer. Restarted PO iron supplement, PPI, vitamin C. Will need close f/u by PCP with CBC. Consider GI or heme/onc referral as outpatient if H/H decline further. 2. Chronic constipation. Monitor while on ferrous sulfate, encourage PO intake. C/w discharge bowel regimen. 3. Dehydration with hypernatremia- resolved. Sodium of 151 earlier, currently normal. Encourage fluids Q2 hrs while at [facility]. 4. Cerebral palsy. Nonverbal at baseline. Stable. 5. MRSA positive. No other active infection to be concerned of at this time. Decolonization regimen of chlorhexidine mouth wash BID, chlorhexidine body wash daily and mupirocin to nares is implemented. Follow MRSA protocol per facility. DISPOSITION: Discharging back to [facility]. Encouraging f/u with PCP within 1-2 weeks after discharge. Occult blood neg this hospital stay so no acute bleed likely. Will likely need f/u with either heme/oncology or GI to further workup anemia. TIME SPENT ON DISCHARGE: Greater than 30 minutes. Vital Signs/I&Os Vital Signs Date Time Temp Pulse Resp B/P (MAP) Pulse Ox O2 Delivery O2 Flow Rate FiO2 10/11/19 06:00 98.0 64 18 104/61 (75) 95 Room Air 10/09/19 04:50 97 I&O- Last 24 Hours up to 6 AM 10/11/19 06:00 Intake Total 1660 ml Output Total 0 ml Balance 1660 ml Laboratory Data Labs 24H Laboratory Tests 2 10/10/19 18:51: Anion Gap 6L, Glomerular Filtration Rate > 60.0, Calcium Level 7.9L 10/10/19 23:54: Anion Gap 3L, Glomerular Filtration Rate > 60.0, Calcium Level 7.9L 10/11/19 05:53: Anion Gap 4L, Glomerular Filtration Rate > 60.0, Calcium Level 7.9L, Nucleated Red Blood Cells % (auto) 0.0 CBC/BMP Laboratory Tests 10/10/19 18:51 10/10/19 23:54 10/11/19 05:53 Microbiology Microbiology 10/09/19 Stool Occult Blood (BRITTNEY) - Final, Complete Discharge Medications Scheduled Ascorbic Acid (Vitamin C) 500 Mg Tablet, 500 MG PO DAILY Calcium Carbonate/Vitamin D3 (Calcium 500-Vit D3 200 Tablet) 1 Each Tablet, 1 TAB PO BID, (Reported) Chlorhexidine Gluconate (Hibiclens) 118 Ml Liquid, 4 % TOP DAILY Chlorhexidine Gluconate (Peridex) 473 Ml Mouthwash, 15 ML PO BID Divalproex Sodium (Depakote ER) 500 Mg Tab, 500 MG PO BID, (Reported) Ergocalciferol (Vitamin D2) (Vitamin D2) 50,000 Units Cap, 50,000 UNITS PO QMONTH, (Reported) TAKES FIFTH OF EVERY MONTH Ferrous Gluconate (Ferrous Gluconate) 324 Mg Tablet, 324 MG PO BID Levothyroxine Sodium (Synthroid) 25 Mcg Tab, 25 MCG PO QPM, (Reported) TAKES AT 1600 Lubiprostone (Amitiza) 24 Mcg Cap, 24 MCG PO BID, (Reported) Mupirocin (Mupirocin) 22 Gm Oint...g., 2 % NARES BID Pantoprazole Sodium (Pantoprazole Sodium) 40 Mg Tablet.dr, 40 MG PO DAILY, (Reported) Polyethylene Glycol 3350 (Miralax) 1 Pow Pow, 17 GM PO DAILY, (Reported) Pravastatin Sodium (Pravastatin Sodium) 20 Mg Tab, 20 MG PO QHS, (Reported) Primidone (Mysoline) 50 Mg Tab, 50 MG PO BID, (Reported) Sennosides/Docusate Sodium (Senna-S Tablet) 1 Each Tablet, 2 TAB PO BID, (Reported) Trazodone HCl (Trazodone HCl) 50 Mg Tab, 50 MG PO QHS, (Reported) Scheduled PRN Lorazepam (Lorazepam) 1 Mg Tablet, 0.5 MG PO DAILYPRN PRN for ANXIETY/AGITATION, (Reported) PRN PRIOR TO APPOINTMENTS Polyethylene Glycol 3350 (Miralax) 119 Gm Powder, 17 GM PO DAILY PRN for CONSTIPATION dilute in 8 ounces of water or juice Allergies Coded Allergies: No Known Allergies (Unverified , 10/05/18) Rachna Jarrett MD Oct 11, 2019 14:05
== END 2019-10-11 16:05 | disposition home or self-care (01) | DRG 812 ==
LOC: M ED 19:24 → M ED INP 22:52 → ENRESERV 23:08 → M MSPAV 10-09 00:11
PROVIDERS: ADMIT Internal Medicine; ATTEND Internal Medicine
PROC: 30233N1 Transfusion of Nonautologous Red Blood Cells into Peripheral Vein, Percutaneous Approach (ICD-10-PCS; principal; 2019-10-08)
DX: D50.9 Iron deficiency anemia, unspecified (principal); E87.0 Hyperosmolality and hypernatremia; G80.9 Cerebral palsy, unspecified; E86.0 Dehydration; F79 Unspecified intellectual disabilities; E78.5 Hyperlipidemia, unspecified; K59.09 Other constipation; K56.41 Fecal impaction; B95.62 Methicillin resistant Staphylococcus aureus infection as the cause of diseases classified elsewhere; Z79.899 Other long term (current) drug therapy

== ENCOUNTER → 2019-10-08 | Outpatient (CLI) | payer MEDICARE, MEDICAID ==
[~2019-10-08] MED LIST changes: +ASCO50TA PO; +FERR32TA PO; +HIBI4LIQ TOP; +HYDR-4468 PO; -HYDR-4513 PO; +LORA1TAB4 PO; +MUPI2OI NARES; +PERI0.126 PO
[2019-10-08 18:12] LABS: ALT/SGPT 21 U/L (12-78); BILIRUBIN,TOTAL 0.1 MG/DL (0.2-1.0); BLOOD UREA NITROGEN 26 MG/DL (7-18); CARBON DIOXIDE LEVEL 31 MEQ/L (21-32); CHLORIDE LEVEL 113 MEQ/L (98-107); CREATININE FOR GFR 0.78 MG/DL (0.70-1.30); FREE T4 0.79 NG/DL (0.76-1.46); GLOMERULAR FILTRATION RATE > 60.0 (>56); GLUCOSE, FASTING 75 MG/DL (70-100); MAGNESIUM LEVEL 2.1 MG/DL (1.8-2.4); NT-PRO BNP 278 PG/ML (<125); POTASSIUM SERUM 4.7 MEQ/L (3.5-5.1); SODIUM LEVEL 149 MEQ/L (136-145); TOTAL PROTEIN 7.6 GM/DL (6.4-8.2)
[2019-10-08 18:28] LABS: HEMATOCRIT 22.3 % (42.0-52.0); WHITE BLOOD COUNT 4.4 10^3/uL (4.0-10.0)
[2019-10-08 18:29] LABS: MEAN CORPUSCULAR HGB CONC 26.9 g/dl (32.0-36.5); MEAN CORPUSCULAR VOLUME 74.3 fl (80.0-96.0); PLATELET COUNT, AUTOMATED 362 10^3/uL (150-450)
[2019-10-08 19:22] LABS: ATYPICAL LYMPH 1 % (0-5); EOSINOPHILS 6 % (0-3); LYMPHOCYTES 60 % (16-44); MONOCYTES 9 % (0-5); NEUTROPHILS 24 % (28-66)
[2019-10-08 19:23] LABS: HYPOCHROMASIA 2+; PLATELET ESTIMATE NORMAL (NORMAL)
[2019-10-08 19:24] LABS: ANISOCYTOSIS 2+; MICROCYTOSIS 2+
[2019-10-08 19:25] LABS: PLATELET CLUMPS SMALL AMT
[2019-10-10 11:49] LABS: VITAMIN B12 LEVEL 661 PG/ML (247-911)
== END ==
LOC: M WUC 10:26
PROVIDERS: ATTEND Family Medicine
DX: E03.9 Hypothyroidism, unspecified (principal)

== ENCOUNTER → 2019-10-13 | Outpatient (REF) | payer MEDICARE, MEDICAID ==
[~2019-10-13] MED LIST changes: +ASCO50TA PO; +FERR32TA PO; +HIBI4LIQ TOP; +LORA1TAB4 PO; +MUPI2OI NARES; +PANT40TA29 PO; -PANT40TA3 PO; +PERI0.126 PO
[2019-10-13 18:44] LABS: BASO # 0.1 10^3/uL (0.0-0.2); BASO % 0.8 % (0.0-1.0); EOS # 0.2 10^3/uL (0.0-0.5); EOS % 2.9 % (0.0-3.0); HEMATOCRIT 41.3 % (42.0-52.0); HEMOGLOBIN 12.3 g/dl (13.5-17.5); LYMPH # 2.6 10^3/uL (1.5-5.0); LYMPH % 39.4 % (24.0-44.0); MEAN CORPUSCULAR HEMOGLOBIN 24.2 pg (27.0-33.0); MEAN CORPUSCULAR HGB CONC 29.8 g/dl (32.0-36.5); MEAN CORPUSCULAR VOLUME 81.3 fl (80.0-96.0); MONO # 1.1 10^3/uL (0.0-0.8); MONO % 16.4 % (0.0-5.0); NEUTROPHILS # 2.6 10^3/uL (1.5-8.5); NEUTROPHILS % 39.9 % (36.0-66.0); PLATELET COUNT, AUTOMATED 268 10^3/uL (150-450); RED BLOOD COUNT 5.08 10^6/uL (4.30-6.10); WHITE BLOOD COUNT 6.6 10^3/uL (4.0-10.0)
== END ==
LOC: M SFHCPLAZ 15:20
PROVIDERS: ATTEND Family Medicine
DX: D50.9 Iron deficiency anemia, unspecified (principal)

== ENCOUNTER 2019-10-25 15:33 | Outpatient (CLI) | payer MEDICARE, MEDICAID ==
[~2019-10-25] VITALS: Ht 162.6 cm; Wt 68.0 kg
[~2019-10-25 15:33] MED LIST changes: -PANT40TA29 PO; +PANT40TA3 PO
[2019-10-25] MEDS ORDERED: ZOLEDRONIC ACID 5 MG in IV 1 EA IV ONE (15:45)
== END 2019-10-25 16:35 | disposition home or self-care (01) ==
LOC: M INFU 15:33
PROVIDERS: ATTEND Family Medicine
DX: M81.8 Other osteoporosis without current pathological fracture (principal)
CPT/HCPCS: 96365; J3489

== ENCOUNTER → 2019-11-16 | Outpatient (CLI) | payer MEDICARE, MEDICAID ==
[~2019-11-16] MED LIST changes: +PANT40TA29 PO; -PANT40TA3 PO
[2019-11-16 16:26] LABS: BASO % 0.7 % (0.0-1.0); EOS # 0.2 10^3/uL (0.0-0.5); EOS % 3.2 % (0.0-3.0); HEMATOCRIT 40.6 % (42.0-52.0); HEMOGLOBIN 12.4 g/dl (13.5-17.5); LYMPH # 2.4 10^3/uL (1.5-5.0); LYMPH % 44.8 % (24.0-44.0); MEAN CORPUSCULAR HEMOGLOBIN 26.6 pg (27.0-33.0); MEAN CORPUSCULAR HGB CONC 30.5 g/dl (32.0-36.5); MEAN CORPUSCULAR VOLUME 86.9 fl (80.0-96.0); MONO # 0.9 10^3/uL (0.0-0.8); NEUTROPHILS # 1.8 10^3/uL (1.5-8.5); NEUTROPHILS % 34.3 % (36.0-66.0); PLATELET COUNT, AUTOMATED 181 10^3/uL (150-450); RED BLOOD COUNT 4.67 10^6/uL (4.30-6.10); WHITE BLOOD COUNT 5.3 10^3/uL (4.0-10.0)
[2019-11-16 16:50] LABS: VALPROIC ACID (DEPAKOTE) 77.8 UG/ML (50.0-100.0)
== END ==
LOC: M WUC 15:01
PROVIDERS: ATTEND Physician Assistant Medical
DX: G40.89 Other seizures (principal); R25.1 Tremor, unspecified; Z51.81 Encounter for therapeutic drug level monitoring

== ENCOUNTER → 2019-12-15 | Outpatient (CLI) | payer MEDICARE, MEDICAID ==
[2019-12-15 14:25] LABS: BASO % 0.7 % (0.0-1.0); EOS # 0.1 10^3/uL (0.0-0.5); EOS % 1.5 % (0.0-3.0); HEMATOCRIT 40.4 % (42.0-52.0); HEMOGLOBIN 12.4 g/dl (13.5-17.5); LYMPH # 2.1 10^3/uL (1.5-5.0); LYMPH % 38.8 % (24.0-44.0); MEAN CORPUSCULAR HEMOGLOBIN 28.1 pg (27.0-33.0); MEAN CORPUSCULAR HGB CONC 30.7 g/dl (32.0-36.5); MEAN CORPUSCULAR VOLUME 91.4 fl (80.0-96.0); MONO # 1.1 10^3/uL (0.0-0.8); MONO % 19.2 % (0.0-5.0); NEUTROPHILS # 2.2 10^3/uL (1.5-8.5); NEUTROPHILS % 39.6 % (36.0-66.0); PLATELET COUNT, AUTOMATED 261 10^3/uL (150-450); RED BLOOD COUNT 4.42 10^6/uL (4.30-6.10); WHITE BLOOD COUNT 5.5 10^3/uL (4.0-10.0)
[2019-12-15 16:01] LABS: FERRITIN 12 NG/ML (26-388); IRON (FE) 42 UG/DL (65-175)
== END ==
LOC: M WUC 09:08
PROVIDERS: ATTEND Physician Assistant Medical
DX: D50.9 Iron deficiency anemia, unspecified (principal)

== ENCOUNTER → 2020-02-28 | Outpatient (CLI) | payer MEDICARE, MEDICAID ==
[2020-02-28 09:51] LABS: BASO % 0.7 % (0.0-1.0); EOS # 0.2 10^3/uL (0.0-0.5); EOS % 2.7 % (0.0-3.0); HEMATOCRIT 48.1 % (42.0-52.0); HEMOGLOBIN 14.8 g/dl (13.5-17.5); LYMPH # 2.7 10^3/uL (1.5-5.0); LYMPH % 48.9 % (24.0-44.0); MEAN CORPUSCULAR HEMOGLOBIN 29.2 pg (27.0-33.0); MEAN CORPUSCULAR HGB CONC 30.8 g/dl (32.0-36.5); MEAN CORPUSCULAR VOLUME 94.9 fl (80.0-96.0); MONO # 0.7 10^3/uL (0.0-0.8); MONO % 13.5 % (0.0-5.0); NEUTROPHILS # 1.9 10^3/uL (1.5-8.5); PLATELET COUNT, AUTOMATED 211 10^3/uL (150-450); RED BLOOD COUNT 5.07 10^6/uL (4.30-6.10); WHITE BLOOD COUNT 5.5 10^3/uL (4.0-10.0)
[2020-02-28 10:35] LABS: ALBUMIN 3.4 GM/DL (3.2-5.2); ALT/SGPT 28 U/L (12-78); BILIRUBIN,TOTAL 0.2 MG/DL (0.2-1.0); BLOOD UREA NITROGEN 29 MG/DL (7-18); CALCIUM LEVEL 9.2 MG/DL (8.5-10.1); CARBON DIOXIDE LEVEL 32 MEQ/L (21-32); CHLORIDE LEVEL 114 MEQ/L (98-107); CHOLESTEROL LEVEL 146 MG/DL (<200); CHOLESTEROL RISK RATIO 2.354 (<5); CREATININE FOR GFR 0.94 MG/DL (0.70-1.30); FERRITIN 16 NG/ML (26-388); FREE T4 0.83 NG/DL (0.76-1.46); GLOMERULAR FILTRATION RATE > 60.0 (>56); GLUCOSE, FASTING 66 MG/DL (70-100); HDL CHOLESTEROL 62 MG/DL (>40); LDL CHOLESTEROL 69 MG/DL (<100); NON-HDL-C 84 MG/DL; POTASSIUM SERUM 4.6 MEQ/L (3.5-5.1); PTH INTACT 68.1 PG/ML (18.5-88.0); SODIUM LEVEL 149 MEQ/L (136-145); TOTAL PROTEIN 7.7 GM/DL (6.4-8.2); TRIGLYCERIDES LEVEL 75 MG/DL (<150); VALPROIC ACID (DEPAKOTE) 88.6 UG/ML (50.0-100.0); VITAMIN B12 LEVEL 1037 PG/ML (247-911)
== END ==
LOC: M WUC 08:25
PROVIDERS: ATTEND Family Medicine
DX: E55.9 Vitamin D deficiency, unspecified (principal); E78.2 Mixed hyperlipidemia; D50.9 Iron deficiency anemia, unspecified; G40.509 Epileptic seizures related to external causes, not intractable, without status epilepticus

== ENCOUNTER → 2020-05-14 | Outpatient (CLI) | payer MEDICARE, MEDICAID ==
[~2020-05-14] MED LIST changes: +ACET-838 PO; -NON-325T5 PO
[2020-05-14 12:17] LABS: BASO # 0.1 10^3/uL (0.0-0.2); BASO % 0.9 % (0.0-1.0); EOS # 0.1 10^3/uL (0.0-0.5); EOS % 1.7 % (0.0-3.0); HEMATOCRIT 48.8 % (42.0-52.0); HEMOGLOBIN 15.3 g/dl (13.5-17.5); LYMPH # 2.5 10^3/uL (1.5-5.0); MEAN CORPUSCULAR HEMOGLOBIN 30.7 pg (27.0-33.0); MEAN CORPUSCULAR HGB CONC 31.4 g/dl (32.0-36.5); MONO # 0.7 10^3/uL (0.0-0.8); MONO % 13.4 % (0.0-5.0); NEUTROPHILS # 2.1 10^3/uL (1.5-8.5); NEUTROPHILS % 37.8 % (36.0-66.0); PLATELET COUNT, AUTOMATED 221 10^3/uL (150-450); RED BLOOD COUNT 4.98 10^6/uL (4.30-6.10); WHITE BLOOD COUNT 5.4 10^3/uL (4.0-10.0)
[2020-05-14 12:52] LABS: VALPROIC ACID (DEPAKOTE) 81.9 UG/ML (50.0-100.0)
== END ==
LOC: M WUC 09:15
PROVIDERS: ATTEND Physician Assistant Medical
DX: G40.909 Epilepsy, unspecified, not intractable, without status epilepticus (principal); Z79.899 Other long term (current) drug therapy

== ENCOUNTER → 2020-06-06 | Outpatient (REF) | payer MEDICARE, MEDICAID | LOC: M WUC 11:45 | PROVIDERS: ATTEND Physician Assistant Medical | DX: Z79.899 Other long term (current) drug therapy (principal); R56.9 Unspecified convulsions ==

== ENCOUNTER → 2020-06-06 | Outpatient (CLI) | payer MEDICARE, MEDICAID ==
[2020-06-06 12:04] LABS: BASO % 0.7 % (0.0-1.0); EOS # 0.1 10^3/uL (0.0-0.5); EOS % 2.3 % (0.0-3.0); HEMATOCRIT 47.4 % (42.0-52.0); LYMPH # 2.3 10^3/uL (1.5-5.0); LYMPH % 40.8 % (24.0-44.0); MEAN CORPUSCULAR HEMOGLOBIN 31.4 pg (27.0-33.0); MEAN CORPUSCULAR HGB CONC 31.6 g/dl (32.0-36.5); MEAN CORPUSCULAR VOLUME 99.2 fl (80.0-96.0); MONO # 0.8 10^3/uL (0.0-0.8); MONO % 14.7 % (0.0-5.0); NEUTROPHILS # 2.3 10^3/uL (1.5-8.5); NEUTROPHILS % 41.1 % (36.0-66.0); PLATELET COUNT, AUTOMATED 194 10^3/uL (150-450); RED BLOOD COUNT 4.78 10^6/uL (4.30-6.10); WHITE BLOOD COUNT 5.6 10^3/uL (4.0-10.0)
[2020-06-06 13:13] LABS: ALBUMIN 3.4 GM/DL (3.2-5.2); ALT/SGPT 22 U/L (12-78); BILIRUBIN,TOTAL 0.2 MG/DL (0.2-1.0); BLOOD UREA NITROGEN 24 MG/DL (7-18); CALCIUM LEVEL 9.6 MG/DL (8.5-10.1); CARBON DIOXIDE LEVEL 31 MEQ/L (21-32); CHLORIDE LEVEL 112 MEQ/L (98-107); CREATININE FOR GFR 0.85 MG/DL (0.70-1.30); FERRITIN 43 NG/ML (26-388); GLOMERULAR FILTRATION RATE > 60.0 (>56); GLUCOSE, FASTING 72 MG/DL (70-100); POTASSIUM SERUM 4.4 MEQ/L (3.5-5.1); SODIUM LEVEL 150 MEQ/L (136-145); TOTAL PROTEIN 7.9 GM/DL (6.4-8.2); VALPROIC ACID (DEPAKOTE) 72.9 UG/ML (50.0-100.0)
== END ==
LOC: M WUC 08:57
PROVIDERS: ATTEND Family Medicine
DX: G40.909 Epilepsy, unspecified, not intractable, without status epilepticus (principal); D50.9 Iron deficiency anemia, unspecified; E03.9 Hypothyroidism, unspecified; Z12.5 Encounter for screening for malignant neoplasm of prostate; Z79.899 Other long term (current) drug therapy
CPT/HCPCS: 36415; 80053; 80164; 80188; 82728; 84439; 84443; 85025; G0103

== ENCOUNTER → 2020-06-11 | Outpatient (REF) | payer MEDICARE, MEDICAID ==
[2020-06-11 14:38] LABS: BLOOD UREA NITROGEN 23 MG/DL (7-18); CALCIUM LEVEL 9.6 MG/DL (8.5-10.1); CARBON DIOXIDE LEVEL 31 MEQ/L (21-32); CHLORIDE LEVEL 108 MEQ/L (98-107); CREATININE FOR GFR 0.78 MG/DL (0.70-1.30); GLOMERULAR FILTRATION RATE > 60.0 (>56); GLUCOSE, FASTING 81 MG/DL (70-100); POTASSIUM SERUM 4.7 MEQ/L (3.5-5.1); SODIUM LEVEL 145 MEQ/L (136-145)
== END ==
LOC: M SFHCPLAZ 10:47
PROVIDERS: ATTEND Physician Assistant
DX: E87.0 Hyperosmolality and hypernatremia (principal)

== ENCOUNTER → 2020-09-06 | Outpatient (CLI) | payer MEDICARE, MEDICAID ==
[~2020-09-06] MED LIST changes: -ACET-838 PO; +ACET32TAB PO; +BACTDSTA PO; +ERGO500029 PO; +OMEP40CA4 PO; -OMEP40CA97 PO; -SULF1TAB93 PO; -VITA50005 PO
[2020-09-06 16:16] LABS: BASO % 0.7 % (0.0-1.0); EOS # 0.1 10^3/uL (0.0-0.5); EOS % 2.1 % (0.0-3.0); HEMATOCRIT 43.2 % (42.0-52.0); HEMOGLOBIN 13.6 g/dl (13.5-17.5); LYMPH % 38.1 % (24.0-44.0); MEAN CORPUSCULAR HEMOGLOBIN 30.5 pg (27.0-33.0); MEAN CORPUSCULAR HGB CONC 31.5 g/dl (32.0-36.5); MEAN CORPUSCULAR VOLUME 96.9 fl (80.0-96.0); MONO # 0.8 10^3/uL (0.0-0.8); MONO % 15.5 % (2.0-8.0); NEUTROPHILS # 2.3 10^3/uL (1.5-8.5); NEUTROPHILS % 43.4 % (36.0-66.0); PLATELET COUNT, AUTOMATED 250 10^3/uL (150-450); RED BLOOD COUNT 4.46 10^6/uL (4.30-6.10); WHITE BLOOD COUNT 5.4 10^3/uL (4.0-10.0)
[2020-09-06 16:42] LABS: ALBUMIN 2.9 GM/DL (3.2-5.2); BLOOD UREA NITROGEN 20 MG/DL (7-18); C REACTIVE PROTEIN QUANTITATIV 0.78 MG/DL (0.00-0.30); CALCIUM LEVEL 9.1 MG/DL (8.5-10.1); CARBON DIOXIDE LEVEL 31 MEQ/L (21-32); CHLORIDE LEVEL 107 MEQ/L (98-107); CHOLESTEROL LEVEL 133 MG/DL (<200); CHOLESTEROL RISK RATIO 3.093 (<5); CPK CREATINE PHOSPHOKINASE 52 U/L (39-308); CREATININE FOR GFR 0.79 MG/DL (0.70-1.30); FERRITIN 20 NG/ML (26-388); GLOMERULAR FILTRATION RATE > 60.0 (>56); GLUCOSE, FASTING 79 MG/DL (70-100); HDL CHOLESTEROL 43 MG/DL (>40); LDL CHOLESTEROL 62 MG/DL (<100); NON-HDL-C 90 MG/DL; PHOSPHORUS LEVEL 3.4 MG/DL (2.5-4.9); POTASSIUM SERUM 4.5 MEQ/L (3.5-5.1); SODIUM LEVEL 142 MEQ/L (136-145); TRIGLYCERIDES LEVEL 142 MG/DL (<150); VALPROIC ACID (DEPAKOTE) 82.3 UG/ML (50.0-100.0)
[2020-09-06 16:49] LABS: PTH INTACT 47.7 PG/ML (18.5-88.0); TOTAL 25(OH) VITAMIN D 69.9 NG/ML (30.0-100.0)
== END ==
LOC: M WUC 14:21
PROVIDERS: ATTEND Family Medicine
DX: E78.2 Mixed hyperlipidemia (principal); D50.9 Iron deficiency anemia, unspecified; G40.909 Epilepsy, unspecified, not intractable, without status epilepticus; E55.9 Vitamin D deficiency, unspecified

== ENCOUNTER → 2020-09-06 | Outpatient (CLI) | payer MEDICARE, MEDICAID ==
[2020-09-06 16:15] LABS: BASO # 0.1 10^3/uL (0.0-0.2); BASO % 0.9 % (0.0-1.0); EOS # 0.1 10^3/uL (0.0-0.5); EOS % 2.1 % (0.0-3.0); HEMATOCRIT 43.1 % (42.0-52.0); HEMOGLOBIN 13.5 g/dl (13.5-17.5); LYMPH % 37.4 % (24.0-44.0); MEAN CORPUSCULAR HEMOGLOBIN 30.4 pg (27.0-33.0); MEAN CORPUSCULAR HGB CONC 31.3 g/dl (32.0-36.5); MEAN CORPUSCULAR VOLUME 97.1 fl (80.0-96.0); MONO # 0.8 10^3/uL (0.0-0.8); MONO % 15.1 % (2.0-8.0); NEUTROPHILS # 2.3 10^3/uL (1.5-8.5); NEUTROPHILS % 44.1 % (36.0-66.0); PLATELET COUNT, AUTOMATED 246 10^3/uL (150-450); RED BLOOD COUNT 4.44 10^6/uL (4.30-6.10); WHITE BLOOD COUNT 5.3 10^3/uL (4.0-10.0)
[2020-09-06 16:43] LABS: ALT/SGPT 16 U/L (12-78); BILIRUBIN,TOTAL 0.2 MG/DL (0.2-1.0); BLOOD UREA NITROGEN 20 MG/DL (7-18); CARBON DIOXIDE LEVEL 32 MEQ/L (21-32); CHLORIDE LEVEL 105 MEQ/L (98-107); CREATININE FOR GFR 0.76 MG/DL (0.70-1.30); GLOMERULAR FILTRATION RATE > 60.0 (>56); GLUCOSE, FASTING 75 MG/DL (70-100); POTASSIUM SERUM 4.6 MEQ/L (3.5-5.1); SODIUM LEVEL 141 MEQ/L (136-145); TOTAL PROTEIN 7.6 GM/DL (6.4-8.2); VALPROIC ACID (DEPAKOTE) 84.7 UG/ML (50.0-100.0)
== END ==
LOC: M WUC 14:25
PROVIDERS: ATTEND Physician Assistant Medical
DX: G40.909 Epilepsy, unspecified, not intractable, without status epilepticus (principal); R25.1 Tremor, unspecified; E78.2 Mixed hyperlipidemia; D50.9 Iron deficiency anemia, unspecified; E55.9 Vitamin D deficiency, unspecified; Z51.81 Encounter for therapeutic drug level monitoring; Z79.899 Other long term (current) drug therapy

== ENCOUNTER → 2020-10-22 | Outpatient (CLI) | payer MEDICARE, MEDICAID | LOC: M WHC 10:52 | PROVIDERS: ATTEND Family Medicine | DX: M81.0 Age-related osteoporosis without current pathological fracture (principal); Z53.8 Procedure and treatment not carried out for other reasons ==

== ENCOUNTER 2020-11-05 12:53 | Outpatient (CLI) | payer MEDICARE, MEDICAID ==
[2020-11-05] MEDS ORDERED: ZOLEDRONIC ACID 5 MG in IV 1 EA IV ONE (13:00)
== END 2020-11-05 14:00 | disposition home or self-care (01) ==
LOC: M INFU 12:53
PROVIDERS: ATTEND Family Medicine
DX: M81.0 Age-related osteoporosis without current pathological fracture (principal)
CPT/HCPCS: 96365; J3489

== ENCOUNTER → 2020-11-20 | Outpatient (CLI) | payer MEDICARE, MEDICAID ==
[2020-11-20 10:30] LABS: BASO % 0.6 % (0.0-1.0); EOS # 0.1 10^3/uL (0.0-0.5); EOS % 1.2 % (0.0-3.0); HEMATOCRIT 44.1 % (42.0-52.0); HEMOGLOBIN 14.2 g/dl (13.5-17.5); LYMPH # 1.9 10^3/uL (1.5-5.0); LYMPH % 37.3 % (24.0-44.0); MEAN CORPUSCULAR HEMOGLOBIN 30.7 pg (27.0-33.0); MEAN CORPUSCULAR HGB CONC 32.2 g/dl (32.0-36.5); MEAN CORPUSCULAR VOLUME 95.5 fl (80.0-96.0); MONO # 0.9 10^3/uL (0.0-0.8); MONO % 16.3 % (2.0-8.0); NEUTROPHILS # 2.3 10^3/uL (1.5-8.5); PLATELET COUNT, AUTOMATED 271 10^3/uL (150-450); RED BLOOD COUNT 4.62 10^6/uL (4.30-6.10); WHITE BLOOD COUNT 5.2 10^3/uL (4.0-10.0)
[2020-11-20 10:42] LABS: INR 0.98; PROTHROMBIN TIME 13.2 SECONDS (12.5-14.3)
[2020-11-20 10:43] LABS: PARTIAL THROMBOPLASTIN TIME 28.9 SECONDS (24.2-38.5)
[2020-11-20 10:57] LABS: ALBUMIN 2.9 GM/DL (3.2-5.2); ALT/SGPT 18 U/L (12-78); BILIRUBIN,TOTAL 0.2 MG/DL (0.2-1.0); BLOOD UREA NITROGEN 23 MG/DL (7-18); CALCIUM LEVEL 8.7 MG/DL (8.5-10.1); CARBON DIOXIDE LEVEL 30 MEQ/L (21-32); CHLORIDE LEVEL 112 MEQ/L (98-107); CREATININE FOR GFR 0.74 MG/DL (0.70-1.30); FERRITIN 27 NG/ML (26-388); GLOMERULAR FILTRATION RATE > 60.0 (>56); GLUCOSE, FASTING 69 MG/DL (70-100); NT-PRO BNP 151 PG/ML (<125); POTASSIUM SERUM 4.3 MEQ/L (3.5-5.1); SODIUM LEVEL 144 MEQ/L (136-145); TOTAL PROTEIN 7.3 GM/DL (6.4-8.2); VALPROIC ACID (DEPAKOTE) 84.4 UG/ML (50.0-100.0)
== END ==
LOC: M WUC 08:08
PROVIDERS: ATTEND Family Medicine
DX: Z01.818 Encounter for other preprocedural examination (principal); D50.9 Iron deficiency anemia, unspecified

== ENCOUNTER → 2020-11-27 | Outpatient (CLI) | payer MEDICARE, MEDICAID | LOC: M RAD 10:48 | PROVIDERS: ATTEND Nurse Practitioner Women's Health | DX: N28.1 Cyst of kidney, acquired (principal); N39.0 Urinary tract infection, site not specified ==

== ENCOUNTER → 2021-01-04 | Outpatient (CLI) | payer MEDICARE, MEDICAID | LOC: M LABSMTC 09:57 | PROVIDERS: ATTEND Pediatrics | DX: Z20.822 Contact with and (suspected) exposure to COVID-19 (principal) | CPT/HCPCS: C9803; U0003 ==

== ENCOUNTER → 2021-02-10 | Outpatient (CLI) | payer MEDICARE, MEDICAID ==
[2021-02-10 13:18] LABS: BASO # 0.1 10^3/uL (0.0-0.2); BASO % 0.8 % (0.0-1.0); EOS # 0.1 10^3/uL (0.0-0.5); EOS % 2.3 % (0.0-3.0); HEMATOCRIT 47.4 % (42.0-52.0); HEMOGLOBIN 15.6 g/dl (13.5-17.5); LYMPH # 2.5 10^3/uL (1.5-5.0); MEAN CORPUSCULAR HGB CONC 32.9 g/dl (32.0-36.5); MEAN CORPUSCULAR VOLUME 97.1 fl (80.0-96.0); MONO # 0.9 10^3/uL (0.0-0.8); MONO % 15.6 % (2.0-8.0); NEUTROPHILS # 2.4 10^3/uL (1.5-8.5); NEUTROPHILS % 39.1 % (36.0-66.0); PLATELET COUNT, AUTOMATED 195 10^3/uL (150-450); RED BLOOD COUNT 4.88 10^6/uL (4.30-6.10)
[2021-02-10 13:47] LABS: ALBUMIN 3.2 GM/DL (3.2-5.2); ALT/SGPT 20 U/L (12-78); BILIRUBIN,TOTAL 0.2 MG/DL (0.2-1.0); BLOOD UREA NITROGEN 23 MG/DL (7-18); CALCIUM LEVEL 9.4 MG/DL (8.5-10.1); CARBON DIOXIDE LEVEL 33 MEQ/L (21-32); CHLORIDE LEVEL 111 MEQ/L (98-107); CREATININE FOR GFR 0.93 MG/DL (0.70-1.30); GLOMERULAR FILTRATION RATE > 60.0 (>56); GLUCOSE, FASTING 79 MG/DL (70-100); POTASSIUM SERUM 4.5 MEQ/L (3.5-5.1); SODIUM LEVEL 145 MEQ/L (136-145); TOTAL PROTEIN 7.6 GM/DL (6.4-8.2); VALPROIC ACID (DEPAKOTE) 85.5 UG/ML (50.0-100.0)
== END ==
LOC: M LAB 12:32
PROVIDERS: ATTEND Physician Assistant Medical
DX: G40.89 Other seizures (principal)

== ENCOUNTER → 2021-02-19 | Outpatient (CLI) | payer MEDICARE, MEDICAID ==
[2021-02-19 11:37] LABS: BASO % 0.8 % (0.0-1.0); EOS # 0.1 10^3/uL (0.0-0.5); HEMATOCRIT 49.8 % (42.0-52.0); HEMOGLOBIN 16.1 g/dl (13.5-17.5); MEAN CORPUSCULAR HGB CONC 32.3 g/dl (32.0-36.5); MONO # 0.7 10^3/uL (0.0-0.8); MONO % 12.8 % (2.0-8.0); NEUTROPHILS # 2.3 10^3/uL (1.5-8.5); NEUTROPHILS % 45.2 % (36.0-66.0); PLATELET COUNT, AUTOMATED 154 10^3/uL (150-450); RED BLOOD COUNT 5.03 10^6/uL (4.30-6.10); WHITE BLOOD COUNT 5.1 10^3/uL (4.0-10.0)
[2021-02-19 12:04] LABS: HEMATOCRIT 49.8 % (42.0-52.0)
[2021-02-19 13:05] LABS: ALBUMIN 3.4 GM/DL (3.2-5.2); ALT/SGPT 23 U/L (12-78); BILIRUBIN,TOTAL 0.3 MG/DL (0.2-1.0); BLOOD UREA NITROGEN 21 MG/DL (7-18); CALCIUM LEVEL 9.9 MG/DL (8.5-10.1); CARBON DIOXIDE LEVEL 32 MEQ/L (21-32); CHLORIDE LEVEL 111 MEQ/L (98-107); CREATININE FOR GFR 0.95 MG/DL (0.70-1.30); FERRITIN 29 NG/ML (26-388); GLOMERULAR FILTRATION RATE > 60.0 (>56); GLUCOSE, FASTING 71 MG/DL (70-100); POTASSIUM SERUM 3.9 MEQ/L (3.5-5.1); SODIUM LEVEL 147 MEQ/L (136-145); TOTAL PROTEIN 7.6 GM/DL (6.4-8.2); VALPROIC ACID (DEPAKOTE) 75.1 UG/ML (50.0-100.0)
[2021-02-19 13:07] LABS: PTH INTACT 50.6 PG/ML (18.5-88.0); TOTAL 25(OH) VITAMIN D 73.5 NG/ML (30.0-100.0); VITAMIN B12 LEVEL 959 PG/ML (247-911)
== END ==
LOC: M WUC 08:53
PROVIDERS: ATTEND Family Medicine
DX: E55.9 Vitamin D deficiency, unspecified (principal); G40.909 Epilepsy, unspecified, not intractable, without status epilepticus; D75.89 Other specified diseases of blood and blood-forming organs; Z79.899 Other long term (current) drug therapy

== ENCOUNTER → 2021-07-11 | Outpatient (CLI) | payer MEDICARE, MEDICAID ==
[2021-07-11 11:21] LABS: BASO # 0.1 10^3/uL (0.0-0.2); BASO % 0.8 % (0.0-1.0); EOS # 0.1 10^3/uL (0.0-0.5); EOS % 1.8 % (0.0-3.0); HEMATOCRIT 48.7 % (42.0-52.0); HEMOGLOBIN 16.1 g/dl (13.5-17.5); LYMPH # 2.3 10^3/uL (1.5-5.0); LYMPH % 38.4 % (24.0-44.0); MEAN CORPUSCULAR HEMOGLOBIN 32.5 pg (27.0-33.0); MEAN CORPUSCULAR HGB CONC 33.1 g/dl (32.0-36.5); MEAN CORPUSCULAR VOLUME 98.2 fl (80.0-96.0); MONO # 0.9 10^3/uL (0.0-0.8); MONO % 14.5 % (2.0-8.0); NEUTROPHILS # 2.7 10^3/uL (1.5-8.5); NEUTROPHILS % 44.2 % (36.0-66.0); PLATELET COUNT, AUTOMATED 178 10^3/uL (150-450); RED BLOOD COUNT 4.96 10^6/uL (4.30-6.10); WHITE BLOOD COUNT 6.1 10^3/uL (4.0-10.0)
[2021-07-11 11:53] LABS: C REACTIVE PROTEIN QUANTITATIV < 0.30 MG/DL (0.00-0.30); CHOLESTEROL LEVEL 165 MG/DL (<200); CHOLESTEROL RISK RATIO 3.367 (<5); FREE T4 0.84 NG/DL (0.76-1.46); HDL CHOLESTEROL 49 MG/DL (>40); LDL CHOLESTEROL 94 MG/DL (<100); NON-HDL-C 116 MG/DL; TOTAL PROTEIN 7.2 GM/DL (6.4-8.2); TRIGLYCERIDES LEVEL 109 MG/DL (<150); VALPROIC ACID (DEPAKOTE) 73.1 UG/ML (50.0-100.0)
[2021-07-12 12:58] LABS: ALBUMIN 4.14 GM/DL (3.29-5.55); ALBUMIN % 57.5 % (55.8-66.1); ALPHA-1-GLOBULIN % 3.5 % (2.9-4.9); ALPHA-1-GLOBULINS 0.25 GM/DL (0.17-0.41); ALPHA-2-GLOBULINS 0.65 GM/DL (0.42-0.99); BETA-1-GLOBULINS 0.37 GM/DL (0.28-0.60); BETA-1-GLOBULINS % 5.1 % (4.7-7.2); BETA-2-GLOBULINS 0.38 GM/DL (0.19-0.55); BETA-2-GLOBULINS % 5.3 % (3.2-6.5); GAMMA GLOBULIN % 19.6 % (11.1-18.8); GAMMA GLOBULINS 1.41 GM/DL (0.65-1.58)
== END ==
LOC: M WUC 08:11
PROVIDERS: ATTEND Family Medicine
DX: E78.2 Mixed hyperlipidemia (principal); Z12.5 Encounter for screening for malignant neoplasm of prostate; G40.909 Epilepsy, unspecified, not intractable, without status epilepticus
CPT/HCPCS: 36415; 80061; 80164; 82550; 84165; 84439; 84443; 85025; 86140; G0103

== ENCOUNTER 2021-11-13 10:56 | Outpatient (CLI) | payer MEDICARE, MEDICAID ==
[2021-11-13] MEDS ORDERED: ZOLEDRONIC ACID 5 MG in IV 1 EA IV ONE (11:30)
== END 2021-11-13 11:50 | disposition home or self-care (01) ==
LOC: M INFU 10:56
PROVIDERS: ATTEND Family Medicine
DX: M81.0 Age-related osteoporosis without current pathological fracture (principal)
CPT/HCPCS: 96365; J3489

== ENCOUNTER → 2021-12-17 | Outpatient (CLI) | payer MEDICARE, MEDICAID ==
[2021-12-17 10:47] LABS: BASO # 0.1 10^3/uL (0.0-0.2); BASO % 0.8 % (0.0-1.0); EOS # 0.1 10^3/uL (0.0-0.5); EOS % 2.3 % (0.0-3.0); HEMATOCRIT 46.3 % (42.0-52.0); HEMOGLOBIN 15.4 g/dl (13.5-17.5); LYMPH # 2.3 10^3/uL (1.5-5.0); LYMPH % 37.2 % (24.0-44.0); MEAN CORPUSCULAR HGB CONC 33.3 g/dl (32.0-36.5); MEAN CORPUSCULAR VOLUME 99.1 fl (80.0-96.0); MONO # 0.9 10^3/uL (0.0-0.8); MONO % 14.7 % (2.0-8.0); NEUTROPHILS # 2.7 10^3/uL (1.5-8.5); NEUTROPHILS % 44.7 % (36.0-66.0); PLATELET COUNT, AUTOMATED 201 10^3/uL (150-450); RED BLOOD COUNT 4.67 10^6/uL (4.30-6.10); WHITE BLOOD COUNT 6.1 10^3/uL (4.0-10.0)
[2021-12-17 11:38] LABS: C REACTIVE PROTEIN QUANTITATIV 0.97 MG/DL (0.00-0.30); CHOLESTEROL LEVEL 147 MG/DL (<200); CHOLESTEROL RISK RATIO 2.882 (<5); FREE T4 0.86 NG/DL (0.76-1.46); HDL CHOLESTEROL 51 MG/DL (>40); LDL CHOLESTEROL 71 MG/DL (<100); NON-HDL-C 96 MG/DL; TOTAL PROTEIN 7.4 GM/DL (6.4-8.2); TRIGLYCERIDES LEVEL 124 MG/DL (<150); VALPROIC ACID (DEPAKOTE) 80.8 UG/ML (50.0-100.0)
[2021-12-19 07:58] LABS: ALBUMIN 3.74 GM/DL (3.29-5.55); ALBUMIN % 50.5 % (55.8-66.1); ALPHA-1-GLOBULIN % 4.4 % (2.9-4.9); ALPHA-1-GLOBULINS 0.33 GM/DL (0.17-0.41); ALPHA-2-GLOBULINS 0.78 GM/DL (0.42-0.99); ALPHA-2-GLOBULINS % 10.5 % (7.1-11.8); BETA-1-GLOBULINS 0.46 GM/DL (0.28-0.60); BETA-1-GLOBULINS % 6.2 % (4.7-7.2); BETA-2-GLOBULINS 0.46 GM/DL (0.19-0.55); BETA-2-GLOBULINS % 6.2 % (3.2-6.5); GAMMA GLOBULIN % 22.2 % (11.1-18.8); GAMMA GLOBULINS 1.64 GM/DL (0.65-1.58)
== END ==
LOC: M PLALAB 09:02
PROVIDERS: ATTEND Family Medicine
DX: G40.909 Epilepsy, unspecified, not intractable, without status epilepticus (principal); Z12.5 Encounter for screening for malignant neoplasm of prostate; E78.2 Mixed hyperlipidemia
CPT/HCPCS: 36415; 80061; 80164; 82550; 84165; 84439; 84443; 85025; 86140; G0103

== ENCOUNTER 2022-04-22 09:16 | Emergency (ER) | payer MEDICARE, MEDICAID ==
[~2022-04-22] VITALS: Ht 170.2 cm; Wt 62.3 kg
[2022-04-22 09:44] VITALS: BP 103/57
[2022-04-22] MEDS ORDERED: ACETAMINOPHEN 500 MG TAB PO ONE (12:05)
== END 2022-04-22 12:33 | disposition home or self-care (01) ==
LOC: M ED 09:16
DX: S00.03XA Contusion of scalp, initial encounter (principal); W07.XXXA Fall from chair, initial encounter; G40.89 Other seizures; E78.5 Hyperlipidemia, unspecified; Z79.52 Long term (current) use of systemic steroids; Z79.811 Long term (current) use of aromatase inhibitors; Z79.899 Other long term (current) drug therapy; Y92.009 Unspecified place in unspecified non-institutional (private) residence as the place of occurrence of the external cause; Y93.9 Activity, unspecified; Y99.9 Unspecified external cause status

== ENCOUNTER → 2022-05-21 | Outpatient (CLI) | payer MEDICARE, MEDICAID ==
[2022-05-21 12:52] LABS: BASO % 0.5 % (0.0-1.0); EOS # 0.1 10^3/uL (0.0-0.5); EOS % 1.7 % (0.0-3.0); HEMOGLOBIN 16.1 g/dl (13.5-17.5); LYMPH # 2.5 10^3/uL (1.5-5.0); LYMPH % 42.5 % (24.0-44.0); MEAN CORPUSCULAR HEMOGLOBIN 32.9 pg (27.0-33.0); MEAN CORPUSCULAR HGB CONC 32.2 g/dl (32.0-36.5); MEAN CORPUSCULAR VOLUME 102.2 fl (80.0-96.0); MONO # 0.7 10^3/uL (0.0-0.8); MONO % 11.6 % (2.0-8.0); NEUTROPHILS # 2.5 10^3/uL (1.5-8.5); NEUTROPHILS % 43.5 % (36.0-66.0); PLATELET COUNT, AUTOMATED 148 10^3/uL (150-450); RED BLOOD COUNT 4.89 10^6/uL (4.30-6.10); WHITE BLOOD COUNT 5.8 10^3/uL (4.0-10.0)
[2022-05-21 13:22] LABS: FERRITIN 35.3 NG/ML (10.5-307.3); THYROID STIMULATING HORMONE 2.219 uIU/ML (0.55-4.78); TOTAL 25(OH) VITAMIN D 104.6 NG/ML (20.0-100.0)
[2022-05-21 13:23] LABS: VALPROIC ACID (DEPAKOTE) 51.6 UG/ML (50.0-100.0)
[2022-05-21 13:24] LABS: ALBUMIN 3.4 G/DL (3.2-5.2); ALKALINE PHOSPHATASE 76 U/L (46-116); ALT/SGPT 24 U/L (7.0-40); AST/SGOT 24 U/L (<34); BILIRUBIN,TOTAL 0.3 MG/DL (0.3-1.2); BLOOD UREA NITROGEN 26 MG/DL (9-23); CALCIUM LEVEL 9.4 MG/DL (8.5-10.1); CARBON DIOXIDE LEVEL 34 MMOL/L (20-31); CHLORIDE LEVEL 117 MMOL/L (98-107); CREATININE FOR GFR 0.85 MG/DL (0.70-1.30); FREE T4 0.83 NG/DL (0.89-1.76); GLOMERULAR FILTRATION RATE > 60.0 (>56); GLUCOSE, FASTING 70 MG/DL (60-100); POTASSIUM SERUM 4.6 MMOL/L (3.5-5.1); SODIUM LEVEL 154 MMOL/L (136-145); TOTAL PROTEIN 6.9 G/DL (5.7-8.2)
[2022-05-21 13:26] LABS: VITAMIN B12 LEVEL 206 PG/ML (211-911)
[2022-05-21 13:28] LABS: PTH INTACT 49.9 PG/ML (18.5-88.0)
[2022-05-21 13:29] LABS: IMMUNOGLOBULIN A 322.3 MG/DL (40-350)
[2022-05-21 13:30] LABS: IMMUNOGLOBULIN G 1625 MG/DL (650-1600); IMMUNOGLOBULIN M 161.5 MG/DL (50-300)
[2022-05-21 13:32] LABS: THYROID PEROXIDASE ANTIBODY < 28.0 U/ML (<60.0)
[2022-05-22 18:07] LABS: IMMUNOTYPING SERUM IGA 324 mg/dL (90-386); IMMUNOTYPING SERUM IGG 1559 mg/dL (603-1613); IMMUNOTYPING SERUM IGM 157 mg/dL (20-172)
== END ==
LOC: M WUC 08:55
PROVIDERS: ATTEND Family Medicine
DX: D75.89 Other specified diseases of blood and blood-forming organs (principal); G40.909 Epilepsy, unspecified, not intractable, without status epilepticus; E55.9 Vitamin D deficiency, unspecified; E03.9 Hypothyroidism, unspecified; D50.9 Iron deficiency anemia, unspecified; Z79.899 Other long term (current) drug therapy

== ENCOUNTER → 2022-08-21 | Outpatient (REF) | payer MEDICARE, MEDICAID | LOC: M SFHCPLAZ 16:51 | PROVIDERS: ATTEND Family Medicine | DX: D50.9 Iron deficiency anemia, unspecified (principal); E53.8 Deficiency of other specified B group vitamins; E87.0 Hyperosmolality and hypernatremia ==

== ENCOUNTER → 2022-08-23 | Outpatient (CLI) | payer MEDICARE, MEDICAID ==
[~2022-08-23] MED LIST changes: +LORA1TAB23 PO; -LORA1TAB4 PO
[2022-08-23 09:37] LABS: BASO % 0.7 % (0.0-1.0); EOS # 0.1 10^3/uL (0.0-0.5); EOS % 1.6 % (0.0-3.0); HEMATOCRIT 47.3 % (42.0-52.0); HEMATOCRIT 47.9 % (42.0-52.0); HEMOGLOBIN 15.8 g/dl (13.5-17.5); LYMPH # 1.8 10^3/uL (1.5-5.0); MEAN CORPUSCULAR HEMOGLOBIN 33.3 pg (27.0-33.0); MEAN CORPUSCULAR VOLUME 101.1 fl (80.0-96.0); MONO # 0.8 10^3/uL (0.0-0.8); MONO % 18.8 % (2.0-8.0); NEUTROPHILS # 1.6 10^3/uL (1.5-8.5); NEUTROPHILS % 36.7 % (36.0-66.0); PLATELET COUNT, AUTOMATED 147 10^3/uL (150-450); RED BLOOD COUNT 4.74 10^6/uL (4.30-6.10); WHITE BLOOD COUNT 4.4 10^3/uL (4.0-10.0)
[2022-08-23 10:04] LABS: VALPROIC ACID (DEPAKOTE) 81.3 UG/ML (50.0-100.0)
[2022-08-23 10:06] LABS: ALBUMIN 3.2 G/DL (3.2-5.2); ALKALINE PHOSPHATASE 73 U/L (46-116); ALT/SGPT 33 U/L (7.0-40); AST/SGOT 34 U/L (<34); BILIRUBIN,TOTAL 0.3 MG/DL (0.3-1.2); BLOOD UREA NITROGEN 24 MG/DL (9-23); CALCIUM LEVEL 9.3 MG/DL (8.5-10.1); CARBON DIOXIDE LEVEL 30 MMOL/L (20-31); CHLORIDE LEVEL 113 MMOL/L (98-107); CREATININE FOR GFR 0.77 MG/DL (0.70-1.30); GLOMERULAR FILTRATION RATE > 60.0 (>56); GLUCOSE, FASTING 65 MG/DL (60-100); POTASSIUM SERUM 4.4 MMOL/L (3.5-5.1); SODIUM LEVEL 149 MMOL/L (136-145)
[2022-08-23 10:08] LABS: FERRITIN 39.2 NG/ML (10.5-307.3); VITAMIN B12 LEVEL 829 PG/ML (211-911)
[2022-08-23 10:42] LABS: OSMOLALITY SERUM 313 MOSM/KG (275-295)
== END ==
LOC: M LAB 09:06
PROVIDERS: ATTEND Family Medicine
DX: D50.9 Iron deficiency anemia, unspecified (principal); E53.8 Deficiency of other specified B group vitamins; E87.0 Hyperosmolality and hypernatremia

== ENCOUNTER 2022-12-03 14:25 | Outpatient (CLI) | payer MEDICARE, MEDICAID ==
[2022-12-03] MEDS ORDERED: ZOLEDRONIC ACID 5 MG in IV 1 EA IV ONE (14:45)
== END 2022-12-03 15:30 ==
LOC: M INFU 14:25
PROVIDERS: ATTEND Family Medicine
DX: M81.0 Age-related osteoporosis without current pathological fracture (principal); E55.9 Vitamin D deficiency, unspecified
CPT/HCPCS: 36415; 80069; 96413; J3489

== ENCOUNTER → 2022-12-03 | Outpatient (CLI) | payer MEDICARE, MEDICAID ==
[2022-12-03 12:38] LABS: ALBUMIN 2.9 G/DL (3.2-5.2); BLOOD UREA NITROGEN 22 MG/DL (9-23); CALCIUM LEVEL 8.6 MG/DL (8.5-10.1); CARBON DIOXIDE LEVEL 30 MMOL/L (20-31); CHLORIDE LEVEL 110 MMOL/L (98-107); CREATININE FOR GFR 0.72 MG/DL (0.70-1.30); GLOMERULAR FILTRATION RATE > 60.0 (>56); GLUCOSE, FASTING 74 MG/DL (60-100); PHOSPHORUS LEVEL 2.8 MG/DL (2.5-4.9); POTASSIUM SERUM 4.2 MMOL/L (3.5-5.1); SODIUM LEVEL 146 MMOL/L (136-145)
== END ==
LOC: M WUC 09:13
PROVIDERS: ATTEND Family Medicine
DX: E55.9 Vitamin D deficiency, unspecified (principal)

== ENCOUNTER → 2023-02-13 | Outpatient (CLI) | payer MEDICARE, MEDICAID | LOC: M WUC 11:53 | PROVIDERS: ATTEND Physician Assistant | DX: M79.661 Pain in right lower leg (principal) ==

== ENCOUNTER → 2023-02-26 | Outpatient (REF) | payer MEDICARE, MEDICAID | LOC: M SFHCPLAZ 14:12 | PROVIDERS: ATTEND Family Medicine | DX: E87.0 Hyperosmolality and hypernatremia (principal); D50.9 Iron deficiency anemia, unspecified; E55.9 Vitamin D deficiency, unspecified; E03.9 Hypothyroidism, unspecified; G40.909 Epilepsy, unspecified, not intractable, without status epilepticus; Z12.5 Encounter for screening for malignant neoplasm of prostate ==

== ENCOUNTER → 2023-03-10 | Outpatient (CLI) | payer MEDICARE, MEDICAID ==
[2023-03-10 12:45] LABS: BASO # 0.1 10^3/uL (0.0-0.2); BASO % 0.9 % (0.0-1.0); EOS # 0.1 10^3/uL (0.0-0.5); EOS % 1.4 % (0.0-3.0); HEMATOCRIT 51.9 % (42.0-52.0); HEMOGLOBIN 16.5 g/dl (13.5-17.5); LYMPH # 3.1 10^3/uL (1.5-5.0); LYMPH % 53.8 % (24.0-44.0); MEAN CORPUSCULAR HEMOGLOBIN 32.7 pg (27.0-33.0); MEAN CORPUSCULAR HGB CONC 31.8 g/dl (32.0-36.5); MONO # 0.4 10^3/uL (0.0-0.8); MONO % 7.6 % (2.0-8.0); NEUTROPHILS # 2.1 10^3/uL (1.5-8.5); NEUTROPHILS % 36.1 % (36.0-66.0); PLATELET COUNT, AUTOMATED 150 10^3/uL (150-450); RED BLOOD COUNT 5.04 10^6/uL (4.30-6.10); WHITE BLOOD COUNT 5.8 10^3/uL (4.0-10.0)
[2023-03-10 13:13] LABS: FREE T4 0.86 NG/DL (0.89-1.76); THYROID STIMULATING HORMONE 1.288 uIU/ML (0.55-4.78)
[2023-03-10 13:14] LABS: FERRITIN 65.5 NG/ML (10.5-307.3); TOTAL 25(OH) VITAMIN D 88.1 NG/ML (20.0-100.0); VALPROIC ACID (DEPAKOTE) 88.3 UG/ML (50.0-100.0)
[2023-03-10 13:16] LABS: ALBUMIN 3.4 G/DL (3.2-5.2); ALKALINE PHOSPHATASE 76 U/L (46-116); ALT/SGPT 27 U/L (7.0-40); AST/SGOT 24 U/L (<34); BILIRUBIN,TOTAL 0.4 MG/DL (0.3-1.2); BLOOD UREA NITROGEN 30 MG/DL (9-23); CALCIUM LEVEL 9.7 MG/DL (8.5-10.1); CARBON DIOXIDE LEVEL 33 MMOL/L (20-31); CHLORIDE LEVEL 114 MMOL/L (98-107); CREATININE FOR GFR 0.82 MG/DL (0.70-1.30); GLOMERULAR FILTRATION RATE > 60.0 (>56); GLUCOSE, FASTING 119 MG/DL (60-100); POTASSIUM SERUM 4.3 MMOL/L (3.5-5.1); SODIUM LEVEL 156 MMOL/L (136-145); TOTAL PROTEIN 7.4 G/DL (5.7-8.2)
[2023-03-10 13:19] LABS: PTH INTACT 26.1 PG/ML (18.5-88.0)
== END ==
LOC: M WUC 10:54
PROVIDERS: ATTEND Family Medicine
DX: E87.0 Hyperosmolality and hypernatremia (principal); D50.9 Iron deficiency anemia, unspecified; E55.9 Vitamin D deficiency, unspecified; G40.909 Epilepsy, unspecified, not intractable, without status epilepticus; Z12.5 Encounter for screening for malignant neoplasm of prostate
CPT/HCPCS: 36415; 80053; 80164; 82306; 82728; 83970; 84439; 84443; 85025; G0103

== ENCOUNTER → 2023-07-01 | Outpatient (CLI) | payer MEDICARE, MEDICAID ==
[2023-07-01 13:39] LABS: VALPROIC ACID (DEPAKOTE) 61.1 UG/ML (50.0-100.0)
[2023-07-01 13:40] LABS: ALBUMIN 3.2 G/DL (3.2-5.2); ALKALINE PHOSPHATASE 68 U/L (46-116); ALT/SGPT 25 U/L (7.0-40); AST/SGOT 28 U/L (<34); BILIRUBIN,TOTAL 0.3 MG/DL (0.3-1.2); BLOOD UREA NITROGEN 32 MG/DL (9-23); CALCIUM LEVEL 9.1 MG/DL (8.5-10.1); CARBON DIOXIDE LEVEL 35 MMOL/L (20-31); CHLORIDE LEVEL 117 MMOL/L (98-107); CHOLESTEROL LEVEL 157 MG/DL (<200); CHOLESTEROL RISK RATIO 2.96 (<5); CREATININE FOR GFR 0.81 MG/DL (0.70-1.30); GLOMERULAR FILTRATION RATE > 60.0 (>56); GLUCOSE, FASTING 75 MG/DL (60-100); LDL CHOLESTEROL 85.2 MG/DL (<100); POTASSIUM SERUM 4.5 MMOL/L (3.5-5.1); PTH INTACT 47.4 PG/ML (18.5-88.0); SODIUM LEVEL 152 MMOL/L (136-145); TOTAL PROTEIN 6.7 G/DL (5.7-8.2); TRIGLYCERIDES LEVEL 94 MG/DL (<150)
[2023-07-01 13:41] LABS: THYROID STIMULATING HORMONE 2.639 uIU/ML (0.55-4.78); TOTAL 25(OH) VITAMIN D 62.9 NG/ML (20.0-100.0)
[2023-07-01 13:42] LABS: FERRITIN 69.4 NG/ML (10.5-307.3); FREE T4 0.82 NG/DL (0.89-1.76)
[2023-07-01 13:47] LABS: BASO # 0.1 10^3/uL (0.0-0.2); EOS # 0.2 10^3/uL (0.0-0.5); EOS % 4.6 % (0.0-3.0); HEMATOCRIT 47.9 % (42.0-52.0); HEMOGLOBIN 15.7 g/dl (13.5-17.5); LYMPH # 2.2 10^3/uL (1.5-5.0); LYMPH % 43.4 % (24.0-44.0); MEAN CORPUSCULAR HEMOGLOBIN 33.9 pg (27.0-33.0); MEAN CORPUSCULAR HGB CONC 32.8 g/dl (32.0-36.5); MEAN CORPUSCULAR VOLUME 103.5 fl (80.0-96.0); MONO # 0.5 10^3/uL (0.0-0.8); MONO % 10.5 % (2.0-8.0); NEUTROPHILS % 40.3 % (36.0-66.0); PLATELET COUNT, AUTOMATED 155 10^3/uL (150-450); RED BLOOD COUNT 4.63 10^6/uL (4.30-6.10)
== END ==
LOC: M WUC 09:04
PROVIDERS: ATTEND Family Medicine
DX: E87.0 Hyperosmolality and hypernatremia (principal); E55.9 Vitamin D deficiency, unspecified; G40.909 Epilepsy, unspecified, not intractable, without status epilepticus; E78.2 Mixed hyperlipidemia; E03.9 Hypothyroidism, unspecified; Z86.39 Personal history of other endocrine, nutritional and metabolic disease

== ENCOUNTER → 2023-08-18 | Outpatient (CLI) | payer MEDICARE, MEDICAID ==
[2023-08-18 14:10] LABS: BASO # 0.1 10^3/uL (0.0-0.2); BASO % 1.3 % (0.0-1.0); EOS # 0.1 10^3/uL (0.0-0.5); HEMATOCRIT 46.4 % (42.0-52.0); LYMPH # 2.2 10^3/uL (1.5-5.0); LYMPH % 54.5 % (24.0-44.0); MEAN CORPUSCULAR HEMOGLOBIN 33.9 pg (27.0-33.0); MEAN CORPUSCULAR HGB CONC 32.3 g/dl (32.0-36.5); MONO # 0.5 10^3/uL (0.0-0.8); MONO % 11.5 % (2.0-8.0); NEUTROPHILS # 1.2 10^3/uL (1.5-8.5); NEUTROPHILS % 30.4 % (36.0-66.0); PLATELET COUNT, AUTOMATED 212 10^3/uL (150-450); RED BLOOD COUNT 4.42 10^6/uL (4.30-6.10)
[2023-08-18 14:29] LABS: VALPROIC ACID (DEPAKOTE) 57.6 UG/ML (50.0-100.0)
[2023-08-18 14:34] LABS: ALKALINE PHOSPHATASE 71 U/L (46-116); ALT/SGPT 23 U/L (7.0-40); AST/SGOT 26 U/L (<34); BILIRUBIN,TOTAL 0.3 MG/DL (0.3-1.2); BLOOD UREA NITROGEN 27 MG/DL (9-23); CALCIUM LEVEL 9.6 MG/DL (8.5-10.1); CARBON DIOXIDE LEVEL 33 MMOL/L (20-31); CHLORIDE LEVEL 112 MMOL/L (98-107); CREATININE FOR GFR 0.76 MG/DL (0.70-1.30); GLOMERULAR FILTRATION RATE > 60.0 (>56); GLUCOSE, FASTING 70 MG/DL (60-100); POTASSIUM SERUM 4.2 MMOL/L (3.5-5.1); SODIUM LEVEL 149 MMOL/L (136-145); TOTAL PROTEIN 6.7 G/DL (5.7-8.2)
== END ==
LOC: M WUC 09:07
PROVIDERS: ATTEND Psychiatry & Neurology Neurology
DX: R56.9 Unspecified convulsions (principal)

== ENCOUNTER → 2023-10-30 | Outpatient (CLI) | payer MEDICARE, MEDICAID ==
[2023-10-30 13:53] LABS: BASO % 0.6 % (0.0-1.0); EOS % 0.8 % (0.0-3.0); HEMATOCRIT 50.1 % (42.0-52.0); HEMOGLOBIN 16.3 g/dl (13.5-17.5); LYMPH % 38.3 % (24.0-44.0); MEAN CORPUSCULAR HEMOGLOBIN 33.5 pg (27.0-33.0); MEAN CORPUSCULAR HGB CONC 32.5 g/dl (32.0-36.5); MEAN CORPUSCULAR VOLUME 102.9 fl (80.0-96.0); MONO # 0.7 10^3/uL (0.0-0.8); MONO % 13.3 % (2.0-8.0); NEUTROPHILS # 2.4 10^3/uL (1.5-8.5); NEUTROPHILS % 46.4 % (36.0-66.0); PLATELET COUNT, AUTOMATED 166 10^3/uL (150-450); RED BLOOD COUNT 4.87 10^6/uL (4.30-6.10); WHITE BLOOD COUNT 5.2 10^3/uL (4.0-10.0)
[2023-10-30 14:15] LABS: VALPROIC ACID (DEPAKOTE) 96.2 UG/ML (50.0-100.0)
[2023-10-30 14:16] LABS: ALBUMIN 3.4 G/DL (3.2-5.2); ALKALINE PHOSPHATASE 80 U/L (46-116); ALT/SGPT 22 U/L (7.0-40); AST/SGOT 24 U/L (<34); BILIRUBIN,TOTAL 0.3 MG/DL (0.3-1.2); BLOOD UREA NITROGEN 22 MG/DL (9-23); CALCIUM LEVEL 10.2 MG/DL (8.5-10.1); CARBON DIOXIDE LEVEL 33 MMOL/L (20-31); CHLORIDE LEVEL 110 MMOL/L (98-107); CREATININE FOR GFR 0.69 MG/DL (0.70-1.30); GLOMERULAR FILTRATION RATE > 60.0 (>56); GLUCOSE, FASTING 59 MG/DL (60-100); POTASSIUM SERUM 4.5 MMOL/L (3.5-5.1); SODIUM LEVEL 149 MMOL/L (136-145); TOTAL PROTEIN 7.3 G/DL (5.7-8.2)
[2023-10-30 14:21] LABS: THYROID STIMULATING HORMONE 3.245 uIU/ML (0.55-4.78)
[2023-10-30 14:23] LABS: FREE T4 1.08 NG/DL (0.89-1.76)
== END ==
LOC: M WUC 09:38
PROVIDERS: ATTEND Family Medicine
DX: G40.909 Epilepsy, unspecified, not intractable, without status epilepticus (principal); E03.9 Hypothyroidism, unspecified

== ENCOUNTER → 2023-11-05 | Outpatient (REF) | payer MEDICARE, MEDICAID | LOC: CANPREREF → M SFHCPLAZ 14:17 | PROVIDERS: ATTEND Family Medicine | DX: Z53.9 Procedure and treatment not carried out, unspecified reason (principal) ==

== ENCOUNTER → 2023-12-22 | Outpatient (CLI) | payer MEDICARE, MEDICAID ==
[2023-12-22 16:08] LABS: ALBUMIN 3.3 G/DL (3.2-5.2); ALKALINE PHOSPHATASE 74 U/L (46-116); ALT/SGPT 27 U/L (7.0-40); AST/SGOT 25 U/L (<34); BILIRUBIN,TOTAL 0.3 MG/DL (0.3-1.2); BLOOD UREA NITROGEN 25 MG/DL (9-23); CALCIUM LEVEL 9.5 MG/DL (8.5-10.1); CARBON DIOXIDE LEVEL 30 MMOL/L (20-31); CHLORIDE LEVEL 111 MMOL/L (98-107); CREATININE FOR GFR 0.69 MG/DL (0.70-1.30); GLOMERULAR FILTRATION RATE > 60.0 (>56); GLUCOSE, FASTING 90 MG/DL (60-100); POTASSIUM SERUM 4.2 MMOL/L (3.5-5.1); SODIUM LEVEL 148 MMOL/L (136-145); TOTAL PROTEIN 7.1 G/DL (5.7-8.2)
== END ==
LOC: M PLALAB 13:44
PROVIDERS: ATTEND Family Medicine
DX: M81.0 Age-related osteoporosis without current pathological fracture (principal)

== ENCOUNTER 2024-01-05 13:54 | Outpatient (CLI) | payer MEDICARE, MEDICAID ==
[2024-01-05] MEDS: ZOLEDRONIC ACID 5 MG in IV 1 EA IV ONE (14:16)
== END 2024-01-05 14:45 ==
LOC: M INFU 13:54
PROVIDERS: ATTEND Family Medicine
DX: M81.8 Other osteoporosis without current pathological fracture (principal)
CPT/HCPCS: 96365; J3489

== ENCOUNTER 2024-04-04 17:38 | Emergency (ER) | payer MEDICARE, MEDICAID ==
[~2024-04-04 17:38] MED LIST changes: +ACET1TAB55 PO; +VITA100066 PO; +VITA500T17 PO
[2024-04-04 18:37] LABS: BASO % 0.4 % (0.0-1.0); EOS % 0.6 % (0.0-3.0); HEMATOCRIT 48.7 % (42.0-52.0); HEMOGLOBIN 15.9 g/dl (13.5-17.5); LYMPH # 1.7 10^3/uL (1.5-5.0); LYMPH % 23.1 % (24.0-44.0); MEAN CORPUSCULAR HEMOGLOBIN 33.3 pg (27.0-33.0); MEAN CORPUSCULAR HGB CONC 32.6 g/dl (32.0-36.5); MEAN CORPUSCULAR VOLUME 101.9 fl (80.0-96.0); MONO # 0.7 10^3/uL (0.0-0.8); MONO % 9.9 % (2.0-8.0); NEUTROPHILS # 4.7 10^3/uL (1.5-8.5); NEUTROPHILS % 65.6 % (36.0-66.0); PLATELET COUNT, AUTOMATED 173 10^3/uL (150-450); RED BLOOD COUNT 4.78 10^6/uL (4.30-6.10); WHITE BLOOD COUNT 7.1 10^3/uL (4.0-10.0)
[2024-04-04 18:43] VITALS: TEMP 99.8
[2024-04-04] MEDS: MIDAZOLAM INJ 2MG/2ML VIAL IV ONE (19:48)
[2024-04-04] MEDS: PANTOPRAZOLE 40MG VIAL IV ONE (19:49)
[2024-04-04] MEDS: NS 1,000 ML IV ONE (19:49)
[2024-04-04 20:04] LABS: BLOOD UREA NITROGEN 46 MG/DL (9-23); CALCIUM LEVEL 9.7 MG/DL (8.5-10.1); CARBON DIOXIDE LEVEL 28 MMOL/L (20-31); CHLORIDE LEVEL 115 MMOL/L (98-107); CREATININE FOR GFR 0.66 MG/DL (0.70-1.30); GLOMERULAR FILTRATION RATE > 60.0 (>56); GLUCOSE, FASTING 94 MG/DL (60-100); SODIUM LEVEL 152 MMOL/L (136-145)
[2024-04-04] MEDS ORDERED: ISOVUE-370 76% 100ML VIAL As Ordered ONE (20:09)
[2024-04-04 20:28] LABS: ALBUMIN 2.8 G/DL (3.2-5.2); ALKALINE PHOSPHATASE 64 U/L (40-129); ALT/SGPT 19 U/L (7.0-40); AST/SGOT 21 U/L (<34); BILIRUBIN,DIRECT < 0.1 MG/DL (<0.4); BILIRUBIN,TOTAL 0.2 MG/DL (0.3-1.2); TOTAL PROTEIN 6.7 G/DL (5.7-8.2)
[2024-04-04] MEDS: MIDAZOLAM INJ 2MG/2ML VIAL IV STA (20:56)
[2024-04-04 21:17] LABS: BASO % 0.4 % (0.0-1.0); EOS % 0.1 % (0.0-3.0); HEMATOCRIT 41.9 % (42.0-52.0); LYMPH # 1.1 10^3/uL (1.5-5.0); LYMPH % 13.6 % (24.0-44.0); MEAN CORPUSCULAR HEMOGLOBIN 33.3 pg (27.0-33.0); MEAN CORPUSCULAR HGB CONC 32.2 g/dl (32.0-36.5); MEAN CORPUSCULAR VOLUME 103.5 fl (80.0-96.0); MONO % 11.6 % (2.0-8.0); NEUTROPHILS # 6.2 10^3/uL (1.5-8.5); NEUTROPHILS % 73.8 % (36.0-66.0); PLATELET COUNT, AUTOMATED 125 10^3/uL (150-450); RED BLOOD COUNT 4.05 10^6/uL (4.30-6.10); WHITE BLOOD COUNT 8.3 10^3/uL (4.0-10.0)
[2024-04-04 21:25] LABS: HEMOGLOBIN 13.5 g/dl (13.5-17.5)
[2024-04-04 23:00] LABS: BASO % 0.2 % (0.0-1.0); EOS % 0.1 % (0.0-3.0); HEMATOCRIT 43.7 % (42.0-52.0); HEMOGLOBIN 14.6 g/dl (13.5-17.5); LYMPH # 1.6 10^3/uL (1.5-5.0); LYMPH % 15.3 % (24.0-44.0); MEAN CORPUSCULAR HEMOGLOBIN 33.4 pg (27.0-33.0); MEAN CORPUSCULAR HGB CONC 33.4 g/dl (32.0-36.5); MONO # 1.4 10^3/uL (0.0-0.8); MONO % 13.8 % (2.0-8.0); NEUTROPHILS # 7.1 10^3/uL (1.5-8.5); NEUTROPHILS % 70.2 % (36.0-66.0); PLATELET COUNT, AUTOMATED 150 10^3/uL (150-450); RED BLOOD COUNT 4.37 10^6/uL (4.30-6.10); WHITE BLOOD COUNT 10.1 10^3/uL (4.0-10.0)
[2024-04-04 23:15] VITALS: BP 89/51; O2SAT 96
== END 2024-04-05 00:13 | disposition home or self-care (01) ==
LOC: M ED 17:38
DX: R11.10 Vomiting, unspecified (principal); K29.70 Gastritis, unspecified, without bleeding; E55.9 Vitamin D deficiency, unspecified; K21.9 Gastro-esophageal reflux disease without esophagitis; E78.5 Hyperlipidemia, unspecified; E03.9 Hypothyroidism, unspecified; G40.909 Epilepsy, unspecified, not intractable, without status epilepticus; Z79.1 Long term (current) use of non-steroidal anti-inflammatories (NSAID); Z79.899 Other long term (current) drug therapy
CPT/HCPCS: 71045; 74177; 80048; 80076; 85025; 86850; 86900; 86901; 87486; 87581; 87633; 87798; 96361; 96374; 96375; 96376; 99284; J2250; J2470; Q9967

== ENCOUNTER → 2024-04-08 | Outpatient (CLI) | payer MEDICARE, MEDICAID ==
[2024-04-08 10:23] LABS: BASO % 0.5 % (0.0-1.0); EOS # 0.1 10^3/uL (0.0-0.5); EOS % 1.1 % (0.0-3.0); HEMATOCRIT 37.9 % (42.0-52.0); HEMOGLOBIN 12.4 g/dl (13.5-17.5); LYMPH # 1.8 10^3/uL (1.5-5.0); LYMPH % 29.2 % (24.0-44.0); MEAN CORPUSCULAR HEMOGLOBIN 33.1 pg (27.0-33.0); MEAN CORPUSCULAR HGB CONC 32.7 g/dl (32.0-36.5); MEAN CORPUSCULAR VOLUME 101.1 fl (80.0-96.0); MONO # 0.7 10^3/uL (0.0-0.8); MONO % 10.7 % (2.0-8.0); NEUTROPHILS # 3.6 10^3/uL (1.5-8.5); NEUTROPHILS % 58.2 % (36.0-66.0); PLATELET COUNT, AUTOMATED 160 10^3/uL (150-450); RED BLOOD COUNT 3.75 10^6/uL (4.30-6.10); WHITE BLOOD COUNT 6.2 10^3/uL (4.0-10.0)
[2024-04-08 10:42] LABS: PSA SCREENING 0.79 NG/ML (< 4.00)
[2024-04-08 10:43] LABS: VALPROIC ACID (DEPAKOTE) 56.3 UG/ML (50.0-100.0)
[2024-04-08 10:44] LABS: IRON (FE) 36 UG/DL (65-175); PERCENT SATURATION 13.9 % (19.7-50.0); TOTAL IRON BINDING CAPACITY 259 UG/DL (250-425)
[2024-04-08 10:45] LABS: ALBUMIN 2.6 G/DL (3.2-5.2); ALKALINE PHOSPHATASE 66 U/L (40-129); ALT/SGPT 18 U/L (7.0-40); AST/SGOT 16 U/L (<34); BILIRUBIN,TOTAL 0.3 MG/DL (0.3-1.2); BLOOD UREA NITROGEN 22 MG/DL (9-23); CALCIUM LEVEL 9.3 MG/DL (8.5-10.1); CARBON DIOXIDE LEVEL 30 MMOL/L (20-31); CHLORIDE LEVEL 114 MMOL/L (98-107); CHOLESTEROL LEVEL 142 MG/DL (<200); CHOLESTEROL RISK RATIO 3.34 (<5); CREATININE FOR GFR 0.64 MG/DL (0.70-1.30); GLOMERULAR FILTRATION RATE > 60.0 (>56); GLUCOSE, FASTING 75 MG/DL (60-100); HDL CHOLESTEROL 42.5 MG/DL (>40); LDL CHOLESTEROL 85.9 MG/DL (<100); NON-HDL-C 99.5 MG/DL; POTASSIUM SERUM 4.3 MMOL/L (3.5-5.1); SODIUM LEVEL 151 MMOL/L (136-145); TOTAL PROTEIN 6.3 G/DL (5.7-8.2); TRIGLYCERIDES LEVEL 68 MG/DL (<150)
[2024-04-08 10:46] LABS: FERRITIN 41.5 NG/ML (10.5-307.3)
== END ==
LOC: M WUC 08:47
PROVIDERS: ATTEND Family Medicine
DX: G40.909 Epilepsy, unspecified, not intractable, without status epilepticus (principal); E87.0 Hyperosmolality and hypernatremia; D50.9 Iron deficiency anemia, unspecified; E78.2 Mixed hyperlipidemia; Z12.5 Encounter for screening for malignant neoplasm of prostate
CPT/HCPCS: 36415; 80053; 80061; 80164; 82728; 83550; 84238; 85025; G0103

== ENCOUNTER 2024-04-18 12:18 | Day surgery (SDC) | payer MEDICARE, MEDICAID ==
[~2024-04-18] VITALS: Ht 162.6 cm; Wt 49.0 kg
[2024-04-18] MEDS ORDERED: LR 1,000 ML IV SCH (12:30)
[2024-04-18] MEDS ORDERED: ACETAMINOPHEN 1000MG/100ML IV BAG As Ordered ONE (15:00)
[2024-04-18] MEDS ORDERED: fentaNYL 100 MCG/2 ML INJECTION As Ordered ONE (15:00)
[2024-04-18] MEDS ORDERED: propofoL 200 MG/20 ML VIAL As Ordered ONE (15:02)
[2024-04-18] MEDS ORDERED: LIDOCAINE 2% 100MG/5ML SDV (FOR ANES.) As Ordered ONE (15:02)
[2024-04-18] MEDS ORDERED: ONDANSETRON 4MG 2ML VIAL As Ordered ONE (15:02)
[2024-04-18] MEDS: CIPRODEX OTIC SUSP 7.5ML As Ordered ONE (15:24)
[2024-04-18] MEDS ORDERED: ONDANSETRON 4MG 2ML VIAL IV PRN (15:35)
[2024-04-18] MEDS: fentaNYL 100 MCG/2 ML INJECTION IV PRN (16:02)
[2024-04-18] MEDS: oxyCODONE 5MG TAB PO PRN (16:12)
[2024-04-18 16:56] VITALS: BP 132/67; TEMP 97.9; O2SAT 99
== END 2024-04-18 17:00 | disposition home or self-care (01) ==
LOC: M SDC 12:18
PROVIDERS: ATTEND Otolaryngology
DX: H61.23 Impacted cerumen, bilateral (principal); E03.9 Hypothyroidism, unspecified; E78.00 Pure hypercholesterolemia, unspecified; D50.9 Iron deficiency anemia, unspecified; G80.9 Cerebral palsy, unspecified; R56.9 Unspecified convulsions; Z79.899 Other long term (current) drug therapy; Z79.890 Hormone replacement therapy; K21.9 Gastro-esophageal reflux disease without esophagitis; Z90.49 Acquired absence of other specified parts of digestive tract
CPT/HCPCS: 69210; J0131; J1100; J2405; J3010

== ENCOUNTER → 2024-04-22 | Outpatient (CLI) | payer MEDICARE, MEDICAID ==
[2024-04-22 17:49] LABS: VALPROIC ACID (DEPAKOTE) 80.5 UG/ML (50.0-100.0)
[2024-04-22 17:51] LABS: ALKALINE PHOSPHATASE 65 U/L (40-129); ALT/SGPT 27 U/L (7.0-40); AST/SGOT 24 U/L (<34); BILIRUBIN,TOTAL 0.3 MG/DL (0.3-1.2); BLOOD UREA NITROGEN 31 MG/DL (9-23); CALCIUM LEVEL 9.7 MG/DL (8.5-10.1); CARBON DIOXIDE LEVEL 30 MMOL/L (20-31); CHLORIDE LEVEL 109 MMOL/L (98-107); CREATININE FOR GFR 0.73 MG/DL (0.70-1.30); GLOMERULAR FILTRATION RATE > 60.0 (>56); GLUCOSE, FASTING 84 MG/DL (60-100); POTASSIUM SERUM 4.4 MMOL/L (3.5-5.1); SODIUM LEVEL 148 MMOL/L (136-145); TOTAL PROTEIN 7.3 G/DL (5.7-8.2)
[2024-04-22 17:59] LABS: BASO # 0.1 10^3/uL (0.0-0.2); BASO % 0.9 % (0.0-1.0); EOS # 0.1 10^3/uL (0.0-0.5); EOS % 1.4 % (0.0-3.0); HEMATOCRIT 43.9 % (42.0-52.0); HEMOGLOBIN 14.3 g/dl (13.5-17.5); LYMPH # 2.3 10^3/uL (1.5-5.0); LYMPH % 41.1 % (24.0-44.0); MEAN CORPUSCULAR HEMOGLOBIN 33.2 pg (27.0-33.0); MEAN CORPUSCULAR HGB CONC 32.6 g/dl (32.0-36.5); MEAN CORPUSCULAR VOLUME 101.9 fl (80.0-96.0); MONO # 0.7 10^3/uL (0.0-0.8); MONO % 11.9 % (2.0-8.0); NEUTROPHILS # 2.5 10^3/uL (1.5-8.5); NEUTROPHILS % 44.2 % (36.0-66.0); PLATELET COUNT, AUTOMATED 177 10^3/uL (150-450); RED BLOOD COUNT 4.31 10^6/uL (4.30-6.10); WHITE BLOOD COUNT 5.6 10^3/uL (4.0-10.0)
[2024-04-26 08:57] LABS: PHENOBARBITAL (PRIMIDONE) < 5.0 mg/L (15.0-40.0); PRIMIDONE, SERUM 3.3 mg/L (5.0-12.0)
== END ==
LOC: M PLALAB 14:39
PROVIDERS: ATTEND Psychiatry & Neurology Neurology
DX: R56.9 Unspecified convulsions (principal)

== ENCOUNTER → 2024-04-22 | Outpatient (CLI) | payer MEDICARE, MEDICAID ==
[2024-04-22 17:50] LABS: HEMATOCRIT 44.4 % (42.0-52.0)
[2024-04-22 17:51] LABS: ALKALINE PHOSPHATASE 66 U/L (40-129); ALT/SGPT 26 U/L (7.0-40); AST/SGOT 23 U/L (<34); BILIRUBIN,TOTAL 0.3 MG/DL (0.3-1.2); BLOOD UREA NITROGEN 31 MG/DL (9-23); CALCIUM LEVEL 9.7 MG/DL (8.5-10.1); CARBON DIOXIDE LEVEL 31 MMOL/L (20-31); CHLORIDE LEVEL 110 MMOL/L (98-107); CREATININE FOR GFR 0.73 MG/DL (0.70-1.30); GLOMERULAR FILTRATION RATE > 60.0 (>56); GLUCOSE, FASTING 83 MG/DL (60-100); POTASSIUM SERUM 4.3 MMOL/L (3.5-5.1); SODIUM LEVEL 149 MMOL/L (136-145); TOTAL PROTEIN 7.3 G/DL (5.7-8.2)
[2024-04-22 17:59] LABS: BASO # 0.1 10^3/uL (0.0-0.2); BASO % 0.9 % (0.0-1.0); EOS # 0.1 10^3/uL (0.0-0.5); EOS % 1.6 % (0.0-3.0); HEMATOCRIT 43.8 % (42.0-52.0); HEMOGLOBIN 14.2 g/dl (13.5-17.5); LYMPH # 2.4 10^3/uL (1.5-5.0); LYMPH % 42.2 % (24.0-44.0); MEAN CORPUSCULAR HEMOGLOBIN 32.9 pg (27.0-33.0); MEAN CORPUSCULAR HGB CONC 32.4 g/dl (32.0-36.5); MEAN CORPUSCULAR VOLUME 101.4 fl (80.0-96.0); MONO # 0.6 10^3/uL (0.0-0.8); MONO % 11.3 % (2.0-8.0); NEUTROPHILS # 2.4 10^3/uL (1.5-8.5); NEUTROPHILS % 43.6 % (36.0-66.0); PLATELET COUNT, AUTOMATED 181 10^3/uL (150-450); RED BLOOD COUNT 4.32 10^6/uL (4.30-6.10); WHITE BLOOD COUNT 5.6 10^3/uL (4.0-10.0)
[2024-04-22 18:02] LABS: THYROID STIMULATING HORMONE 1.771 uIU/ML (0.55-4.78); TOTAL 25(OH) VITAMIN D 53.7 NG/ML (20.0-100.0)
[2024-04-22 18:03] LABS: FREE T4 1.01 NG/DL (0.89-1.76); VITAMIN B12 LEVEL 1184 PG/ML (211-911)
[2024-04-23 17:22] LABS: PTH INTACT 34.8 PG/ML (18.5-88.0)
== END ==
LOC: M PLALAB 14:36
PROVIDERS: ATTEND Family Medicine
DX: G40.909 Epilepsy, unspecified, not intractable, without status epilepticus (principal); E87.0 Hyperosmolality and hypernatremia; E55.9 Vitamin D deficiency, unspecified; E03.9 Hypothyroidism, unspecified; E53.8 Deficiency of other specified B group vitamins; D50.9 Iron deficiency anemia, unspecified

== ENCOUNTER → 2024-05-09 | Outpatient (CLI) | payer MEDICARE, MEDICAID | LOC: M WUC 11:23 | PROVIDERS: ATTEND Student in an Organized Health Care Education/Training Program | DX: M25.571 Pain in right ankle and joints of right foot (principal); M19.071 Primary osteoarthritis, right ankle and foot ==

== ENCOUNTER 2024-06-05 09:20 | Emergency (ER) | payer MEDICARE, MEDICAID ==
[2024-06-05 11:27] VITALS: BP 115/61; TEMP 97; O2SAT 100
== END 2024-06-05 11:28 | disposition home or self-care (01) ==
LOC: M ED 09:20 → EDBD 09:20 → M ED 11:28
DX: S00.03XA Contusion of scalp, initial encounter (principal); Y92.9 Unspecified place or not applicable; Y93.9 Activity, unspecified; Y99.9 Unspecified external cause status; W01.198A Fall on same level from slipping, tripping and stumbling with subsequent striking against other object, initial encounter; Z79.1 Long term (current) use of non-steroidal anti-inflammatories (NSAID); Z79.899 Other long term (current) drug therapy

== ENCOUNTER → 2024-08-02 | Outpatient (CLI) | payer MEDICARE, MEDICAID ==
[~2024-08-02] MED LIST changes: -AMIT24CA7 PO; +LUBI24CA32 PO
[2024-08-02 12:49] LABS: BASO % 0.7 % (0.0-1.0); EOS # 0.1 10^3/uL (0.0-0.5); EOS % 1.6 % (0.0-3.0); HEMOGLOBIN 14.4 g/dl (13.5-17.5); LYMPH # 2.8 10^3/uL (1.5-5.0); LYMPH % 48.9 % (24.0-44.0); MEAN CORPUSCULAR HEMOGLOBIN 33.3 pg (27.0-33.0); MEAN CORPUSCULAR HGB CONC 32.7 g/dl (32.0-36.5); MEAN CORPUSCULAR VOLUME 101.6 fl (80.0-96.0); MONO # 0.7 10^3/uL (0.0-0.8); MONO % 11.7 % (2.0-8.0); NEUTROPHILS # 2.1 10^3/uL (1.5-8.5); NEUTROPHILS % 36.8 % (36.0-66.0); PLATELET COUNT, AUTOMATED 193 10^3/uL (150-450); RED BLOOD COUNT 4.33 10^6/uL (4.30-6.10); WHITE BLOOD COUNT 5.7 10^3/uL (4.0-10.0)
[2024-08-02 12:52] LABS: ALBUMIN 3.2 G/DL (3.2-5.2); ALKALINE PHOSPHATASE 67 U/L (40-129); ALT/SGPT 23 U/L (7.0-40); AST/SGOT 27 U/L (<34); BILIRUBIN,TOTAL 0.3 MG/DL (0.3-1.2); BLOOD UREA NITROGEN 22 MG/DL (9-23); CARBON DIOXIDE LEVEL 33 MMOL/L (20-31); CHLORIDE LEVEL 108 MMOL/L (98-107); CREATININE FOR GFR 0.75 MG/DL (0.70-1.30); FREE T4 0.95 NG/DL (0.89-1.76); GLOMERULAR FILTRATION RATE > 60.0 (>56); GLUCOSE, FASTING 75 MG/DL (60-100); POTASSIUM SERUM 4.7 MMOL/L (3.5-5.1); PTH INTACT 39.6 PG/ML (18.5-88.0); SODIUM LEVEL 148 MMOL/L (136-145); TOTAL PROTEIN 6.7 G/DL (5.7-8.2)
[2024-08-02 12:53] LABS: FERRITIN 29.5 NG/ML (10.5-307.3); THYROID STIMULATING HORMONE 2.275 uIU/ML (0.55-4.78)
== END ==
LOC: M WUC 09:35
PROVIDERS: ATTEND Family Medicine
DX: G40.909 Epilepsy, unspecified, not intractable, without status epilepticus (principal); E55.9 Vitamin D deficiency, unspecified; E03.9 Hypothyroidism, unspecified; E87.0 Hyperosmolality and hypernatremia; D50.9 Iron deficiency anemia, unspecified

== ENCOUNTER → 2024-08-31 | Outpatient (CLI) | payer MEDICARE, MEDICAID ==
[2024-08-31 12:45] LABS: BASO % 0.6 % (0.0-1.0); EOS # 0.1 10^3/uL (0.0-0.5); EOS % 1.6 % (0.0-3.0); HEMATOCRIT 44.8 % (42.0-52.0); HEMOGLOBIN 14.7 g/dl (13.5-17.5); LYMPH # 2.3 10^3/uL (1.5-5.0); MEAN CORPUSCULAR HGB CONC 32.8 g/dl (32.0-36.5); MEAN CORPUSCULAR VOLUME 100.4 fl (80.0-96.0); MONO # 0.6 10^3/uL (0.0-0.8); MONO % 11.3 % (2.0-8.0); NEUTROPHILS # 2.1 10^3/uL (1.5-8.5); NEUTROPHILS % 41.1 % (36.0-66.0); PLATELET COUNT, AUTOMATED 118 10^3/uL (150-450); RED BLOOD COUNT 4.46 10^6/uL (4.30-6.10); WHITE BLOOD COUNT 5.1 10^3/uL (4.0-10.0)
[2024-08-31 12:51] LABS: VALPROIC ACID (DEPAKOTE) 70.3 UG/ML (50.0-100.0)
[2024-08-31 12:52] LABS: ALBUMIN 3.1 G/DL (3.2-5.2); ALKALINE PHOSPHATASE 64 U/L (40-129); ALT/SGPT 16 U/L (7.0-40); AST/SGOT 20 U/L (<34); BILIRUBIN,TOTAL 0.3 MG/DL (0.3-1.2); BLOOD UREA NITROGEN 22 MG/DL (9-23); CALCIUM LEVEL 9.5 MG/DL (8.5-10.1); CARBON DIOXIDE LEVEL 30 MMOL/L (20-31); CHLORIDE LEVEL 111 MMOL/L (98-107); CREATININE FOR GFR 0.76 MG/DL (0.70-1.30); GLOMERULAR FILTRATION RATE > 90.0 (>56); GLUCOSE, FASTING 63 MG/DL (60-100); POTASSIUM SERUM 4.6 MMOL/L (3.5-5.1); SODIUM LEVEL 150 MMOL/L (136-145)
[2024-08-31 12:54] LABS: FERRITIN 41.8 NG/ML (10.5-307.3)
[2024-09-01 22:33] LABS: PROTEIN, TOTAL SO 6.9 g/dL (6.1-8.1)
[2024-09-02 03:13] LABS: TISSUE TRANSGLUTAMINASE IgA < 1.0 U/mL (<15.0)
== END ==
LOC: M WUC 09:41
PROVIDERS: ATTEND Family Medicine
DX: G40.909 Epilepsy, unspecified, not intractable, without status epilepticus (principal); E87.0 Hyperosmolality and hypernatremia; D50.9 Iron deficiency anemia, unspecified; R97.0 Elevated carcinoembryonic antigen [CEA]

== ENCOUNTER → 2024-12-30 | Outpatient (CLI) | payer MEDICARE, MEDICAID ==
[~2024-12-30] MED LIST changes: +LEVO25TA5 PO; -PRAV20TA2 PO; +PRAV20TA78 PO; -VITA500T17 PO; +VITA500T8 PO
[2024-12-30 14:51] LABS: PSA SCREENING 4.31 NG/ML (< 4.00)
[2024-12-30 14:52] LABS: CHOLESTEROL LEVEL 166.0 MG/DL (<200); CHOLESTEROL RISK RATIO 3.21 (<5); LDL CHOLESTEROL 95.7 MG/DL (<100); NON-HDL-C 114.3 MG/DL; TRIGLYCERIDES LEVEL 93.0 MG/DL (<150)
[2024-12-30 14:55] LABS: VITAMIN B12 LEVEL 1463.0 PG/ML (211-911)
== END ==
LOC: M PLALAB 11:59
PROVIDERS: ATTEND Nurse Practitioner Family
DX: E78.2 Mixed hyperlipidemia (principal); E53.8 Deficiency of other specified B group vitamins; Z12.5 Encounter for screening for malignant neoplasm of prostate
CPT/HCPCS: 36415; 80061; 82607; G0103

== ENCOUNTER → 2024-12-30 | Outpatient (CLI) | payer MEDICARE, MEDICAID ==
[2024-12-30 15:41] LABS: VALPROIC ACID (DEPAKOTE) 73.2 UG/ML (50.0-100.0)
[2024-12-30 15:42] LABS: ALT/SGPT 30 U/L (7.0-40); AST/SGOT 32 U/L (<34); CALCIUM LEVEL 9.8 MG/DL (8.3-10.6); CARBON DIOXIDE LEVEL 31 MMOL/L (20-31); CHLORIDE LEVEL 111 MMOL/L (98-107); CREATININE FOR GFR 0.71 MG/DL (0.70-1.30); GLOMERULAR FILTRATION RATE > 90.0 (>49); POTASSIUM SERUM 4.7 MMOL/L (3.5-5.1); SODIUM LEVEL 154 MMOL/L (136-145)
[2024-12-30 15:43] LABS: PTH INTACT 37.5 PG/ML (18.5-88.0)
[2024-12-30 15:46] LABS: FREE T4 0.97 NG/DL (0.89-1.76)
[2024-12-30 15:47] LABS: TOTAL 25(OH) VITAMIN D 59.8 NG/ML (20.0-100.0)
[2025-01-01 00:08] LABS: PROTEIN, TOTAL SO 7.5 g/dL (6.1-8.1)
== END ==
LOC: M PLALAB 11:56
PROVIDERS: ATTEND Family Medicine
DX: E87.0 Hyperosmolality and hypernatremia (principal); G40.909 Epilepsy, unspecified, not intractable, without status epilepticus; E03.9 Hypothyroidism, unspecified; D50.9 Iron deficiency anemia, unspecified; E55.9 Vitamin D deficiency, unspecified; R97.0 Elevated carcinoembryonic antigen [CEA]

== ENCOUNTER → 2025-01-02 | Outpatient (REF) | payer MEDICARE, MEDICAID ==
[2025-01-02 18:37] LABS: BASO # 0.1 10^3/uL (0.0-0.2); BASO % 0.8 % (0.0-1.0); EOS # 0.1 10^3/uL (0.0-0.5); EOS % 1.3 % (0.0-3.0); LYMPH # 2.3 10^3/uL (1.5-5.0); LYMPH % 37.9 % (24.0-44.0); MONO # 0.6 10^3/uL (0.0-0.8); MONO % 9.4 % (2.0-8.0); NEUTROPHILS # 3.1 10^3/uL (1.5-8.5); NEUTROPHILS % 50.1 % (36.0-66.0); PLATELET COUNT, AUTOMATED 202 10^3/uL (150-450)
== END ==
LOC: M LABWUC 17:47
PROVIDERS: ATTEND Family Medicine
DX: G40.909 Epilepsy, unspecified, not intractable, without status epilepticus (principal); E87.0 Hyperosmolality and hypernatremia; E03.9 Hypothyroidism, unspecified

== ENCOUNTER 2025-01-13 13:29 | Outpatient (CLI) | payer MEDICARE, MEDICAID ==
[~2025-01-13] VITALS: Ht 162.6 cm; Wt 48.1 kg
[2025-01-13] MEDS ORDERED: ZOLEDRONIC ACID 5 MG in IV 1 EA IV ONE (14:00)
== END 2025-01-13 14:35 | disposition home or self-care (01) ==
LOC: M INFU 13:29
PROVIDERS: ATTEND Family Medicine
DX: M81.0 Age-related osteoporosis without current pathological fracture (principal)